=== PATIENT | female | born 1940 | race Caucasian/White ===

== ENCOUNTER 2019-04-22 13:45 | Outpatient (RCR) | payer MEDICARE, OTHER, SELFPAY | END 2019-05-18 00:01 | LOC: MPT 13:45 | DX: Z47.1 Aftercare following joint replacement surgery (principal); Z96.651 Presence of right artificial knee joint | CPT/HCPCS: 97110 ×4; 97116; 97140 ×4; 97161; G0283 ×2 ==

== ENCOUNTER → 2021-03-28 09:56 | Outpatient (BNVA) | payer MEDICARE, OTHER, SELFPAY | PROVIDERS: Visit Provider Surgery | DX: Z20.822 Contact with and (suspected) exposure to COVID-19 (principal); K64.9 Unspecified hemorrhoids | CPT/HCPCS: 87635 ==

== ENCOUNTER 2021-04-02 05:45 | Day surgery (SDC) | payer MEDICARE, OTHER, SELFPAY ==
[2021-03-30 16:48] VITALS: BMI 30.4
[2021-04-02] VITALS (9 sets, daily range): BP systolic 105–220; BP diastolic 60–92; PULSE 64–88; RESP 10–20; TEMP 36.2–36.4; O2SAT 92–98
[2021-04-02 06:25] LABS: Glucose Point of Care 130 mg/dL (70-110)
[2021-04-02] MEDS: sodium chloride 0.9% 1,000 ML 30 ML IV (06:25)
[2021-04-02] MEDS: acetaminophen 1,000 MG/100 ML PIGGYBACK 400 MG IV (06:26)
--- NOTE | 2021-04-02 06:52 | ANES.PREANE2 ---
Pre-Anesthetic Assessment Pre-Anesthetic Assessment: Height/Weight: Height 1.68 m Weight 85.729 kg Temp Pulse Resp BP Pulse Ox 97.1 F L 88 20 H 220/92 98 04/02/21 06:38 04/02/21 06:38 04/02/21 06:38 04/02/21 06:38 04/02/21 06:38 Preop Diagnosis: Bleeding hemorrhoids Proposed Procedure: Operation Date: 04/02/21 07:00 Proposed Procedures p Exam Under Anesthesia 83266 45895 K64.9(Not Applicable) - Iban Eduardo MD s Poss Hemorroidectomy(Not Applicable) - Iban Eduardo MD Was Beta Akilah taken within 24 hours: N/A Was Clonidine taken within 24 hours: N/A Last intake: Intake Last Liquid Date 04/02/21 Last Liquid Time 18:00 Last Solid Date 04/02/21 Last Solid Time 17:30 Social: Social History: No alcohol and No tobacco Exam: Pre-Anes Outpt Exam: alert, oriented x 3, clear to auscultation bilaterally and regular rate & rhythm Airway: Submandibular: WNL Cervical ROM: WNL MP: 2 Dentition: False CV/HEM: CV/HEM: HTN Metabolic: Metabolic: DM, Hyperlipidemia and Thyroid Anesthetic Plan: ASA status: 3 Anesthesia: General Risk of > 500 ml blood loss (7ml/kg in children): No Meds/Allergies Current Medications: Current Medications Generic Name Dose Route Start Last Admin Trade Name Freq PRN Reason Stop Dose Admin Sodium Chloride 1,000 mls @ 30 ml s/hr 04/02/21 06:00 04/02/21 06:25 Sodium Chloride 0.9% IV 04/03/21 05:59 30 mls/hr .Q24H JOSÉ MIGUEL Administration PFSH Anesthesia PFSH: Family History Mother Cancer Other Diabetes Social History Smoking and tobacco status: never smoked Alcohol intake: never History of recent travel: No Data Anesthesia Other Labs: Laboratory Results - last 48 hr 04/02/21 06:23 POC Glucose 130 H Cardiac Studies: No Data to Display
--- NOTE | 2021-04-02 06:58 | W.PM.OPSUD ---
Surgery/Procedure H&P Update DATE OF PROCEDURE: April 02, 2021 DATE H&P PERFORMED: 03/22/21 H&P UPDATE INFORMATION: I have reviewed H&P completed within last 30 days, I have examined patient prior to procedure and No changes to prior documentation PREOP DIAGNOSIS: Bleeding hemorrhoids PRIMARY INDICATION FOR PROCEDURE: The same PLANNED PROCEDURE: Operation Date: 04/02/21 07:00 Proposed Procedures p Exam Under Anesthesia 20561 [id number] K64.9(Not Applicable) - Iban Eduardo MD s Poss Hemorroidectomy(Not Applicable) - Iban Eduardo MD
[2021-04-02] MEDS: metroNIDAZOLE IV 500 MG/100 ML PREMIX 100 MG IV (07:00)
[2021-04-02] MEDS: ciprofloxacin 400 MG/200 ML PREMIX 200 MG IV (07:10)
[2021-04-02 07:16] LABS: Blood Urea Nitrogen 11 mg/dL (8-23); Calcium 8.8 mg/dL (8.5-10.5); Carbon Dioxide 28 mmol/L (22-29); Chloride 103 mmol/L (98-107); Glucose 146 mg/dL (65-115); Osmolality Calculated 292 mOsm/kg (285-295); Sodium 140 mmol/L (136-145)
--- NOTE | 2021-04-02 07:51 | PM.OP ---
Operative Report Date of procedure: April 02, 2021 Pre-op Diagnosis: Bleeding hemorrhoids Post-op Findings: Right lower lateral and left lateral internal hemorrhoids Procedure Done: 1-Examination under anesthesia 2-Hemorrhoidectomy Implants: Packing using Surgicel and Xeroform Specimens removed/disposition: Right lower lateral hemorrhoid Left lateral hemorrhoid Surgeon: Iban Eduardo Resolution Agent: general maintenance technician Amy LG Circulating nurse Temitope Anesthesia: General (molded goods inspector trimmer Aj) Estimated blood loss (mL): 5 Condition: stable Disposition: same day Procedure: Patient was identified in the holding area and was taken back to the operating room, which was first placed in supine position got intubated by anesthesia, prophylactic IV antibiotics were given per protocol,Time-out was done verifying the patient's name/date of /planned procedure and destination after the procedure, all were in agreement. Prep and drape was done thereafter under the usual sterile technique Exparel 10 mL each side , guided by the examining finger towards the ischial spine bilaterally, followed by that digital rectal examination showed no masses were appreciated or bleeding. Anoscope was then introduced I was able to identify the internal/external right lower lateral and a left lateral Hemorrhoids, I placed a wet 4 x 4 inside the anal canal to prevent stools from encroaching on the wound site, that was taken out at the end of the procedure. I did apply a hemostat at the origin of the hemorrhoidal tissue, onto the right lower lateral hemorrhoid,using harmonic scalpel device for dissection safeguarding the external anal sphincter after that I was able to deliver the specimens to the circulating nurse hemostasis was achieved , and running 2-0 chromic catgut suture was applied to approximate the edges of the hemorrhoidectomy sites, that was done after thorough irrigation of the wound with warm normal saline . The same technique was done using the harmonic scalpel and excision of the left lateral hemorrhoid was achieved. Followed by 2-0 chromic catgut to approximate the edges. Specimens were then passed to the circulating nurse. At that point after removal of the 4 x 4'sx1. lidocaine 2% jelly at the site of the wound and a piece of Surgicel both were rolled up as a Cigar like and and 2-0 silk stitch was applied at the end that faces the exit of the anus as it will be easier to pull out later on, followed by 4 x 4 application and ABD .,a surgical pants was then placed to hold the dressing in place. Count was completed at the end of the procedure, patient was then extubated and was taken to the recovery room in stable condition I was present for the whole entire procedure
--- NOTE | 2021-04-02 08:10 | P.PCN_ITS ---
PACU note PACU note: VSS, Good respiratory effort, report to DORMITORY SUPERVISOR Post-Anesthesia Exam: awake
--- NOTE | 2021-04-02 08:10 | PM.PACU ---
PACU note PACU note: VSS, Good respiratory effort, report to HVAC MAINTENANCE TECHNICIAN Post-Anesthesia Exam: awake
--- NOTE | 2021-04-02 09:42 | PC.NURSE ---
blood pressures have been taken manually in post op care.
--- NOTE | 2021-04-02 17:02 | ANE.PACU2 ---
Inpatient post-anesthesia follow up: Airway intact: Yes Vital signs: Temperature 97.6 F Pulse Rate 64 Respiratory Rate 18 Blood Pressure 120/60 Pulse Oximetry 93 Oxygen Delivery Me thod Room Air Oxygen Flow Rate 2 Fraction of Inspir ed Oxygen Hydration adequate: Yes Nausea and vomiting: No Pain level: 2 Mental status: Baseline
== END 2021-04-02 09:59 | disposition home or self-care (01) ==
PROVIDERS: Anesthesiology; Visit Provider Surgery
PROC: (CPT 46260; principal; 2021-04-02 07:00)
PROC: (CPT 46260; 2021-04-02 07:00)
DX: K64.8 Other hemorrhoids (principal); E11.9 Type 2 diabetes mellitus without complications; E78.5 Hyperlipidemia, unspecified; I10 Essential (primary) hypertension; Z79.4 Long term (current) use of insulin
CPT/HCPCS: 46260; 36415; 36416; 80048; 82962; 88304; 96365; C9290; J0330; J0744; J1100; J2405; J2704; J3010; J3490; J7030; S0030

== ENCOUNTER → 2022-03-13 12:55 | Outpatient (BNVA) | payer MEDICARE, OTHER, SELFPAY | PROVIDERS: Visit Provider Anesthesiology Pain Medicine | DX: M47.816 Spondylosis without myelopathy or radiculopathy, lumbar region (principal); M51.16 Intervertebral disc disorders with radiculopathy, lumbar region; M79.604 Pain in right leg | CPT/HCPCS: 99204 ==

== ENCOUNTER → 2022-04-16 12:13 | Outpatient (BNVA) | payer MEDICARE, OTHER, SELFPAY | PROVIDERS: Visit Provider Anesthesiology Pain Medicine | DX: M54.16 Radiculopathy, lumbar region (principal); E11.9 Type 2 diabetes mellitus without complications; Z79.84 Long term (current) use of oral hypoglycemic drugs | CPT/HCPCS: 36416; 64483; 64484; 82962; J1100; J3490 ==

== ENCOUNTER → 2022-05-01 09:46 | Outpatient (BNVA) | payer MEDICARE, OTHER, SELFPAY | PROVIDERS: Visit Provider Anesthesiology Pain Medicine | DX: M47.816 Spondylosis without myelopathy or radiculopathy, lumbar region (principal); M51.16 Intervertebral disc disorders with radiculopathy, lumbar region; M79.604 Pain in right leg | CPT/HCPCS: 99213 ==

== ENCOUNTER 2022-08-30 12:23 | Outpatient (CLI) | payer MEDICARE, OTHER, SELFPAY ==
--- NOTE | 2022-08-30 | MR_ITS ---
MRI BRAIN WITH AND WITHOUT CONTRAST HISTORY: MEMORY LOSS COMPARISON: None available. Results called to Rachelle at Dr. Davis office 08/30/22 @ 150 MRI BRAIN WITH AND WITHOUT CONTRAST HISTORY: MEMORY LOSS COMPARISON: None available. TECHNIQUE: Multiplanar imaging performed through the brain with MultiHance 16 ml's IV. Very tiny acute diffusion-weighted abnormalities along the LEFT watershed distribution. There are very tiny infarcts noted along the anterior and middle cerebral artery distributions. There is no mass effect. No hemorrhage. Otherwise there is severe bilateral small vessel ischemic disease. Confluent and patchy white matter signal changes. There are numerous bilateral small lacunar infarcts in the periventricular and centrum semiovale ovale distribution. Small lacunar infarcts in the RIGHT thalamus. Ventricles and extra-axial spaces are prominent on the basis of atrophy. Clivus and pituitary gland are normal. Mild cerebellar atrophy. Additional bilateral ischemic changes in the aaron. Postcontrast images are negative for masses or vascular malformations. Dural venous sinuses are normal. Paranasal sinuses: Well aerated with no significant disease. Mastoid air cells: Normal. Calvarium and scalp: Normal. IMPRESSION: 1. Several tiny acute lacunar infarcts along the watershed distribution (LEFT MADISON and MCA distributions). No hemorrhage. 2. 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 3. Additional bilateral small vessel ischemic disease in the aaron. 4. Moderate atrophy. Notified Ruddy Davis MD at 08/30/2022 2:21 PM. [facility]
[2022-08-30] MEDS: gadobenate dimeglumine 20 mL vial IV (13:59)
== END 2022-08-30 12:24 | disposition home or self-care (01) ==
LOC: RAD 12:29
PROVIDERS: PCP Family Medicine; Visit Provider Family Medicine
DX: R41.3 Other amnesia (principal); I63.81 Other cerebral infarction due to occlusion or stenosis of small artery; R90.82 White matter disease, unspecified
CPT/HCPCS: 70553; A9577

== ENCOUNTER 2022-09-19 09:11 | Outpatient (CLI) | payer MEDICARE, OTHER, SELFPAY ==
--- NOTE | 2022-09-19 09:22 | USCV_ITS ---
Elvi Marquez Age: 82 Gender: F : 1940 Exam Date: 09/19/2022 10:08 Ordering Phys: Ruddy Davis MD Technologist: Toney Anand Exam Location: [facility] [place] Indication: cerebral infarction BP: 130 / 92 HR: 66 Rhythm: Sinus Technical Quality: Adequate MEASUREMENTS (Male / Female) Normal Values 2D ECHO LVOT Diameter 2.0 cm LV Ejection Fraction MOD 2C 59.0 % LV Ejection Fraction 2C AL 61.2 % LA Diameter 3.4 cm LA Width 3.3 cm LA Height 4.6 cm RA Width 3.0 cm RA Height 4.9 cm Aorta at Sinotubular Diameter 2.1 cm IVC Diameter 1.7 cm M-MODE Aortic Annulus Diameter 2.6 cm LA Ao Ratio MM 1.3 MV E Point Septal Separation 0.6 cm DOPPLER AV Peak Velocity 150.3 cm/s LVOT Peak Velocity 95.0 cm/s AV Area Cont Eq vti 2.1 cm squared AV Area Cont Eq pk 2.0 cm squared MV Peak Velocity 163.0 cm/s MV Area PHT 2.6 cm squared Mitral E to A Ratio 0.7 MV E' Velocity 51.5 cm/s Mitral E to MV E' Ratio 16.8 Mitral E to LV E' Lateral Ratio 17.4 Mitral E to LV E' Septal Ratio 16.3 TR Peak Velocity 382.8 cm/s TR Peak Gradient 58.6 mmHg TR Mean Velocity 273.8 cm/s TR Mean Gradient 33.2 mmHg TR Velocity Time Integral 104.0 cm Right Atrial Pressure 3.0 mmHg Pulmonary Artery Systolic Pressu 61.6 mmHg PV Peak Velocity 88.0 cm/s RV Acceleration Time 0.1 s RV Ejection Time 0.3 s RV AcT/ET 0.4 FINDINGS Left Ventricle Left ventricle is normal in size. LV systolic function is normal with EF 55 to 60%. No regional wall motion abnormalities are seen. Grade 1 diastolic dysfunction. Right Ventricle Normal in size and function Right Atrium Normal in size Left Atrium Normal in size Mitral Valve Moderate mitral annular calcification is seen. Trace mitral regurgitation. Aortic Valve Structurally normal aortic valve. No significant stenosis or regurgitation. Tricuspid Valve Mild tricuspid regurgitation. Pulmonic Valve Not well-visualized. Trace pulmonic regurgitation. Pericardium Normal Aorta Normal in size IVC Appears to be normal CONCLUSIONS LV systolic function is normal with EF 55 to 60% Grade 1 diastolic dysfunction Trace mitral regurgitation Mild tricuspid regurgitation Trace pulmonic regurgitation No comparison studies are available Javier Thomson MD (Electronically Signed) Final Date: 03 Oct 2022 14:01 S
--- NOTE | 2022-09-19 09:22 | USCV_ITS ---
Elvi Marquez Age: 82 Gender: F : 1940 Exam Date: 09/19/2022 09:39 Ordering Phys: Ruddy Davis MD Technologist: Toney Anand [place] [facility] [place]: small infarcts Risk Factors: Previous Vascular Surgery: Right Brachial BP: / Left Brachial BP: / Right Left Velocity (cm/s) Spectral Plaque Velocity (cm/s) Spectral Plaque Syst/Diast Broadening Syst/Diast Broadening 63.00/ 4.40 Prox CCA 78.60 / 7.90 55.90/ 8.50 Mid CCA 66.40 / 9.80 45.20/ 7.90 Distal CCA 77.70 / 14.30 67.50/ 13.70 Prox ICA 60.30 / 10.60 81.20/ 16.20 Mid ICA 64.10 / 9.00 54.70/ 12.90 Distal ICA 47.50 / 12.10 104.20 ECA 85.20 1.45 ICA/CCA 0.97 Antegrade Vertebral Antegrade 51.30/ 7.90 cm/s 59.60/ 11.30 cm/s Tri Subclavian Tri 62.00 86.00 CONCLUSIONS Right ICA stenosis <50%. Moderate atheromatous plaque right carotid bulb/ICA. Left ICA stenosis <50%. Moderate atheromatous plaque left carotid bulb/ICA. Normal antegrade Doppler flow noted in the right vertebral artery. Normal antegrade Doppler flow noted in the left vertebral artery. Rodrigo Dao MD (Electronically Signed) Final Date: 19 Sep 2022 16:40 S
== END 2022-09-19 09:12 | disposition home or self-care (01) ==
LOC: RAD 09:16
PROVIDERS: PCP Family Medicine; Visit Provider Family Medicine
DX: I63.81 Other cerebral infarction due to occlusion or stenosis of small artery (principal)
CPT/HCPCS: 93306; 93880

== ENCOUNTER → 2022-09-24 13:22 | Outpatient (BNVA) | payer MEDICARE, OTHER, SELFPAY | PROVIDERS: PCP Family Medicine; Referring Provider Family Medicine; Visit Provider Specialist | DX: G30.9 Alzheimer's disease, unspecified (principal); F02.80 Dementia in other diseases classified elsewhere, unspecified severity, without behavioral disturbance, psychotic disturbance, mood disturbance, and anxiety; F01.50 Vascular dementia, unspecified severity, without behavioral disturbance, psychotic disturbance, mood disturbance, and anxiety | CPT/HCPCS: 36415; 82607; 82746; 83921; 85651; 86038; 86140; 99205 ==

== ENCOUNTER → 2022-09-30 10:10 | Outpatient (BNVA) | payer MEDICARE, OTHER, SELFPAY | PROVIDERS: PCP Family Medicine; Visit Provider Specialist | DX: R56.9 Unspecified convulsions (principal); G30.9 Alzheimer's disease, unspecified; F02.80 Dementia in other diseases classified elsewhere, unspecified severity, without behavioral disturbance, psychotic disturbance, mood disturbance, and anxiety | CPT/HCPCS: 95812; 95816 ==

== ENCOUNTER → 2022-11-15 09:59 | Outpatient (BNVA) | payer MEDICARE, OTHER, SELFPAY | PROVIDERS: PCP Family Medicine; Visit Provider Internal Medicine | DX: E11.65 Type 2 diabetes mellitus with hyperglycemia; E03.9 Hypothyroidism, unspecified; Z79.890 Hormone replacement therapy; Z79.4 Long term (current) use of insulin | CPT/HCPCS: 36415; 80053; 80061; 83036; 84439; 84443; 99204 ==

== ENCOUNTER → 2022-11-26 09:46 | Outpatient (BNVA) | payer MEDICARE, OTHER, SELFPAY | PROVIDERS: PCP Family Medicine; Visit Provider Specialist | DX: G30.9 Alzheimer's disease, unspecified (principal); F02.80 Dementia in other diseases classified elsewhere, unspecified severity, without behavioral disturbance, psychotic disturbance, mood disturbance, and anxiety; F01.50 Vascular dementia, unspecified severity, without behavioral disturbance, psychotic disturbance, mood disturbance, and anxiety | CPT/HCPCS: 99213 ==

== ENCOUNTER → 2023-01-01 09:38 | Outpatient (BNVA) | payer MEDICARE, OTHER, SELFPAY | PROVIDERS: PCP Family Medicine; Visit Provider Specialist | DX: G30.9 Alzheimer's disease, unspecified; F02.80 Dementia in other diseases classified elsewhere, unspecified severity, without behavioral disturbance, psychotic disturbance, mood disturbance, and anxiety; R56.9 Unspecified convulsions | CPT/HCPCS: 99214 ==

== ENCOUNTER → 2023-02-20 12:50 | Outpatient (BNVA) | payer MEDICARE, OTHER, SELFPAY | PROVIDERS: PCP Family Medicine; Visit Provider Internal Medicine | DX: E11.9 Type 2 diabetes mellitus without complications (principal); Z79.899 Other long term (current) drug therapy; E03.9 Hypothyroidism, unspecified; Z79.890 Hormone replacement therapy; Z79.4 Long term (current) use of insulin; Z79.84 Long term (current) use of oral hypoglycemic drugs | CPT/HCPCS: 36415; 80053; 80061; 82044; 83036; 84439; 84443; 99214 ==

== ENCOUNTER → 2023-06-24 08:33 | Outpatient (BNVA) | payer MEDICARE, OTHER, SELFPAY | PROVIDERS: PCP Family Medicine; Visit Provider Internal Medicine | DX: E03.9 Hypothyroidism, unspecified; E11.65 Type 2 diabetes mellitus with hyperglycemia; Z79.4 Long term (current) use of insulin; Z79.890 Hormone replacement therapy; Z79.84 Long term (current) use of oral hypoglycemic drugs | CPT/HCPCS: 99214 ==

== ENCOUNTER → 2023-06-25 13:44 | Outpatient (BNVA) | payer MEDICARE, OTHER, SELFPAY | PROVIDERS: PCP Family Medicine; Visit Provider Specialist | DX: R29.90 Unspecified symptoms and signs involving the nervous system (principal); G30.9 Alzheimer's disease, unspecified; F02.80 Dementia in other diseases classified elsewhere, unspecified severity, without behavioral disturbance, psychotic disturbance, mood disturbance, and anxiety; F01.50 Vascular dementia, unspecified severity, without behavioral disturbance, psychotic disturbance, mood disturbance, and anxiety; F32.A Depression, unspecified | CPT/HCPCS: 99214 ==

== ENCOUNTER → 2023-09-24 10:40 | Outpatient (BNVA) | payer MEDICARE, OTHER, SELFPAY | PROVIDERS: PCP Family Medicine; Visit Provider Internal Medicine | DX: E11.9 Type 2 diabetes mellitus without complications (principal); E03.9 Hypothyroidism, unspecified; Z79.4 Long term (current) use of insulin; Z79.890 Hormone replacement therapy | CPT/HCPCS: 36415; 80053; 80061; 82044; 83036; 84439; 84443; 99214 ==

== ENCOUNTER → 2024-04-08 11:34 | Outpatient (BNVA) | payer MEDICARE, OTHER, SELFPAY | PROVIDERS: PCP Nurse Practitioner; Visit Provider Nurse Practitioner | DX: E11.9 Type 2 diabetes mellitus without complications (principal); E03.9 Hypothyroidism, unspecified | CPT/HCPCS: 80053; 80061; 82043; 83036; 84439; 84443 ==

== ENCOUNTER → 2024-04-13 09:45 | Outpatient (BNVA) | payer MEDICARE, OTHER, SELFPAY | PROVIDERS: PCP Nurse Practitioner; Visit Provider Internal Medicine | DX: E11.9 Type 2 diabetes mellitus without complications (principal); E03.9 Hypothyroidism, unspecified; E78.2 Mixed hyperlipidemia; Z79.4 Long term (current) use of insulin; Z79.890 Hormone replacement therapy | CPT/HCPCS: 99214 ==

== ENCOUNTER → 2024-06-18 14:19 | Outpatient (BNVA) | payer MEDICARE, OTHER, SELFPAY | PROVIDERS: PCP Nurse Practitioner; Visit Provider Nurse Practitioner | DX: R05.9 Cough, unspecified (principal) | CPT/HCPCS: 87400; 87426 ==

== ENCOUNTER → 2024-07-14 09:41 | Outpatient (BNVA) | payer MEDICARE, OTHER, SELFPAY | PROVIDERS: PCP Nurse Practitioner; Visit Provider Internal Medicine | DX: E11.9 Type 2 diabetes mellitus without complications (principal); E03.9 Hypothyroidism, unspecified; E78.2 Mixed hyperlipidemia | CPT/HCPCS: 36415; 80053; 80061; 82044; 83036; 84439; 84443; 99214 ==

== ENCOUNTER → 2024-07-15 10:53 | Outpatient (BNVA) | payer MEDICARE, OTHER, SELFPAY | PROVIDERS: PCP Nurse Practitioner; Visit Provider Specialist | DX: R41.3 Other amnesia (principal); I63.511 Cerebral infarction due to unspecified occlusion or stenosis of right middle cerebral artery; F01.C3 Vascular dementia, severe, with mood disturbance; G30.9 Alzheimer's disease, unspecified; F02.80 Dementia in other diseases classified elsewhere, unspecified severity, without behavioral disturbance, psychotic disturbance, mood disturbance, and anxiety; R29.90 Unspecified symptoms and signs involving the nervous system; F32.89 Other specified depressive episodes | CPT/HCPCS: 99214 ==

== ENCOUNTER → 2024-10-13 10:36 | Outpatient (BNVA) | payer MEDICARE, OTHER, SELFPAY | PROVIDERS: PCP Nurse Practitioner; Visit Provider Internal Medicine | DX: E11.9 Type 2 diabetes mellitus without complications (principal); E78.2 Mixed hyperlipidemia; E03.9 Hypothyroidism, unspecified | CPT/HCPCS: 36415; 80053; 80061; 82044; 83036; 84439; 84443; 99214 ==

== ENCOUNTER → 2025-01-12 09:35 | Outpatient (BNVA) | payer MEDICARE, OTHER, SELFPAY | PROVIDERS: PCP Nurse Practitioner; Visit Provider Internal Medicine | DX: E11.9 Type 2 diabetes mellitus without complications (principal); E03.9 Hypothyroidism, unspecified; E78.2 Mixed hyperlipidemia | CPT/HCPCS: 36415; 80053; 80061; 82044; 83036; 84439; 84443; 99214 ==

== ENCOUNTER 2025-01-14 20:58 | Inpatient (IN) | payer MEDICARE, OTHER, SELFPAY ==
[2025-01-14 21:09] VITALS: BP 205/80; PULSE 58; RESP 18; TEMP 36.7; O2SAT 92; BMI 27.7
--- NOTE | 2025-01-14 21:16 | XRR_ITS ---
PROCEDURE INFORMATION: Exam: XR Right Hip Exam date and time: 01/14/2025 9:18 PM Age: 84 years old Clinical indication: Injury or trauma; Blunt trauma (contusions or hematomas); Right; EMS arrival for fall from standing. C/O RT hip pain. Shortening and external rotation of rle. TECHNIQUE: Imaging protocol: Radiologic exam of the right hip. Views: 1 view hip with pelvis when performed. COMPARISON: No relevant prior studies available. FINDINGS: Bones/joints: Degenerative changes of the hip. Intratrochanteric fracture with minimal distraction and apex lateral angulation. Atheromatous vascular calcifications of vessels. Soft tissues: Unremarkable. XR/XR hip RT 2-3V wo/w pel* [id number] IMPRESSION: Intratrochanteric fracture with minimal distraction and apex lateral angulation.
--- OUTSIDE RECORDS SUMMARY | 2025-01-14 21:16 | XMS_ITS | Encounter Summary ---
Author Organization [facility] Address [address] [place] [address] Care Team Providers Care Pie Bottomer Name Role Phone Brayan Fournier MD Primary Care Provider Encounter Details Date Type Department Care Team (Latest Contact Info) Description 06/13/2004 Outpatient Historical [facility] [address] [phone] Ruddy Davis MD [address] [place] [address] CYSTOCELE, MIDLINE (Primary Dx) Social History Tobacco Use Types Packs/Day Years Used Date Smoking Tobacco: Never Assessed Comments Unknown Sex and Gender Information Value Date Recorded Sex Assigned at Not on file Legal Sex Female 5:03 AM EXHAUST 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
--- OUTSIDE RECORDS SUMMARY | 2025-01-14 21:16 | XMS_ITS | Encounter Summary ---
Author Organization [facility] Address [address] [place] [address] Care Team Providers Care Lumber Checker Name Role Phone Brayan Fournier MD Primary Care Provider [phone] Encounter Details Date Type Department Care Team (Latest Contact Info) Description 08/13/2004 Outpatient [facility] [address] [place] [address] Emery Middleton MD [address] [facility] [address] [place] [address] SURGERY FOLLOWUP, UNSPEC (Primary Dx) Social History Tobacco Use Types Packs/Day Years Used Date Smoking Tobacco: Never Assessed Comments Unknown Sex and Gender Information Value Date Recorded Sex Assigned at Not on file Legal Sex Female 5:03 AM COAL TOWER OPERATOR Gender Identity Not on file Sexual Orientation Not on file documented as of this encounter Plan of Treatment Not on file documented as of this encounter Visit Diagnoses Diagnosis Follow-up examination, following unspecified surgery- Primary documented in this encounter Care Teams Lumber Checker Relationship Specialty Start Date End Date Brayan Fournier MD [address] [place] [address] PCP - General Family Practice 06/29/18 documented as of this encounter
--- OUTSIDE RECORDS SUMMARY | 2025-01-14 21:16 | XMS_ITS | Encounter Summary ---
Author Organization [facility] Address [address] [place] [address] Care Team Providers Care Photographic Spotter Name Role Phone Brayan Fournier MD Primary Care Provider [phone] Encounter Details Date Type Department Care Team (Latest Contact Info) Description 07/04/2004 Outpatient Historical [facility] [address] [place] [address] Emery Middleton MD [address] [facility] [address] [place] [address] UTERVAGINAL PROLAPSE NOS (Primary Dx) Social History Tobacco Use Types Packs/Day Years Used Date Smoking Tobacco: Never Assessed Comments Unknown Sex and Gender Information Value Date Recorded Sex Assigned at Not on file Legal Sex Female 5:03 AM ICHTHYOLOGIST Gender Identity Not on file Sexual Orientation Not on file documented as of this encounter Plan of Treatment Not on file documented as of this encounter Visit Diagnoses Diagnosis Uterovaginal prolapse, unspecified- Primary documented in this encounter Care Teams Photographic Spotter Relationship Specialty Start Date End Date Brayan Fournier MD [address] [place] [address] PCP - General Family Practice 06/29/18 documented as of this encounter
--- OUTSIDE RECORDS SUMMARY | 2025-01-14 21:16 | XMS_ITS | Encounter Summary ---
Author Organization [facility] Address [address] [place] [address] Care Team Providers Care Member Services Representative Name Role Phone Brayan Fournier MD Primary Care Provider [phone] Encounter Details Date Type Department Care Team (Latest Contact Info) Description 10/11/2003 Outpatient [facility] [place] [phone] Emery Middleton MD [address] [facility] [address] [place] [address] Routine medical exam (Primary Dx); Gynecologic examination Social History Tobacco Use Types Packs/Day Years Used Date Smoking Tobacco: Never Assessed Comments Unknown Sex and Gender Information Value Date Recorded Sex Assigned at Not on file Legal Sex Female 5:03 AM HOROLOGIST Gender Identity Not on file Sexual Orientation Not on file documented as of this encounter Plan of Treatment Not on file documented as of this encounter Visit Diagnoses Diagnosis Routine medical exam- Primary Routine general medical examination at a health care facility Gynecologic examination Gynecological examination documented in this encounter Care Teams Member Services Representative Relationship Specialty Start Date End Date Brayan Fournier MD [address] [place] [phone] PCP - General Family Practice 06/29/18 documented as of this encounter
--- OUTSIDE RECORDS SUMMARY | 2025-01-14 21:16 | XMS_ITS | Encounter Summary ---
Author Organization [facility] Address [address] [place] [address] Care Team Providers Care Purchasing Engineer Name Role Phone Brayan Fournier MD Primary Care Provider [phone] Encounter Details Date Type Department Care Team (Latest Contact Info) Description 2004 Outpatient [facility] [address] [place] [phone] Emery Middleton MD [address] [facility] [address] [place] [address] UTERVAGINAL PROLAPSE NOS (Primary Dx); FEMALE STRESS INCONTINENCE Social History Tobacco Use Types Packs/Day Years Used Date Smoking Tobacco: Never Assessed Comments Unknown Sex and Gender Information Value Date Recorded Sex Assigned at Not on file Legal Sex Female 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
--- OUTSIDE RECORDS SUMMARY | 2025-01-14 21:16 | XMS_ITS | Encounter Summary ---
Author Organization [facility] Address [address] [place] [address] Care Team Providers Care Invoice Clerk Name Role Phone Brayan Fournier MD Primary Care Provider Encounter Details Date Type Department Care Team (Latest Contact Info) Description 10/11/2003 Outpatient [facility] [address] [place] [address] Liss Herrera MD NO ADDRESS ON FILE SCREENING MAMM-MAILG NEOPL-OTHER (Primary Dx) Social History Tobacco Use Types Packs/Day Years Used Date Smoking Tobacco: Never Assessed Comments Unknown Sex and Gender Information Value Date Recorded Sex Assigned at Not on file Legal Sex Female 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
--- OUTSIDE RECORDS SUMMARY | 2025-01-14 21:16 | XMS_ITS | Encounter Summary ---
Author Organization [facility] Address [address] [place] [address] Care Team Providers Care Sole Stainer Name Role Phone Brayan Fournier MD Primary Care Provider [phone] Encounter Details Date Type Department Care Team (Late st Contact Info) Description 2004 Inpatient Historical [facility] Emery Middleton MD [address] [facility] [address] [place] [phone] POSTOP VAGINAL PROLAPSE (Primary Dx) Social History Tobacco Use Types Packs/Day Years Used Date Smoking Tobacco: Never Assessed Comments Unknown Sex and Gender Information Value Date Recorded Sex Assigned at Not on file Legal Sex Female 5:03 AM FRANCHISE MANAGER Gender Identity Not on file Sexual Orientation Not on file documented as of this encounter Plan of Treatment Not on file documented as of this encounter Procedures Procedure Name Priority Date/Time Associated Diagnosis Comments CBC WITHOUT DIFFERENTIAL Routine 07/11/2004 4:47 AM FRANCHISE MANAGER POC GLUCOSE Routine 07/11/2004 3:15 AM FRANCHISE MANAGER POC GLUCOSE Routine 2004 10:16 PM FRANCHISE MANAGER POC GLUCOSE Routine 2004 10:34 AM FRANCHISE MANAGER documented in this encounter Results * (ABNORMAL) CBC WITHOUT DIFFERENTIAL (07/11/2004 4:47 AM FRANCHISE MANAGER) WBC 7.3 4.8 - 10.8 K/ul INTERFACE SYSTEM RBC 4.33 4.20 - 5.40 Mil/ul INTERFACE SYSTEM HEMOGLOBIN 12.2 12.0 - 16.0 g/dL INTERFACE SYSTEM HEMATOCRIT 38.1 36.0 - 46.0 % INTERFACE SYSTEM MCV 88.0 84.0 - 103.0 Fl INTERFACE SYSTEM MCH 28.2 27.0 - 34.0 pg INTERFACE SYSTEM MCHC 32.0 30.0 - 35.0 g/dL INTERFACE SYSTEM RDW 13.4 11.0 - 14.5 percent(in active) INTERFACE SYSTEM PLATELETS 200 140 - 440 K/ul INTERFACE SYSTEM MPV 10.1 8.9 - 12.8 Fl INTERFACE SYSTEM NEUTROPHILS 72.9 42.2 - 75.2 percent(in active) INTERFACE SYSTEM LYMPHOCYTES 20.0(L) 24.0 - 44.0 percent(in active) INTERFACE SYSTEM MONOCYTES 6.9 2.0 - 10.0 percent(in active) INTERFACE SYSTEM EOSINOPHILS 0.1 0.0 - 7.0 % INTERFACE SYSTEM BASOPHILS 0.1 0.0 - 1.0 percent(in active) INTERFACE SYSTEM NEUTROPHIL ABSOLUTE 5.3 2.0 - 8.0 K/uL INTERFACE SYSTEM LYMPHOCYTE ABSOLUTE 1.5 1.2 - 4.0 K/ul INTERFACE SYSTEM MONOCYTE ABSOLUTE 0.5 0.1 - 0.6 K/ul INTERFACE SYSTEM EOSINOPHIL ABSOLUTE 0.0 0.0 - 0.7 K/ul INTERFACE SYSTEM BASOPHILS ABSOLUTE 0.0 0.0 - 0.2 K/ul INTERFACE SYSTEM 07/11/2004 4:47 AM FRANCHISE MANAGER Emery Middleton MD HEMATOLOGY ORDERABLES Final Resu lt INTERFACE SYSTEM Refer to clinic/hospital department * (ABNORMAL) POC GLUCOSE (07/11/2004 3:15 AM FRANCHISE MANAGER) GLUCOSE POC 197(H) 60 - 100 mg/dL INTERFACE SYSTEM 07/11/2004 3:15 AM FRANCHISE MANAGER Emery Middleton MD POINT OF CARE TESTING Final Resu lt INTERFACE SYSTEM Refer to clinic/hospital department * (ABNORMAL) POC GLUCOSE (2004 10:16 PM FRANCHISE MANAGER) GLUCOSE POC 346(H) 60 - 100 mg/dL INTERFACE SYSTEM 2004 10:1 6 PM FRANCHISE MANAGER us Emery Middleton MD POINT OF CARE TESTING Final Resu lt Performing Organization Address City/[facility]/ZIP Co de Phone Number INTERFACE SYSTEM Refer to clinic/hospital department * (ABNORMAL) POC GLUCOSE (2004 10:34 AM FRANCHISE MANAGER) GLUCOSE POC 111(H) 60 - 100 mg/dL INTERFACE SYSTEM COMMENT POC Fasting INTERFAC E SYSTEM 2004 10:3 4 AM FRANCHISE MANAGER Emery Middleton MD POINT OF CARE TESTING Final Resu lt Performing Organization Address City/[facility] de Phone Number INTERFACE SYSTEM Refer to clinic/hospital department documented in this encounter Visit Diagnoses Diagnosis 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
--- OUTSIDE RECORDS SUMMARY | 2025-01-14 21:16 | XMS_ITS | Encounter Summary ---
Author Organization [facility] Address [address] [place] [address] Care Team Providers Care Transmission System Operator Name Role Phone Brayan Fournier MD Primary Care Provider [phone] Encounter Details Date Type Department Care Team (Latest Contact Info) Description 07/04/2004 Outpatient [facility] [address] [place] [address] Emery Middleton MD [address] [facility] [address] [place] [address] PREOP CARDIOVASC EXAM (Primary Dx) Social History Tobacco Use Types Packs/Day Years Used Date Smoking Tobacco: Never Assessed Comments Unknown Sex and Gender Information Value Date Recorded Sex Assigned at Not on file Legal Sex Female 5:03 AM AUDIO VIDEO TECH Gender Identity Not on file Sexual Orientation Not on file documented as of this encounter Plan of Treatment Not on file documented as of this encounter Procedures Procedure Name Priority Date/Time Associated Diagnosis Comments CBC WITH DIFFERENTIAL Routine 07/04/2004 4:23 PM AUDIO VIDEO TECH COMPREHENSIVE METABOLIC PANEL Routine 07/04/2004 4:23 PM AUDIO VIDEO TECH documented in this encounter Results * (ABNORMAL) COMPREHENSIVE METABOLIC PANEL (07/04/2004 4:23 PM AUDIO VIDEO TECH) GLUCOSE 116(H) 70 - 110 mg/dL INTERFACE SYSTEM BUN 12 7 - 17 mg/dL INTERFACE SYSTEM CREATININE 0.9 0.7 - 1.2 mg/dL (inactive) INTERFACE SYSTEM SODIUM 141 136 - 145 mEq/L INTERFACE SYSTEM POTASSIUM 4.1 3.5 - 5.0 mEq/L INTERFACE SYSTEM CO2 27 22 - 32 mmol/l INTERFACE SYSTEM CHLORIDE 106 95 - 110 mEq/L INTERFACE SYSTEM CALCIUM 8.7 8.4 - 10.5 mg/dL INTERFACE SYSTEM ALKALINE PHOSPHATASE 99 38 - 126 IU/L INTERFACE SYSTEM TOTAL PROTEIN 7.4 6.3 - 8.2 g/dL INTERFACE SYSTEM ALBUMIN 4.0 3.5 - 5.0 g/dL INTERFACE SYSTEM AST 32 14 - 36 IU/L INTERFACE SYSTEM ALT 30 9 - 52 IU/L INTERFACE SYSTEM BILIRUBIN TOTAL 0.7 0.2 - 1.4 mg/dL INTERFACE SYSTEM GLOBULIN (CALC) 3.4 2.4 - 3.9 g/dL INTERFACE SYSTEM ANION GAP 12 9 - 20 mEq/L INTERFACE SYSTEM ALBUMIN/GLOBULIN RATIO 1.2 1.0 - 2.3 INTERFACE SYSTEM OSMOLALITY, CALCULATED 291 275 - 295 mOsm/Kg INTERFACE SYSTEM 07/04/2004 4:23 PM AUDIO VIDEO TECH us Emery Middleton MD CHEMISTRY ORDERABLES Final Resul t INTERFACE SYSTEM Refer to clinic/hospital department * (ABNORMAL) CBC WITH DIFFERENTIAL (07/04/2004 4:23 PM AUDIO VIDEO TECH) WBC 4.6(L) 4.8 - 10.8 K/ul INTERFACE SYSTEM RBC 4.73 4.20 - 5.40 Mil/ul INTERFACE SYSTEM HEMOGLOBIN 13.9 12.0 - 16.0 g/dL INTERFACE SYSTEM HEMATOCRIT 43.1 36.0 - 46.0 % INTERFACE SYSTEM MCV 91.1 84.0 - 103.0 Fl INTERFACE SYSTEM MCH 29.4 27.0 - 34.0 pg INTERFACE SYSTEM MCHC 32.3 30.0 - 35.0 g/dL INTERFACE SYSTEM RDW 13.7 11.0 - 14.5 percent(in active) INTERFACE SYSTEM PLATELETS 168 140 - 440 K/ul INTERFACE SYSTEM MPV 10.3 8.9 - 12.8 Fl INTERFACE SYSTEM NEUTROPHILS 64.3 42.2 - 75.2 percent(in active) INTERFACE SYSTEM LYMPHOCYTES 22.6(L) 24.0 - 44.0 percent(in active) INTERFACE SYSTEM MONOCYTES 12.7(H) 2.0 - 10.0 percent(in active) INTERFACE SYSTEM EOSINOPHILS 0.4 0.0 - 7.0 % INTERFACE SYSTEM BASOPHILS 0.0 0.0 - 1.0 percent(in active) INTERFACE SYSTEM NEUTROPHIL ABSOLUTE 3.0 2.0 - 8.0 K/uL INTERFACE SYSTEM LYMPHOCYTE ABSOLUTE 1.1(L) 1.2 - 4.0 K/ul INTERFACE SYSTEM MONOCYTE ABSOLUTE 0.6 0.1 - 0.6 K/ul INTERFACE SYSTEM EOSINOPHIL ABSOLUTE 0.0 0.0 - 0.7 K/ul INTERFACE SYSTEM BASOPHILS ABSOLUTE 0.0 0.0 - 0.2 K/ul INTERFACE SYSTEM 07/04/2004 4:23 PM AUDIO VIDEO TECH us Emery Middleton MD HEMATOLOGY ORDERABLES Final Resu lt INTERFACE SYSTEM Refer to clinic/hospital department documented in this encounter Visit Diagnoses Diagnosis Pre-operative cardiovascular examination- Primary documented in this encounter Care Teams Transmission System Operator Relationship Specialty Start Date End Date Brayan Fournier MD [address] [address] PCP - General Family Practice 06/29/18 documented as of this encounter
--- OUTSIDE RECORDS SUMMARY | 2025-01-14 21:16 | XMS_ITS | Encounter Summary ---
Author Organization [facility] Address [address] [place] [address] Care Team Providers Care System Consultant Name Role Phone Brayan Fournier MD Primary Care Provider [phone] Encounter Details Date Type Department Care Team (Latest Contact Info) Description 10/27/2006 Outpatient Historical [facility] [address] [place] [phone] Ruddy Davis MD [address] [place] [phone] Unspecified, Hemorrhage of Gastrointestinal Tract (Primary Dx); Unspecified Essential Hypertension Social History Tobacco Use Types Packs/Day Years Used Date Smoking Tobacco: Never Assessed Comments Unknown Sex and Gender Information Value Date Recorded Sex Assigned at Not on file Legal Sex Female 5:03 AM CERTIFIED MEETING PROFESSIONAL Gender Identity Not on file Sexual Orientation Not on file documented as of this encounter Plan of Treatment Not on file documented as of this encounter Visit Diagnoses Diagnosis Hemorrhage of gastrointestinal tract, unspecified- Primary Unspecified essential hypertension documented in this encounter Care Teams System Consultant Relationship Specialty Start Date End Date Brayan Fournier MD [address] [place] [phone] PCP - General Family Practice 06/29/18 documented as of this encounter
--- OUTSIDE RECORDS SUMMARY | 2025-01-14 21:16 | XMS_ITS | Encounter Summary ---
Author Organization [facility] Address [address] [place] [address] Care Team Providers Care Medical Record Assistant Name Role Phone Brayan Fournier MD Primary Care Provider [phone] Reason for Referral * Outpatient Services (Routine) - Closed Specialty Diagnoses / Procedures Referred By Contac t Referred To Contact Diagnoses Visit for screening mammogram Procedures MAMMO SCRN BILAT MOBILE W OR WO CAD Ap Locke MD Phone: tel: fax: Referral ID Status Reason Start Date Expiration Date Visits Re quested Visits Authorized [id number] Closed 06/18/2017 07/19/2018 1 1 S TRAINING MANAGER Encounter Details Date Type Department Care Team (Latest Contact Info) Description 06/18/2017 Ancillary Orders [facility] [address] [place] [facility] [address] [place] [address] Ap Locke MD [address] [facility] [address] [place] [phone] Visit for screening mammogram Social History Tobacco Use Types Packs/Day Years Used Date Smoking Tobacco: Never Smokeless Tobacco: Never Alcohol Use Standard Drinks/Week Comments No 0 (1 standard drink = 0.6 oz pur e alcohol) Comments No Sex and Gender Information Value Date Recorded Sex Assigned at Not on file Legal Sex Female 5:03 AM SALES TRAINING MANAGER Gender Identity Not on file Sexual Orientation Not on file Occupation Industry Job Start Date Job End Date Not on file Not on file Not on file Not on file documented as of this encounter Plan of Treatment Not on file documented as of this encounter Results * MAMMO SCRN BILAT MOBILE W OR WO CAD (07/02/2017 1:58 PM SALES TRAINING MANAGER) Anatomical Region Laterality Modality Breast Bilateral Mammography Narrative 07/03/2017 8:12 AM SALES TRAINING MANAGER Bilateral Mammogram Reason for Exam: Screening Comparison: Compared to: 07/03/2015 MAMMO DIGITAL SCREEN BILAT MOBILE Findings: Bilateral CC and MLO views were obtained. This examination was reviewed with the aid of a computer-aided detection system(CAD). Breast Composition: The breasts are almost entirely fatty. There are no suspicious masses, areas of architectural distortions, or microcalcifications to suggest malignancy. Asymmetry appears stable. No significant new findings since the prior mammogram(s). us Ap Locke MD MAMMO ORDERABLES Final Result documented in this encounter Visit Diagnoses Diagnosis Visit for screening mammogram Other screening mammogram Visit for screening mammogram Other screening mammogram documented in this encounter Care Teams Medical Record Assistant Relationship Specialty Start Date End Date Brayan Fournier MD [address] [place] [address] PCP - General Family Practice 06/29/18 documented as of this encounter
--- OUTSIDE RECORDS SUMMARY | 2025-01-14 21:16 | XMS_ITS | Encounter Summary ---
Author Organization [facility] Address [address] [place] [address] Care Team Providers Care Underwriter Name Role Phone Brayan Fournier MD Primary Care Provider [phone] Encounter Details Date Type Department Care Team (Late st Contact Info) Description 10/11/2003 Outpatient Historical [facility] [place] [address] [place] [address] Emery Middleton MD [address] [facility] [address] [place] [address] Social History Tobacco Use Types Packs/Day Years Used Date Smoking Tobacco: Never Assessed Comments Unknown Sex and Gender Information Value Date Recorded Sex Assigned at Not on file Legal Sex Female 5:03 AM CITIZEN PARTICIPATION SPECIALIST Gender Identity Not on file Sexual Orientation Not on file documented as of this encounter Plan of Treatment Not on file documented as of this encounter Visit Diagnoses Not on filedocumented in this encounter Care Teams Underwriter Relationship Specialty Start Date End Date Brayan Fournier MD [address] [place] [address] PCP - General Family Practice 06/29/18 documented as of this encounter
--- OUTSIDE RECORDS SUMMARY | 2025-01-14 21:16 | XMS_ITS | Encounter Summary ---
Author Organization [facility] Address [address] [place] [address] Care Team Providers Care Video Producer Name Role Phone Brayan Fournier MD Primary Care Provider [phone] Encounter Details Date Type Department Care Team (Latest Contact Info) Description 10/03/2003 Outpatient Historical [facility] [address] [place] [phone] Ruddy Davis MD [address] [place] [phone] DIABETES UNCOMPL ADULT-TYPE II (CMS/HCC) (Primary Dx); ENDOCRINE DISORDER NOS Social History Tobacco Use Types Packs/Day Years Used Date Smoking Tobacco: Never Assessed Comments Unknown Sex and Gender Information Value Date Recorded Sex Assigned at Not on file Legal Sex Female 5:03 AM EMPLOYMENT TRAINER Gender Identity Not on file Sexual Orientation Not on file documented as of this encounter Plan of Treatment Not on file documented as of this encounter Visit Diagnoses Diagnosis Type II or unspecified type diabetes mellitus without mention of complication, not stated as uncontrolled- Primary Unspecified endocrine disorder documented in this encounter Care Teams Video Producer Relationship Specialty Start Date End Date Brayan Fournier MD [address] [place] [address] [phone] PCP - General Family Practice 06/29/18 documented as of this encounter
--- OUTSIDE RECORDS SUMMARY | 2025-01-14 21:16 | XMS_ITS | Encounter Summary ---
Author Organization [facility] Address [address] [place] [address] Care Team Providers Care Senior Clinical Data Manager Name Role Phone Brayan Fournier MD Primary Care Provider [phone] Encounter Details Date Type Department Care Team (Latest Contact Info) Description 11/30/2004 Outpatient Historical [facility] [address] [place] [address] [phone] Ruddy Davis MD [address] [place] [phone] HYPOTHYROIDISM NOS (Primary Dx); DIABETES MELLITUS TYPE II-UNCOMPL (CMS/HCC) Social History Tobacco Use Types Packs/Day Years Used Date Smoking Tobacco: Never Assessed Comments Unknown Sex and Gender Information Value Date Recorded Sex Assigned at Not on file Legal Sex Female 5:03 AM EDUCATIONAL ADMINISTRATOR Gender Identity Not on file Sexual Orientation Not on file documented as of this encounter Plan of Treatment Not on file documented as of this encounter Visit Diagnoses Diagnosis Unspecified hypothyroidism- Primary Type II or unspecified type diabetes mellitus without mention of complication, not stated as uncontrolled documented in this encounter Care Teams Senior Clinical Data Manager Relationship Specialty Start Date End Date Brayan Fournier MD [address] [place] [phone] PCP - General Family Practice 06/29/18 documented as of this encounter
--- OUTSIDE RECORDS SUMMARY | 2025-01-14 21:16 | XMS_ITS | Encounter Summary ---
Author Organization [facility] Address [address] [place] [address] Care Team Providers Care Beer Brewer Name Role Phone Brayan Fournier MD Primary Care Provider [phone] Encounter Details Date Type Department Care Team (Latest Contact Info) Description 03/14/2004 Outpatient Historical [facility] [address] [phone] Ruddy Davis MD [address] [place] [address] Vaccine for influenza (Primary Dx) Social History Tobacco Use Types Packs/Day Years Used Date Smoking Tobacco: Never Assessed Comments Unknown Sex and Gender Information Value Date Recorded Sex Assigned at Not on file Legal Sex Female 5:03 AM FOUNTAIN ATTENDANT Gender Identity Not on file Sexual Orientation Not on file documented as of this encounter Plan of Treatment Not on file documented as of this encounter Visit Diagnoses Diagnosis Vaccine for influenza- Primary Need for prophylactic vaccination and inoculation against influenza documented in this encounter Care Teams Beer Brewer Relationship Specialty Start Date End Date Brayan Fournier MD [address] [place] [phone] PCP - General Family Practice 06/29/18 documented as of this encounter
--- OUTSIDE RECORDS SUMMARY | 2025-01-14 21:16 | XMS_ITS | Encounter Summary ---
Author Organization [facility] Address [address] [place] [address] Care Team Providers Care Mobility Scooter Repairer Name Role Phone Brayan Fournier MD Primary Care Provider [phone] Reason for Referral * Outpatient Services (Routine) - Closed Specialty Diagnoses / Procedures Referred By Contac t Referred To Contact Diagnoses Other screening mammogram Procedures MAMMO DIGITAL SCREEN BILAT Ruddy Davis MD [address] [place] [phone] Phone: tel: fax: [facility] Pre-Registration [place] CALL TO MAKE APPOINTMENT ONLY [address] [place] [address] Phone: tel: fax: Referral ID Status Reason Start Date Expiration Date Visits Re quested Visits Authorized [id number] Closed 08/22/2011 08/21/2012 1 1 Encounter Details Date Type Department Care Team (Latest Contact Info) Description 08/22/2011 Ancillary Orders [facility] [place] CALL TO MAKE APPOINTMENT ONLY [address] [place] [address] Ruddy Davis MD [address] [place] [phone] Other screening mammogram Social History Tobacco Use Types Packs/Day Years Used Date Smoking Tobacco: Never Alcohol Use Standard Drinks/Week Comments No 0 (1 standard drink = 0.6 oz pur e alcohol) Comments No Sex and Gender Information Value Date Recorded Sex Assigned at Not on file Legal Sex Female 5:03 AM HOSPICE/HOME HEALTH AIDE Gender Identity Not on file Sexual Orientation Not on file documented as of this encounter Plan of Treatment Not on file documented as of this encounter Results * MAMMO DIGITAL SCREEN BILAT (09/19/2011 1:37 PM CDT) Anatomical Region Laterality Modality Breast Bilateral Mammography Narrative 09/20/2011 4:09 PM CDT Bilateral Mammogram Reason for Exam: Screening Comparison: Comparison is made with the prior exam(s) dated 10.11.03, 09.07.10 Findings: Bilateral CC and MLO views were obtained. This examination was reviewed with the aid of a computer-aided detection system(CAD). The breast tissue density is average. Asymmetric breast tissue is noted. No significant new findings since the prior mammogram(s). Procedure Note Vicki Saldana MD - 09/20/2011 Bilateral Mammogram Reason for Exam: Screening Comparison: Comparison is made with the prior exam(s) dated 10.11.03,09.07.10 Findings: Bilateral CC and MLO views were obtained. This examination was reviewed with the aid of a computer-aided detectionsystem(CAD). The breast tissue density is average. Asymmetric breast tissue is noted. No significant new findings since the prior mammogram(s). Ruddy Davis MD MAMMO ORDERABLES Final Resul t documented in this encounter Visit Diagnoses Diagnosis Other screening mammogram Other screening mammogram documented in this encounter Care Teams Mobility Scooter Repairer Relationship Specialty Start Date End Date Brayan Fournier MD [address], [place] [address] PCP - General Family Practice 06/29/18 documented as of this encounter
--- OUTSIDE RECORDS SUMMARY | 2025-01-14 21:16 | XMS_ITS | Encounter Summary ---
Author Organization [facility] Address [address] [place] [address] Care Team Providers Care Log Processor Operator Name Role Phone Brayan Fournier MD Primary Care Provider [phone] Encounter Details Date Type Department Care Team (Latest Contact Info) Description 06/18/2004 [facility] [place] [address] [place] [phone] Emery Middleton MD [address] [facility] [address] [place] [address] RECTOCELE (Primary Dx) Social History Tobacco Use Types Packs/Day Years Used Date Smoking Tobacco: Never Assessed Comments Unknown Sex and Gender Information Value Date Recorded Sex Assigned at Not on file Legal Sex Female 5:03 AM REGULATOR INSPECTOR Gender Identity Not on file Sexual Orientation Not on file documented as of this encounter Plan of Treatment Not on file documented as of this encounter Visit Diagnoses Diagnosis Rectocele- Primary documented in this encounter Care Teams Log Processor Operator Relationship Specialty Start Date End Date Brayan Fournier MD [address] [place] [phone] PCP - General Family Practice 06/29/18 documented as of this encounter
--- OUTSIDE RECORDS SUMMARY | 2025-01-14 21:16 | XMS_ITS | Encounter Summary ---
Author Organization [facility] Address [address] [place] [address] Care Team Providers Care Central Supply Tech Name Role Phone Brayan Fournier MD Primary Care Provider [phone] Encounter Details Date Type Department Care Team (Latest Contact Info) Description 10/11/2003 Outpatient [facility] [address] [place] [address] Ruddy Davis MD [address] [place] [phone] SCREENING MAMM-MAILG NEOPL-OTHER (Primary Dx) Social History Tobacco Use Types Packs/Day Years Used Date Smoking Tobacco: Never Assessed Comments Unknown Sex and Gender Information Value Date Recorded Sex Assigned at Not on file Legal Sex Female 5:03 AM CHHA Gender Identity Not on file Sexual Orientation Not on file documented as of this encounter Plan of Treatment Not on file documented as of this encounter Visit Diagnoses Diagnosis Other screening mammogram- Primary documented in this encounter Care Teams Central Supply Tech Relationship Specialty Start Date End Date Brayan Fournier MD [address] [place] [phone] PCP - General Family Practice 06/29/18 documented as of this encounter
--- OUTSIDE RECORDS SUMMARY | 2025-01-14 21:17 | XMS_ITS | Encounter Summary ---
Author Organization [facility] Address [address] Simsn: [place] [address] Care Team Providers Care Telesales Specialist Name Role Phone Brayan Fournier MD Primary Care Provider [phone] Encounter Details Date Type Department Care Team (Late st Contact Info) Description 09/21/2001 Outpatient Historical Eleni Talamantes MD [address] [place] [address] Social History Tobacco Use Types Packs/Day Years Used Date Smoking Tobacco: Never Assessed Comments Unknown Sex and Gender Information Value Date Recorded Sex Assigned at Not on file Legal Sex Female 5:03 AM SHELTER ADVOCATE Gender Identity Not on file Sexual Orientation Not on file documented as of this encounter Plan of Treatment Not on file documented as of this encounter Visit Diagnoses Not on filedocumented in this encounter Care Teams Telesales Specialist Relationship Specialty Start Date End Date Brayan Fournier MD [address] [place] [address] PCP - General Family Practice 06/29/18 documented as of this encounter
--- OUTSIDE RECORDS SUMMARY | 2025-01-14 21:17 | XMS_ITS | Encounter Summary ---
Author Organization [facility] Address [address] [place] [address] Care Team Providers Care Web Page Designer Name Role Phone Brayan Fournier MD Primary Care Provider [phone] Encounter Details Date Type Department Care Team (Latest Contact Info) Description 06/08/2018 Ancillary Orders [facility] [address] [phone] Izabella Smith, AIRCRAFT ELECTRONICS TECHNICAL OFFICER [address] [place] [phone] Visit for screening mammogram Social History Tobacco Use Types Packs/Day Years Used Date Smoking Tobacco: Never Smokeless Tobacco: Never Alcohol Use Standard Drinks/Week Comments No 0 (1 standard drink = 0.6 oz pur e alcohol) Comments No Sex and Gender Information Value Date Recorded Sex Assigned at Not on file Legal Sex Female 5:03 AM GLASS BENDER Gender Identity Not on file Sexual Orientation Not on file Occupation Industry Job Start Date Job End Date Not on file Not on file Not on file Not on file documented as of this encounter Plan of Treatment Not on file documented as of this encounter Visit Diagnoses Diagnosis Visit for screening mammogram Other screening mammogram documented in this encounter Additional Health Concerns Assessment Noted Time PHQ-9 Depression Total Score: 2 02/28/20 18 7:00 PM CDT documented as of this encounter Care Teams Web Page Designer Relationship Specialty Start Date End Date Brayan Fournier MD [address] [place] [phone] PCP - General Family Practice 06/29/18 documented as of this encounter
--- OUTSIDE RECORDS SUMMARY | 2025-01-14 21:17 | XMS_ITS | Encounter Summary ---
Author Organization [facility] Address [address] [place] [address] Care Team Providers Care Poultry And Fish Butcher Name Role Phone Brayan Fournier MD Primary Care Provider [phone] Encounter Details Date Type Department Care Team (Latest Contact Info) Description 09/24/1999 Outpatient Historical [facility] [address] [place] [address] [phone] Ruddy Davis MD [address] [place] [phone] Screening for unspecified condition (Primary Dx) Social History Tobacco Use Types Packs/Day Years Used Date Smoking Tobacco: Never Assessed Comments Unknown Sex and Gender Information Value Date Recorded Sex Assigned at Not on file Legal Sex Female 5:03 AM NAVAL AIRCREWMAN Gender Identity Not on file Sexual Orientation Not on file documented as of this encounter Plan of Treatment Not on file documented as of this encounter Visit Diagnoses Diagnosis Screening for unspecified condition- Primary documented in this encounter Care Teams Poultry And Fish Butcher Relationship Specialty Start Date End Date Brayan Fournier MD [address] [place] [phone] PCP - General Family Practice 06/29/18 documented as of this encounter
--- OUTSIDE RECORDS SUMMARY | 2025-01-14 21:17 | XMS_ITS | Encounter Summary ---
Author Organization [facility] Address [address] [facility] [address] Simsn: [place] [address] Care Team Providers Care Cuff Setter Lockstitch Name Role Phone Brayan Fournier MD Primary Care Provider [phone] Encounter Details Date Type Department Care Team (Late st Contact Info) Description 06/28/1999 Outpatient Historical Eileen Rebolledo MD [address] [facility] [address] [place] [address] Social History Tobacco Use Types Packs/Day Years Used Date Smoking Tobacco: Never Assessed Comments Unknown Sex and Gender Information Value Date Recorded Sex Assigned at Not on file Legal Sex Female 5:03 AM CREDIT COMPLIANCE OFFICER Gender Identity Not on file Sexual Orientation Not on file documented as of this encounter Plan of Treatment Not on file documented as of this encounter Visit Diagnoses Not on filedocumented in this encounter Care Teams Cuff Setter Lockstitch Relationship Specialty Start Date End Date Brayan Fournier MD [address] [place] [address] PCP - General Family Practice 06/29/18 documented as of this encounter
--- OUTSIDE RECORDS SUMMARY | 2025-01-14 21:17 | XMS_ITS | Encounter Summary ---
Author Organization [facility] Address [address] [place] [address] Care Team Providers Care Inspection Supervisor Name Role Phone Brayan Fournier MD Primary Care Provider [phone] Encounter Details Date Type Department Care Team (Latest Contact Info) Description 03/05/2000 Outpatient Historical [address] [phone] Eleni Talamantes MD [address], [address] Pain in limb (Primary Dx); Unspecified hypothyroidism; Type II or unspecified type diabetes mellitus without mention of complication, not stated as uncontrolled; Need for prophylactic vaccination with tetanus toxoid alone Social History Tobacco Use Types Packs/Day Years Used Date Smoking Tobacco: Never Assessed Comments Unknown Sex and Gender Information Value Date Recorded Sex Assigned at Not on file 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 Gender Identity Not on file Sexual Orientation Not on file documented as of this encounter Plan of Treatment Not on file documented as of this encounter Visit Diagnoses Diagnosis Pain in limb- Primary Pain in soft tissues of limb Unspecified hypothyroidism Type II or unspecified type diabetes mellitus without mention of complication, not stated as uncontrolled Need for prophylactic vaccination with tetanus toxoid alone documented in this encounter Care Teams Inspection Supervisor Relationship Specialty Start Date End Date Brayan Fournier MD [address] [place] [phone] PCP - General Family Practice 06/29/18 documented as of this encounter
--- OUTSIDE RECORDS SUMMARY | 2025-01-14 21:17 | XMS_ITS | Encounter Summary ---
Author Organization [facility] Address [address] [place] [address] Care Team Providers Care Kiln Repairer Name Role Phone Brayan Fournier MD Primary Care Provider [phone] Encounter Details Date Type Department Care Team (Latest Contact Info) Description 05/17/[address] 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
--- OUTSIDE RECORDS SUMMARY | 2025-01-14 21:17 | XMS_ITS | Encounter Summary ---
Author Organization [facility] Address [address] [place] [address] Care Team Providers Care Supply Crib Attendant Name Role Phone Brayan Fournier MD Primary Care Provider [phone] Encounter Details Date Type Department Care Team (Latest Contact Info) Description 06/04/[address] 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 Gender Identity Not on file Sexual Orientation Not on file documented as of this encounter Plan of Treatment Not on file documented as of this encounter Visit Diagnoses Diagnosis Type II or unspecified type diabetes mellitus without mention of complication, not stated as uncontrolled- Primary Unspecified essential hypertension Unspecified hypothyroidism documented in this encounter Care Teams Supply Crib Attendant Relationship Specialty Start Date End Date Brayan Fournier MD [address] [place] [phone] PCP - General Family Practice 06/29/18 documented as of this encounter
--- OUTSIDE RECORDS SUMMARY | 2025-01-14 21:17 | XMS_ITS | Encounter Summary ---
Author Organization [facility] Address [address] [place] [address] Care Team Providers Care Farm Machine Tender Name Role Phone Brayan Fournier MD Primary Care Provider [phone] Encounter Details Date Type Department Care Team (Latest Contact Info) Description 09/21/2001 Outpatient [facility] [address] [facility] [address] [place] [address] Boo Jimenez MD NO ADDRESS ON FILE SCREENING MAMM-MAILG NEOPL-OTHER (Primary Dx) Social History Tobacco Use Types Packs/Day Years Used Date Smoking Tobacco: Never Assessed Comments Unknown Sex and Gender Information Value Date Recorded Sex Assigned at Not on file 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
--- OUTSIDE RECORDS SUMMARY | 2025-01-14 21:17 | XMS_ITS | Encounter Summary ---
Author Organization [facility] Address [address] [place] [address] Care Team Providers Care Lead Burner Supervisor Name Role Phone Brayan Fournier MD Primary Care Provider [phone] Encounter Details Date Type Department Care Team (Latest Contact Info) Description 11/06/2005 Outpatient Historical [facility] [address] [place] [address] [phone] Ruddy Davis MD [address] [place] [address] Pain in Limb (Primary Dx) Social History Tobacco Use Types Packs/Day Years Used Date Smoking Tobacco: Never Assessed Comments Unknown Sex and Gender Information Value Date Recorded Sex Assigned at Not on file 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
--- OUTSIDE RECORDS SUMMARY | 2025-01-14 21:17 | XMS_ITS | Encounter Summary ---
Author Organization [facility] Address [address] [place] [address] Care Team Providers Care Telegraph Repeater Installer Name Role Phone Brayan Fournier MD Primary Care Provider [phone] Encounter Details Date Type Department Care Team (Latest Contact Info) Description 09/18/2001 Outpatient Historical [facility] [address] [phone] Eleni Talamantes MD [address], [id number] DIABETES UNCOMPL ADULT-TYPE II (CMS/HCC) (Primary Dx) Social History Tobacco Use Types Packs/Day Years Used Date Smoking Tobacco: Never Assessed Comments Unknown Sex and Gender Information Value Date Recorded Sex Assigned at Not on file 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
--- OUTSIDE RECORDS SUMMARY | 2025-01-14 21:17 | XMS_ITS | Encounter Summary ---
Author Organization [facility] Address [address] [place] [address] Care Team Providers Care Anode Crew Supervisor Name Role Phone Braayn Fournier MD Primary Care Provider [phone] Encounter Details Date Type Department Care Team (Latest Contact Info) Description 03/15/2002 Outpatient Historical [facility] [address] [phone] Eleni Talamantes MD [address], [address] DIABETES UNCOMPL ADULT-TYPE II (CMS/HCC) (Primary Dx); HYPOTHYROIDISM NOS Social History Tobacco Use Types Packs/Day Years Used Date Smoking Tobacco: Never Assessed Comments Unknown Sex and Gender Information Value Date Recorded Sex Assigned at Not on file 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
--- OUTSIDE RECORDS SUMMARY | 2025-01-14 21:17 | XMS_ITS | Encounter Summary ---
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 Social History Tobacco Use Types Packs/Day Years Used Date Smoking Tobacco: Never Assessed Comments Unknown Sex and Gender Information Value Date Recorded Sex Assigned at Not on file 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 Gender Identity Not on file Sexual Orientation Not on file documented as of this encounter Plan of Treatment Not on file documented as of this encounter Visit Diagnoses Diagnosis Type II or unspecified type diabetes mellitus without mention of complication, not stated as uncontrolled- Primary 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
--- OUTSIDE RECORDS SUMMARY | 2025-01-14 21:17 | XMS_ITS | Encounter Summary ---
Author Organization [facility] [facility] Address [address] [place] [address] Care Team Providers Care Backend Developer Name Role Phone Brayan Fournier MD Primary Care Provider [phone] Encounter Details Date Type Department Care Team (Latest Contact Info) Description 06/30/2018 Ancillary Orders [facility] [place] [address] [phone] Izabella Smith, HOME ADMINISTRATOR [address] [place] [phone] Visit for screening mammogram Social History Tobacco Use Types Packs/Day Years Used Date Smoking Tobacco: Never Smokeless Tobacco: Never Alcohol Use Standard Drinks/Week Comments No 0 (1 standard drink = 0.6 oz pur e alcohol) Comments No Sex and Gender Information Value Date Recorded Sex Assigned at Not on file 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
--- OUTSIDE RECORDS SUMMARY | 2025-01-14 21:17 | XMS_ITS | Encounter Summary ---
Author Organization [facility] Address [address] [place] [address] Care Team Providers Care Boat Builder Name Role Phone Brayan Fournier MD Primary Care Provider [phone] Encounter Details Date Type Department Care Team (Latest Contact Info) Description 02/19/2001 Outpatient Historical [facility] Arnold Garcia MD NO ADDRESS ON FILE Tear of medial cartilage or meniscus of knee, current (Primary Dx); Pain in joint, lower leg Social History Tobacco Use Types Packs/Day Years Used Date Smoking Tobacco: Never Assessed Comments Unknown Sex and Gender Information Value Date Recorded Sex Assigned at Not on file 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
--- OUTSIDE RECORDS SUMMARY | 2025-01-14 21:17 | XMS_ITS | Encounter Summary ---
Author Organization [facility] Address [address] [place] [address] Care Team Providers Care Assistant Auto Center Manager Name Role Phone Brayan Fournier MD Primary Care Provider [phone] Encounter Details Date Type Department Care Team (Latest Contact Info) Description 05/18/2001 Outpatient Historical [facility] Arnold Garcia MD NO ADDRESS ON FILE TEAR MED MENISC KNEE-CURRENT (Primary Dx); LOC PRIM OSTEOART-L/LEG Social History Tobacco Use Types Packs/Day Years Used Date Smoking Tobacco: Never Assessed Comments Unknown Sex and Gender Information Value Date Recorded Sex Assigned at Not on file 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
--- OUTSIDE RECORDS SUMMARY | 2025-01-14 21:17 | XMS_ITS | Encounter Summary ---
Author Organization [facility] Address [address] [place] [address] Care Team Providers Care Farm Tractor Mechanic Name Role Phone Brayan Fournier MD Primary Care Provider [phone] Encounter Details Date Type Department Care Team (Late st Contact Info) Description 10/18/2006 Inpatient Historical HIS IN BED Cristopher Pacheco MD NO ADDRESS ON FILE Diverticulosis of Colon with Hemorrhage (Primary Dx) Social History Tobacco Use Types Packs/Day Years Used Date Smoking Tobacco: Never Assessed Comments Unknown Sex and Gender Information Value Date Recorded Sex Assigned at Not on file 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 Gender Identity Not on file Sexual Orientation Not on file documented as of this encounter Plan of Treatment Not on file documented as of this encounter Procedures Procedure Name Priority Date/Time Associated Diagnosis Comments POC GLUCOSE Routine 10/20/2006 11:27 AM CDT POC GLUCOSE Routine 10/20/2006 5:45 AM CDT CBC WITH DIFFERENTIAL Routine 10/20/2006 4:28 AM CDT POC GLUCOSE Routine 10/19/2006 9:39 PM CDT POC GLUCOSE Routine 10/19/2006 5:58 PM CDT POC GLUCOSE Routine 10/19/2006 11:53 AM CDT POC GLUCOSE Routine 10/19/2006 5:49 AM CDT CBC WITH DIFFERENTIAL Routine 10/19/2006 4:27 AM CDT BASIC METABOLIC PANEL Routine 10/19/2006 4:27 AM CDT POC GLUCOSE Routine 10/18/2006 8:49 PM CDT POC GLUCOSE Routine 10/18/2006 5:44 PM CDT CBC WITH DIFFERENTIAL Routine 10/18/2006 2:50 PM CDT POC GLUCOSE Routine 10/18/2006 11:37 AM CDT PT AND APTT Routine 10/18/2006 6:13 AM CDT CBC WITH DIFFERENTIAL Routine 10/18/2006 6:13 AM CDT LIPASE Routine 10/18/2006 6:13 AM CDT AMYLASE Routine 10/18/2006 6:13 AM CDT COMPREHENSIVE METABOLIC PANEL Routine 10/18/2006 6:13 AM CDT documented in this encounter Results * (ABNORMAL) POC GLUCOSE (10/20/2006 11:27 AM CDT) GLUCOSE POC 127(H) 60 - 100 mg/dL INTERFACE SYSTEM 10/20/2006 11:2 7 AM CDT us Cristopher Pacheco MD POINT OF CARE TESTING Edited INTERFACE SYSTEM Refer to clinic/hospital department * (ABNORMAL) POC GLUCOSE (10/20/2006 5:45 AM CDT) GLUCOSE POC 232(H) 60 - 100 mg/dL INTERFACE SYSTEM 10/20/2006 5:45 AM CDT us Cristopher Pacheco MD POINT OF CARE TESTING Edited INTERFACE SYSTEM Refer to clinic/hospital department * (ABNORMAL) CBC WITH DIFFERENTIAL (10/20/2006 4:28 AM CDT) WBC 4.0(L) 4.8 - 10.8 K/ul INTERFACE SYSTEM RBC 3.32(L) 4.20 - 5.40 Mil/ul INTERFACE SYSTEM HEMOGLOBIN 9.6(L) 12.0 - 16.0 g/dL INTERFACE SYSTEM HEMATOCRIT 29.3(L) 36.0 - 46.0 % INTERFACE SYSTEM MCV 88.3 84.0 - 103.0 Fl INTERFACE SYSTEM MCH 28.9 27.0 - 34.0 pg INTERFACE SYSTEM MCHC 32.8 30.0 - 35.0 g/dL INTERFACE SYSTEM RDW 14.3 11.0 - 14.5 % INTERFACE SYSTEM PLATELETS 146 140 - 440 K/ul INTERFACE SYSTEM MPV 11.1 8.9 - 12.8 Fl INTERFACE SYSTEM NEUTROPHILS 49.5 42.2 - 75.2 % INTERFACE SYSTEM LYMPHOCYTES 35.3 24.0 - 44.0 % INTERFACE SYSTEM MONOCYTES 13.2(H) 2.0 - 10.0 % INTERFACE SYSTEM EOSINOPHILS 2.0 0.0 - 7.0 % INTERFACE SYSTEM NEUTROPHIL ABSOLUTE 2.0 2.0 - 8.0 K/ul INTERFACE SYSTEM LYMPHOCYTE ABSOLUTE 1.4 1.2 - 4.0 K/ul INTERFACE SYSTEM MONOCYTE ABSOLUTE 0.5 0.1 - 0.6 K/ul INTERFACE SYSTEM EOSINOPHIL ABSOLUTE 0.1 0.0 - 0.7 K/ul INTERFACE SYSTEM 10/20/2006 4:28 AM CDT Cristopher Pacheco MD HEMATOLOGY ORDERABLES Edited Performing Organization Address [facility] Phone Number INTERFACE SYSTEM Refer to clinic/hospital department * (ABNORMAL) POC GLUCOSE (10/19/2006 9:39 PM CDT) GLUCOSE POC 177(H) 60 - 100 mg/dL INTERFACE SYSTEM 10/19/2006 9:39 PM CDT Cristopher Pacheco MD POINT OF CARE TESTING Edited Performing Organization Address [facility]/ZIP Co de Phone Number INTERFACE SYSTEM Refer to clinic/hospital department * (ABNORMAL) POC GLUCOSE (10/19/2006 5:58 PM CDT) GLUCOSE POC 224(H) 60 - 100 mg/dL INTERFACE SYSTEM 10/19/2006 5:58 PM CDT Cristopher Pacheco MD POINT OF CARE TESTING Edited Performing Organization Address [facility] Phone Number INTERFACE SYSTEM Refer to clinic/hospital department * (ABNORMAL) POC GLUCOSE (10/19/2006 11:53 AM CDT) GLUCOSE POC 245(H) 60 - 100 mg/dL INTERFACE SYSTEM 10/19/2006 11:5 3 AM CDT us Cristopher Pacheco MD POINT OF CARE TESTING Edited Performing Organization Address [facility] Phone Number INTERFACE SYSTEM Refer to clinic/hospital department * (ABNORMAL) POC GLUCOSE (10/19/2006 5:49 AM CDT) GLUCOSE POC 214(H) 60 - 100 mg/dL INTERFACE SYSTEM 10/19/2006 5:4 9 AM CDT us Cristopher Pacheco MD POINT OF CARE TESTING Edited Performing Organization Address [facility] Phone Number INTERFACE SYSTEM Refer to clinic/hospital department * (ABNORMAL) BASIC METABOLIC PANEL (10/19/2006 4:27 AM CDT) GLUCOSE 172(H) 70 - 110 mg/dL INTERFACE SYSTEM BUN 9 7 - 17 mg/dL INTERFACE SYSTEM CREATININE 0.8 0.7 - 1.2 mg/dL INTERFACE SYSTEM SODIUM 140 136 - 145 mEq/L INTERFACE SYSTEM POTASSIUM 3.7 3.5 - 5.0 mEq/L INTERFACE SYSTEM CHLORIDE 110 95 - 110 mEq/L INTERFACE SYSTEM CO2 27 22 - 32 mmol/l INTERFACE SYSTEM CALCIUM 8.4 8.4 - 10.5 mg/dL INTERFACE SYSTEM ANION GAP 7(L) 9 - 20 mEq/L INTERFACE SYSTEM OSMOLALITY, CALCULATED 290 275 - 295 mOsm/Kg INTERFACE SYSTEM 10/19/2006 4:27 AM CDT Cristopher Pacheco MD CHEMISTRY ORDERABLES Edited Performing Organization Address [facility] Co de Phone Number INTERFACE SYSTEM Refer to clinic/hospital department * (ABNORMAL) CBC WITH DIFFERENTIAL (10/19/2006 4:27 AM CDT) WBC 4.6(L) 4.8 - 10.8 K/ul INTERFACE SYSTEM RBC 3.48(L) 4.20 - 5.40 Mil/ul INTERFACE SYSTEM HEMOGLOBIN 9.9(L) 12.0 - 16.0 g/dL INTERFACE SYSTEM HEMATOCRIT 30.3(L) 36.0 - 46.0 % INTERFACE SYSTEM MCV 87.1 84.0 - 103.0 Fl INTERFACE SYSTEM MCH 28.4 27.0 - 34.0 pg INTERFACE SYSTEM MCHC 32.7 30.0 - 35.0 g/dL INTERFACE SYSTEM RDW 14.1 11.0 - 14.5 % INTERFACE SYSTEM PLATELETS 110(L) 140 - 440 K/ul INTERFACE SYSTEM MPV 11.4 8.9 - 12.8 Fl INTERFACE SYSTEM NEUTROPHILS 55.0 42.2 - 75.2 % INTERFACE SYSTEM LYMPHOCYTES 32.1 24.0 - 44.0 % INTERFACE SYSTEM MONOCYTES 12.3(H) 2.0 - 10.0 % INTERFACE SYSTEM EOSINOPHILS 0.6 0.0 - 7.0 % INTERFACE SYSTEM NEUTROPHIL ABSOLUTE 2.6 2.0 - 8.0 K/ul INTERFACE SYSTEM LYMPHOCYTE ABSOLUTE 1.5 1.2 - 4.0 K/ul INTERFACE SYSTEM MONOCYTE ABSOLUTE 0.6 0.1 - 0.6 K/ul INTERFACE SYSTEM EOSINOPHIL ABSOLUTE 0.0 0.0 - 0.7 K/ul INTERFACE SYSTEM 10/19/2006 4:27 AM CDT Cristopher Pacheco MD HEMATOLOGY ORDERABLES Edited Performing Organization Address [facility] Co de Phone Number INTERFACE SYSTEM Refer to clinic/hospital department * (ABNORMAL) POC GLUCOSE (10/18/2006 8:49 PM CDT) GLUCOSE POC 214(H) 60 - 100 mg/dL INTERFACE SYSTEM 10/18/2006 8:49 PM CDT Cristopher Pacheco MD POINT OF CARE TESTING Edited Performing Organization Address [facility]/ZIP Co de Phone Number INTERFACE SYSTEM Refer to clinic/hospital department * (ABNORMAL) POC GLUCOSE (10/18/2006 5:44 PM CDT) GLUCOSE POC 226(H) 60 - 100 mg/dL INTERFACE SYSTEM 10/18/2006 5:44 PM CDT Cristopher Pacheco MD POINT OF CARE TESTING Edited Performing Organization Address [facility] de Phone Number INTERFACE SYSTEM Refer to clinic/hospital department * (ABNORMAL) CBC WITH DIFFERENTIAL (10/18/2006 2:50 PM CDT) WBC 6.3 4.8 - 10.8 K/ul INTERFACE SYSTEM RBC 3.98(L) 4.20 - 5.40 Mil/ul INTERFACE SYSTEM HEMOGLOBIN 11.7(L) 12.0 - 16.0 g/dL INTERFACE SYSTEM HEMATOCRIT 34.1(L) 36.0 - 46.0 % INTERFACE SYSTEM MCV 85.7 84.0 - 103.0 Fl INTERFACE SYSTEM MCH 29.4 27.0 - 34.0 pg INTERFACE SYSTEM MCHC 34.3 30.0 - 35.0 g/dL INTERFACE SYSTEM RDW 13.8 11.0 - 14.5 % INTERFACE SYSTEM PLATELETS 131(L) 140 - 440 K/ul INTERFACE SYSTEM MPV 10.8 8.9 - 12.8 Fl INTERFACE SYSTEM NEUTROPHILS 81.6(H) 42.2 - 75.2 % INTERFACE SYSTEM LYMPHOCYTES 11.3(L) 24.0 - 44.0 % INTERFACE SYSTEM MONOCYTES 6.5 2.0 - 10.0 % INTERFACE SYSTEM EOSINOPHILS 0.6 0.0 - 7.0 % INTERFACE SYSTEM NEUTROPHIL ABSOLUTE 5.1 2.0 - 8.0 K/ul INTERFACE SYSTEM LYMPHOCYTE ABSOLUTE 0.7(L) 1.2 - 4.0 K/ul INTERFACE SYSTEM MONOCYTE ABSOLUTE 0.4 0.1 - 0.6 K/ul INTERFACE SYSTEM EOSINOPHIL ABSOLUTE 0.0 0.0 - 0.7 K/ul INTERFACE SYSTEM 10/18/2006 2:50 PM CDT us Cristopher Pacheco MD HEMATOLOGY ORDERABLES Edited Performing Organization Address [facility] de Phone Number INTERFACE SYSTEM Refer to clinic/hospital department * (ABNORMAL) POC GLUCOSE (10/18/2006 11:37 AM CDT) GLUCOSE POC 234(H) 60 - 100 mg/dL INTERFACE SYSTEM 10/18/2006 11:3 7 AM CDT us Cristopher Pacheco MD POINT OF CARE TESTING Edited Performing Organization Address [facility] Phone Number INTERFACE SYSTEM Refer to clinic/hospital department * PT AND APTT (10/18/2006 6:13 AM CDT) PROTIME 13.4 13.0 - 15.7 Secs INTERFACE SYSTEM Comment: As of 06 note change in normal range. INR 0.9 INTERFACE SYSTEM Comment: Expected Values for INR: DVT/PE Goal INR 2.5; range 2.0 - 3.0 Valve Replacement Tissue Goal INR 2.5; range 2.0 - 3.0 Mechanical Goal INR 3.0; range 2.5 - 3.5 POST-LA Goal INR 2.5; range 2.0 - 3.0 or Goal 3.0; range 2.5 - 3.5 Atrial Fibrillation Goal INR 2.5; range 2.0 - 3.0 Ischemic Stroke Goal INR 2.5; range 2.0 - 3.0 For additional information see Guidelines for Anticoagulation available from the pharmacy [facility] PTT 24.4 21.6 - 35.6 Secs INTERFACE SYSTEM Comment: Therapeutic Range: Hi-level PE/DVT heparin protocol 80.1 -95.0 sec Lo-level PE/DVT heparin protocol 67.1 - 80.0 sec Cardiac Heparin Protocol 67.1 - 85.0 sec Neuro Heparin Protocol 67.1 - 80.0 sec As of 04/24/2006 note change in APTT Normal Range. 10/18/2006 6:13 AM CDT Silverio Araujo Jr., DO HEMATOLOGY ORDERABLES Raul kathryn Performing Organization Address [facility] Phone Number INTERFACE SYSTEM Refer to clinic/hospital department * LIPASE (10/18/2006 6:13 AM CDT) LIPASE 47 6 - 51 U/L INTERFACE SYSTEM Comment: As of 05 the [facility] has changed testing methods. The new reference range is 6-51 The old referance range was 23-300 10/18/2006 6:13 AM CDT Silverio Araujo Jr., DO CHEMISTRY ORDERABLES Edit ed Performing Organization Address [facility] Phone Number INTERFACE SYSTEM Refer to clinic/hospital department * AMYLASE (10/18/2006 6:13 AM CDT) AMYLASE 46 20 - 104 U/L INTERFACE SYSTEM Comment: As of 05 the [facility] has changed testing methods. The new reference range is 20-104 The old referance range was 30-120 10/18/2006 6:13 AM CDT Silverio Araujo Jr., DO CHEMISTRY ORDERABLES Edit ed Performing Organization Address [facility] Phone Number INTERFACE SYSTEM Refer to clinic/hospital department * (ABNORMAL) COMPREHENSIVE METABOLIC PANEL (10/18/2006 6:13 AM CDT) GLUCOSE 191(H) 70 - 110 mg/dL INTERFACE SYSTEM BUN 14 7 - 17 mg/dL INTERFACE SYSTEM CREATININE 0.8 0.7 - 1.2 mg/dL INTERFACE SYSTEM SODIUM 142 136 - 145 mEq/L INTERFACE SYSTEM POTASSIUM 3.7 3.5 - 5.0 mEq/L INTERFACE SYSTEM CHLORIDE 107 95 - 110 mEq/L INTERFACE SYSTEM CO2 27 22 - 32 mmol/l INTERFACE SYSTEM CALCIUM 9.6 8.4 - 10.5 mg/dL INTERFACE SYSTEM TOTAL PROTEIN 6.6 6.3 - 8.2 g/dL INTERFACE SYSTEM ALBUMIN 4.0 3.5 - 5.0 g/dL INTERFACE SYSTEM ALKALINE PHOSPHATASE 86 25 - 100 U/L INTERFACE SYSTEM AST 24 8 - 33 U/L INTERFACE SYSTEM ALT 26 4 - 36 IU/L INTERFACE SYSTEM BILIRUBIN TOTAL 0.7 0.3 - 1.2 mg/dL INTERFACE SYSTEM GLOBULIN (CALC) 2.6 2.4 - 3.9 g/dL INTERFACE SYSTEM ALBUMIN/GLOBULIN RATIO 1.5 1.0 - 2.3 INTERFACE SYSTEM ANION GAP 12 9 - 20 mEq/L INTERFACE SYSTEM OSMOLALITY, CALCULATED 297(H) 275 - 295 mOsm/Kg INTERFACE SYSTEM 10/18/2006 6:13 AM CDT us Silverio Araujo Jr., DO CHEMISTRY ORDERABLES Edit ed INTERFACE SYSTEM Refer to clinic/hospital department * CBC WITH DIFFERENTIAL (10/18/2006 6:13 AM CDT) WBC 6.9 4.8 - 10.8 K/ul INTERFACE SYSTEM RBC 4.42 4.20 - 5.40 Mil/ul INTERFACE SYSTEM HEMOGLOBIN 12.5 12.0 - 16.0 g/dL INTERFACE SYSTEM HEMATOCRIT 38.8 36.0 - 46.0 % INTERFACE SYSTEM MCV 87.8 84.0 - 103.0 Fl INTERFACE SYSTEM MCH 28.3 27.0 - 34.0 pg INTERFACE SYSTEM MCHC 32.2 30.0 - 35.0 g/dL INTERFACE SYSTEM RDW 13.7 11.0 - 14.5 % INTERFACE SYSTEM PLATELETS 198 140 - 440 K/ul INTERFACE SYSTEM MPV 11.4 8.9 - 12.8 Fl INTERFACE SYSTEM NEUTROPHILS 54.6 42.2 - 75.2 % INTERFACE SYSTEM LYMPHOCYTES 38.6 24.0 - 44.0 % INTERFACE SYSTEM MONOCYTES 4.8 2.0 - 10.0 % INTERFACE SYSTEM EOSINOPHILS 1.9 0.0 - 7.0 % INTERFACE SYSTEM BASOPHILS 0.1 0.0 - 1.0 % INTERFACE SYSTEM NEUTROPHIL ABSOLUTE 3.8 2.0 - 8.0 K/ul INTERFACE SYSTEM LYMPHOCYTE ABSOLUTE 2.7 1.2 - 4.0 K/ul INTERFACE SYSTEM MONOCYTE ABSOLUTE 0.3 0.1 - 0.6 K/ul INTERFACE SYSTEM EOSINOPHIL ABSOLUTE 0.1 0.0 - 0.7 K/ul INTERFACE SYSTEM BASOPHILS ABSOLUTE 0.0 0.0 - 0.2 K/ul INTERFACE SYSTEM 10/18/2006 6:13 AM CDT us Silverio Araujo Jr., DO HEMATOLOGY ORDERABLES Raul kathryn INTERFACE SYSTEM Refer to clinic/hospital department documented in this encounter Visit Diagnoses Diagnosis Diverticulosis of colon with hemorrhage- Primary documented in this encounter Care Teams Farm Tractor Mechanic Relationship Specialty Start Date End Date Brayan Fournier MD [address] [place] [address] PCP - General Family Practice 06/29/18 documented as of this encounter
--- OUTSIDE RECORDS SUMMARY | 2025-01-14 21:17 | XMS_ITS | Encounter Summary ---
Author Organization [facility] Address [address] [place] [address] Care Team Providers Care Program Manager Rn Name Role Phone Brayan Fournier MD Primary Care Provider [phone] Encounter Details Date Type Department Care Team (Latest Contact Info) Description 01/27/2019 Ancillary Orders [facility] Orthopedics - Orthopedic [facility] [address] [place] [address] Manjit Trejo MD [address] [place] [phone] Chronic pain of both knees Social History Tobacco Use Types Packs/Day Years Used Date Smoking Tobacco: Never Smokeless Tobacco: Never Alcohol Use Standard Drinks/Week Comments No 0 (1 standard drink = 0.6 oz pur e alcohol) Comments No Sex and Gender Information Value Date Recorded Sex Assigned at Not on file Legal Sex Female 5:[address] Gender Identity Not on file Sexual Orientation Not on file Occupation Industry Job Start Date Job End Date Not on file Not on file Not on file Not on file documented as of this encounter Plan of Treatment Not on file documented as of this encounter Results * XR KNEE 3 VW RIGHT (01/27/2019 8:38 AM CDT) Anatomical Region Laterality Modality Lower Extremity Computed Radiogr aphy Narrative 02/04/2019 9:01 AM CDT AP, lateral and sunrise views of the right knee shows tricompartmental arthritis of the knee greatest in the medial compartment with [id number] arthrosis, subchondral sclerosis and varus deformity. There are no osteolytic or osteoblastic lesions of bone. No fractures identified. us Manjit Trejo MD DIAGNOSTIC IMAGING ORDERABLES Final Result documented in this encounter Visit Diagnoses Diagnosis Chronic pain of both knees Chronic pain of both knees documented in this encounter Additional Health Concerns Assessment Noted Time PHQ-9 Depression Total Score: 2 09/25/19 19 10:00 AM CDT documented as of this encounter Care Teams Program Manager Rn Relationship Specialty Start Date End Date Brayan Fournier MD [address] [place] [phone] PCP - General Family Practice 06/29/18 documented as of this encounter
--- OUTSIDE RECORDS SUMMARY | 2025-01-14 21:17 | XMS_ITS | Encounter Summary ---
Author Organization [facility] Address [address] [place] [address] Care Team Providers Care Nipping Machine Operator Name Role Phone Brayan Fournier MD Primary Care Provider [phone] Encounter Details Date Type Department Care Team (Latest Contact Info) Description 02/10/2003 Outpatient Historical [facility] [address] [place] [phone] Ruddy Davis MD [address] [place] [phone] DIABETES UNCOMPL ADULT-TYPE II (CMS/HCC) (Primary Dx); HYPOTHYROIDISM NOS Social History Tobacco Use Types Packs/Day Years Used Date Smoking Tobacco: Never Assessed Comments Unknown Sex and Gender Information Value Date Recorded Sex Assigned at Not on file 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
--- OUTSIDE RECORDS SUMMARY | 2025-01-14 21:17 | XMS_ITS | Encounter Summary ---
Author Organization [facility] Address [address] [place] [address] Care Team Providers Care Online Affiliate Marketing Manager Name Role Phone Brayan Fournier MD Primary Care Provider [phone] Encounter Details Date Type Department Care Team (Latest Contact Info) Description 07/15/2001 Outpatient Historical [facility] [address] [phone] Eleni Talamantes MD [address], [id number] TRACHEA/BRONCHUS DIS NEC (Primary Dx); ACUTE FRONTAL SINUSITIS; PNEUMONIA, ORGANISM NOS Social History Tobacco Use Types Packs/Day Years Used Date Smoking Tobacco: Never Assessed Comments Unknown Sex and Gender Information Value Date Recorded Sex Assigned at Not on file 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 Sex Female 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 Gender Identity Not on file Sexual Orientation Not on file documented as of this encounter Plan of Treatment Not on file documented as of this encounter Visit Diagnoses Diagnosis Other diseases of trachea and bronchus, not elsewhere classified- Primary Acute frontal sinusitis Pneumonia, organism unspecified(486) Pneumonia, organism unspecified documented in this encounter Care Teams Online Affiliate Marketing Manager Relationship Specialty Start Date End Date Brayan Fournier MD [address] [place] [phone] PCP - General Family Practice 06/29/18 documented as of this encounter
--- OUTSIDE RECORDS SUMMARY | 2025-01-14 21:17 | XMS_ITS | Encounter Summary ---
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
--- OUTSIDE RECORDS SUMMARY | 2025-01-14 21:17 | XMS_ITS | Encounter Summary ---
Author Organization [facility] Address [address] [place] [address] Care Team Providers Care Sheet Sorter Name Role Phone Brayan Fournier MD Primary Care Provider [phone] Encounter Details Date Type Department Care Team (Late st Contact Info) Description 06/04/2007 Outpatient Historical [facility] [address] [place] [phone] Ruddy Davis MD [address] [place] [phone] Social History Tobacco Use Types Packs/Day Years Used Date Smoking Tobacco: Never Assessed Comments Unknown Sex and Gender Information Value Date Recorded Sex Assigned at Not on file 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
--- OUTSIDE RECORDS SUMMARY | 2025-01-14 21:17 | XMS_ITS | Encounter Summary ---
Author Organization [facility] Address [address] [place] [address] Care Team Providers Care Detail Manager Name Role Phone Brayan Fournier MD Primary Care Provider [phone] Encounter Details Date Type Department Care Team (Latest Contact Info) Description 09/21/[address] [place] [address] Javier Goldstein MD [address] [place] [address] [address] [place] [address] Gynecologic examination (Primary Dx); PROLAPSE OF VAGINAL WALL; FEMALE STRESS INCONTINENCE Social History Tobacco Use Types Packs/Day Years Used Date Smoking Tobacco: Never Assessed Comments Unknown Sex and Gender Information Value Date Recorded Sex Assigned at Not on file 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
--- OUTSIDE RECORDS SUMMARY | 2025-01-14 21:17 | XMS_ITS | Encounter Summary ---
Author Organization [facility] Address [address] [place] [address] Care Team Providers Care Corrective And Manual Arts Therapist Name Role Phone Brayan Fournier MD Primary Care Provider [phone] Encounter Details Date Type Department Care Team (Latest Contact Info) Description 10/18/2006 Outpatient Historical [facility] [address] [place] [address] [facility] Vomiting Alone (Primary Dx) Social History Tobacco Use Types Packs/Day Years Used Date Smoking Tobacco: Never Assessed Comments Unknown Sex and Gender Information Value Date Recorded Sex Assigned at Not on file Legal Sex Female 5:03 AM LITERACY CONSULTANT Gender Identity Not on file Sexual Orientation Not on file documented as of this encounter Plan of Treatment Not on file documented as of this encounter Visit Diagnoses Diagnosis Vomiting alone- Primary documented in this encounter Care Teams Corrective And Manual Arts Therapist Relationship Specialty Start Date End Date Brayan Fournier MD [address] [place] [phone] PCP - General Family Practice 06/29/18 documented as of this encounter
--- OUTSIDE RECORDS SUMMARY | 2025-01-14 21:17 | XMS_ITS | Encounter Summary ---
Author Organization [facility] Address [address] [place] [address] Care Team Providers Care Senior Windows Systems Administrator Name Role Phone Brayan Fournier MD Primary Care Provider [phone] Encounter Details Date Type Department Care Team (Latest Contact Info) Description 01/28/2001 Outpatient Historical [facility] [address] [phone] Eleni Talamantes MD [address], [phone] Pain in joint, lower leg (Primary Dx); Unspecified hypothyroidism; Type II or unspecified type diabetes mellitus without mention of complication, not stated as uncontrolled Social History Tobacco Use Types Packs/Day Years Used Date Smoking Tobacco: Never Assessed Comments Unknown Sex and Gender Information Value Date Recorded Sex Assigned at Not on file Legal Sex Female 5:03 AM HAND ASSEMBLER FOR PULLER OVER Gender Identity Not on file Sexual Orientation Not on file documented as of this encounter Plan of Treatment Not on file documented as of this encounter Visit Diagnoses Diagnosis Pain in joint, lower leg- Primary Unspecified hypothyroidism Type II or unspecified type diabetes mellitus without mention of complication, not stated as uncontrolled documented in this encounter Care Teams Senior Windows Systems Administrator Relationship Specialty Start Date End Date Brayan Fournier MD [address] [place] [phone] PCP - General Family Practice 06/29/18 documented as of this encounter
--- OUTSIDE RECORDS SUMMARY | 2025-01-14 21:17 | XMS_ITS | Encounter Summary ---
Author Organization [facility] Address [address] [place] [address] Care Team Providers Care Pigment And Lacquer Mixer Name Role Phone Brayan Fournier MD Primary Care Provider [phone] Encounter Details Date Type Department Care Team (Latest Contact Info) Description 10/12/1999 Outpatient Historical [facility] [address] [phone] Eleni Talamantes MD [address], [address] Plantar fibromatosis (Primary Dx); Exostosis of unspecified site; Unspecified hypothyroidism Social History Tobacco Use Types Packs/Day Years Used Date Smoking Tobacco: Never Assessed Comments Unknown Sex and Gender Information Value Date Recorded Sex Assigned at Not on file Legal Sex 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
--- OUTSIDE RECORDS SUMMARY | 2025-01-14 21:17 | XMS_ITS | Clinical Summary ---
Author Organization [facility] Address [address] [place] [address] Care Team Providers Care Agency Recruiter Name Role Phone Brayan Fournier MD Primary Care Provider [phone] Allergies Active Allergy Reactions Criticality Noted Date Comments Penicillins Swelling Low 08/14/2007 Sulfa (Sulfonamide Antibiotics) Other (See Comments) 08/14/2007 Yeast infection Medications Blood-Glucose Meter (TRUE METRIX GLUCOSE METER) Use to check glucose TID. 1 Each 1 8 Active lancets 30 gauge Use to check glucose TID. 100 Each 2 8 Active dimenhyDRINATE (DRAMAMINE) 50 mg Tablet Take 50 mg by mouth every 4 hours as needed for Dizziness. Active mv-mn/C/glutamin /lysin/ezoy557 ([place], ASCORBATE SODIUM, ORAL) Take 1 Tablet by mouth 1 time daily as needed. Active traMADol (ULTRAM) 50 mg tabletIndication s:Status post total right knee replacement Take 1 tablet by mouth every 6 hours as needed for pain. Maximum of 4 per day. 60 Tablet 04/14/2019 4:25 PM FRUIT DUMPER 9 Active famotidine (PEPCID) 20 mg tablet Take 1 Tablet (20 mg) by mouth 2 times daily. 80 Tablet 04/14/2019 4:25 PM FRUIT DUMPER 9 Active docusate sodium (COLACE) 100 mg capsule Take 1 Capsule (100 mg) by mouth 2 times daily. 60 Capsule 04/14/2019 4:25 PM FRUIT DUMPER 9 Active blood sugar diagnostic (OneTouch Ultra Blue Test Strip) StripIndications :Uncontrolled type 2 diabetes mellitus with hyperglycemia, with long-term current use of insulin ([facility]) Use to test blood glucose three times daily. E11.65 Insulin dependent. 100 Strip 9 0 Active Insulin Syringe-Needle U-100 (Insulin Syringe) 0.5 mL 30 gauge x 5/16 Syringe Use with insulin BID. 100 Each 2 0 Active simvastatin (ZOCOR) 40 mg tablet TAKE 1 TABLET BY MOUTH LATE IN THE DAY 90 Tablet 3 0 Active losartan (COZAAR) 25 mg tablet Take 1 tablet by mouth twice daily 180 Tablet 0 Active metFORMIN (GLUCOPHAGE) 1,000 mg tablet TAKE 1 TABLET BY MOUTH TWICE DAILY WITH MEALS 180 Tablet 0 Active levothyroxine 100 mcg tabletIndication s:Hypothyroidism , unspecified type TAKE 1 TABLET BY MOUTH ONCE DAILY. Patient must be seen for any additional refills 90 Tablet 1 Active NovoLOG Mix 70-30 U-100 Insuln 100 unit/mL (70-30) vialIndications: Uncontrolled type 2 diabetes mellitus with hyperglycemia, with long-term current use of insulin ([facility]/[place]) Inject 25 units subq twice daily with meals. Patient must be seen for any additional refills 20 mL 1 Active Active Problems Problem Noted Date Diagnosed Date History of TIA (transient ischemic attack) - 201 0 03/29/2019 Obesity (BMI 30.0-34.9) 03/29/2019 Hyperkalemia 03/29/2019 Primary osteoarthritis of right knee 07/29/2018 Dysphoric mood 02/28/2018 Status post total left knee replacement 7 02/25/2017 Preoperative general physical examination 2016 Dyslipidemia 02/06/2017 Essential hypertension 07/02/2016 Sciatica 12/20/2015 Hypothyroidism 06/06/2008 Uncontrolled type 2 diabetes mellitus with hyperglycemia, with long-term current use of insulin 06/06/2008 Resolved Problems Problem Noted Date Diagnosed Date Resolved Date Primary osteoarthritis of left knee 02/06/2017 07/29/2018 Arthritis of both knees 01/17/201607/17 TIA (transient ischemic attack) 11/21/2013 11/21/2013 Severe uncontrolled hypertension 07/21/2009 12/25/2015 CVA (cerebral vascular accident) 07/21/2009 07/02/2016 Hyperlipidemia 06/06/2008 02/06/2017 Immunizations Immunization Administration Dates Next Due (PREVNAR 13)(6 WKS UP) PNEUM OCOCCAL CONJUGATE (PCV13) 0.5 ML, IM 05/15/2017,03/15/2015 (TDVAX)(7 YRS UP) TETANUS AN D DIPHTHERIA TOXOIDS, ADSORBED (2 LF OF TETANUS TOXOID AND 2 LF OF DIPHTHERIA TOXOID), 0.5ML (PF), IM 03/05/2000 Influenza A (H1N1) Vaccine IM 05/10/2009 Influenza Seasonal Unspecifi ed Formulation IM 03/11/2017,02/16/2013,03/17/2012,02/16,02/16/2009,03/14/2004,02/27/2001 ,04/29/2000 Influenza Vaccine High Dose 65+ Yrs IM 0 02/04/2019,02/15/2018,03/11/2017,03/07,03/15/2015,03/02/2014 Influenza Vaccine Tri Split 4+ Pf Im 03/11/2012 PREVNAR (PCV13) pneumococcal 13-valent conjugate Vaccine 06/18/2018 Pneumococcal Polysaccharide Vacc 23-manav IM SCHIP 10/02/2015 Pneumococcal conjugate, unsp ecified formulation 02/16/2009 Family History Medical History Relation Name Comments Stroke Brother Unknown Father Breast Cancer Maternal Cousin 50's? 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 Gender Identity Not on file Sexual Orientation Not on file Occupation Industry Job Start Date Job End Date Not on file Not on file Not on file Not on file Last Filed Vital Signs Vital Sign Reading Time Taken Comments Blood Pressure 132/84 07/16/2019 9:04 AM FRUIT DUMPER Pulse 64 07/16/2019 9:04 AM FRUIT DUMPER Temperature 36.9 C (98.5 F) 04/15/2019 9:00 AM FRUIT DUMPER Respiratory Rate 16 04/15/2019 9:00 AM FRUIT DUMPER Oxygen Saturation 95% 04/15/2019 9:00 AM FRUIT DUMPER Inhaled Oxygen Concentration - - Weight 88 kg (194 lb) 07/16/2019 9:04 AM FRUIT DUMPER Height 167.6 cm (5' 6 ) 07/16/2019 9:04 AM FRUIT DUMPER Body Mass Index 31.31 07/16/2019 9:04 AM FRUIT DUMPER Plan of Treatment Health Maintenance Due Date Last Done Comments ZOSTER VACCINE (1 of 2) 1992 DTAP/TDAP/TD VACCINES (1 - Tdap) 03/06/2000 03/05/20 00 OSTEOPOROSIS SCREENING 09/08/2015 09/07/2010 RSV VACCINE (60+ or ) (1 - 1-dose 75+ series) 2017 DIABETES ANNUAL RETINAL EXAM 08/27/201902/2019, 08/06/2018, 08/06/2018, Additional history exists DIABETES MICROALBUMIN ANNUAL SCREEN 09/23/2019 09/22/2018, 07/02/2016, 04/24/2015, Additional history exists Traditional Medicare (ACO) A nnual Wellness Visit 09/26/2019 09/24/2018, 07/02/2016 DIABETES HBA1C Q 6 MONTHS 04/18/20202019, 07/16/2019, 03/29/2019, Additional history exists DIABETES ANNUAL FOOT EXAM 07/16/20202019, 10/28/2018, 03/17/2017 LDL CHOLESTEROL ANNUAL 07/16/2020 0, 02/12/2018, 07/02/2016, Additional history exists INFLUENZA VACCINE (#1) 2024 9, 02/15/2018, 03/11/2017, Additional history exists PNEUMOCOCCAL VACCINE 50+ YEARS Completed 0 06/18/2018, 05/15/2017, 10/02/2015, Additional history exists Medical Devices Implanted Type Area Statistical Methods Professor Device Identifier Shelf Expiration Date Model / Serial / Lot Cement Simplex Hvisc 6194-1-010 - [id number] Implanted:Qty: 1 on 02/13/2017 by Arnold Garcia MD at [facility] Cement Left: Knee JAYDA- [employer] INC 07/16/2018 6194-1-010 / / [id number] Cement Simplex Hvisc 6194-1-010 - [id number] Implanted:Qty: 1 on 02/13/2017 by Arnold Garcia MD at [facility] Cement Left: Knee JAYDA- [employer] INT [employer] 07/16/2018 6194-1-010 / / [id number] Cement Simplex Hvisc 6194-1-010 - [id number] Implanted:04/13 by Manjit Trejo MD at [facility] (Quantity not on file) Cement Right: Knee JAYDA- [employer] 10/16/2020 6194-1-010 / / [id number] Cement Simplex Hvisc 6194-1-010 - [id number] Implanted:04/13 by Manjit Trejo MD at [facility] (Quantity not on file) Cement Right: Knee JAYDA- [employer] 10/16/2020 6194-1-010 / / [id number] Patella Dome 3peg 32mm 96-0 - [id number] Implanted:Qty: 1 on 02/13/2017 by Arnold Garcia MD at [facility] Knee Left: Knee J[employer]J- [employer] 12/16/2021 [id number] / / [id number] Comp Fem Sigma Cr Cardiovascular Tech Sz5 96-0005 - [id number] Implanted:Qty: 1 on 02/13/2017 by Arnold Garcia MD at [facility] Knee Left: Knee J[employer]J- [employer] 12/16/2021 96-0005 / / [id number] Comp Tib Sigma Cocr Sz4 158-40-000 - [id number] Implanted:Qty: 1 on 02/13/2017 by Arnold Garcia MD at [facility] Knee Left: Knee J[employer]J- [employer] 11/15/2026 1581-40-000 / / [id number] Ins Tib Sigma Crv Xlk Sz4 1581-14-108 - [id number] Implanted:Qty: 1 on 02/13/2017 by Arnold Garcia MD at [facility] Knee Left: Knee J[employer]J- [employer] 11/15/2021 1581-14-108 / / [id number] Insert Attune Fb Ps Sz6 8mm 1516-40-608 - [id number] Implanted:Qty: 1 on 04/13/2019 by Manjit Trejo MD at [facility] Knee Right: Knee J[employer]J- [employer] 12/17/2023 [id number] / / [id number] Comp Tib Attn Fb Cmnt Sz5 1506-70-005 - [id number] Implanted:Qty: 1 on 04/13/2019 by Manjit Trejo MD at [facility] Knee Right: Knee J[employer]J- [employer] 03/18/2029 [id number] / / [id number] Comp Fem Attn Ps Cmnt Sz6 1504-10-226 - [id number] Implanted:Qty: 1 on 04/13/2019 by Manjit Trejo MD at [facility] Knee Right: Knee J[employer]J- [employer] 11/15/2028 [id number] / / [id number] Procedures Procedure Name Priority Date/Time Associated Diagnosis Comments LIPID PANEL Routine 07/16/2019 10:07 AM FRUIT DUMPER Dyslipidemia HEMOGLOBIN A1C Routine 07/16/2019 10:07 AM FRUIT DUMPER Uncontrolled type 2 diabetes mellitus with hyperglycemia, with long-term current use of insulin ([facility]) MICROALBUMIN/CREATIN INE RATIO, RANDOM UR Routine 09/22/2018 10:24 AM CDT Uncontrolled type 2 diabetes mellitus with hyperglycemia, with long-term current use of insulin ([facility]) DIABETES EYE EXAM Routine 08/06/2018 XR DEXA BONE DENSITY AXIAL 1 OR MORE SITES Routine 09/07/2010 2:58 PM CDT POSTMENOPAUSAL At risk for decreased bone density from Last 3 Months or Most Recently Relevant to Health Maintenance Results * (ABNORMAL) HEMOGLOBIN A1C (07/16/2019 10:07 AM FRUIT DUMPER) HEMOGLOBIN A1C 8.2(H) See Comment % 07/16/2019 10:41 AM [facility] EST. AVG GLUCOSE, A1C 189 mg/dL 07/16/2019 10:41 AM [facility] Blood Venipuncture / Unknown 07/16/2019 10:07 AM FRUIT DUMPER 07/16/2019 10:14 AM [facility] - 07/16/2019 10:41 AM FRUIT DUMPER HGB A1C INTERPRETATION NORMAL: <5.7% PRE-DIABETES: 5.7 - 6.4% DIABETES: 6.5% OR GREATER Falsely low A1C measurements can occur when: 1. Anemia and/or hemolytic anemia is present. 2. Hemoglobin variants present. 3. Renal failure. 4. Transfusion of blood product in the last 120 days. We recommend ordering a fructosamine test([id number]) to more accurately assess glycemic status if any of the above conditions are present. Peter Otto MD CHEMISTRY ORDERABLES Final Res ult [facility] CLIA# [id number] [address] [place] [address] * (ABNORMAL) LIPID PANEL (07/16/2019 10:07 AM [facility]) CHOLESTEROL 127 <200 mg/dL 07/16/2019 11:04 AM [facility] TRIGLYCERIDE 162(H) <150 mg/dL 07/16/2019 11:04 AM [facility] HDL 54 40 - 59 mg/dL 07/16/2019 11:04 AM [facility] LDL CALCULATED 41 <100 mg/dL 07/16/2019 11:04 AM [facility] NON-HDL CHOLESTEROL 73 <130 mg/dL 07/16/2019 11:04 AM [facility] Blood Venipuncture / Unknown 07/16/2019 10:07 AM FRUIT DUMPER 07/16/2019 10:15 AM [facility] JAMESNN - 07/16/2019 11:04 AM FRUIT DUMPER TOTAL CHOLESTEROL mg/dL Desirable <200 Borderline high 200-239 High >=240 TRIGLYCERIDES mg/dL Normal <150 Borderline high 150-199 High 200-499 Very high >=500 HDL CHOLESTEROL mg/dL Low <40 Normal 40-59 Desirable >=60 NON HDL CHOLESTEROL mg/dL Optimal <130 Near Optimal 130-159 Borderline High 160-189 Very High >=190 CALCULATED LDL mg/dL LDL <70, OPTIMAL if have Atherosclerotic cardiovascular disease (ASCVD) or intermediate or higher (>7.5%) 10 year risk of ASCVD including most adults with diabetes. LDL <100, Optimal in adult patients with low (<7.5%) 10 year ASCVD risk LDL 100-160, Suboptimal LDL >160, High LDL >190, Very high ATPIII Guidelines Reference Ranges for Lipid Panels (NCEP/AMA) . Peter Otto MD CHEMISTRY ORDERABLES Final Res ult [facility] IA# [id number] [address] [place] [address] * MICROALBUMIN/CREATININE RATIO, RANDOM UR (09/22/2018 10:24 AM CDT) MICROALBUMIN, URINE 4.3 No Reference Range mg/dL 09/22/2018 9:16 PM CDT [facility] CREATININE, URINE 187.4 29.0 - 226.0 mg/dL 09/22/2018 9:16 PM CDT [facility] Comment: Reference Range varies with fluid intake and diet. MICROALBUMIN/C REAT RATIO, UR 22.9 <25.0 mg/g 09/22/2018 9:16 PM CDT [facility] Urine URINE SPECIMEN OBTAINED BY CLEAN CATCH PROCEDURE / Unknown Collection / Unknown 09/22/2018 10:24 AM CDT 09/22/2018 8:05 PM CDT [facility] - 09/22/2018 9:16 PM CDT Condition Microalbumin/Creat ratio Normal Males <17 Normal Females <25 Microalbuminuria Males 17-299 Microalbuminuria Females 25-299 Overt proteinuria >=300 Izabella Freitas Sarah EMBROIDERY ASSISTANT URINE ORDERABLES Final Result [facility] BLANC# [id number] [address] [place] [address] * DIABETES EYE EXAM (08/06/2018) us Abstract Spg Provider HEALTH MAINTENANCE Final R esult * XR DEXA BONE DENSITY AXIAL 1 OR MORE SITES (09/07/2010 2:58 PM CDT) Anatomical Region Laterality Modality Nuclear Medicine 09/07/2010 2:46 PM CDT Impressions 09/08/2010 8:14 AM CDT Impression: Abnormal examination. Low bone density (mild osteopenia) in the lumbar spine at the average of the patient's age matched control consistent with age-appropriate demineralization. Narrative 09/08/2010 8:14 AM CDT DEXA Evaluation of the Lumbar Spine and Left Proximal Femur: Reason for Consultation: Post ablative ovarian failure. Evaluation of bone mineral density. The following absorptiometry data were obtained. Technical quality of the examinations is satisfactory. Serial examination number one. Lumbar spine images demonstrate scoliotic and degenerative changes with spurious elevation of bone density at lower levels. L1-L2/L3-L4 BMD (g/cm2): 1.027/1.193 Adult T-score: -1.1/-0.1 Age Matched Z-score: -0.1/1.0 Left Femoral Neck BMD (g/cm2): 0.927 Adult T-score: -0.8 Age Matched Z-score: 0.4 Left Total Hip BMD (g/cm2): 1.044 Adult T-score: 0.3 Age Matched Z-score: 1.2 Procedure Note Sen Varela MD - 09/08/2010 DEXA Evaluation of the Lumbar Spine and Left Proximal Femur: Reason for Consultation: Post ablative ovarian failure. Evaluation of bone mineral density. The following absorptiometry data were obtained. Technical quality of the examinations is satisfactory. Serial examination number one. Lumbar spine images demonstrate scoliotic and degenerative changes with spurious elevation of bone density at lower levels. L1-L2/L3-L4 BMD (g/cm2): 1.027/1.193 Adult T-score: -1.1/-0.1 Age Matched Z-score: -0.1/1.0 Left Femoral Neck BMD (g/cm2): 0.927 Adult T-score: -0.8 Age Matched Z-score: 0.4 Left Total Hip BMD (g/cm2): 1.044 Adult T-score: 0.3 Age Matched Z-score: 1.2 IMPRESSION Impression: Abnormal examination. Low bone density (mild osteopenia) in the lumbar spine at the average of the patient's age matched control consistent with age-appropriate demineralization. Ruddy Davis MD DIAGNOSTIC IMAGING ORDERABLE S Final Result from Last 3 Months or Most Recently Relevant to Health Maintenance Insurance MEDICARE PART A AND B [facility] [place] [id number] RX [facility] Medicare Part D RX [employer] [place] [employer] ([employer]NAL) [facility] [employer] [place] ([employer]) [employer] Advance Directives For more information, please contact: [phone] * Full Code (Latest Code Status on File) Date Activated Date Inactivated Comments 04/13/2019 1:08 PM 04/15/2019 12:50 PM * Full Code Date Activated Date Inactivated Comments 05/27/2017 6:47 AM 05/27/2017 12:32 PM * Full Code Date Activated Date Inactivated Comments 05/27/2017 5:52 AM 05/27/2017 6:47 AM * Full Code Date Activated Date Inactivated Comments 02/13/2017 10:45 AM 02/15/2017 12:00 PM * Full Code Date Activated Date Inactivated Comments 02/13/2017 7:30 AM 02/13/2017 10:45 AM Care Teams Agency Recruiter Relationship Specialty Start Date End Date Brayan Fournier MD [address] [place] [phone] PCP - General Family Practice 06/29/18
--- OUTSIDE RECORDS SUMMARY | 2025-01-14 21:17 | XMS_ITS | Clinical Summary ---
Author Organization [facility] Address [address] [facility] Attn: Epic Prelude ADT JULES OLIVA [address] Care Team Providers Care Harness Maker Name Role Phone Brayan Fournier MD Primary Care Provider [phone] Allergies Active Allergy Reactions Criticality Noted Date Comments Penicillins Swelling Low 08/14/2007 Sulfa (Sulfonamide Antibiotics) Other (See Comments) 08/14/2007 Yeast infection Medications dimenhyDRINATE (DRAMAMINE) 50 mg Tablet Take 50 mg by mouth every 4 hours as needed for Dizziness. 9 Active mv-mn/C/glutamin /lysin/zurr265 ([place], ASCORBATE SODIUM, ORAL) Take 1 Tablet by mouth 1 time daily as needed. 9 Active blood sugar diagnostic StripIndications :Uncontrolled type 2 diabetes mellitus with hyperglycemia, with long-term current use of insulin ([facility]) Use to test blood glucose three times daily. E11.65 Insulin dependent. 100 Strip 9 0 Active Insulin Syringe-Needle U-100 0.5 mL 30 gauge x 10/01 Syringe Use with insulin BID. 100 Each 2 0 Active simvastatin (ZOCOR) 40 mg tablet TAKE 1 TABLET BY MOUTH LATE IN THE DAY 90 Tablet 3 0 Active lancets 30 gauge Use to check glucose TID. 100 Each 2 8 Active Blood-Glucose Meter Use to check glucose TID. 1 Each 1 8 Active metFORMIN (GLUCOPHAGE) 1,000 mg tablet TAKE 1 TABLET BY MOUTH TWICE DAILY WITH MEALS 180 Tablet 0 0 Active losartan (COZAAR) 25 mg tablet Take 1 tablet by mouth twice daily 180 Tablet 0 0 Active insulin aspart protamine-aspar (NovoLOG Mix 70-30 U-100 Insuln) 100 unit/mL (70-30) vialIndications: Uncontrolled type 2 diabetes mellitus with hyperglycemia, with long-term current use of insulin ([facility]) Inject 25 units subq twice daily with meals. Patient must be seen for any additional refills 20 mL 0 1 Active levothyroxine 100 mcg tabletIndication s:Hypothyroidism , unspecified type TAKE 1 TABLET BY MOUTH ONCE DAILY. Patient must be seen for any additional refills 90 Tablet 0 1 Active Active Problems Problem Noted Date Diagnosed Date History of TIA (transient ischemic attack) - 201 0 03/29/2019 Hyperkalemia 03/29/2019 Obesity (BMI 30.0-34.9) 03/29/2019 Primary osteoarthritis of right knee 07/29/2018 [...] 01/17/201607/17 TIA (transient ischemic attack) 11/21/2013 11/21/2013 CVA (cerebral vascular accident) 07/21/2009 07/02/2016 Severe uncontrolled hypertension 07/21/2009 12/25/2015 Hyperlipidemia 06/06/2008 02/06/2017 Encounters Date Type Department Care Team Description 12/22/2024 External Device Data ST[facility] ABSTRACTION Provider, Abstract 12/01/2024 External Device Data [facility] ABSTRACTION Provider, Abstract 12/01/2024 External Device Data [facility] ABSTRACTION Provider, Abstract 11/02/2024 External Device Data [facility] ABSTRACTION Provider, Abstract from Last 3 Months Immunizations Immunization Administration Dates Next Due (PREVNAR [...] 65 pancreatic Heart Disease Mother age 65 Healthy Son 1 Diabetes Son 2 Relation Name Status Comments Brother Alive Father Maternal Cousin Mother age 65 Son 1 Alive Son 2 Alive Social History Tobacco Use Types Packs/Day Years Used Date Smoking Tobacco: Never Smokeless Tobacco: Never Alcohol Use Standard Drinks/Week Comments No 0 (1 standard drink = 0.6 oz pur e alcohol) Comments Unknown Sex and Gender Information Value Date Recorded Sex Assigned at Not on file Legal Sex Female 1:50 PM DESKTOP MANAGER Gender Identity Not on file Sexual Orientation Not on file Last Filed Vital Signs Vital Sign Reading Time Taken Comments Blood Pressure 132/84 07/16/2019 9:04 AM DESKTOP MANAGER Pulse 64 07/16/2019 9:04 AM DESKTOP MANAGER Temperature 36.9 C (98.5 F) 04/15/2019 9:00 AM DESKTOP MANAGER Respiratory Rate 16 04/15/2019 9:00 AM DESKTOP MANAGER Oxygen Saturation - - Inhaled Oxygen Concentration - - Weight 88 kg (194 lb) 07/16/2019 9:04 AM DESKTOP MANAGER Height 167.6 cm (5' 6 ) 07/16/2019 9:04 AM DESKTOP MANAGER Body Mass Index 31.31 07/16/2019 9:04 AM DESKTOP MANAGER Plan of Treatment Health Maintenance Due Date Last Done Comments ZOSTER VACCINE (1 of 2) 1992 DTAP/TDAP/TD VACCINES (1 - Tdap) 03/06/2000 03/05/20 00 OSTEOPOROSIS SCREENING 09/08/2015 09/07/2010, 2010 RSV VACCINE (60+ or ) (1 - 1-dose 75+ series) 2017 DIABETES ANNUAL RETINAL EXAM 08/27/201902/2019, 08/06/2018, 08/06/2018, Additional history exists DIABETES MICROALBUMIN ANNUAL SCREEN 09/23/2019 09/22/2018, 07/02/2016, 04/24/2015, Additional history exists DIABETES HBA1C Q 6 MONTHS 04/18/20202019, 07/16/2019, 07/16/2019, Additional history exists DIABETES ANNUAL FOOT EXAM 07/16/20202019, 10/28/2018, 03/17/2017 LDL CHOLESTEROL ANNUAL 07/16/2020 0, 02/12/2018, 07/02/2016, Additional history exists Preventative Visit- Commercial 05/19/2024 INFLUENZA VACCINE (#1) 2024 9, 02/15/2018, 03/11/2017, Additional history exists PNEUMOCOCCAL VACCINE 50+ YEARS Completed 0 06/18/2018, 05/15/2017, 10/02/2015, Additional history exists Medical Devices Implanted Type Area Procurement Internship Device Identifier Shelf Expiration Date Model / Serial / Lot Cement Simplex Hvisc 6194-1-010 - [id number] Implanted:Qty : 1 on 02/13/2017 by Arnold Garcia MD Cement Left: Knee JAYDA- [employer] 07/16/2018 6194-1-010 / / [id number] Cement Simplex Hvisc 6194-1-010 - [id number] Implanted:Qty : 1 on 02/13/2017 by Arnold Garcia MD Cement Left: Knee [employer]AYDA- [employer] 07/16/2018 6194-1-010 / / [id number] Cement Simplex Hvisc 6194-1-010 - [id number] Implanted: by Manjit Trejo MD (Quantity not on file) Cement Right: Knee [employer]DA- [employer] 10/16/2020 6194-1-010 / / [id number] Cement Simplex Hvisc 6194-1- - [id number] Implanted: by Manjit Trejo MD (Quantity not on file) Cement Right: Knee [employer]AYDA- [employer] 10/16/2020 6194-1-010 / / [id number] Comp Fem Sigma 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 Sz5 96-0005 - [id number] Implanted:Qty : 1 on 02/13/2017 by Arnold Garcia MD Knee Left: Knee J[employer]J- [employer] 12/16/2021 96-0005 / / [id number] Comp Tib Sigma Cocr Sz4 158-40-000 - [id number] Implanted:Qty : 1 on 02/13/2017 by Arnold Garcia MD Knee Left: Knee [employer] 11/15/2026 158-40-000 / / [id number] Ins Tib Sigma Crv Xlk Sz4 158--108 - [id number] Implanted:Qty : 1 on 02/13/2017 by Arnold Garcia MD Knee Left: Knee J[employer] 11/15/2021 158-14-108 / / [id number] Patella Dome 3peg 32mm 96-0 - [id number] Implanted:Qty : 1 on 02/13/2017 by Arnold Garcia MD Knee Left: Knee [employer] 12/16/2021 [id number] / / [id number] Comp Tib Attn Fb Cmnt Sz5 1506-70-005 - [id number] Implanted:Qty : 1 on 04/13/2019 by Manjit Trejo MD Knee Right: Knee J[employer] 03/18/2029 [id number] / / [id number] Insert Attune Fb Ps Sz6 8mm 1516-40-608 - [id number] Implanted:Qty : 1 on 04/13/2019 by Manjit Trejo MD Knee Right: Knee [employer] 12/17/2023 [id number] / / [id number] Comp Fem Attn Ps Cmnt Sz6 1504-10-226 - [id number] Implanted:Qty : 1 on 04/13/2019 by Manjit Trejo MD Knee Right: Knee J[employer]J- [employer] 11/15/2028 [id number] / / [id number] Procedures Procedure Name Priority Date/Time Associated Diagnosis Comments LIPID PANEL Routine 07/16/2019 10:07 AM DESKTOP MANAGER HEMOGLOBIN A1C Routine 07/16/2019 10:07 AM DESKTOP MANAGER MICROALBUMIN/CREATI NINE RATIO, RANDOM UR Routine 09/22/2018 10:24 AM CDT HM DIABETES EYE EXAM 08/06/2018 12:00 AM CDT XR DEXA BONE DENSITY AXIAL 1 OR MORE SITES Routine 09/07/2010 2:58 PM CDT Postmenopausal Other specified condition influencing health from Last 3 Months or Most Recently Relevant to Health Maintenance Results * (ABNORMAL) HEMOGLOBIN A1C (07/16/2019 10:07 AM DESKTOP MANAGER) HEMOGLOBIN A1C 8.2(H) See Comment % 07/16/2019 10:41 AM DESKTOP MANAGER [facility] EST. AVG GLUCOSE, A1C 189 mg/dL 07/16/2019 10:41 AM DESKTOP MANAGER [facility] Blood Venipuncture / Unknown 07/16/2019 10:07 AM DESKTOP MANAGER 07/16/2019 10:14 AM DESKTOP MANAGER Narrative [facility] - 07/16/2019 10:41 AM DESKTOP MANAGER HGB A1C INTERPRETATION NORMAL: <5.7% PRE-DIABETES: 5.7 - 6.4% DIABETES: 6.5% OR GREATER Falsely low A1C measurements can occur when: 1. Anemia and/or hemolytic anemia is present. 2. Hemoglobin variants present. 3. Renal failure. 4. Transfusion of blood product in the last 120 days. We recommend ordering a fructosamine test([id number]) to more accurately assess glycemic status if any of the above conditions are present. us Peter Otto MD CHEMISTRY ORDERABLES Final Res ult Performing Organization Address City/[facility]/ZIP Co de Phone Number [facility] CLIA# [id number] [address] [place] [id number] * (ABNORMAL) LIPID PANEL (07/16/2019 10:07 AM DESKTOP MANAGER) CHOLESTEROL 127 <200 mg/dL 07/16/2019 11:04 AM [facility] TRIGLYCERIDE 162(H) <150 mg/dL 07/16/2019 11:04 AM [facility] HDL 54 40 - 59 mg/dL 07/16/2019 11:04 AM [facility] LDL CALCULATED 41 <100 mg/dL 07/16/2019 11:04 AM [facility] NON-HDL CHOLESTEROL 73 <130 mg/dL 07/16/2019 11:04 AM [facility] Blood Venipuncture / Unknown 07/16/2019 10:07 AM DESKTOP MANAGER 07/16/2019 10:[address] [facility] Narrative [facility] - 07/16/2019 11:04 AM DESKTOP MANAGER TOTAL CHOLESTEROL mg/dL Desirable <200 Borderline high [...] Res ult [facility] CLIA# [id number] [place] [address] * MICROALBUMIN/CREATININE RATIO, RANDOM UR (09/22/2018 10:24 AM CDT) MICROALBUMIN, URINE 4.3 No Reference Range mg/dL 09/22/2018 9:16 PM CDT [facility] CREATININE, URINE 187.4 29.0 - 226.0 mg/dL 09/22/2018 9:16 PM CDT [facility] Comment: Reference Range varies with fluid intake and diet. MICROALBUMIN/C REAT RATIO, UR 22.9 <25.0 mg/g 09/22/2018 9:16 PM CDT [facility] Urine URINE SPECIMEN OBTAINED BY CLEAN CATCH PROCEDURE / Unknown Collection / Unknown 09/22/2018 10:24 AM CDT 09/22/2018 8:05 PM CDT Narrative [facility] - 09/22/2018 9:16 PM CDT Condition Microalbumin/Creat ratio Normal Males <17 Normal Females <25 Microalbuminuria Males 17-299 Microalbuminuria Females 25-299 Overt proteinuria >=300 Izabella Smith MANAGER MEMBERSHIP URINE ORDERABLES Final Result [facility] CLIA# [id number] [facility] [place] [address] * HM DIABETES EYE EXAM (08/06/2018 12:00 AM CDT) Sgf Scanning HEALTH MAINTENANCE Final Result * XR DEXA BONE DENSITY AXIAL 1 OR MORE SITES (09/07/2010 2:58 PM CDT) Anatomical Region Laterality Modality Other Impressions 09/08/2010 8:14 AM CDT Impression: Abnormal [...] 1.2 Procedure Note Sen Varela MD - 07/18/2022 DEXA Evaluation of the Lumbar Spine and [...] age matched control consistent with age-appropriate demineralization. us Ruddy Davis MD DIAGNOSTIC IMAGING ORDERABLE S Final Result from Last 3 Months or Most Recently Relevant to Health Maintenance Insurance * Guarantor: HELEN FARRELL Account Type Relation to Patient Date of Phone Billing Address Personal/Family [id number] [place] [address] [employer] [place] [employer] (INTERNAL) [facility] [employer] [place] [employer] (INTERNAL) [facility] [employer] [facility] Medicare Part D Care Teams Harness Maker Relationship Specialty Start Date End Date Brayan Fournier MD [address] [place] [address] PCP - General Family Practice 06/29/18
--- OUTSIDE RECORDS SUMMARY | 2025-01-14 21:17 | XMS_ITS | Encounter Summary ---
Author Organization [facility] Address [address] [place] [address] Care Team Providers Care Meat Smoker Name Role Phone Brayan Fournier MD Primary Care Provider [phone] Reason for Referral * Outpatient Services (Routine) - Closed Specialty Diagnoses / Procedures Referred By Contac t Referred To Contact Diagnoses Other screening mammogram Procedures MAMMO DIGITAL SCREEN BILAT Ruddy Davis MD [address] [place] [phone] Phone: tel: fax: [facility] [address] [place] [phone] Phone: tel: Referral ID Status Reason Start Date Expiration Date Visits Re quested Visits Authorized [id number] Closed 08/13/2010 02/09/2011 1 1 Encounter Details Date Type Department Care Team (Late st Contact Info) Description 08/13/2010 Ancillary Orders [facility] [address] [address] Ruddy Davis MD [address] [place] [phone] Other screening mammogram Social History Tobacco Use Types Packs/Day Years Used Date Smoking Tobacco: Never Alcohol Use Standard Drinks/Week Comments No 0 (1 standard drink = 0.6 oz pur e alcohol) Comments No Sex and Gender Information Value Date Recorded Sex Assigned at Not on file Legal Sex Female 5:03 AM 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 Findings: Bilateral CC and MLO views were obtained. This examination was reviewed with the aid of a computer-aided detection system(CAD). The breast tissue density is composed of scattered fibroglandular densities. No significant new findings since the prior mammogram(s). There is benign appearing nodularity in each breast. Procedure Note Leonarda Hale MD - 09/10/2010 Bilateral Mammogram Reason for Exam: Screening Comparison: Comparison is made with multiple prior exams, the most recentdated 10/11/2003. Findings: Bilateral CC and MLO views were obtained. This examination was reviewed with the aid of a computer-aided detectionsystem(CAD). The breast tissue density is composed of scattered fibroglandulardensities. No significant new findings since the prior mammogram(s). There is benignappearing nodularity in each breast. Ruddy Davis MD MAMMO ORDERABLES Final Resul t documented in this encounter Visit Diagnoses Diagnosis Other screening mammogram Other screening mammogram documented in this encounter Care Teams Meat Smoker Relationship Specialty Start Date End Date Brayan Fournier MD [address] [place] [address] PCP - General Family Practice 06/29/18 documented as of this encounter
--- OUTSIDE RECORDS SUMMARY | 2025-01-14 21:17 | XMS_ITS | Encounter Summary ---
Author Organization [facility] Address [address] [place] [address] Care Team Providers Care Inbound Customer Service Agent Name Role Phone Brayan Fournier MD Primary Care Provider [phone] Encounter Details Date Type Department Care Team (Latest Contact Info) Description 08/07/2001 Outpatient Historical [facility] [address] [place] [phone] Ruddy Davis MD [address] [place] [phone] ACUTE URI NOS (Primary Dx) Social History Tobacco Use Types Packs/Day Years Used Date Smoking Tobacco: Never Assessed Comments Unknown Sex and Gender Information Value Date Recorded Sex Assigned at Not on file Legal Sex Female 5:03 AM JUDGE Gender Identity Not on file Sexual Orientation Not on file documented as of this encounter Plan of Treatment Not on file documented as of this encounter Visit Diagnoses Diagnosis Acute upper respiratory infections of unspecified site- Primary documented in this encounter Care Teams Inbound Customer Service Agent Relationship Specialty Start Date End Date Brayan Fournier MD [address] [place] [phone] PCP - General Family Practice 06/29/18 documented as of this encounter
--- OUTSIDE RECORDS SUMMARY | 2025-01-14 21:17 | XMS_ITS | Encounter Summary ---
Author Organization [facility] Address [address] [place] [address] Care Team Providers Care Digital Photo Printer Name Role Phone Brayan Fournier MD Primary Care Provider [phone] Encounter Details Date Type Department Care Team (Latest Contact Info) Description 04/16/2001 Outpatient Historical [facility] Arnold Garcia MD NO ADDRESS ON FILE TEAR MED MENISC KNEE-CURRENT (Primary Dx) Social History Tobacco Use Types Packs/Day Years Used Date Smoking Tobacco: Never Assessed Comments Unknown Sex and Gender Information Value Date Recorded Sex Assigned at Not on file Legal Sex Female 5:03 AM HEALTH SCREENER Gender Identity Not on file Sexual Orientation Not on file documented as of this encounter Plan of Treatment Not on file documented as of this encounter Visit Diagnoses Diagnosis Tear of medial cartilage or meniscus of knee, current- Primary documented in this encounter Care Teams Digital Photo Printer Relationship Specialty Start Date End Date Brayan Fournier MD [address] [place] [phone] PCP - General Family Practice 06/29/18 documented as of this encounter
--- OUTSIDE RECORDS SUMMARY | 2025-01-14 21:17 | XMS_ITS | Encounter Summary ---
Author Organization [facility] Address [address] [place] [address] Care Team Providers Care Acute Coordinator Name Role Phone Brayan Fournier MD Primary Care Provider [phone] Encounter Details Date Type Department Care Team (Latest Contact Info) Description 08/24/[address] [facility] [address], [place] [phone] uRddy Davis MD [address] [place] [address] ENLARGEMENT LYMPH NODES (Primary Dx) Social History Tobacco Use Types Packs/Day Years Used Date Smoking Tobacco: Never Assessed Comments Unknown Sex and Gender Information Value Date Recorded Sex Assigned at Not on file Legal Sex Female 5:03 AM FOREIGN EXCHANGE POSITION CLERK Gender Identity Not on file Sexual Orientation Not on file documented as of this encounter Plan of Treatment Not on file documented as of this encounter Visit Diagnoses Diagnosis Enlargement of lymph nodes- Primary documented in this encounter Care Teams Acute Coordinator Relationship Specialty Start Date End Date Brayan Fournier MD [address] [place] [phone] PCP - General Family Practice 06/29/18 documented as of this encounter
--- OUTSIDE RECORDS SUMMARY | 2025-01-14 21:17 | XMS_ITS | Encounter Summary ---
Author Organization [facility] Address [address] [place] [address] Care Team Providers Care Vp Scientific Name Role Phone Brayan Fournier MD Primary Care Provider [phone] Encounter Details Date Type Department Care Team (Late st Contact Info) Description 02/10/2003 Outpatient Historical [facility] [address] [place] [phone] Ruddy Davis MD [address] [place] [address] Social History Tobacco Use Types Packs/Day Years Used Date Smoking Tobacco: Never Assessed Comments Unknown Sex and Gender Information Value Date Recorded Sex Assigned at Not on file Legal Sex Female 5:03 AM SLUNK SKINNER Gender Identity Not on file Sexual Orientation Not on file documented as of this encounter Plan of Treatment Not on file documented as of this encounter Visit Diagnoses Not on filedocumented in this encounter Care Teams Vp Scientific Relationship Specialty Start Date End Date Brayan Fournier MD [address] [place] [phone] PCP - General Family Practice 06/29/18 documented as of this encounter
--- OUTSIDE RECORDS SUMMARY | 2025-01-14 21:17 | XMS_ITS | Encounter Summary ---
Author Organization [facility] Address [address] [place] [address] Care Team Providers Care Trackman Name Role Phone Brayan Fournier MD Primary Care Provider [phone] Encounter Details Date Type Department Care Team (Latest Contact Info) Description 04/01/2001 Outpatient Historical [facility] [address] [phone] Eleni Talamantes MD [address], [address] ABNORM ELECTROCARDIOGRAM (Primary Dx) Social History Tobacco Use Types Packs/Day Years Used Date Smoking Tobacco: Never Assessed Comments Unknown Sex and Gender Information Value Date Recorded Sex Assigned at Not on file Legal Sex Female 5:03 AM EDUCATION PROGRAM MANAGER Gender Identity Not on file Sexual Orientation Not on file documented as of this encounter Plan of Treatment Not on file documented as of this encounter Visit Diagnoses Diagnosis Nonspecific abnormal electrocardiogram (ECG) (EKG)- Primary documented in this encounter Care Teams Trackman Relationship Specialty Start Date End Date Brayan Fournier MD [address] [place] [phone] PCP - General Family Practice 06/29/18 documented as of this encounter
--- OUTSIDE RECORDS SUMMARY | 2025-01-14 21:17 | XMS_ITS | Encounter Summary ---
Author Organization [facility] Address [address] [place] [address] Care Team Providers Care Flux Tube Attendant Name Role Phone Brayan Fournier MD Primary Care Provider [phone] Encounter Details Date Type Department Care Team (Latest Contact Info) Description 02/27/2001 Outpatient Historical [address] [phone] Eleni Talamantes MD [address], [address] Tear of lateral cartilage or meniscus of knee, current (Primary Dx); Type II or unspecified type diabetes mellitus without mention of complication, not stated as uncontrolled; Need vaccination-viral disease Social History Tobacco Use Types Packs/Day Years Used Date Smoking Tobacco: Never Assessed Comments Unknown Sex and Gender Information Value Date Recorded Sex Assigned at Not on file Legal Sex Female 5:03 AM 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 Gender Identity Not on file Sexual Orientation Not on file documented as of this encounter Plan of Treatment Not on file documented as of this encounter Visit Diagnoses Diagnosis Tear of lateral cartilage or meniscus of knee, current- Primary Type II or unspecified type diabetes mellitus without mention of complication, not stated as uncontrolled Need vaccination-viral disease Need for prophylactic vaccination and inoculation against other viral diseases documented in this encounter Care Teams Flux Tube Attendant Relationship Specialty Start Date End Date Brayan Fournier MD [address] [place] [phone] PCP - General Family Practice 06/29/18 documented as of this encounter
--- OUTSIDE RECORDS SUMMARY | 2025-01-14 21:17 | XMS_ITS | Encounter Summary ---
Author Organization [facility] Address [address] [place] [address] Care Team Providers Care Food Inspector Name Role Phone Brayan Fournier MD Primary Care Provider [phone] Encounter Details Date Type Department Care Team (Latest Contact Info) Description 01/29/2001 Outpatient Historical [facility] [address] [place] [address] [phone] Courtney Crenshaw MD [address] [place] [phone] Unspecified hypothyroidism (Primary Dx); Type II or unspecified type diabetes mellitus without mention of complication, not stated as uncontrolled Social History Tobacco Use Types Packs/Day Years Used Date Smoking Tobacco: Never Assessed Comments Unknown Sex and Gender Information Value Date Recorded Sex Assigned at Not on file Legal Sex Female 5:03 AM JEWELRY SALES COORDINATOR Gender Identity Not on file Sexual Orientation Not on file documented as of this encounter Plan of Treatment Not on file documented as of this encounter Visit Diagnoses Diagnosis Unspecified hypothyroidism- Primary Type II or unspecified type diabetes mellitus without mention of complication, not stated as uncontrolled documented in this encounter Care Teams Food Inspector Relationship Specialty Start Date End Date Brayan Fournier MD [address] [place] [phone] PCP - General Family Practice 06/29/18 documented as of this encounter
--- OUTSIDE RECORDS SUMMARY | 2025-01-14 21:17 | XMS_ITS | Encounter Summary ---
Author Organization [facility] Address [address] [place] [address] Care Team Providers Care Peoplesoft Crm Developer Name Role Phone Brayan Fournier MD Primary Care Provider [phone] Encounter Details Date Type Department Care Team (Late st Contact Info) Description 06/19/2007 Outpatient Historical [facility] [place] [address] [place] [address] [phone] Izabella Smith, [facility] [address] [place] [phone] Social History Tobacco Use Types Packs/Day Years Used Date Smoking Tobacco: Never Assessed Comments Unknown Sex and Gender Information Value Date Recorded Sex Assigned at Not on file Legal Sex Female 5:03 AM SOFTWARE SALES MANAGER Gender Identity Not on file Sexual Orientation Not on file documented as of this encounter Plan of Treatment Not on file documented as of this encounter Visit Diagnoses Not on filedocumented in this encounter Care Teams Peoplesoft Crm Developer Relationship Specialty Start Date End Date Brayan Fournier MD [address] [place] [address] [phone] PCP - General Family Practice 06/29/18 documented as of this encounter
--- OUTSIDE RECORDS SUMMARY | 2025-01-14 21:17 | XMS_ITS | Encounter Summary ---
Author Organization [facility] Address [address] [place] [address] Care Team Providers Care Edge Bander Operator Name Role Phone Brayan Fournier MD Primary Care Provider [phone] Encounter Details Date Type Department Care Team (Latest Contact Info) Description 08/12/2001 Outpatient Historical [facility] [address] [phone] Eleni Talamantes MD [address], [address] ACUTE FRONTAL SINUSITIS (Primary Dx); COUGH; PNEUMONIA, ORGANISM NOS Social History Tobacco Use Types Packs/Day Years Used Date Smoking Tobacco: Never Assessed Comments Unknown Sex and Gender Information Value Date Recorded Sex Assigned at Not on file 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
--- OUTSIDE RECORDS SUMMARY | 2025-01-14 21:17 | XMS_ITS | Encounter Summary ---
Author Organization [facility] Address [address] [place] [address] Care Team Providers Care Special Collections Librarian Name Role Phone Brayan Fournier MD Primary Care Provider [phone] Encounter Details Date Type Department Care Team (Late st Contact Info) Description 05/17/2003 Outpatient Historical [facility] [address] [place] [phone] Ruddy Davis MD [address] [place] [phone] Social History Tobacco Use Types Packs/Day Years Used Date Smoking Tobacco: Never Assessed Comments Unknown Sex and Gender Information Value Date Recorded Sex Assigned at Not on file 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
--- OUTSIDE RECORDS SUMMARY | 2025-01-14 21:17 | XMS_ITS | Encounter Summary ---
Author Organization [facility] Address [address] [place] [address] Care Team Providers Care Booking Prizer Name Role Phone Brayan Fournier MD Primary Care Provider [phone] Encounter Details Date Type Department Care Team (Latest Contact Info) Description 04/29/2000 Outpatient Historical [facility] [address], [place] [phone] Ruddy Davis MD [address] [place] [phone] Need vaccination-viral disease (Primary Dx) Social History Tobacco Use Types Packs/Day Years Used Date Smoking Tobacco: Never Assessed Comments Unknown Sex and Gender Information Value Date Recorded Sex Assigned at Not on file 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
--- OUTSIDE RECORDS SUMMARY | 2025-01-14 21:17 | XMS_ITS | Encounter Summary ---
Author Organization [facility] Address [address] [place] [address] Care Team Providers Care Casing Worker Name Role Phone Brayan Fournier MD Primary Care Provider [phone] Encounter Details Date Type Department Care Team (Latest Contact Info) Description 08/08/1999 Outpatient Historical [facility] [address] [place] [phone] Ruddy Davis MD [address] [place] [phone] Unspecified viral infection, in conditions classified elsewhere and of unspecified site (Primary Dx) Social History Tobacco Use Types Packs/Day Years Used Date Smoking Tobacco: Never Assessed Comments Unknown Sex and Gender Information Value Date Recorded Sex Assigned at Not on file 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
--- OUTSIDE RECORDS SUMMARY | 2025-01-14 21:17 | XMS_ITS | Encounter Summary ---
Author Organization [facility] Address [address] [place] [address] Care Team Providers Care Retail Coverage Merchandiser Lead Name Role Phone Brayan Fournier MD Primary Care Provider [phone] Encounter Details Date Type Department Care Team (Latest Contact Info) Description 09/08/2001 Outpatient Historical [facility] [address] [place] [address] [phone] Ruddy Davis MD [address] [place] [phone] BRONCOPNEUMONIA ORG NOS (Primary Dx); HYPOTHYROIDISM NOS; DIABETES UNCOMPL ADULT-TYPE II ([facility]/HCC) Social History Tobacco Use Types Packs/Day Years Used Date Smoking Tobacco: Never Assessed Comments Unknown Sex and Gender Information Value Date Recorded Sex Assigned at Not on file 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 Gender Identity Not on file Sexual Orientation Not on file documented as of this encounter Plan of Treatment Not on file documented as of this encounter Visit Diagnoses Diagnosis Bronchopneumonia, organism unspecified- Primary Unspecified hypothyroidism Type II or unspecified type diabetes mellitus without mention of complication, not stated as uncontrolled documented in this encounter Care Teams Retail Coverage Merchandiser Lead Relationship Specialty Start Date End Date Brayan Fournier MD [address] [place] [phone] PCP - General Family Practice 06/29/18 documented as of this encounter
--- OUTSIDE RECORDS SUMMARY | 2025-01-14 21:17 | XMS_ITS | Encounter Summary ---
Author Organization [facility] Address [address] [place] [address] Care Team Providers Care Lounge Car Attendant Name Role Phone Brayan Fournier MD Primary Care Provider [phone] Encounter Details Date Type Department Care Team (Latest Contact Info) Description 08/29/2003 Outpatient Historical [facility] [address] [phone] Eleni Talamantes MD [address], [phone] DIABETES UNCOMPL ADULT-TYPE II (CMS/HCC) (Primary Dx) Social History Tobacco Use Types Packs/Day Years Used Date Smoking Tobacco: Never Assessed Comments Unknown Sex and Gender Information Value Date Recorded Sex Assigned at Not on file 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
--- OUTSIDE RECORDS SUMMARY | 2025-01-14 21:17 | XMS_ITS | Encounter Summary ---
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
--- NOTE | 2025-01-14 21:25 | ED_ITS ---
HPI - Trauma 2 General: Chief Complaint: Trauma Stated Complaint: right hip pain Time Seen by Provider: 01/14/25 20:59 History of Present Illness: Patient is an 84-year-old female who presents with hip pain after a fall. She reports that she wasn't doing anything specific when she fell. She was standing doing laundry. The patient denies hitting her head during the fall. She mentions that the pain hurting a little bit again, suggesting recurrent or worsening pain. Patient was seen yesterday by endocrinology for diabetes management. Related Data Home Medications ?Medication ?Instructions ?Recorded ?Confirmed simvastatin 40 mg tablet 40 mg PO DAILY 03/22/2112/18 mecobalamin (vitamin B12) 1,000 1,000 mcg PO DAILY 01/12/25 mcg chewable tablet aspirin 81 mg tablet,delayed 81 mg PO DAILY 06/18/24 0 01/12/25 release (Adult Aspirin Regimen) Previous Rx's ?Medication ?Instructions ?Recorded flash glucose scanning reader #1 ea 11/15/22 (FreeStyle Ghada 2 [place]) flash glucose sensor (FreeStyle #6 ea 11/15/22 Ghada 2 Sensor kit) nateglinide 60 mg tablet 30 mg (1/2 x 60 mg) PO TID # 45 tabs 04/20/24 levothyroxine 100 mcg tablet See Rx Instructions .Rout e 04/29/24 .COMPLEX #90 tabs glipizide 2.5 mg tablet See Rx Instructions PO BID # 60 tabs 07/14/24 citalopram 20 mg tablet 20 mg PO DAILY #90 tabs 06/20 12/10 galantamine 4 mg tablet 4 mg PO BID 90 days #180 tab s 07/15/24 meclizine 25 mg tablet 25 mg PO DAILY PRN vertigo # 30 tabs 07/26/24 insulin glargine 100 unit/mL (3 24 unit (0.24 mL) SUBC UT DAILY 30 09/07/24 mL) subcutaneous pen ( #15 mL KwikPen U-100 Insulin) clopidogrel 75 mg tablet See Rx Instructions .Route 0 09/27/24 .COMPLEX #90 tabs amlodipine 5 mg tablet 5 mg PO DAILY #90 tabs 11/18 losartan 25 mg tablet 25 mg PO BID #90 tabs Allergies Allergy/AdvReac Type Severity Reaction Status Date / Time Penicillins Allergy Intermediate swelling Verified 11/18/24 07:06 left arm Sulfa (Sulfonamide Allergy Mild yeast Verified 11/18/24 07:06 Antibiotics) infection PFSH ED 2 PFSH: Medical History Hypertension Hypercholesterolemia Type 2 diabetes mellitus History of TIA (transient ischemic attack) Hypothyroidism Bleeding internal hemorrhoids Surgical History S/P colonoscopy Family History Mother Cancer Other Diabetes Social History Smoking and tobacco/nicotine status: never used tobacco/nicotine Alcohol intake: never Physical Exam 2 Const: GENERAL APPEARANCE: cooperative and frail appearing (mildly) O RIENTATION/CONSCIOUSNESS: Yes awake, Yes oriented to person and Yes oriented to place HENMT: COMMON NORMALS: normocephalic, atraumatic and Normal external nose present HEAD & SCALP: normocephalic and atraumatic FACE & SINUS: normal facial exam and face symmetric NOSE: Normal external nose present Eye: COMMON NORMALS: Equal, round and reactive pupils present and EOMs intact bilaterally PUPIL: Yes Equal, round and reactive pupils present Neck/C-Spine: GENERAL: Yes trachea midline Chest: CHEST: Yes Symmetrical chest wall rise Resp: COMMON NORMALS: normal respiratory effort, No use of accessory muscles and clear to auscultation bilaterally AUSCULTATION: clear to auscultation bilaterally Extremity: NARRATIVE EXTREMITY EXAM: Exam the right lower extremity reveals flexion deformity with external rotation. She is tender over the anterior and lateral hip. Pulses and sensation are intact distally. Neuro: SENSORIUM/ORIENTATION: Yes oriented to person and Yes oriented to place Course 2 Vital Signs: Vital signs: Vital Signs Temperature 97.7 F 01/15/25 04:00 Pulse Rate 73 01/15/25 04:00 Respiratory Rate 16 01/15/25 04:00 Blood Pressure 170/73 01/15/25 04:00 Pulse Oximetry 92 01/15/25 04:00 Oxygen Delivery Me thod Nasal Cannula 01/15/25 04:00 Oxygen Flow Rate 2 01/15/25 00:31 MDM - Trauma Medical Decision Making X-ray reveals a displaced intertrochanteric right hip fracture. Orthopedics has been contacted. The hospitalist will be contacted. Labs are pending. Patient is hyperglycemic. Other laboratory not remarkable. Hospitalist has seen the patient. She will be admitted. Orthopedic consultation written. Lab Data 01/14/25 22:51 01/14/25 22:51 Radiology Impressions Hip/Pelvis X-Ray 01/14/25 21:16 IMPRESSION: Intratrochanteric fracture with minimal distraction and apex lateral angulation. Chest X-Ray 01/14/25 21:25 IMPRESSION: Perihilar haziness, nonspecific , possibly mild edema or infiltrates, though could also represent low lung volumes, clinical correlation recommended. Laboratory Results WBC 11.18 10^3/uL (3.29-11.43) 01/14/25 22:51 RBC 4.47 10^6/uL (3.85-5.65) 01/14/25 22:51 Hgb 13.10 g/dL (11.27-16.99) 01/14/25 22:51 Hct 40.4 % (36-47) 01/14/25 22:51 MCV 90.4 fl (85-98) 01/14/25 22:51 MCH 29.3 pg (27-33) 01/14/25 22:51 MCHC 32.4 g/dL (30-55) 01/14/25 22:51 RDW 13.9 % (12.1-15.1) 01/14/25 22:51 Plt Count 158 10^3/cmm (157-399) 01/14/25 22:51 MPV 10.8 fL (7.4-10.4) H 01/14/25 22:51 Neut % (Auto) 88.3 % 01/14/25 22:51 Lymph % (Auto) 6.9 % 01/14/25 22:51 [place] % (Auto) 3.9 % 01/14/25 22:51 Eos % (Auto) 0.3 % 01/14/25 22:51 Baso % (Auto) 0.1 % 01/14/25 22:51 Neut # (Auto) 9.87 10^3/uL (1.8-7.7) H 01/14/25 22:51 Lymph # (Auto) 0.8 10^3/uL (0.8-4.8) 01/14/25 22:51 [place] # (Auto) 0.4 10^3/uL (0.2-0.9) 01/14/25 22:51 Eos # (Auto) 0.0 10^3/uL (0.0-0.8) 01/14/25 22:51 Baso # (Auto) 0.0 10^3/uL (0.0-0.1) 01/14/25 22:51 Nucleated RBC % (auto) 0 % 01/14/25 22:51 Nucleated RBCs # 0.0 /100WBC 01/14/25 22:51 Sodium 138 mmol/L (136-145) 01/14/25 22:51 Potassium 4.4 mmol/L (3.5-5.1) 01/14/25 22:51 Chloride 100 mmol/L (98-107) 01/14/25 22:51 Carbon Dioxide 28 mmol/L (22-29) 01/14/25 22:51 Anion Gap 14.4 (5-19) 01/14/25 22:51 BUN 22 mg/dL (8-23) 01/14/25 22:51 Creatinine 0.8 mg/dL (0.5-0.9) 01/14/25 22:51 GFR Calculation Not Reportable 01/14/25 22:51 Glucose 339 mg/dL (65-115) H 01/14/25 22:51 Calculated Osmolality 303 mOsm/kg (285-295) H 01/14/25 22:51 Calcium 9.3 mg/dL (8.5-10.5) 01/14/25 22:51 Magnesium 1.8 mg/dL (1.7-2.3) 01/14/25 22:51 Total Bilirubin 0.6 mg/dL (0.15-1.2) 01/14/25 22:51 AST 21 U/L (0-32) 01/14/25 22:51 ALT 20 U/L (0-33) 01/14/25 22:51 Alkaline Phosphatase 122 U/L (35-105) H 01/14/25 22:51 Creatine Kinase 107 U/L (26-192) 01/14/25 22:51 Troponin T Baseline 16 ng/L (0-10) H 01/14/25 22:51 NT-Pro-B Natriuret Pep 449 pg/mL (0-450) 01/14/25 22:51 Total Protein 6.7 g/dL (6.6-8.7) 01/14/25 22:51 Albumin 4.1 g/dL (3.5-5.2) 01/14/25 22:51 Globulin 2.6 g/dL (1.3-4.6) 01/14/25 22:51 Urine Color Yellow (Yellow) 01/14/25 23:27 Urine Appearance Clear (CLEAR) 01/14/25 23:27 Urine pH 7.0 (5-7) 01/14/25 23:27 Ur Specific [place] 1.021 (1.005-1.030) 01/14/25 23:27 Urine Protein Negative (Negative) 01/14/25 23:27 Urine Glucose (UA) 3+ (Normal) H 01/14/25 23:27 Urine Ketones Trace (Negative) 01/14/25 23:27 Urine Blood Negative (Negative) 01/14/25 23:27 Urine Nitrate Negative (Negative) 01/14/25 23:27 Urine Bilirubin Negative (Negative) 01/14/25 23:27 Urine Urobilinogen 0.2 mg/dL (Negative) 01/14/25 23:27 Ur Leukocyte Esterase Negative (Negative) 01/14/25 23:27 Urine RBC 0-2 /hpf (0-2) 01/14/25 23:27 Urine WBC 0-5 /hpf (0-5) 01/14/25 23:27 Ur Squamous Epith Cells 0-5 /hpf (0-5) 01/14/25 23:27 Amorphous Sediment Not Reportable 01/14/25 23:27 Urine Bacteria None seen /hpf (NONE) 01/14/25 23:27 Hyaline Casts 0.40 /lpf 01/14/25 23:27 All radiology interpretation(s) finalized by discharge Discharge Plan Discharge Patient Disposition: Admitted As Inpatient Admit Provider: Darcy Silvestre Clinical Impression: Closed fracture of right hip Condition: Stable Coding Level of Care Code ED Net Developer Architect for Corina Huynh
--- NOTE | 2025-01-14 21:25 | ECG_ITS ---
[employer] Test Date: 2025-01-14 Pat Name: Elvi Marquez Department: Room: Gender: Female Community Representative: : 1940 Requested By: Edi Sawyer Order Number: [id number] Pearl MD: Javier Thomson M.D. Measurements Intervals [place] Rate: 61 P: 58 AL: 150 QRS: 43 QRSD: 91 T: 68 QT: 404 QTc: 409 Interpretive Statements SINUS RHYTHM WITH SINUS ARRHYTHMIA SEPTAL MYOCARDIAL INFARCTION , OF INDETERMINATE AGE [40+ ms Q WAVE IN V1/V2] No previous ECG available for comparison Electronically Signed On 01-14-2025 21:50:41 CDT by Javier Thomson M.D. [email or web address]
--- NOTE | 2025-01-14 21:25 | XRR_ITS ---
PROCEDURE INFORMATION: Exam: XR Chest Exam date and time: 01/14/2025 9:24 PM Age: 84 years old Clinical indication: Injury or trauma; Blunt trauma (contusions or hematomas); EMS arrival for fall from standing. C/O RT hip pain. Shortening and external rotation of rle. TECHNIQUE: Imaging protocol: Radiologic exam of the chest. Views: 1 view. COMPARISON: No relevant prior studies available. FINDINGS: Lungs: Perihilar haziness, nonspecific , possibly mild edema or infiltrates, though could also represent low lung volumes, clinical correlation recommended. Pleural spaces: Unremarkable. No pleural effusion. No pneumothorax. Heart/Mediastinum: Aortic atherosclerosis. No cardiomegaly. Bones/joints: Unremarkable. XR/XR chest 1V portable [id number] IMPRESSION: Perihilar haziness, nonspecific , possibly mild edema or infiltrates, though could also represent low lung volumes, clinical correlation recommended.
--- NOTE | 2025-01-14 22:25 | PM.HP ---
Providers/Chief Complaint Admitting Physician: AILEEN HUIZAR DO--- patient was seen and evaluated before 12 midnight-01/14/2025 Primary Care Provider: PAUL Manley Chief Complaint: right hip pain History of Present Illness Elvi Marquez is a 84 year old female with medical history significant for uncontrolled blood pressure on amlodipine and losartan, diabetes type 2 on glipizide and glargine insulin who had been in the normal state of health when she took a mechanical fall today and fractured the right hip. Patient came to the emergency room because of right hip pain the emergency room attending had consulted the orthopedics who actually plan to take to the OR to repair the hip. Pain management had been with morphine and Toradol. Patient hip fracture is the intratrochanteric fracture with some minimal distraction and apex lateral angulation per the official report below patient blood pressure has been up partly because of pain and partly because of not having taken the blood pressure medication today Status post fall with x-ray significant for the below radiographic reading FINDINGS: Bones/joints: Degenerative changes of the hip. Intratrochanteric fracture with minimal distraction and apex lateral angulation. Atheromatous vascular calcifications of vessels. Soft tissues: Unremarkable. XR/XR hip RT 2-3V wo/w pel* [id number] IMPRESSION: Intratrochanteric fracture with minimal distraction and apex lateral angulation. Dictated By: Armando Salcido MD Signed By: Armando Salcido MD Signed Date/Time: 01/14/252219 DD/ 17 Medications/Allergies Home Medications ?Medication ?Instructions ?Recorded ?Confirmed ?Last Taken ?Type simvastatin 40 mg tablet 40 mg PO DAILY 03/22/21 01/12/25 04/01/21 History flash glucose scanning reader #1 ea 11/15/22 01/12/25 Unknown Rx (FreeStyle Ghada 2 [place]) flash glucose sensor (FreeStyle #6 ea 11/15/22 01/12/25 Unknown Rx Ghada 2 Sensor kit) mecobalamin (vitamin B12) 1,000 1,000 mcg PO DAILY 11/15/22 01/12/25 Unknown History mcg chewable tablet nateglinide 60 mg tablet 30 mg (1/2 x 60 mg) PO TID #45 tabs 04/20/24 01/12/25 Unknown Rx levothyroxine 100 mcg tablet See Rx Instructions .Route 04/29/24 01/12/25 Unknown Rx .COMPLEX #90 tabs aspirin 81 mg tablet,delayed 81 mg PO DAILY 06/18/24 01/12/25 Unknown History release (Adult Aspirin Regimen) glipizide 2.5 mg tablet See Rx Instructions PO BID #60 tabs 07/14/24 01/12/25 Unknown Rx citalopram 20 mg tablet 20 mg PO DAILY #90 tabs 07/15/24 01/12/25 Unknown Rx galantamine 4 mg tablet 4 mg PO BID 90 days #180 tabs 07/15/24 01/12/25 Unknown Rx meclizine 25 mg tablet 25 mg PO DAILY PRN vertigo #30 tabs 07/26/24 01/12/25 Unknown Rx insulin glargine 100 unit/mL (3 24 unit (0.24 mL) SUBCUT DAILY 30 09/07/24 01/12/25 Unknown Rx mL) subcutaneous pen ( #15 mL KwikPen U-100 Insulin) clopidogrel 75 mg tablet See Rx Instructions .Route 09/27/24 01/12/25 Unknown Rx .COMPLEX #90 tabs amlodipine 5 mg tablet 5 mg PO DAILY #90 tabs 11/18/24 01/12/25 Unknown Rx losartan 25 mg tablet 25 mg PO BID #90 tabs 12/01/24 01/12/25 Unknown Rx Allergies Allergy/AdvReac Type Severity Reaction Status Date / Time Penicillins Allergy Intermediate swelling Verified 11/18/24 07:06 left arm Sulfa (Sulfonamide Allergy Mild yeast Verified 11/18/24 07:06 Antibiotics) infection PFSH Acute PFSH: Medical History (Updated 01/14/25 @ 21:54 by Edi Oviedo DO) Hypertension Hypercholesterolemia Type 2 diabetes mellitus History of TIA (transient ischemic attack) Hypothyroidism Bleeding internal hemorrhoids Surgical History S/P colonoscopy Family History Mother Cancer Other Diabetes Social History Smoking and tobacco/nicotine status: never used tobacco/nicotine Alcohol intake: never Vitals/I&O/Wt Last Vital Signs Temp 98.1 F 01/14/25 21:09 Pulse 58 L 01/14/25 21:09 Resp 18 01/14/25 21:09 BP 205/80 01/14/25 21:09 Pulse Ox 92 01/14/25 21:09 O2 Del Method Room Air 01/14/25 21:09 01/14/25 01/14/25 01/14/25 06:59 14:59 22:59 Intake Total 0 / 0 Balance 0 / 0 Weight last 48 hrs Weight 78.018 kg Physical Exam Narrative: Patient is comfortable lying supine in bed with the at the bedside. HEENT normocephalic atraumatic neck neck is supple cardiovascular heart rate is regular lungs are pretty much clear abdomen soft nontender nondistended unremarkable extremities are intact there is no edema has good pulses however right hip is with tenderness post fall. And the right leg is shorter than the left leg. Neurology no focality Data 01/14/25 22:51 01/14/25 22:51 A&P Assessment and plan 1. Closed fracture of right hip: 2. Hypertension: Plan: #1 Patient status post mechanical fall sustaining closed fracture of the right hip - Keep n.p.o. - Admit to general medical floor - Orthopedics consulted for a repair of the right hip fracture to optimize for good chance for ambulation and healing. -Pain management with morphine and Toradol ordered #2 Hypertension - Continue home medication of losartan and Pneumovax PDMP PDMP Reviewed: Not Reviewed Attestations Medical Necessity Statement*: Patient with right hip fracture from a mechanical fall is going for surgical repair with orthopedics consultation and this patient will need at least 2 midnights for optimization of care and this qualifies patient for inpatient stay Coding Level of Care Code 87653 Diagnoses Closed fracture of right hip S72.001A Hypertension I10 Time Spent (min) 60
[2025-01-14 22:57] VITALS: BP 185/71; PULSE 72; RESP 16; O2SAT 93
[2025-01-14 23:12] LABS: Hematocrit 40.4 % (36-47); Hemoglobin 13.10 g/dL (11.27-16.99); Mean Corpuscular HGB Conc 32.4 g/dL (30-55); Mean Corpuscular Hemoglobin 29.3 pg (27-33); Mean Corpuscular Volume 90.4 fl (85-98); Nucleated Red Blood Cells % 0 %; Platelet Count 158 10^3/cmm (157-399); Red Blood Count 4.47 10^6/uL (3.85-5.65); White Blood Count 11.18 10^3/uL (3.29-11.43)
[2025-01-14 23:38] LABS: Glucose Urine UA 3+ (Normal); Nitrate Urine Negative (Negative); Specific Gravity, Urine 1.021 (1.005-1.030)
[2025-01-14 23:40] LABS: Troponin(5th) Baseline 16 ng/L (0-10)
[2025-01-14 23:42] LABS: Add Urine Microscopic? YES
[2025-01-14 23:50] LABS: Alanine Aminotransferase 20 U/L (0-33); Albumin Level 4.1 g/dL (3.5-5.2); Alkaline Phosphatase 122 U/L (35-105); Anion Gap 14.4 (5-19); Aspartate Amino Transferase 21 U/L (0-32); Blood Urea Nitrogen 22 mg/dL (8-23); Calcium 9.3 mg/dL (8.5-10.5); Carbon Dioxide 28 mmol/L (22-29); Chloride 100 mmol/L (98-107); Creatinine Clr Calc Pharmacy 57.1634; Globulin 2.6 g/dL (1.3-4.6); Glucose 339 mg/dL (65-115); Magnesium 1.8 mg/dL (1.7-2.3); NT Pro B Type Natriuretic Pept 449 pg/mL (0-450); Osmolality Calculated 303 mOsm/kg (285-295); Potassium 4.4 mmol/L (3.5-5.1); Sodium 138 mmol/L (136-145); Total Protein 6.7 g/dL (6.6-8.7)
--- NOTE | 2025-01-14 23:53 | ECG_ITS ---
[facility] Test Date: 2025-01-14 Pat Name: Elvi Marquez Department: Room: Gender: Female [employer]: : 1940 Requested By: Edi Sawyer Order Number: [id number] Kang MD: Chuck Doyle M.D. Measurements Intervals [place] Rate: 67 P: 67 TN: 151 QRS: 50 QRSD: 93 T: 75 QT: 409 QTc: 435 Interpretive Statements SINUS RHYTHM SEPTAL MYOCARDIAL INFARCTION , OF INDETERMINATE AGE [40+ ms Q WAVE IN V1/V2] MNOR ST DEPRESSION Compared to ECG 01/14/2025 21:31:21 Sinus arrhythmia no longer present Electronically Signed On 01-17-2025 14:10:50 CDT by Chuck Doyle M.D. [email or web address]
[2025-01-15] VITALS (20 sets, daily range): BP systolic 92–215; BP diastolic 49–99; PULSE 54–84; RESP 12–22; TEMP 36.5–37.9; O2SAT 92–100; BMI 27.8
[2025-01-15 03:08] LABS: Troponin 5 2HR 14.98 ng/L (0-10)
[2025-01-15 03:11] LABS: Troponin 5 2HR Delta -1.02 ABS# (0-10)
--- NOTE | 2025-01-15 05:15 | ECG_ITS ---
[facility] Test Date: 2025-01-15 Pat Name: Elvi Marquez Department: Room: 260 Gender: Female [employer]: : 1940 Requested By: Edi Sawyer Order Number: [id number] Kang MD: Chuck Doyle M.D. Measurements Intervals [place] Rate: 63 P: 67 AR: 148 QRS: 29 QRSD: 91 T: 71 QT: 412 QTc: 422 Interpretive Statements SINUS RHYTHM SEPTAL MYOCARDIAL INFARCTION , OF INDETERMINATE AGE [40+ ms Q WAVE IN V1/V2] Compared to ECG 01/14/2025 23:53:56 No significant changes Electronically Signed On 01-17-2025 14:05:26 CDT by Chuck Doyle M.D. [email or web address]
[2025-01-15 05:18] LABS: Hematocrit 39.5 % (36-47); Hemoglobin 12.40 g/dL (11.27-16.99); Mean Corpuscular HGB Conc 31.4 g/dL (30-55); Mean Corpuscular Hemoglobin 28.1 pg (27-33); Mean Corpuscular Volume 89.6 fl (85-98); Nucleated Red Blood Cells % 0 %; Platelet Count 144 10^3/cmm (157-399); Red Blood Count 4.41 10^6/uL (3.85-5.65); White Blood Count 7.75 10^3/uL (3.29-11.43)
[2025-01-15 06:03] LABS: Troponin 5 6HR 17.52 ng/L (0-10); Troponin 5 6HR Delta 1.52 ng/L (0-12)
[2025-01-15 06:07] LABS: Alanine Aminotransferase 17 U/L (0-33); Albumin Level 3.7 g/dL (3.5-5.2); Alkaline Phosphatase 104 U/L (35-105); Anion Gap 15.4 (5-19); Aspartate Amino Transferase 17 U/L (0-32); Blood Urea Nitrogen 22 mg/dL (8-23); Calcium 8.8 mg/dL (8.5-10.5); Carbon Dioxide 25 mmol/L (22-29); Chloride 99 mmol/L (98-107); Creatinine Clr Calc Pharmacy 51.0328; Globulin 2.4 g/dL (1.3-4.6); Glucose 384 mg/dL (65-115); Magnesium 1.8 mg/dL (1.7-2.3); Osmolality Calculated 299 mOsm/kg (285-295); Potassium 4.4 mmol/L (3.5-5.1); Sodium 135 mmol/L (136-145); Total Protein 6.1 g/dL (6.6-8.7)
--- NOTE | 2025-01-15 07:00 | PC.NURSE ---
Patient to surgery at 0658
[2025-01-15] MEDS: insulin regular-human 100 units/1 mL 10 UNIT IVP (07:21)
--- NOTE | 2025-01-15 07:48 | PM.CONSULT ---
Providers/Reason For Consult Consulting Physician/Specialty*: Hospitalist Reason for Consult*: Right hip fracture Attending Physician: Darcy Silvestre MD Primary Care Provider: PAUL Manley History of Present Illness History of Present Illness Elvi Marquez is a 84 year old female sustained a ground-level fall and has a right intertrochanteric hip fracture. I was consulted to fix hip fracture. Patient has pain in the right hip does not radiate localized to the right hip Review of Systems Const: Denies: fever(s), chills, change in weight, fatigue or night sweats Eyes: Denies: change in vision ENMT: Denies: throat pain Card: Denies: chest pain, swelling of feet/ankles or dyspnea on exertion Resp: Denies: dyspnea or productive cough GI: Denies: abdominal pain or change in bowel habits : Denies: difficulty voiding Musc: Denies: joint pain Skin/Breast: Denies: rash Neuro: Reports: dizziness; Denies: headache(s), numbness in extremities or weakness in extremities Psych: Denies: anxiety or depression Endo: Denies: polyuria, polydipsia or tired all the time William/Lymph: Denies: easy bruising Medications/Allergies Home Medications ?Medication ?Instructions ?Recorded ?Confirmed ?Last Taken ?Type simvastatin 40 mg tablet 40 mg PO DAILY 03/22/21 01/12/25 04/01/21 History flash glucose scanning reader #1 ea 11/15/22 01/12/25 Unknown Rx (FreeStyle Ghada 2 [place]) flash glucose sensor (FreeStyle #6 ea 11/15/22 01/12/25 Unknown Rx Ghada 2 Sensor kit) mecobalamin (vitamin B12) 1,000 1,000 mcg PO DAILY 11/15/22 01/12/25 Unknown History mcg chewable tablet nateglinide 60 mg tablet 30 mg (1/2 x 60 mg) PO TID #45 tabs 04/20/24 01/12/25 Unknown Rx levothyroxine 100 mcg tablet See Rx Instructions .Route 04/29/24 01/12/25 Unknown Rx .COMPLEX #90 tabs aspirin 81 mg tablet,delayed 81 mg PO DAILY 06/18/24 01/12/25 Unknown History release (Adult Aspirin Regimen) glipizide 2.5 mg tablet See Rx Instructions PO BID #60 tabs 07/14/24 01/12/25 Unknown Rx citalopram 20 mg tablet 20 mg PO DAILY #90 tabs 07/15/24 01/12/25 Unknown Rx galantamine 4 mg tablet 4 mg PO BID 90 days #180 tabs 07/15/24 01/12/25 Unknown Rx meclizine 25 mg tablet 25 mg PO DAILY PRN vertigo #30 tabs 07/26/24 01/12/25 Unknown Rx insulin glargine 100 unit/mL (3 24 unit (0.24 mL) SUBCUT DAILY 30 09/07/24 01/12/25 Unknown Rx mL) subcutaneous pen ( #15 mL KwikPen U-100 Insulin) clopidogrel 75 mg tablet See Rx Instructions .Route 09/27/24 01/12/25 Unknown Rx .COMPLEX #90 tabs amlodipine 5 mg tablet 5 mg PO DAILY #90 tabs 11/18/24 01/12/25 Unknown Rx losartan 25 mg tablet 25 mg PO BID #90 tabs 12/01/24 01/12/25 Unknown Rx Allergies Allergy/AdvReac Type Severity Reaction Status Date / Time Penicillins Allergy Intermediate swelling Verified 11/18/24 07:06 left arm Sulfa (Sulfonamide Allergy Mild yeast Verified 11/18/24 07:06 Antibiotics) infection Current Medications Generic Name Dose Route Start Last Admin Trade Name Freq PRN Reason Stop Dose Admin Sodium Chloride 1,000 mls @ 75 mls/hr 01/14/25 23:45 01/15/25 00:42 Sodium Chloride 0.9% IV 75 mls/hr .[id number] JOSÉ MIGUEL Administration Ketorolac Tromethamine 15 mg 01/15/25 00:30 01/15/25 05:46 Ketorolac 30 Mg/Ml Inj IVP 01/20/25 00:29 15 mg Q6H JOSÉ MIGUEL Administration PFSH Acute PFSH: Medical History (Updated 01/15/25 @ 07:49 by Archie Blood DO) Hypertension Hypercholesterolemia Type 2 diabetes mellitus History of TIA (transient ischemic attack) Hypothyroidism Bleeding internal hemorrhoids Surgical History S/P colonoscopy Family History Mother Cancer Other Diabetes Social History Smoking and tobacco/nicotine status: never used tobacco/nicotine Alcohol intake: never Vitals/I&O/Wt Last Vital Signs Temp 100.2 F H 01/15/25 07:01 Pulse 64 01/15/25 07:01 Resp 20 H 01/15/25 07:01 BP 181/60 01/15/25 07:01 Pulse Ox 93 01/15/25 07:01 O2 Del Method Room Air 01/15/25 07:01 O2 Flow Rate 2 01/15/25 00:31 01/14/25 01/15/25 01/15/25 22:59 06:59 14:59 Intake Total 0 / 0 1000 / 1000 Output Total 1400 / 1400 Balance 0 / 0 -400 / -400 Weight last 48 hrs Weight 173 lb 9.6 oz Weight 172 lb 6.4 oz Weight 172 lb Physical Exam Narrative: Alert and oriented x 3 Head is normocephalic atraumatic Respirations are intact No evidence of any rashes or infection 5/5 strength in bilateral upper and lower extremities Sensation intact in all extremities Right hip shortened and externally rotated Urinary Catheter Management: Lange: Cath Placed During This Visit: yes Reason for Continuing Indwelling Catheter: Required Immobilization for Trauma or Surgery or Anesthesia Urinary Catheter Date of Insertion: 01/14/25 Urinary Catheter Time of Insertion: 23:25 Data 01/15/25 04:45 01/15/25 04:45 A&P Assessment and plan 1. Closed fracture of right hip, initial encounter: Right intertrochanteric hip fracture Plan to do right hip nail PDMP PDMP Reviewed: Not Reviewed Coding Level of Care Code Acute Code for Chg Fwd Diagnoses Closed fracture of right hip, initial encounter S72.001A Encounter type: initial encounter
--- NOTE | 2025-01-15 08:00 | XR_ITS ---
WS: [id number] C-ARM RADIOGRAPHS RIGHT HIP; 3 IMAGES HISTORY: RT TFN; OR PICS COMPARISON: 01/14/2025 Status post ORIF RIGHT intertrochanteric hip fracture in good position and alignment. Short intramedullary nilam and the gamma nail in good position. XR/XR hip RT 2-3V wo/w pel* [id number] IMPRESSION: Status post ORIF RIGHT hip in good position and alignment.
--- NOTE | 2025-01-15 08:06 | ANES.PREANE2 ---
Pre-Anesthetic Assessment Height/Weight: Height 1.68 m Weight 78.744 kg Temp Pulse Resp BP Pulse Ox O2 Del Method O2 Flow Rate 100.2 F H 64 20 H 181/60 93 Room Air 2 01/15/25 07:01 01/15/25 07:01 01/15/25 07:01 01/15/25 07:01 01/15/25 07:01 01/15/25 07:01 01/15/25 00:31 Operation Date: 01/15/25 10:25 Proposed Procedures p Trochanteric Femoral Nail(Right) - Archie Blood, DO Familial anesthetic complications: None Was Beta Akilah taken within 24 hours: N/A Was Clonidine taken within 24 hours: N/A Last intake: Intake Last Liquid Date 01/14/25 Last Liquid Time 21:00 Last Solid Date 01/14/25 Last Solid Time 21:00 Social No alcohol and No tobacco Exam alert, oriented x 3, clear to auscultation bilaterally and regular rate & rhythm Airway Mallampati: Class II Comments: Comments: receding jaw, no teeth CV/HEM Hypertension Metabolic Diabetes Mellitus, Hyperlipidemia and Thyroid Disease Neuropsych Cerebrovascular Accident and Seizure Anesthetic Plan ASA status: 3 Anesthesia: General Risk of > 500 ml blood loss (7ml/kg in children): No Medications/Allergies Home Medications ?Medication ?Instructions ?Recorded ?Confirmed ?Last Taken ?Type simvastatin 40 mg tablet 40 mg PO DAILY 03/22/21 01/12/25 04/01/21 History flash glucose scanning reader #1 ea 11/15/22 01/12/25 Unknown Rx (FreeStyle Ghada 2 [place]) flash glucose sensor (FreeStyle #6 ea 11/15/22 01/12/25 Unknown Rx Ghada 2 Sensor kit) mecobalamin (vitamin B12) 1,000 1,000 mcg PO DAILY 11/15/22 01/12/25 Unknown History mcg chewable tablet nateglinide 60 mg tablet 30 mg (1/2 x 60 mg) PO TID #45 tabs 04/20/24 01/12/25 Unknown Rx levothyroxine 100 mcg tablet See Rx Instructions .Route 04/29/24 01/12/25 Unknown Rx .COMPLEX #90 tabs aspirin 81 mg tablet,delayed 81 mg PO DAILY 06/18/24 01/12/25 Unknown History release (Adult Aspirin Regimen) glipizide 2.5 mg tablet See Rx Instructions PO BID #60 tabs 07/14/24 01/12/25 Unknown Rx citalopram 20 mg tablet 20 mg PO DAILY #90 tabs 07/15/24 01/12/25 Unknown Rx galantamine 4 mg tablet 4 mg PO BID 90 days #180 tabs 07/15/24 01/12/25 Unknown Rx meclizine 25 mg tablet 25 mg PO DAILY PRN vertigo #30 tabs 07/26/24 01/12/25 Unknown Rx insulin glargine 100 unit/mL (3 24 unit (0.24 mL) SUBCUT DAILY 30 09/07/24 01/12/25 Unknown Rx mL) subcutaneous pen ( #15 mL KwikPen U-100 Insulin) clopidogrel 75 mg tablet See Rx Instructions .Route 09/27/24 01/12/25 Unknown Rx .COMPLEX #90 tabs amlodipine 5 mg tablet 5 mg PO DAILY #90 tabs 11/18/24 01/12/25 Unknown Rx losartan 25 mg tablet 25 mg PO BID #90 tabs 12/01/24 01/12/25 Unknown Rx Allergies Allergy/AdvReac Type Severity Reaction Status Date / Time Penicillins Allergy Intermediate swelling Verified 11/18/24 07:06 left arm Sulfa (Sulfonamide Allergy Mild yeast Verified 11/18/24 07:06 Antibiotics) infection Current Medications Generic Name Dose Route Start Last Admin Trade Name Freq PRN Reason Stop Dose Admin Sodium Chloride 1,000 mls @ 75 mls/hr 01/14/25 23:45 01/15/25 00:42 Sodium Chloride 0.9% IV 75 mls/hr .[id number] JOSÉ MIGUEL Administration Clindamycin HCl/Dextrose 600 mg in 50 mls @ 100 mls/hr 01/15/25 07:38 01/15/25 07:56 Cleocin IV 01/15/25 08:07 100 mls/hr ONCE ONE Administration Protocol Ketorolac Tromethamine 15 mg 01/15/25 00:30 01/15/25 05:46 Ketorolac 30 Mg/Ml Inj IVP 01/20/25 00:29 15 mg Q6H JOSÉ MIGUEL Administration PFSH Anesthesia Medical History (Updated 01/15/25 @ 07:49 by Archie Blood DO) Hypertension Hypercholesterolemia Type 2 diabetes mellitus History of TIA (transient ischemic attack) Hypothyroidism Bleeding internal hemorrhoids Surgical History S/P colonoscopy Family History Mother Cancer Other Diabetes Social History Smoking and tobacco/nicotine status: never used tobacco/nicotine Alcohol intake: never Data Anesthesia 01/15/25 04:45 01/15/25 04:45 Short CBC 01/14/25 01/15/25 Range/Units 22:51 04:45 WBC 11.18 7.75 (3.29-11.43) 10^3/uL Hgb 13.10 12.40 (11.27-16.99) g/dL Hct 40.4 39.5 (36-47) % MCV 90.4 89.6 (85-98) fl Plt Count 158 144 L (157-399) 10^3/cmm Neut % (Auto) 88.3 84.1 % Neut # (Auto) 9.87 H 6.52 (1.8-7.7) 10^3/uL BMP 01/14/25 01/15/25 22:51 04:45 Sodium 138 135 L Potassium 4.4 4.4 Chloride 100 99 Carbon Dioxide 28 25 BUN 22 22 Creatinine 0.8 0.9 Glucose 339 H 384 H Calcium 9.3 8.8 Cardiac Enzymes 01/14/25 01/15/25 01/15/25 Range/Units 22:51 01:20 04:45 Creatine Kinase 107 (26-192) U/L Troponin T Baseline 16 H (0-10) ng/L Troponin T 120 Minute 14.98 H (0-10) ng/L Delta Troponin T -1.02 L (0-10) ABS# Troponin T Hi Sens 6Hr 17.52 H (0-10) ng/L Troponin T Hi Sens 6Hr Delta 1.52 (0-12) ng/L NT-Pro-B Natriuret Pep 449 (0-450) pg/mL Liver Function 01/14/25 01/15/25 Range/Units 22:51 04:45 Total Bilirubin 0.6 0.6 (0.15-1.2) mg/dL AST 21 17 (0-32) U/L ALT 20 17 (0-33) U/L Alkaline Phosphatase 122 H 104 (35-105) U/L Albumin 4.1 3.7 (3.5-5.2) g/dL Urine 01/14/25 Range/Units 23:27 Urine Color Yellow (Yellow) Urine Appearance Clear (CLEAR) Urine pH 7.0 (5-7) Ur Specific Steward 1.021 (1.005-1.030) Urine Protein Negative (Negative) Urine Glucose (UA) 3+ H (Normal) Urine Ketones Trace (Negative) Urine Nitrate Negative (Negative) Urine Bilirubin Negative (Negative) Ur Leukocyte Esterase Negative (Negative) Urine RBC 0-2 (0-2) /hpf Urine WBC 0-5 (0-5) /hpf Cardiac Studies: Echocardiogram 09/19/22
--- NOTE | 2025-01-15 08:57 | P.OP_ITS ---
Operative Report Date of procedure: January 15, 2025 Pre-op diagnosis: Right intertrochanteric hip fracture Post-op diagnosis: same Procedure done: Right hip nail Surgeon: Archie Blood DO Estimated blood loss (mL): 15 Procedure: Right hip nail Patient is brought to the procedure after undergoing anesthesia was placed in the supine position on the fracture table. All areas of impingement were well- padded. The C-arm was brought into reduced fracture fracture was reduced with traction. Patient was prepped and draped normal sterile fashion. Skin incision was made over the proximal part of the femur. The starting pin was placed into the tip of the greater trochanter. And drilled in. AP and lateral fluoroscopy ensured that the pin was in appropriate position. Tip of the trochanter was reamed out with the drill. Nail was placed. The lag screw starting point was placed with a pin. Is confirmed in AP and lateral views. The lag screw hole was drilled out. And last was placed. This was 100 mm screw. Compression was made across the fracture. The proximal locking bolt was inserted. And then backed off half turn. The distal locking screw was then placed as a 35 mm screw. AP lateral fluoroscopy and showed that the fracture and hardware in good position. Wounds were irrigated and closed with Vicryl and dilan. Sterile dressings were applied and patient was transferred to the PACU in stable condition.
[2025-01-15] MEDS: fentaNYL 50 mcg/mL INJ 2mL 100 MCG (09:20)
--- NOTE | 2025-01-15 09:47 | ANE.PACU2 ---
Inpatient post-anesthesia follow up: Airway intact: Yes Vital signs: Temperature 98.4 F Pulse Rate 73 Respiratory Rate 18 Blood Pressure 163/87 Pulse Oximetry 95 Oxygen Delivery Me thod Nasal Cannula Oxygen Flow Rate 3 Fraction of Inspir ed Oxygen Hydration adequate: Yes Nausea and vomiting: No Pain level: 1 Mental status: Baseline
--- NOTE | 2025-01-15 09:55 | PC.NURSE ---
0990 - accepted into room 260 with SOHEILA Barrios charge at side - pt in no distress upon this nurse exiting care
[2025-01-15] MEDS: fixodent 39 gm Tube 1 APPLIC DENTAL (12:17)
--- NOTE | 2025-01-15 12:57 | PC.CHAP ---
Pastoral Care Encounter/Spiritual Assessment Type of Contact [x] Declined yard inspector visit [] Patient/Family/Request visit [] Outpatient visit [] Follow-up visit [] Physician referral [] Code/Alert [x] Routine visit [] Staff referral [] Actively dying [] Patient sleeping [] Family support [] [] Out of room [] Palliative care [] [] Receiving care in room [] Pre-surgical visit [] Trauma [] Long length of stay [] ICU visit [] Other: Relational/Emotional Strength [] Patient feels connected with others/family/visitors/staff [] Distress [] Loneliness/isolation [] Abandonment Spirituality of Patient [] Person of Michelle [] Attends Mu-Ism of their Michelle [] Believes in Prayer [] Reads Bible or Scientology materials [] There are Spiritual issues to be addressed Group Program Manager Interventions [] Prayer [] Active listening [] Non-anxious presence [] Spiritual/emotional support [] Crisis/trauma care [] Spiritual counseling [] Bereavement support [] Provided bereavement packet [] Provided Bible/devotional materials [] Provided toy/stuffed animal, coloring book to patient or family member [] Provided Communion [] Anointing/[place]aban [] Salvation [] Completed spiritual assessment [] Other: Impact on Illness or Injury [] Angry [] Fearful [] Anxious [] Often cries [] Exhaustion [] Unable to work [] Unable to attend hoahaoism [] Unable to walk/stand [] Unable to read [] Unable to drive [] Unable to eat/drink [] Unable to sleep [] Unable to be with family [] Patient intubated [] Other: Summary Time spent with patient
--- NOTE | 2025-01-15 13:01 | P.PN_ITS ---
Subjective 2 Subjective: seen this am pt s/p surgery Vitals/I&O/Wt Last Vital Signs Temp 98.0 F 01/15/25 12:52 Pulse 60 01/15/25 12:52 Resp 16 01/15/25 12:52 BP 114/49 01/15/25 12:52 Pulse Ox 98 01/15/25 12:52 O2 Del Method Nasal Cannula 01/15/25 12:52 O2 Flow Rate 3 01/15/25 11:00 01/14/25 01/15/25 01/15/25 22:59 06:59 14:59 Intake Total 0 / 0 1000 / 1000 1065 / 1065 Output Total 1400 / 1400 75 / 75 Balance 0 / 0 -400 / -400 990 / 990 Weight last 48 hrs Weight 78.744 kg Weight 78.199 kg Weight 78.018 kg Physical Exam 2 Narrative: General: Alert oriented x3, patient seen resting comfortably in bed HEENT: Normocephalic, atraumatic, EOMI, Cardio: RRR, normal s1, s2 Respiratory: clear to auscultation b/l , on NC at this time s/p surgery GI: Abdomen soft, nontender, bowel sounds + Extremities: no edema, no cyanosis right hip surgical dressing and ice pack in place Urinary Catheter Management: Lange: Cath Placed During This Visit: yes Reason for Continuing Indwelling Catheter: Required Immobilization for Trauma or Surgery or Anesthesia Urinary Catheter Date of Insertion: 01/14/25 Urinary Catheter Time of Insertion: 23:25 Data 01/15/25 04:45 01/15/25 04:45 A&P Assessment and plan 1. Closed fracture of right hip: 2. Hypertension: Plan: #1 Patient status post mechanical fall sustaining closed fracture of the right hip - Keep n.p.o. - Admit to general medical floor - Orthopedics consulted for a repair of the right hip fracture to optimize for good chance for ambulation and healing. -Pain management with morphine and Toradol ordered #2 Hypertension - Continue home medication of losartan and Pneumovax 01/15/2025 We will need to confirm home medications. Continue aspirin today and restart Plavix in AM. Continue insulin sliding scale moderate-dose intensity Hold losartan at this time as blood pressures are soft. Simvastatin 40 daily Chest x-ray shows perihilar haziness nonspecific possibly mild edema or infiltrates through the also represent low lung volumes clinical correlation recommended. Ceftriaxone 1 mg daily, azithromycin 500 PDMP PDMP Reviewed: Not Reviewed Attestations 2 Medical Necessity Statement*: Patient with right hip fracture from a mechanical fall is going for surgical repair with orthopedics consultation and this patient will need at least 2 midnights for optimization of care and this qualifies patient for inpatient stay Diagnoses Closed fracture of right hip S72.001A Hypertension I10
[2025-01-15] MEDS: cefTRIAXone 1,000 mg SDV 1000 MG IVP (14:12)
[2025-01-16] VITALS (7 sets, daily range): BP systolic 106–151; BP diastolic 54–68; PULSE 66–76; RESP 15–20; TEMP 36.3–37; O2SAT 90–99
[2025-01-16 03:53] LABS: Hematocrit 30.0 % (36-47); Hemoglobin 9.60 g/dL (11.27-16.99); Mean Corpuscular HGB Conc 32.0 g/dL (30-55); Mean Corpuscular Hemoglobin 29.4 pg (27-33); Mean Corpuscular Volume 92.0 fl (85-98); Nucleated Red Blood Cells % 0 %; Platelet Count 125 10^3/cmm (157-399); Red Blood Count 3.26 10^6/uL (3.85-5.65); White Blood Count 7.79 10^3/uL (3.29-11.43)
[2025-01-16 04:36] LABS: Alanine Aminotransferase 14 U/L (0-33); Albumin Level 3.1 g/dL (3.5-5.2); Alkaline Phosphatase 75 U/L (35-105); Aspartate Amino Transferase 15 U/L (0-32); Blood Urea Nitrogen 36 mg/dL (8-23); Calcium 8.0 mg/dL (8.5-10.5); Carbon Dioxide 24 mmol/L (22-29); Chloride 104 mmol/L (98-107); Globulin 2.3 g/dL (1.3-4.6); Glucose 341 mg/dL (65-115); Magnesium 1.8 mg/dL (1.7-2.3); Osmolality Calculated 310 mOsm/kg (285-295); Sodium 139 mmol/L (136-145); Total Protein 5.4 g/dL (6.6-8.7)
[2025-01-16 04:48] LABS: Creatinine Clr Calc Pharmacy 25.8545
[2025-01-16 04:49] LABS: Anion Gap 15.9 (5-19); Potassium 4.9 mmol/L (3.5-5.1)
--- NOTE | 2025-01-16 11:48 | CTR_ITS ---
PROCEDURE INFORMATION: Exam: CT Abdomen And Pelvis Without Contrast Exam date and time: 01/16/2025 12:46 PM Age: 84 years old Clinical indication: Abnormal findings; Abnormal lab test; Other: Elevated creatinine; Prior surgery; Surgery date: Post-operative (0-2 days); Surgery type: Hip TECHNIQUE: Imaging protocol: Computed tomography of the abdomen and pelvis without contrast. Radiation optimization: All CT scans at this facility use at least one of these dose optimization techniques: automated exposure control; mA and/or kV adjustment per patient size (includes targeted exams where dose is matched to clinical indication); or iterative reconstruction. COMPARISON: OT XR hip RT 2-3V wo/w pel* [id number] 01/15/2025 8:45 AM RADIATION DOSE METRICS: Total DLP (mGy-cm): 1005.39 FINDINGS: Lungs: Bibasilar minimal atelectasis Heart: Cardiomegaly is seen. Liver: Normal. No mass. Gallbladder and biliary ducts: There is a gallstone present. Pancreas: Normal. No ductal dilation. Spleen: Normal. No splenomegaly. Adrenal glands: Normal. No mass. Kidneys and ureters: No hydronephrosis or obstructing ureteral stone. Nonspecific bilateral perinephric stranding changes. Stomach and bowel: Scattered diverticulosis is seen. No small bowel loop dilatation. Appendix: Appendix is not visualized. Intraperitoneal space: Unremarkable. No free air. No significant fluid collection. Vasculature: Mild calcified atherosclerotic changes are seen throughout the abdominal aorta. Lymph nodes: Unremarkable. No enlarged lymph nodes. Urinary bladder: Air-fluid level in the bladder. Reproductive: Post hysterectomy changes are seen. Bones/joints: Postsurgical changes involving the right femur through the intertrochanteric fracture are seen. There is a 1 cm sclerotic focus in the L3 vertebral body. Severe lumbar spine degenerative changes. Soft tissues: Unremarkable. CT/CT abdomen pelvis wo con [id number] IMPRESSION: 1. Nonspecific bilateral perinephric stranding changes. Finding is nonspecific. This could be secondary to nephrotic syndrome or UTI. Clinical correlation is advised. 2. No obstructive uropathy. 3. Air-fluid level in the bladder. This is likely iatrogenic. 4. There is a 1 cm sclerotic focus in the L3 vertebral body. Finding is nonspecific. Correlation with the patient's history is advised. If indicated, bone scanning can be obtained for further evaluation. 5. Cardiomegaly. 6. Mild calcified atherosclerotic changes are seen throughout the abdominal aorta. 7. Cholelithiasis 8. Scattered diverticulosis is seen. 9. Severe lumbar spine degenerative changes.
--- NOTE | 2025-01-16 11:49 | PM.PN ---
Subjective Subjective: Seen this morning Creatinine 1.8. Unclear reasons. Will check CT abdomen pelvis Patient denies any abdominal pain at this time. She feels well denies any pain today. Vitals/I&O/Wt Last Vital Signs Temp 98.0 F 01/16/25 11:10 Pulse 70 01/16/25 11:10 Resp 20 H 01/16/25 11:10 BP 143/66 01/16/25 11:10 Pulse Ox 99 01/16/25 11:10 O2 Del Method Nasal Cannula 01/16/25 11:10 O2 Flow Rate 3 01/15/25 11:00 01/15/25 01/16/25 01/16/25 22:59 06:59 14:59 Intake Total 290 / 1355 1046.25 / 2401.25 150 / 150 Output Total 275 / 350 125 / 475 Balance 15 5 921.25 / 1926.25 150 / 150 Weight last 48 hrs Weight 80.966 kg Weight 78.744 kg Weight 78.199 kg Weight 78.018 kg Physical Exam Narrative: General: Alert oriented x3, patient seen resting comfortably in bed HEENT: Normocephalic, atraumatic, EOMI, Cardio: RRR, normal s1, s2 Respiratory: clear to auscultation b/l , GI: Abdomen soft, nontender, bowel sounds + Extremities: no edema, no cyanosis right hip surgical dressing and ice pack in place Urinary Catheter Management: Lange: Cath Placed During This Visit: yes, but has since been removed by the nurse Reason for Continuing Indwelling Catheter: Required Immobilization for Trauma or Surgery or Anesthesia Urinary Catheter Date of Insertion: 01/14/25 Urinary Catheter Time of Insertion: 23:25 Date Urinary Catheter Removed: 01/16/25 Time Urinary Catheter Discontinued: 06:30 Data 01/16/25 02:58 01/16/25 02:58 A&P Assessment and plan 1. Closed fracture of right hip: 2. Hypertension: Plan: #1 Patient status post mechanical fall sustaining closed fracture of the right hip - Keep n.p.o. - Admit to general medical floor - Orthopedics consulted for a repair of the right hip fracture to optimize for good chance for ambulation and healing. -Pain management with morphine and Toradol ordered #2 Hypertension - Continue home medication of losartan and Pneumovax 01/15/2025 We will need to confirm home medications. Continue aspirin today and restart Plavix in AM. Continue insulin sliding scale moderate-dose intensity Hold losartan at this time as blood pressures are soft. Simvastatin 40 daily Chest x-ray shows perihilar haziness nonspecific possibly mild edema or infiltrates through the also represent low lung volumes clinical correlation recommended. Ceftriaxone 1 mg daily, azithromycin 500 01/16/2025 Continue home medications today Continue insulin sliding scale moderate intensity Restart losartan Continue to treat for empiric pneumonia ceftriaxone and azithromycin daily. Creatinine 1.8 today. Unclear reasons of why patient has an ZAID. Will order gentle IV fluid hydration normal saline 75 cc/h Check CT abdomen pelvis Place Lange catheter Further management decisions to be made after imaging studies are reviewed. Check chest x-ray PDMP PDMP Reviewed: Not Reviewed Attestations Medical Necessity Statement*: ZAID, status post hip surgery Requires continued hospitalization for above reasons. Coding Level of Care Code Acute Code for [facility] Fwd Diagnoses Closed fracture of right hip S72.001A Hypertension I10
--- NOTE | 2025-01-16 11:51 | XRR_ITS ---
PROCEDURE INFORMATION: Exam: XR Chest Exam date and time: 01/16/2025 12:52 PM Age: 84 years old Clinical indication: Shortness of breath; Prior surgery; Surgery date: Post-operative (0-2 days); Surgery type: Hip; Additional info: Hypoxia TECHNIQUE: Imaging protocol: Radiologic exam of the chest. Views: 1 view. COMPARISON: CR (CHEST, ) 01/14/2025 9:24 PM FINDINGS: Lungs: Pulmonary vessels are within normal limits. Left midlung field and lower lung field linear densities. Right lung is clear. Pleural spaces: No pneumothorax. Heart/Mediastinum: Cardiomegaly is seen. Bones/joints: Unremarkable. XR/XR chest 1V portable [id number] IMPRESSION: 1. No acute pulmonary finding. 2. Cardiomegaly. 3. Left midlung field and lower lung field linear densities. Finding could represent scarring or atelectasis.
--- NOTE | 2025-01-16 12:16 | P.PN_ITS ---
Subjective 2 Subjective: Patient sitting up eating lunch pain is controlled. Vitals/I&O/Wt Last Vital Signs Temp 98.0 F 01/16/25 11:10 Pulse 70 01/16/25 11:10 Resp 20 H 01/16/25 11:10 BP 143/66 01/16/25 11:10 Pulse Ox 99 01/16/25 11:10 O2 Del Method Nasal Cannula 01/16/25 11:10 O2 Flow Rate 3 01/15/25 11:00 01/15/25 01/16/25 01/16/25 22:59 06:59 14:59 Intake Total 290 / 1355 1046.25 / 2401.25 150 / 150 Output Total 275 / 350 125 / 475 Balance 15 / 1005 921.25 / 1926.25 150 / 150 Weight last 48 hrs Weight 178 lb 8 oz Weight 173 lb 9.6 oz Weight 172 lb 6.4 oz Weight 172 lb Physical Exam 2 Narrative: Wound is clean dry and intact Urinary Catheter Management: Lange: Cath Placed During This Visit: yes, but has since been removed by the nurse Reason for Continuing Indwelling Catheter: Required Immobilization for Trauma or Surgery or Anesthesia Urinary Catheter Date of Insertion: 01/14/25 Urinary Catheter Time of Insertion: 23:25 Date Urinary Catheter Removed: 01/16/25 Time Urinary Catheter Discontinued: 06:30 Data 01/16/25 02:58 01/16/25 02:58 A&P Assessment and plan 1. Closed fracture of right hip, initial encounter: Postop day #1 right hip nail Up with physical therapy PDMP PDMP Reviewed: Not Reviewed Attestations 2 Medical Necessity Statement*: Per primary service Coding Level of Care Code Acute Code for [facility] Fwd Diagnoses Closed fracture of right hip, initial encounter S72.001A Encounter type: initial encounter
[2025-01-16] MEDS: cefTRIAXone 1,000 mg SDV 1000 MG IVP (13:36)
[2025-01-17 03:22] LABS: Hematocrit 27.7 % (36-47); Hemoglobin 8.70 g/dL (11.27-16.99); Mean Corpuscular HGB Conc 31.4 g/dL (30-55); Mean Corpuscular Hemoglobin 28.4 pg (27-33); Mean Corpuscular Volume 90.5 fl (85-98); Nucleated Red Blood Cells % 0 %; Platelet Count 105 10^3/cmm (157-399); Red Blood Count 3.06 10^6/uL (3.85-5.65); White Blood Count 7.31 10^3/uL (3.29-11.43)
[2025-01-17 03:55] VITALS: BP 152/71; PULSE 74; RESP 15; TEMP 36.3; O2SAT 91
[2025-01-17 04:03] LABS: Alanine Aminotransferase 13 U/L (0-33); Albumin Level 3.1 g/dL (3.5-5.2); Alkaline Phosphatase 67 U/L (35-105); Aspartate Amino Transferase 17 U/L (0-32); Blood Urea Nitrogen 39 mg/dL (8-23); Calcium 7.9 mg/dL (8.5-10.5); Carbon Dioxide 24 mmol/L (22-29); Chloride 109 mmol/L (98-107); Globulin 2.0 g/dL (1.3-4.6); Glucose 135 mg/dL (65-115); Magnesium 1.9 mg/dL (1.7-2.3); Osmolality Calculated 303 mOsm/kg (285-295); Sodium 141 mmol/L (136-145); Total Protein 5.1 g/dL (6.6-8.7)
[2025-01-17 04:06] LABS: Creatinine Clr Calc Pharmacy 39.3409
[2025-01-17 04:07] LABS: Anion Gap 12.3 (5-19); Potassium 4.3 mmol/L (3.5-5.1)
--- NOTE | 2025-01-17 07:57 | PC.SOCIAL ---
IMM Update Pg 2 of IMM Updated. Copy provided at bedside.
[2025-01-17 08:00] VITALS: BP 159/87; PULSE 74; RESP 17; TEMP 36.9; O2SAT 94
[2025-01-17 08:18] VITALS: BP 159/87
[2025-01-17 09:17] LABS: Ferritin 208 ng/mL (15-150); Iron 73 ug/dL (37-145)
[2025-01-17 11:11] LABS: Hematocrit 29.2 % (36-47); Hemoglobin 9.20 g/dL (11.27-16.99); Mean Corpuscular HGB Conc 31.5 g/dL (30-55); Mean Corpuscular Hemoglobin 29.0 pg (27-33); Mean Corpuscular Volume 92.1 fl (85-98); Nucleated Red Blood Cells % 0 %; Platelet Count 128 10^3/cmm (157-399); Red Blood Count 3.17 10^6/uL (3.85-5.65); White Blood Count 7.27 10^3/uL (3.29-11.43)
[2025-01-17] MEDS: polyethylene glycol 3350 Pkt 17 gm PO (11:17)
[2025-01-17 12:00] VITALS: BP 195/81; PULSE 77; RESP 18; TEMP 36.4; O2SAT 97
--- NOTE | 2025-01-17 12:08 | P.DS_ITS ---
Discharge Providers Date of Admission: 01/14/25 23:58 Date of Discharge: January 17, 2025 Attending Provider at Admission: Darcy Silvestre MD Attending Provider at Discharge: Saleem Pike MD Primary Care Provider: PAUL Manley Diagnoses at Discharge Discharge Diagnosis 1. Closed fracture of right hip, initial encounter: Reason for Visit Reason for Visit: right hip pain Hospital Course Hospital Course This is a 84-year-old female with a past medical history of hypertension, type 2 diabetes, who presents [facility] for a fall Patient was admitted to [facility] for mechanical fall, closed right hip fracture, status post right hip nail, Patient's hospitalization was complicated by acute anemia, no bloody or black stools, hemoglobin at discharge 9.2, discharged with close follow-up repeat hemoglobin tomorrow Continue home aspirin for DVT prophylaxis, continue home Plavix Patient's hospitalization was complicated by concerns for pneumonia, chest x-ray showed perihilar haziness, discharged on oral Levaquin Patient's hospitalization was complicated by ZAID, received IV fluids, creatinine 1.2 at discharge For patient's urinary retention, patient failed voiding trial, Herrera catheter had to be replaced, follow-up with urology as outpatient for urodynamic testing, and removal of Herrera catheter On discharge patient is alert to person, place, not to time she does follow commands, suspect some degree of dementia, discharged on galantamine -Please monitor your blood sugars closely -Monitor your blood sugars 3 times daily as after meals -Please record your blood sugars, and a blood sugar log -For your Humalog -Please inject blood sugar after meals based on sliding scale provided -Do not inject insulin if you do not eat as hypoglycemia kills -This is a Humalog sliding scale -Insulin sliding ?fingerstick? Insulin ?141-180?0 units/sq 181-220?2 units/sq ?221-260?4 units/sq ?261-300 6 units/sq ?301-350?8 units/sq ?351-400 10 units/sq ?401-450?12 units/sq >450? 14units/sq -If your blood sugar is greater than 500 go to the emergency room -If your blood sugar is less than 60 or at anytime you feel lightheaded or dizzy or diaphoretic or have chest palpitations check your blood sugar, and eat a hard candy or drink orange juice and go immediately to the emergency room -Remember hypoglycemia kills, so if his blood sugar is less than 60 we have to increase it by taking in a sugary meal such as a hard candy or orange juice and go to the emergency room -If you have any questions please call us where here to help - Please recheck hemoglobin tomorrow - Please recheck creatinine tomorrow - Please use hydrocodone sparingly for pain, do not drive or operate heavy machinery or drink while taking medication - Please follow-up with urology, for Herrera catheter removal due to urinary retention Physical Exam Const: COMMON NORMALS: no acute distress and patient oriented x3 Resp: COMMON NORMALS: normal respiratory effort, No retractions, No use of accessory muscles and clear to auscultation bilaterally AUSCULTATION: clear to auscultation bilaterally Cardio: COMMON NORMALS: regular rate, regular rhythm, S1 normal heart sound present and S2 normal heart sound present RATE: regular rate RHYTHM: regular rhythm HEART SOUNDS: S1 normal heart sound present and S2 normal heart sound present GI: COMMON NORMALS: Normal to inspection, nondistended, normoactive bowel sounds present and non-tender Extremity: COMMON NORMALS: no pedal edema Neuro: COMMON NORMALS: patient oriented x3, CN's II-XII intact bilaterally and moves all extremities Psych: COMMON NORMALS: mental status grossly normal Urinary Catheter Management: Herrera: Cath Placed During This Visit: yes, but has since been removed by the nurse Reason for Continuing Indwelling Catheter: Acute Urinary Retention or Obstruction Urinary Catheter Date of Insertion: 01/16/25 Urinary Catheter Time of Insertion: 13:40 Date Urinary Catheter Removed: 01/16/25 Time Urinary Catheter Discontinued: 06:30 Discharge Data Studies Completed and Pending Completed Studies During Hospitalization Category Date Time Status CT abdomen pelvis wo con [id number] Stat Cat Scan 01/16/25 11:48 Completed XR chest 1V portable [id number] Stat Exams 01/14/25 21:25 Completed XR chest 1V portable [id number] Stat Exams 01/16/25 11:51 Completed XR hip RT 2-3V wo/w pel* [id number] Stat Exams 01/14/25 21:16 Completed Pending at discharge Category Date Time Status C-arm Fluoroscopy [id number] Routine Exams 01/15/25 07:25 Taken XR hip RT 2-3V wo/w pel* [id number] Routine Exams 01/15/25 08:00 Taken CBC Auto Diff [Complete Blood Count w/Auto] Routine Lab 01/17/25 13:00 Ordered Occult Blood Stool [Immunochemical Fecal OCB] Routine Lab 01/17/25 08:29 Uncollected Urinalysis Routine Lab 01/17/25 11:57 Uncollected Radiology Impressions Abdomen/Pelvis CT 01/16/25 11:48 IMPRESSION: 1. Nonspecific bilateral perinephric stranding changes. Finding is nonspecific. This could be secondary to nephrotic syndrome or UTI. Clinical correlation is advised. 2. No obstructive uropathy. 3. Air-fluid level in the bladder. This is likely iatrogenic. 4. There is a 1 cm sclerotic focus in the L3 vertebral body. Finding is nonspecific. Correlation with the patient's history is advised. If indicated, bone scanning can be obtained for further evaluation. 5. Cardiomegaly. 6. Mild calcified atherosclerotic changes are seen throughout the abdominal aorta. 7. Cholelithiasis 8. Scattered diverticulosis is seen. 9. Severe lumbar spine degenerative changes. Chest X-Ray 01/16/25 11:51 IMPRESSION: 1. No acute pulmonary finding. 2. Cardiomegaly. 3. Left midlung field and lower lung field linear densities. Finding could represent scarring or atelectasis. Laboratory Results WBC 7.27 10^3/uL (3.29-11.43) 01/17/25 10:36 RBC 3.17 10^6/uL (3.85-5.65) L 01/17/25 10:36 Hgb 9.20 g/dL (11.27-16.99) L 01/17/25 10:36 Hct 29.2 % (36-47) L 01/17/25 10:36 MCV 92.1 fl (85-98) 01/17/25 10:36 MCH 29.0 pg (27-33) 01/17/25 10:36 MCHC 31.5 g/dL (30-55) 01/17/25 10:36 RDW 14.5 % (12.1-15.1) 01/17/25 10:36 Plt Count 128 10^3/cmm (157-399) L 01/17/25 10:36 MPV 11.2 fL (7.4-10.4) H 01/17/25 10:36 Neut % (Auto) 68.4 % 01/17/25 10:36 Lymph % (Auto) 20.4 % 01/17/25 10:36 Lawrence % (Auto) 7.6 % 01/17/25 10:36 Eos % (Auto) 2.8 % 01/17/25 10:36 Baso % (Auto) 0.1 % 01/17/25 10:36 Reticulocyte % (Auto) 1.6 % (0.5-2.0) 01/17/25 02:26 Neut # (Auto) 4.98 10^3/uL (1.8-7.7) 01/17/25 10:36 Lymph # (Auto) 1.5 10^3/uL (0.8-4.8) 01/17/25 10:36 Lawrence # (Auto) 0.6 10^3/uL (0.2-0.9) 01/17/25 10:36 Eos # (Auto) 0.2 10^3/uL (0.0-0.8) 01/17/25 10:36 Baso # (Auto) 0.0 10^3/uL (0.0-0.1) 01/17/25 10:36 Nucleated RBC % (auto) 0 % 01/17/25 10:36 Nucleated RBCs # 0.0 /100WBC 01/17/25 10:36 Sodium 141 mmol/L (136-145) 01/17/25 02:26 Potassium 4.3 mmol/L (3.5-5.1) 01/17/25 02:26 Chloride 109 mmol/L (98-107) H 01/17/25 02:26 Carbon Dioxide 24 mmol/L (22-29) 01/17/25 02:26 Anion Gap 12.3 (5-19) 01/17/25 02:26 BUN 39 mg/dL (8-23) H 01/17/25 02:26 Creatinine 1.2 mg/dL (0.5-0.9) H 01/17/25 02:26 GFR Calculation Not Reportable 01/17/25 02:26 Glucose 135 mg/dL (65-115) H 01/17/25 02:26 POC Glucose 199 mg/dL (70-110) H 01/17/25 11:45 Calculated Osmolality 303 mOsm/kg (285-295) H 01/17/25 02:26 Calcium 7.9 mg/dL (8.5-10.5) L 01/17/25 02:26 Phosphorus 4.1 mg/dL (2.5-4.5) 01/15/25 04:45 Magnesium 1.9 mg/dL (1.7-2.3) 01/17/25 02:26 Iron 73 ug/dL (37-145) 01/17/25 02:26 Ferritin 208 ng/mL (15-150) H 01/17/25 02:26 Total Bilirubin 0.4 mg/dL (0.15-1.2) 01/17/25 02:26 AST 17 U/L (0-32) 01/17/25 02:26 ALT 13 U/L (0-33) 01/17/25 02:26 Alkaline Phosphatase 67 U/L (35-105) 01/17/25 02:26 Creatine Kinase 107 U/L (26-192) 01/14/25 22:51 Troponin T Baseline 16 ng/L (0-10) H 01/14/25 22:51 Troponin T 120 Minute 14.98 ng/L (0-10) H 01/15/25 01:20 Delta Troponin T -1.02 ABS# (0-10) L 01/15/25 01:20 Troponin T Hi Sens 6Hr 17.52 ng/L (0-10) H 01/15/25 04:45 Troponin T Hi Sens 6Hr Delta 1.52 ng/L (0-12) 01/15/25 04:45 NT-Pro-B Natriuret Pep 449 pg/mL (0-450) 01/14/25 22:51 Total Protein 5.1 g/dL (6.6-8.7) L 01/17/25 02:26 Albumin 3.1 g/dL (3.5-5.2) L 01/17/25 02:26 Globulin 2.0 g/dL (1.3-4.6) 01/17/25 02:26 Urine Color Yellow (Yellow) 01/14/25 23:27 Urine Appearance Clear (CLEAR) 01/14/25 23:27 Urine pH 7.0 (5-7) 01/14/25 23:27 Ur Specific [place] 1.021 (1.005-1.030) 01/14/25 23: Urine Protein Negative (Negative) 01/14/25 23: Urine Glucose (UA) 3+ (Normal) H 01/14/25 23:27 Urine Ketones Trace (Negative) 01/14/25 23:27 Urine Blood Negative (Negative) 01/14/25 23:27 Urine Nitrate Negative (Negative) 01/14/25 23: Urine Bilirubin Negative (Negative) 01/14/25 23:27 Urine Urobilinogen 0.2 mg/dL (Negative) 01/14/25 23:27 Ur Leukocyte Esterase Negative (Negative) 01/14/25 23: Urine RBC 0-2 /hpf (0-2) 01/14/25 23: Urine WBC 0-5 /hpf (0-5) 01/14/25 23:27 Ur Squamous Epith Cells 0-5 /hpf (0-5) 01/14/25 23: Amorphous Sediment Not Reportable 01/14/25 23: Urine Bacteria None seen /hpf (NONE) 01/14/25 23: Hyaline Casts 0.40 /lpf 01/14/25 23:27 Vitals Last Vital Signs Temp 97.6 F 01/17/25 12:00 Pulse 77 01/17/25 12:00 Resp 18 01/17/25 12:00 BP 195/81 01/17/25 12:00 Pulse Ox 97 01/17/25 12:00 O2 Del Method Room Air 01/17/25 12:00 O2 Flow Rate 3 01/15/25 11:00 Discharge Plan Discharge Patient Disposition: Xfer SNF Condition: Stable Prescriptions: New insulin lispro [Humalog U-100 Insulin] 100 unit/mL Solution See Rx Instructions .ROUTE .COMPLEX Qty: 10 0RF Rx Instructions: Inject, subcut, three times daily after meals, based on low dose insulin sliding scale hydrocodone-acetaminophen 5-325 mg tablet 1 tab PO Q8H PRN (Reason: pain) 7 Days Qty: 21 0RF levofloxacin 750 mg tablet 750 mg PO DAILY 4 Days Qty: 4 0RF Continued galantamine 4 mg tablet 4 mg PO BID 90 Days Qty: 180 3RF Rx Instructions: administer with AM and PM meals. 340B citalopram 20 mg tablet 20 mg PO DAILY Qty: 90 3RF mecobalamin (vitamin B12) 1,000 mcg tablet,chewable 1,000 mcg PO DAILY (DME) FreeStyle Ghada 2 Sensor Kit See Rx Instructions .Route Qty: 6 1RF Rx Instructions: As directed (DME) FreeStyle Ghada 2 [facility] See Rx Instructions .Route Qty: 1 0RF Rx Instructions: As directed aspirin [Adult Aspirin Regimen] 81 mg tablet,delayed release (DR/EC) 81 mg PO DAILY meclizine 25 mg tablet 25 mg PO DAILY PRN (Reason: vertigo) Qty: 30 0RF amlodipine 5 mg tablet 5 mg PO DAILY Qty: 90 3RF levothyroxine 100 mcg tablet See Rx Instructions .ROUTE .COMPLEX Qty: 90 1RF Dose Instruction: TAKE 1 TABLET BY MOUTH ONCE DAILY Rx Instructions: TAKE 1 TABLET BY MOUTH ONCE DAILY clopidogrel 75 mg tablet See Rx Instructions .ROUTE .COMPLEX Qty: 90 1RF Dose Instruction: TAKE 1 TABLET BY MOUTH ONCE DAILY Rx Instructions: TAKE 1 TABLET BY MOUTH ONCE DAILY losartan 25 mg tablet 25 mg PO BID Qty: 90 3RF vitamin E 670 mg (1,000 unit) Capsule 670 mg PO DAILY ascorbic acid (vitamin C) [Vitamin C] 1,000 mg Tablet 1,000 mg PO DAILY potassium chloride 10 mEq Capsule, Extended Release 10 meq PO DAILY cholecalciferol (vitamin D3) [Vitamin D3] 25 mcg (1,000 unit) Capsule 25 mcg PO DAILY Changed insulin glargine [Basaglar KwikPen U-100 Insulin] 100 unit/mL (3 mL) insulin pen 10 unit SUBCUT DAILY 30 Days Qty: 15 5RF Discontinued glipizide 5 mg tablet See Rx Instructions .ROUTE .COMPLEX Rx Instructions: TAKE 1/2 TABLET BY MOUTH BEFORE breakfast AND LUNCH, if blood sugar drops below 100 AFTER taking it; STOP it Discharge Order = DC NOW: Discharge Order (Routine); Ordered 01/17/25 Ordered By: Saleem Pike Referrals: [facility] [Outside] Archie Blood DO [Physician, Orthopedics] Referral Note: We have notified your physician's clinic of the need for a follow-up appointment to be scheduled. If you have not heard from them within the next 2 business days, please call them directly. Vanesa Quinn FNP [Primary Care Provider, Nurse Practitioner] Mario Potter MD [Referring, Urology] - 1-3 days Referral Note: urinary retention, herrera cath removal We have notified your physician's clinic of the need for a follow-up appointment to be scheduled. If you have not heard from them within the next 2 business days, please call them directly. Discharge Diet: Diabetic Discharge Activity: Increase activity as tolerated Patient Instructions: Hydrocodone/Acetaminophen (By mouth), Levofloxacin (By mouth) (Levaquin, Levaquin Leva-rodríguez), Insulin Lispro (By injection), Acute Wound Care (DC), Opioid Safety, Post Anesthesia Care, Patient Portal & Sandro Instructions Activity Restrictions/Additional Instructions: -Please monitor your blood sugars closely -Monitor your blood sugars 3 times daily as after meals -Please record your blood sugars, and a blood sugar log -For your Humalog -Please inject blood sugar after meals based on sliding scale provided -Do not inject insulin if you do not eat as hypoglycemia kills -This is a Humalog sliding scale -Insulin sliding ?fingerstick? Insulin ?141-180?0 units/sq 181-220?2 units/sq ?221-260?4 units/sq ?261-300 6 units/sq ?301-350?8 units/sq ?351-400 10 units/sq ?401-450?12 units/sq >450? 14units/sq -If your blood sugar is greater than 500 go to the emergency room -If your blood sugar is less than 60 or at anytime you feel lightheaded or dizzy or diaphoretic or have chest palpitations check your blood sugar, and eat a hard candy or drink orange juice and go immediately to the emergency room -Remember hypoglycemia kills, so if his blood sugar is less than 60 we have to increase it by taking in a sugary meal such as a hard candy or orange juice and go to the emergency room -If you have any questions please call us where here to help - Please recheck hemoglobin tomorrow - Please recheck creatinine tomorrow - Please use hydrocodone sparingly for pain, do not drive or operate heavy machinery or drink while taking medication - Please follow-up with urology, for Herrera catheter removal due to urinary retention Discharge Attestations Time Spent in Discharge Care*: greater than 30 min Quality Metrics Clinical Quality Measures [ No reported AMI, CVA or VTE this stay] Coding Level of Care Code 59022 Total time (in minutes) for Discharge: 45 Diagnoses Closed fracture of right hip, initial encounter S72.001A Encounter type: initial encounter
[2025-01-17 12:17] VITALS: BP 159/80
[2025-01-17 12:35] LABS: Glucose Urine UA Negative (Normal); Nitrate Urine Negative (Negative); Specific Gravity, Urine 1.009 (1.005-1.030)
[2025-01-17 12:40] LABS: Add Urine Microscopic? YES
[2025-01-17 13:21] LABS: Hematocrit 29.3 % (36-47); Hemoglobin 9.70 g/dL (11.27-16.99); Mean Corpuscular HGB Conc 33.1 g/dL (30-55); Mean Corpuscular Hemoglobin 29.8 pg (27-33); Mean Corpuscular Volume 89.9 fl (85-98); Nucleated Red Blood Cells % 0 %; Platelet Count 120 10^3/cmm (157-399); Red Blood Count 3.26 10^6/uL (3.85-5.65); White Blood Count 7.90 10^3/uL (3.29-11.43)
[2025-01-17] MEDS: cefTRIAXone 1,000 mg SDV 1000 MG IVP (13:36)
[2025-01-17 13:50] LABS: Slide Review Slide Review Perform
[2025-01-17 15:17] VITALS: BP 159/80; PULSE 77; RESP 16; TEMP 36.4; O2SAT 97
--- NOTE | 2025-01-17 15:17 | PC.NURSE ---
Pt leaving to facility with herrera in place d/t retention. Iv removed and paperwork given to mary lou peng truss driver helper to take to facility.
== END 2025-01-17 15:19 | disposition skilled nursing facility (03) | DRG 480 ==
LOC: ER 01-15 00:32 → MEDSURG 01-15 00:41
PROVIDERS: Internal Medicine; Orthopaedic Surgery; Admitting Provider Internal Medicine; Emergency Provider Emergency Medicine; PCP Nurse Practitioner; Visit Provider Family Medicine
PROC: 0QS636Z Reposition Right Upper Femur with Intramedullary Internal Fixation Device, Percutaneous Approach (ICD-10-PCS; CPT 27245; principal; 2025-01-15 09:55)
DX: S72.141A Displaced intertrochanteric fracture of right femur, initial encounter for closed fracture (principal); J18.9 Pneumonia, unspecified organism; N17.9 Acute kidney failure, unspecified; W01.0XXA Fall on same level from slipping, tripping and stumbling without subsequent striking against object, initial encounter; I10 Essential (primary) hypertension; E11.65 Type 2 diabetes mellitus with hyperglycemia; D64.9 Anemia, unspecified; R33.9 Retention of urine, unspecified; F03.90 Unspecified dementia, unspecified severity, without behavioral disturbance, psychotic disturbance, mood disturbance, and anxiety; E78.00 Pure hypercholesterolemia, unspecified; E03.9 Hypothyroidism, unspecified; Z79.84 Long term (current) use of oral hypoglycemic drugs; Z79.51 Long term (current) use of inhaled steroids; Z79.82 Long term (current) use of aspirin; Z79.02 Long term (current) use of antithrombotics/antiplatelets; Z88.0 Allergy status to penicillin; Z88.2 Allergy status to sulfonamides; Z86.73 Personal history of transient ischemic attack (TIA), and cerebral infarction without residual deficits
CPT/HCPCS: 36415; 36416; 51702; 71045; 73502; 74176; 76000; 80053; 80061; 81001; 82044; 82550; 82728; 82962; 83036; 83540; 83735; 83880; 84100; 84439; 84443; 84484; 85025; 85045; 87086; 93005; 96360; 96361; 96372; 97110; 97162; 97167; 97530; 97535; 99214; 99285; A4216; C1713; C1776; J0696; J1100; J1815; J1885; J2371; J2405; J2704; J3010; J3490; J7030; J9999; Q0144

== ENCOUNTER → 2025-01-27 13:34 | Outpatient (BNVA) | payer MEDICARE, OTHER, SELFPAY | PROVIDERS: PCP Nurse Practitioner; Visit Provider Orthopaedic Surgery | DX: Z98.890 Other specified postprocedural states (principal) | CPT/HCPCS: 73502; 99024 ==

== ENCOUNTER → 2025-02-24 14:51 | Outpatient (BNVA) | payer MEDICARE, OTHER, SELFPAY | PROVIDERS: PCP Nurse Practitioner; Visit Provider Orthopaedic Surgery | DX: Z98.890 Other specified postprocedural states (principal) | CPT/HCPCS: 73502; 99024 ==

== ENCOUNTER 2025-03-12 06:33 | Emergency (ER) | payer MEDICARE, OTHER, SELFPAY ==
--- OUTSIDE RECORDS SUMMARY | 2025-03-01 10:35 | XMS_ITS | Encounter Summary ---
Author Organization [facility] Address [address] [place] [address] Care Team Providers Care Jet Wiper Name Role Phone Brayan Fournier MD Primary Care Provider [phone] Reason for Referral * Eval and Treat (Routine) - Authorized Specialty Diagnoses / Procedures Referred By Sundeep t Referred To Contact General Surgery Diagnoses Acute cholecystitis Procedures NE OFFICE/OUTPATIENT ESTABLISHED MOD MDM 30 MIN NE OFFICE/OUTPATIENT NEW MODERATE [place] [address] [place] [id number] Phone: tel: fax: [facility] General and Trauma Surgery-[address] [place] [address] Phone: tel: fax: Referral ID Status Reason Start Date Expiration Date V isits Requested Visits Authorized [id number] Authorized 03/07/2025 03/07/2026 1 1 Reason for Visit * Reason Comments Altered mental status * Auth/Cert (Routine) Specialty Diagnoses / Procedures Referred By Sundeep t Referred To Contact Emergency Medicine [facility] [address] [place] [phone] Phone: tel: fax: Referral ID Status Reason Start Date Expiration Date Visits Re quested Visits Authorized [id number] 1 1 Encounter Details Date Type Department Care Team (Latest Contact Info) Description 03/01/2025 10:35 AM CDT - 03/07/2025 12:51 PM CDT Hospital Encounter [facility] [address] [place] [address] Babak Larkin, [address] [place] [address] Sebas Feliz MD [address] [place] [address] Nayeli Chan MD [address] [place] [address] Acute metabolic encephalopathy Discharge Disposition: [facility]) with Medicare Certification in Anticipation of Skilled Care Social History Tobacco Use Types Packs/Day Years Used Date Smoking Tobacco: Never Smokeless Tobacco: Never Alcohol Use Standard Drinks/Week Comments No 0 (1 standard drink = 0.6 oz pur e alcohol) Food Insecurity Answer Date Recorded Do you find you are eating l ess than you should because you can t pay for food? No 03/01/2025 Transportation Needs Answer Date Record ed Have you gone without health care because you didn t have a way to get there? 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 No 2024 Housing Stability Answer Date Recorded Do you worry you won t have a steady place to sleep or struggle to pay rent or mortgage? No 03/01/2025 Utility Needs Answer Date Recorded Do you have difficulty payin g for utility costs (electric, water or gas bills)? No 03/01/2025 Medication Needs Answer Date Recorded Have you skipped taking medi cation due to cost or worry you can t afford new medications? No 03/01/2025 Feeling Safe Answer Date Recorded Are you in a relationship wi th someone who hurts you emotionally and/or physically? No 03/01/2025 Food Insecurity Answer Date Recorded Patient needs follow up regardin 03/01/2025 Transportation Needs Answer Date Record ed Patient needs follow up regardin 03/01/2025 Utility Needs Answer Date Recorded Patient needs follow up regardin 03/01/2025 Comments No Sex and Gender Information Value Date Recorded Sex Assigned at Not on file Legal Sex Female 1:50 PM TOOL LIAISON Gender Identity Not on file Sexual Orientation Not on file documented as of this encounter Last Filed Vital Signs Vital Sign Reading Time Taken Comments Blood Pressure 141/85 03/07/2025 7:00 AM CDT Pulse 72 03/07/2025 7:00 AM CDT Temperature 36.6 C (97.8 F) 03/07/2025 7:00 AM CDT Respiratory Rate 16 03/07/2025 7:00 AM CDT Oxygen Saturation 94% 03/07/2025 7:00 AM CDT Inhaled Oxygen Concentration - - Weight 73.2 kg (161 lb 6 oz) 03/06/2025 2:00 AM CDT Height 167.6 cm (5' 6 ) 03/01/2025 4:54 PM CDT Body Mass Index 26.05 03/01/2025 4:54 PM CDT documented in this encounter Discharge Summaries * Nayeli Chan MD - 03/07/2025 8:29 AM CDT [facility] Helen Farrell 84 y.o. female 1940 CSN: [id number] Date of Admission: 03/01/2025 Date of Discharge: 03/07/2025 LOS: 6 days Discharging Physician: Nayeli Chan MD PCP: Brayan Fournier MD Code Status at Discharge: NO CPR (In Event of Cardiopulmonary Arrest) Dispo: Home Labs and studies from this hospitalization needing follow up: CBC and Basic Metabolic Panel (BMP) in 1 week Pending Labs Order Current Status BLOOD CULTURE Preliminary result BLOOD CULTURE Preliminary result BLOOD CULTURE Preliminary result BLOOD CULTURE Preliminary result Abnormal Imaging: CT abdomen pelvis IMPRESSION: 1. Cholelithiasis. 2. Inflammatory changes are present in the gallbladder consistent with cholecystitis. 3. Diverticulosis without evidence of diverticulitis. 4. Very small right pulmonary embolism is incidentally noted. Follow up with PCP: Follow-up: You must follow up with Brayan Fournier MD in 3-5 days Follow up with Consultants: With Surgery in 1-2 weeks. Discharge Condition: improving Primary Discharge Diagnosis: Acute metabolic encephalopathy Other Active medical issues also addressed during this admission: Active Hospital Problems Diagnosis Protein-calorie malnutrition, moderate Anticoagulated Acute cholecystitis Calculus of gallbladder with acute cholecystitis without obstruction Pulmonary embolus (CMS/HCC) History of dementia Generalized weakness Stage I pressure ulcer of right heel Complicated urinary tract infection Acute metabolic encephalopathy Anxiety and depression UTI (urinary tract infection) Anemia History of TIA (transient ischemic attack) - 2009 Dyslipidemia Essential hypertension Hypothyroidism Resolved Hospital Problems No resolved problems to display. HOSPITAL COURSE: Please see H and P for full details on admission, symptoms and initial care. Helen Farrell is a 84 y.o. female with PMH significant for Alzheimer dementia, HTN, T2DM, hypothyroidism, HLD, prior ???light strokes?? (2009), recent right hip fracture s/p repair (entered NH 01/17/25) with indwelling Herrera, presents from nursing facility for acute confusion and reported new left-sided weakness with LKW ~06:30 on 03/01/25. EMS noted mild left-sided weakness and left facial droop;BG 188; VSS en route. On ED arrival: subtle/questionable L facial droop; no definite UE drift; bilateral LE weakness (unable to lift either leg) thought to be baseline post-hip surgery; NIHSS 7 driven by bilateral leg weakness. Family later felt mental status was at baseline. CT head: no acute process; chronic atrophy and small-vessel ischemic changes. Neurology evaluated and favored delirium on dementia (stroke/TIA unlikely); thrombolysis/EVT not pursued. Workup notable for UA with pyuria/bacteriuria and WBC clumps; started on ceftriaxone. Complained of right-sided abdominal pain ? CT A/P showed cholelithiasis with inflammatory changes; RUQ US confirmed cholecystitiswith 2.3-2.5 cm neck stone and wall thickening (7-8 mm). CT A/P also incidentally revealed a very small subsegmental PE in RLL. Heparin infusion started per PE protocol. Hemodynamically stable, SpO? >=92% on room air. Vitals in ED: BP 140-172/58-69, HR ~80s, afebrile, RR 18-29, SpO? 92-94% RA. Labs: WBC 10.2 ? 12.9 K, Hgb 9.6 ? 11.1 g/dL (normocytic), Plt 168?196 K. CMP: BUN 24, Cr 0.91, Alb2.7, Glu 189. INR 1.3, PTT 31.5. TSH 1.99. UA: turbid; LE 3+, WBC >100/hpf, bacteria 3+, WBC clumps present; nitrite negative. ECG: NSR, possible old anterior infarct; no acute ischemic changes. Skin: Stage I pressure injury R heel. 03/02: Assumed care of patient. Continue IV antibiotics. Surgery recommending IR percutaneous cholecystostomy tube. Currently on heparin drip for DVT and PE. Urine growing E. coli, blood cultures pending 03/03: IR recommending HIDA prior to drain placement. HIDA showing cystic duct obstruction and acute cholecystitis. GI consulted appreciate recs. 03/04: percutaneous drain placed by IR yesterday. Output bilious. No abdominal pain. Fluid culturesgrowing enterococcus faecalis. Continue abx and await sensitivities. Ampicillin added for enterococcus on urine culture 03/05: Still with output from drain 40 mL charted for today but appears more in there during rounds. Continue abx. Surgery signed off will see in clinic. 03/06: continue IV abx may return to facility tomorrow. Hgb pending from today but if stable will start AC. 03/07: Hgb stable 7.3 will go and send with eliquis. Would advise rechecking hgb in 1-2 days to monitor. Will dc to facility today. Follow up with surgery in clinic in 1-2 weeks. Follow up with pcp in 3-5 days. May need to hold eliquis until seen by surgery for plan. PCP COMMUNICATION : Brayan Fournier MD via [employer] communication MEDICATION CHANGES (significant): MEDICATION RECONCILIATION: Current and discharge medications reviewed and reconciled: Yes Consultants: IP CONSULT TO WOUND/SKIN CARE TEAM IP CONSULT TO IV TEAM IP CONSULT TO NUTRITION SERVICES IP CONSULT TO NUTRITION SERVICES IP CONSULT TO CASE MANAGEMENT IP CONSULT TO IV TEAM IP CONSULT TO IV TEAM Procedures performed: 03/07 4651 Note By: Kyler Mcarthur, FOREMAN/PILE DRIVING AND ERECTION 03/06 9957 Note By: Tayler Hernández, PCT DISCHARGE MEDICATIONS: Medication List START taking these medications amoxicillin-clavulanate 875-125 mg tablet Commonly known as: AUGMENTIN Take 1 Tablet by mouth every 12 hours for 7 days. Signed by: Dr. Cris Chan Refills: 0 apixaban 5 mg tablet Commonly known as: ELIQUIS Take 2 Tablets (10 mg) by mouth 2 times daily for 7 days, THEN 1 Tablet (5 mg) 2 times daily for 23days. Start taking on: March 07, 2025 Signed by: Dr. Cris Chan Refills: 0 ferrous sulfate 325 mg (65 mg iron) tablet Take 1 Tablet (325 mg) by mouth daily. Signed by: Dr. Cris Chan Refills: 0 silver Gel, Sustained Release Commonly known as: SILVASORB Apply to affected area 2 times daily. Signed by: Dr. Cris Chan Refills: 0 CONTINUE taking these medications acetaminophen 325 mg tablet Commonly known as: TYLENOL Take 650 mg by mouth 3 times daily. Refills: 0 amLODIPine 5 mg tablet Commonly known as: NORVASC Take 5 mg by mouth daily. Refills: 0 ascorbic acid (vitamin C) 1,000 mg Tablet Commonly known as: VITAMIN C Take 1,000 mg by mouth daily. Refills: 0 aspirin 81 mg Capsule Take 1 Capsule by mouth daily. Refills: 0 bisacodyL 10 mg Suppository Commonly known as: DULCOLAX Insert 10 mg by rectum 1 time daily as needed for Constipation. Refills: 0 cholecalciferol (Vitamin D3) 25 mcg (1,000 unit) Capsule Commonly known as: VITAMIN D3 Take 1 Capsule by mouth daily. Refills: 0 citalopram 20 mg tablet Commonly known as: CeleXA Take 20 mg by mouth daily. Refills: 0 clopidogreL 75 mg Tablet Commonly known as: PLAVIX Take 75 mg by mouth daily. Refills: 0 cyanocobalamin 1,000 mcg Tablet Take 1,000 mcg by mouth daily. Refills: 0 galantamine 4 mg tablet Commonly known as: RAZADYNE Take 4 mg by mouth 2 times daily. Refills: 0 HYDROcodone-acetaminophen 5-325 mg tablet Commonly known as: NORCO Take 1 Tablet by mouth every 8 hours as needed for Pain. Refills: 0 insulin glargine 100 unit/mL pen syringe Commonly known as: LANTUS Inject 25 Units by subcutaneous injection daily at bedtime. Refills: 0 insulin lispro 100 unit/mL pen syringe Commonly known as: HumaLOG,ADMELOG Inject 2-10 Units by subcutaneous injection 4 times daily with meals and at bedtime. 70-149=0 units 150-199=2 units 200-249=4 units 250-299=6 units 300-349=8 units 350+ =10 units and call MD Refills: 0 Insulin Syringe-Needle U-100 0.5 mL 30 gauge x 5/16 Syringe Use with insulin BID. Signed by: Dr. Zena Otto Quantity: 100 Each Refills: 2 lancets 30 gauge Use to check glucose TID. Signed by: Dr. Zena Otto Quantity: 100 Each Refills: 2 levothyroxine 100 mcg tablet Commonly known as: SYNTHROID TAKE 1 TABLET BY MOUTH ONCE DAILY. Patient must be seen for any additional refills Signed by: Dr. Zena Otto Quantity: 90 Tablet Refills: 0 losartan 25 mg tablet Commonly known as: COZAAR Take 1 tablet by mouth twice daily Signed by: Nurse Practitioner Cris Smith Quantity: 180 Tablet Refills: 0 magnesium HYDROXIDE 400 mg/5 mL suspension Commonly known as: MILK OF MAGNESIA Take 30 mL by mouth 1 time daily as needed for Constipation. Refills: 0 meclizine 25 mg tablet Commonly known as: ANTIVERT Take 25 mg by mouth 1 time daily as needed for Dizziness. Refills: 0 mirtazapine 7.5 mg tablet Commonly known as: REMERON Take 7.5 mg by mouth daily at bedtime. Refills: 0 pantoprazole 40 mg Tablet, Delayed Release (E.C.) Commonly known as: PROTONIX Take 40 mg by mouth daily. Refills: 0 polyethylene glycol 3350 17 gram/dose Powder Commonly known as: MIRALAX Take 17 Grams by mouth 1 time daily as needed for Constipation. Dissolve in 8 ounces of fluid and drink entire liquid Refills: 0 potassium CHLORIDE 10 mEq Extended Release tablet Commonly known as: KLOR-CON M10 Take 10 mEq by mouth daily. Refills: 0 Where to Get Your Medications Information about where to get these medications is not yet available Ask your nurse or doctor about these medications amoxicillin-clavulanate 875-125 mg tablet apixaban 5 mg tablet ferrous sulfate 325 mg (65 mg iron) tablet silver Gel, Sustained Release No future appointments. Activity level: up as tolerated Diet: DIET PEDIATRIC GENERAL Effective Now DIET SUPPLEMENT GEN ADULT BID; Complete Oral Supplement, Wound Care: drain care DISCHARGE EXAM: BP (!) 141/85 (BP Location: Right arm, Patient Position (BP): Supine) Pulse 72 Temp 97.8 ??F (36.6 ??C) (Temporal) Resp 16 Ht 5' 6 (1.676 m) Wt 73.2 kg (161 lb 6 oz) SpO2 94% BMI 26.05kg/m?? Last documented weight: Weight: 73.2 kg (161 lb 6 oz) (03/06/25 0200) General: alert, in no distress Neurologic: Grossly normal HEENT: atraumatic, Normocephalic, without obvious abnormality Lungs: normal respiratory effort Heart: normal rate and regular rhythm Abdomen: Soft, non-tender. Bowel sounds normal. No masses, no organomegaly, SAMARA drain right side with bilious output Extremities: extremities normal, atraumatic, no cyanosis or edema Skin: negative Home Healthcare Is this patient being discharged with Home Health? No Total time spent on discharge services today including examining and educating the patient and available family members, writing prescriptions and reviewing the discharge medication list, documentingthis discharge summary and coordinating outpatient care and follow up required less than 30 minutes. documented in this encounter Discharge Instructions * Discharge Instructions* Ledy Horta RN - 03/01/2025 1:01 PM CDT [facility] Discharge Instructions Discharge & Transfer patient to: Name of Facility: [facility] Transfer care to Attending Provider at [facility] Symptoms/Diagnosis: Acute metabolic encephalopathy Procedures Performed, if any: 03/07 9562 Note By: Kyler Mcarthur, FOREMAN/PILE DRIVING [employer] ERECTION 03/06 153 Note By: Tayler Hernández, PCT Labs and studies from this hospitalization needing follow up: CBC and Comprehensive Metabolic Panel (CMP) in 1 week Follow up PCP Please schedule follow up appointment with facility physician or PCP/ Brayan Fournier MD, Please schedule follow up appointment in one week. Follow up consultants With Surgery in 2 weeks If the office does not reach you to make a follow up appointment, please call [phone]. Additional problems: Active Hospital Problems Diagnosis Protein-calorie malnutrition, moderate Anticoagulated Acute cholecystitis Calculus of gallbladder with acute cholecystitis without obstruction Pulmonary embolus (CMS/HCC) History of dementia Generalized weakness Stage I pressure ulcer of right heel Complicated urinary tract infection Acute metabolic encephalopathy Anxiety and depression UTI (urinary tract infection) Anemia History of TIA (transient ischemic attack) - 2010 Dyslipidemia Essential hypertension Hypothyroidism Resolved Hospital Problems No resolved problems to display. Level of Care: [x] Skilled [] Maintenance [] Rehab Rehab potential: fair Code Status: DNR Labs: Recent Labs 03/05/25 0451 03/06/25 1544 03/07/25 0456 WBC 5.6 7.3 6.7 HGB 7.4* 8.2* 7.3* HCT 23.7* 26.7* 23.9* PLT 214 308 307 Recent Labs 03/05/25 0451 03/06/25 1544 03/07/25 0456 NA 139 142 144 K 4.1 4.0 4.0 CL 106 107 110* CO2 23 23 26 CA 8.3* 8.6* 8.6* BUN 43* 30* 30* CREAT 0.97* 0.79 0.89 GLUCOSE 335* 279* 298* Recent Labs 03/05/25 0451 03/06/25 1544 03/07/25 0456 TOTALPROTEIN 4.5* 5.6* 5.1* ALBUMIN 2.4* 2.6* 2.5* BILITOTAL 0.3 0.4 0.4 ALKPHOS 176* 153* 138* AST 32 28 22 ALT 53* 39* 30 No results for input(s): INR , PT in the last 72 hours. Invalid input(s): PTT Finger stick blood glucose: No Activity level: up as tolerated and mobility device: walker with assistance of two, wheelchair Clinical Care/Ancillary services: Physical therapy evaluate and treat: Yes Occupational therapy evaluate and treat: Yes Speech therapy evaluate and treat: No Respiratory Treatment/Oxygen: Not Applicable DIET: DIET PEDIATRIC GENERAL Effective Now DIET SUPPLEMENT GEN ADULT BID; Complete Oral Supplement, Wound Care: IR bilary drain please empty minimum two times daily Communicable Disease: NA: Other Comments: Follow up in the Emergency Room For any recurrence or worsening of admission concerns, chest pain, palpitations, shortness of breath, coughing blood, nausea, vomiting, diarrhea, pain, fever, chills, bleeding, bloody or tarry stools, change to urine or bowel output, Contact hospitalist office [phone] for questions if patients are discharged by [facility]. Contact [facility] Transfer [facility] at [phone] if patient needs a direct admission. Tell us about the patient and how we can help them. If we can provide the service that is needed, we will do the rest of the work. Ledy Horta RN 03/07/2025, 9:04 AM As we discussed, you do have a urinary tract infection. You did receive 1 dose of ceftriaxone in your IV. Will be important that you take and finish the antibiotics prescribed. A urine culture was sent to the lab. This takes about 48 hours to get results. If it is discovered you need a different antibiotic you will be contacted and new antibiotic will be called in for you. Make sure that your [facility] is treating the sore on the back of your heel aggressively. This could continue to worsen increasing risk of infection etc. Your blood counts were a bit lower than what they have been historically. Make sure you are primaryprovider is aware of this as well as they may want to continue to monitor your blood counts to makesure they do not continue to decline. FOLLOWUP WITH YOUR DOCTOR You were examined and treated today on an emergency basis only. This emergency medical screening examination does not substitute for complete medical care. Please remember that medicine is an art as well as a science and not everything can be addressed during your emergency visit. We try very hard to rule out life- threatening problems here. As such, you may need to address additional problems with a primary care physician. Your visit here is not complete without an examination and follow-up by your primary care physician. It is your responsibility to contact your primary doctor for a follow-up visit as soon as possible. You may also have been given the name of a specialist to contact. It isyour responsibility to contact and make an appointment with the specialist as well. We have not made any appointments for you. 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 Make the appointment today sothere is no delay! Please follow your discharge instructions from today in the meantime. If you do not have a primary care doctor, then you have been given the contact information of the doctor who is business liaison officer to see new patients after your visit today. Call the number listed and make an appointment right away. Call [phone] for a referral to a primary care doctor if you do not have one. Call for an appointment and further care. Otherwise, call the physician of your choice for an appointment and follow up. ANALYSIS OF X-RAYS AND LABS Any x-ray findings you may have had today are considered only preliminary until they are officiallyread by the radiologist. If you had x-rays or CAT scans today, there may be other things seen afterthe radiologist looks at the films. You might be contacted advising you of any new findings. If youare still experiencing problems, you may need additional x-rays or images taken. If any labs were sent out and not run today, you also might be contacted advising you of any new results. These discrepancies may require you to return to the ER to be re-evaluated. The results may even alter your treatment course. LEARN YOUR MEDICATIONS Take your medications as prescribed. If you have been given a prescription, you are responsible for properly filling your prescription and following the instructions exactly. Be sure to get it filled right away and read the medication instructions provided by the pharmacy. Do not drive or operate machinery until you know what effect the medicine will have on your body. If your prescription makes you tired, or sleepy, or contains narcotics, you should not drink alcohol, including beer and wine, drive, or participate in any other activities that you need to be clear-headed for. If you were given a prescription for narcotic pain medication consider taking an lfsr-oek-bbgimbc stool softener such as metamucil or colace to help prevent constipation. Do not take more than 4 grams (4000 milligrams) of tylenol (acetaminophen) per day as this can damage your liver. Most narcotic pain medications have tylenol in them. If you do not think it is helping, call your doctor. Do not increase how much you take or how oftenyou take it without talking to your doctor first. Do not take other people???s medications. Failureto take your medications properly can lead to medical problems, including but not limited, to overdose or . If you need medication refills, please contact your primary doctor. We do not provide medication refills. 24-hour [place] pharmacies [facility] at [address] [facility] and [address] [facility] KNOW YOUR DIAGNOSIS You have also been given additional sheets of paper explaining your diagnosis, prescriptions, home care instructions and any warning signs. Read this information carefully. By signing this discharge form, or having your responsible constitution party sign, you agree that you have received this information and ar e responsible for reading it. Please ask questions and ask the nurse to go over anything you don???t understand before you leave. After that time, you are responsible for knowing your medical condition, how that condition is being treated and what things require an immediate reevaluation. RESPOND TO WARNING SIGNS If your symptoms do not improve within the timeline we discussed, or they become worse, either contact your primary care physician immediately or come back to the emergency department. In the event of an emergency, dial 9-1-1 for an ambulance. Medical emergencies include but are not limited to: sudden headache, fever, bleeding, dizziness, paralysis, chest pain, stomach pain, nausea and vomiting, worsening pain, unable to keep fluids down or any other symptoms that worry you. Remember that the emergency department is open 24 hours a day, every day, and we will be happy to see you at any time. * Discharge Instr - Activity* Ledy Horta RN - 03/07/2025 9:07 AM CDT Activity as tolerated with maximal two person assist and walker * Discharge Instr - Diet* Ledy Horta RN - 03/07/2025 9:08 AM CDT General diet with supplements * Attachments The following attachments cannot be sent through Care Everywhere. * Acute Cholecystitis: General Info (French) * Biliary Drain Care: General Info (French) * Apixaban (French) * Amoxicillin and Clavulanic Acid (French) documented in this encounter Medications at Time of Discharge amoxicillin-clavu lanate (AUGMENTIN) 875-125 mg tablet Take 1 Tablet by mouth every 12 hours for 7 days. 03/07/2025 silver (SILVASORB) Gel, Sustained Release Apply to affected area 2 times daily. 03/07/2025 apixaban (ELIQUIS) 5 mg tablet Take 2 Tablets (10 mg) by mouth 2 times daily for 7 days, THEN 1 Tablet (5 mg) 2 times daily for 23 days. 03/07/2025 5 ferrous sulfate 325 mg (65 mg iron) tablet Take 1 Tablet (325 mg) by mouth daily. 03/07/2025 potassium CHLORIDE (KLOR-CON M10) 10 mEq Extended Release tablet Take 10 mEq by mouth daily. 02/11/2025 pantoprazole (PROTONIX) 40 mg Tablet, Delayed Release (E.C.) Take 40 mg by mouth daily. 02/10/2025 mirtazapine (REMERON) 7.5 mg tablet Take 7.5 mg by mouth daily at bedtime. 02/08/2025 HYDROcodone-aceta minophen (NORCO) 5-325 mg tablet Take 1 Tablet by mouth every 8 hours as needed for Pain. 02/28/2025 galantamine (RAZADYNE) 4 mg tablet Take 4 mg by mouth 2 times daily. 02/08/2025 clopidogreL (PLAVIX) 75 mg Tablet Take 75 mg by mouth daily. 02/11/2025 citalopram (CeleXA) 20 mg tablet Take 20 mg by mouth daily. 02/11/2025 amLODIPine (NORVASC) 5 mg tablet Take 5 mg by mouth daily. 02/11/2025 ascorbic acid, vitamin C, (VITAMIN C) 1,000 mg Tablet Take 1,000 mg by mouth daily. acetaminophen (TYLENOL) 325 mg tablet Take 650 mg by mouth 3 times daily. cholecalciferol, Vitamin D3, (VITAMIN D3) 25 mcg (1,000 unit) Capsule Take 1 Capsule by mouth daily. cyanocobalamin 1,000 mcg Tablet Take 1,000 mcg by mouth daily. aspirin 81 mg Capsule Take 1 Capsule by mouth daily. insulin lispro (HumaLOG,ADMELOG) 100 unit/mL pen syringe Inject 2-10 Units by subcutaneous injection 4 times daily with meals and at bedtime. 70-149=0 units 150-199=2 units 200-249=4 units 250-299=6 units 300-349=8 units 350+ =10 units and call MD insulin glargine (LANTUS) 100 unit/mL pen syringe Inject 25 Units by subcutaneous injection daily at bedtime. meclizine (ANTIVERT) 25 mg tablet Take 25 mg by mouth 1 time daily as needed for Dizziness. bisacodyL (DULCOLAX) 10 mg Suppository Insert 10 mg by rectum 1 time daily as needed for Constipation. magnesium HYDROXIDE (MILK OF MAGNESIA) 400 mg/5 mL suspension Take 30 mL by mouth 1 time daily as needed for Constipation. polyethylene glycol 3350 (MIRALAX) 17 gram/dose Powder Take 17 Grams by mouth 1 time daily as needed for Constipation. Dissolve in 8 ounces of fluid and drink entire liquid levothyroxine 100 mcg tabletIndications :Hypothyroidism, unspecified type TAKE 1 TABLET BY MOUTH ONCE DAILY. Patient must be seen for any additional refills 90 Tablet 0 07/27/2020 losartan (COZAAR) 25 mg tablet Take 1 tablet by mouth twice daily 180 Tablet 0 10/19/2019 Insulin Syringe-Needle U-100 0.5 mL 30 gauge x 16 Syringe Use with insulin BID. 100 Each 2 07/16/2019 lancets 30 gauge Use to check glucose TID. 100 Each 2 03/03/2018 documented as of this encounter Progress Notes * Aneta Velázquez RN - 03/07/2025 1:55 PM CDT Report called to see Jade nurse at [facility] in [place], [place]. All questions answered. Pt transferred to EMS stretcher without incident. Discharge paperwork sent with EMS staff. No s/s distress; pt denied any further needs or concerns at time of discharge. Spouse Oleksandr updated. Pt left this facility with her herrera catheter and gallbladder drain in place. * Nayeli Chan MD - 03/06/2025 9:53 AM CDT Images from the original note were not included. Your life is our life's work [facility] Hospitalist/[facility] Medicine Progress Note LOS: 5 days Room/Bed: 3106/02 Patient name: Helen Farrell Date of : 1940 HOSPITAL COURSE SUMMARY: Helen Farrell is a 84 y.o. female with PMH significant for Alzheimer dementia, HTN, T2DM, hypothyroidism, HLD, prior ???light strokes?? (2009), recent right hip fracture s/p repair (entered NH 01/17/25) with indwelling Herrera, presents from nursing facility for acute confusion and reported new left-sided weakness with LKW ~06:30 on 03/01/25. EMS noted mild left-sided weakness and left facial droop;BG 188; VSS en route. On ED arrival: subtle/questionable L facial droop; no definite UE drift; bilateral LE weakness (unable to lift either leg) thought to be baseline post-hip surgery; NIHSS 7 driven by bilateral leg weakness. Family later felt mental status was at baseline. CT head: no acute process; chronic atrophy and small-vessel ischemic changes. Neurology evaluated and favored delirium on dementia (stroke/TIA unlikely); thrombolysis/EVT not pursued. Workup notable for UA with pyuria/bacteriuria and WBC clumps; started on ceftriaxone. Complained of right-sided abdominal pain ? CT A/P showed cholelithiasis with inflammatory changes; RUQ US confirmed cholecystitiswith 2.3-2.5 cm neck stone and wall thickening (7-8 mm). CT A/P also incidentally revealed a very small subsegmental PE in RLL. Heparin infusion started per PE protocol. Hemodynamically stable, SpO? >=92% on room air. Vitals in ED: BP 140-172/58-69, HR ~80s, afebrile, RR 18-29, SpO? 92-94% RA. Labs: WBC 10.2 ? 12.9 K, Hgb 9.6 ? 11.1 g/dL (normocytic), Plt 168?196 K. CMP: BUN 24, Cr 0.91, Alb2.7, Glu 189. INR 1.3, PTT 31.5. TSH 1.99. UA: turbid; LE 3+, WBC >100/hpf, bacteria 3+, WBC clumps present; nitrite negative. ECG: NSR, possible old anterior infarct; no acute ischemic changes. Skin: Stage I pressure injury R heel. 03/02: Assumed care of patient. Continue IV antibiotics. Surgery recommending IR percutaneous cholecystostomy tube. Currently on heparin drip for DVT and PE. Urine growing E. coli, blood cultures pending 03/03: IR recommending HIDA prior to drain placement. HIDA showing cystic duct obstruction and acute cholecystitis. GI consulted appreciate recs. 03/04: percutaneous drain placed by IR yesterday. Output bilious. No abdominal pain. Fluid culturesgrowing enterococcus faecalis. Continue abx and await sensitivities. Ampicillin added for enterococcus on urine culture 03/05: Still with output from drain 40 mL charted for today but appears more in there during rounds. Continue abx. Surgery signed off will see in clinic. 03/06: continue IV abx may return to facility tomorrow. Hgb pending from today but if stable will start AC. Consultants: IP CONSULT TO WOUND/SKIN CARE TEAM IP CONSULT TO IV TEAM IP CONSULT TO NUTRITION SERVICES IP CONSULT TO NUTRITION SERVICES IP CONSULT TO CASE MANAGEMENT SUBJECTIVE: Patient resting in bed sleepy today not wanting to be examined. ROS: History obtained from the patient Constitutional: negative for fever, chills, negative for confusion, fatigue Pulmonary: negative for dyspnea, no cough Cardiovascular: negative for chest pain, no palpitations, no orthopnea GI: negative for nausea, vomiting, diarrhea and constipation, no abdominal pain Renal: no dysuria, no hematuria Musculoskeletal: no back pain, no joint pain, no calf swelling Neuro: negative for headache, no vision changes, no dizziness Skin: no skin rash, no redness OBJECTIVE: Temp (24hrs), Av.3 ??F (36.3 ??C), Min:97.1 ??F (36.2 ??C), Max:97.5 ??F (36.4 ??C) BP (!) 157/59 (BP Location: Right arm, Patient Position (BP): Supine) Pulse 81 Temp 97.1 ??F (36.2 ??C) (Temporal) Resp 16 Ht 5' 6 (1.676 m) Wt 73.2 kg (161 lb 6 oz) SpO2 97% BMI 26.05kg/m?? Intake/Output Summary (Last 24 hours) at 03/06/2025 0953 Last data filed at 03/06/2025 0500 Gross per 24 hour Intake -- Output 1510 ml Net -1510 ml Last documented weight: Weight: 73.2 kg (161 lb 6 oz) (03/06/25 0200) EXAM: General: alert, in no distress Neurologic: Grossly normal HEENT: atraumatic, Normocephalic, without obvious abnormality Lungs: normal respiratory effort Heart: normal rate and regular rhythm Abdomen: Soft, non-tender. Bowel sounds normal. No masses, no organomegaly, SAMARA drain right side with bilious output Extremities: extremities normal, atraumatic, no cyanosis or edema Skin: negative LABORATORY: Recent Labs 03/03/25 1331 03/04/25 0547 03/05/25 0451 WBC 10.6 8.0 5.6 HGB 7.0* 7.6* 7.4* HCT 22.4* 24.3* 23.7* PLT 192 162 214 Recent Labs 03/03/25 1331 03/04/25 0547 03/05/25 0451 NA 134* 133* 139 K 4.3 4.1 4.1 CL 101 103 106 CO2 23 19* 23 CA 8.7* 8.4* 8.3* BUN 47* 50* 43* CREAT 1.59* 1.28* 0.97* GLUCOSE 263* 232* 335* Recent Labs 03/03/25 1331 03/04/25 0547 03/05/25 0451 TOTALPROTEIN 5.8* 5.0* 4.5* ALBUMIN 2.4* 2.0* 2.4* BILITOTAL 0.4 0.3 0.3 ALKPHOS 226* 190* 176* AST 204* 77* 32 ALT 105* 77* 53* No results for input(s): INR , PT in the last 72 hours. Invalid input(s): PTT No results for input(s): BASETROP , 2HRTROP , DELTA , 6HRTROP in the last 72 hours. Diagnostic testing reviewed by me: Medications were reviewed by me. Current Facility-Administered Medications: EPINEPHrine 1 mg/mL (1 mL) injection 0.3 mg, 0.3 mg, IM, ONE time PRN, Nayeli Chan MD ampicillin (OMNIPEN) 2,000 mg in sodium chloride 0.9% 100 mL IVPB (MBP), 2,000 mg, IV, every 6 hours, Nayeli Chan MD, Stopped at 03/06/25 0851 HYDROmorphone (PF) (DILAUDID) injection 1 mg, 1 mg, IV, every 8 hours PRN, Nayeli Chan MD, 1 mg at 03/03/25 0829 dextrose 5 % - sodium chloride 0.9 % infusion, , IV, see admin instructions, Nayeli Chan MD dextrose 50% (D50) syringe 12.5 Gram, 12.5 Gram, IV, see admin instructions, Nayeli Chan MD dextrose 50% (D50) syringe 25 Gram, 25 Gram, IV, see admin instructions, Nayeli Chan MD glucagon HCL 1 mg/mL injection 1 mg, 1 mg, IM, see admin instructions, Nayeli Chan MD insulin lispro (HumaLOG,ADMELOG) injection 0-6 Units, 0-6 Units, subCUT, TID WITH meals, Nayeli Chan MD, 2 Units at 03/06/25 0821 insulin lispro (HumaLOG,ADMELOG) injection 0-3 Units, 0-3 Units, subCUT, daily BEDTIME, Nayeli Chan MD, 1 Units at 03/05/25 2047 [Held by Provider] heparin in 0.45% NaCl 25,000 unit/250 mL infusion, 12 Units/kg/hr, IV, titrate, Nayeli Chan MD, Stopped at 03/03/25 1427 silver (SILVASORB) gel, , Topical, BID, Nayeli Chan MD, Given at 03/06/25 0823 dextrose 5 % - sodium chloride 0.9 % infusion, , IV, see admin instructions, Sebas Feliz MD dextrose 50% (D50) syringe 12.5 Gram, 12.5 Gram, IV, see admin instructions, Sebas Feliz MD dextrose 50% (D50) syringe 25 Gram, 25 Gram, IV, see admin instructions, Sebas Feliz MD glucagon HCL 1 mg/mL injection 1 mg, 1 mg, IM, see admin instructions, Sebas Feliz MD sodium chloride flush injection 10 mL, 10 mL, IV, every 12 hours (2 times daily), Sebas Feliz MD, 10 mL at 03/05/25 204 sodium chloride flush injection 10 mL, 10 mL, IV, see admin instructions, Sebas Feliz MD sodium chloride 0.9 % flush bag 25 mL, 25 mL, IV, see admin instructions, Sebas Feliz MD dextrose 5 % in water 250 mL flush bag 25 mL, 25 mL, IV, see admin instructions, Sebas Feliz MD acetaminophen (TYLENOL) tablet 650 mg, 650 mg, Oral, every 6 hours PRN, Sebas Feliz MD,650 mg at 03/04/25 171 naloxone (NARCAN) 0.4 mg/mL injection 0.1-0.4 mg, 0.1-0.4 mg, IV, see admin instructions, Sebas Feliz MD ondansetron (ZOFRAN) 4 mg/2 mL injection 4 mg, 4 mg, IV, every 6 hours PRN, Sebas Feliz MD calcium as CARBONATE (TUMS) 500 mg (200 mg elemental) chewable tablet 400 mg, 400 mg, Oral, every 6hours PRN, Sebas Feliz MD HYDROcodone-acetaminophen (NORCO) 5-325 mg per tablet 1 Tablet, 1 Tablet, Oral, every 8 hours PRN, Sebas Feliz MD aspirin (ECOTRIN EC) tablet 81 mg, 81 mg, Oral, daily, Sebas Feliz MD, 81 mg at 03/06/25 0819 amLODIPine (NORVASC) tablet 5 mg, 5 mg, Oral, daily, Sebas Feliz MD, 5 mg at 03/06/25 0829 losartan (COZAAR) tablet 25 mg, 25 mg, Oral, BID, Sebas Feliz MD, 25 mg at 03/06/25 0818 pantoprazole (PROTONIX) tablet 40 mg, 40 mg, Oral, daily, Sebas Feliz MD, 40 mg at 03/06/25 0819 citalopram (CeleXA) tablet 20 mg, 20 mg, Oral, daily, Sebas Feliz MD, 20 mg at 819 galantamine (RAZADYNE) tablet 4 mg, 4 mg, Oral, BID, Sebas Feliz MD, 4 mg at 03/06/25 08 levothyroxine (SYNTHROID) tablet 100 mcg, 100 mcg, Oral, daily EARLY, Sebas Feliz MD, 100 mcg at 03/06/25 0525 cefTRIAXone (ROCEPHIN) 2,000 mg in sodium chloride 0.9% 50 mL IVPB (MBP), 2,000 mg, IV, every 24 hours (daily), Sebas Feliz MD, Last Rate: 118 mL/hr at 03/06/25 0856, 2,000 mg at 856 Primary discharge diagnosis: Acute metabolic encephalopathy Other active medical issues also addressed during this admission: Active Hospital Problems Diagnosis Protein-calorie malnutrition, moderate Anticoagulated Acute cholecystitis Calculus of gallbladder with acute cholecystitis without obstruction Pulmonary embolus (CMS/HCC) History of dementia Generalized weakness Stage I pressure ulcer of right heel Complicated urinary tract infection Acute metabolic encephalopathy Anxiety and depression UTI (urinary tract infection) Anemia History of TIA (transient ischemic attack) - 2009 Dyslipidemia Essential hypertension Hypothyroidism Resolved Hospital Problems No resolved problems to display. ASSESSMENT AND PLAN: Acute metabolic encephalopathy likely secondary to UTI and acute cholecystitis Continue IV fluids, blood cultures neg, urine culture growing E. Coli and enterococcus Continue IV Rocephin and ampicillin Surgery consulted and recommending IR percutaneous cholecystostomy tube, IR recommended HIDA scan which showed cystic duct obstruction with acute cholecystitis S/p IR percutaneous cholecystostomy tube placement 03/04 with bilious output Fluid cultures growing enterococcus faecalis continue ampicillin per sensitivities Incidental small subsegmental PE right lower lobe likely secondary to immobilization Bilateral lower extremity DVTs Holding heparin for anemia Echo with EF 65% and grade 1 DD Anemia Hgb pending today. 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 Escrow Processor consulted for ASPEN assessment and intervention plan per malnutrition pathway. Continue malnutrition pathway, supplemental feeds, serial assessments, closely monitor for refeeding syndrome, metabolic derangements, hypoglycemia, etc. No indication for appetite stimulants at thistime - Current Diet and/or Nutritional Supplementation ordered: DIET GENERAL Effective Now - Daily weights Impact of Malnutrition on patient condition and outcomes: Decreased ability to perform activities, Decreased activity tolerance and reduced mobility , Poor wound healing, and Skin breakdown DVT prophylaxis: DVT Pharmacologic Prophylaxis: heparin in 0.45% NaCl 25,000 unit/250 mL infusion [[id number]] Code status: NO CPR (In Event of Cardiopulmonary Arrest) Outpatient follow up: PCP surgery Anticipated Disposition Location: LTC Timeframe: 03/08/2025 Criteria: Improved Patient's understanding of illness: Fair Primary family contact: MDM complexity: [] Mild [x] Moderate [] High Nayeli Chan MD 03/06/2025, 9:53 AM * Nayeli Chan MD - 03/05/2025 9:33 AM CDT Images from the original note were not included. Your life is our life's work [facility] Hospitalist/Hospital Medicine Progress Note LOS: 4 days Room/Bed: 310/ Patient name: Helen Farrell Date of : 1940 HOSPITAL COURSE SUMMARY: Helen Farrell is a 84 y.o. female with PMH significant for Alzheimer dementia, HTN, T2DM, hypothyroidism, HLD, prior ???light strokes?? (2009), recent right hip fracture s/p repair (entered NH 01/17/25) with indwelling Herrera, presents from nursing facility for acute confusion and reported new left-sided weakness with LKW ~06:30 on 03/01/25. EMS noted mild left-sided weakness and left facial droop;BG 188; VSS en route. On ED arrival: subtle/questionable L facial droop; no definite UE drift; bilateral LE weakness (unable to lift either leg) thought to be baseline post-hip surgery; NIHSS 7 driven by bilateral leg weakness. Family later felt mental status was at baseline. CT head: no acute process; chronic atrophy and small-vessel ischemic changes. Neurology evaluated and favored delirium on dementia (stroke/TIA unlikely); thrombolysis/EVT not pursued. Workup notable for UA with pyuria/bacteriuria and WBC clumps; started on ceftriaxone. Complained of right-sided abdominal pain ? CT A/P showed cholelithiasis with inflammatory changes; RUQ US confirmed cholecystitiswith 2.3-2.5 cm neck stone and wall thickening (7-8 mm). CT A/P also incidentally revealed a very small subsegmental PE in RLL. Heparin infusion started per PE protocol. Hemodynamically stable, SpO? >=92% on room air. Vitals in ED: BP 140-172/58-69, HR ~80s, afebrile, RR 18-29, SpO? 92-94% RA. Labs: WBC 10.2 ? 12.9 K, Hgb 9.6 ? 11.1 g/dL (normocytic), Plt 168?196 K. CMP: BUN 24, Cr 0.91, Alb2.7, Glu 189. INR 1.3, PTT 31.5. TSH 1.99. UA: turbid; LE 3+, WBC >100/hpf, bacteria 3+, WBC clumps present; nitrite negative. ECG: NSR, possible old anterior infarct; no acute ischemic changes. Skin: Stage I pressure injury R heel. 03/02: Assumed care of patient. Continue IV antibiotics. Surgery recommending IR percutaneous cholecystostomy tube. Currently on heparin drip for DVT and PE. Urine growing E. coli, blood cultures pending 03/03: IR recommending HIDA prior to drain placement. HIDA showing cystic duct obstruction and acute cholecystitis. GI consulted appreciate recs. 03/04: percutaneous drain placed by IR yesterday. Output bilious. No abdominal pain. Fluid culturesgrowing enterococcus faecalis. Continue abx and await sensitivities. Ampicillin added for enterococcus on urine culture 03/05: Still without output from drain 40 mL charted for today but appears more in there during rounds. Continue abx. Surgery signed off will see in clinic. Consultants: IP CONSULT TO WOUND/SKIN CARE TEAM IP CONSULT TO IV TEAM IP CONSULT TO NUTRITION SERVICES IP CONSULT TO NUTRITION SERVICES IP CONSULT TO CASE MANAGEMENT SUBJECTIVE: Patient resting in bed denies any abdominal pain. States she is feeling better. ROS: History obtained from the patient Constitutional: negative for fever, chills, negative for confusion, fatigue Pulmonary: negative for dyspnea, no cough Cardiovascular: negative for chest pain, no palpitations, no orthopnea GI: negative for nausea, vomiting, diarrhea and constipation, no abdominal pain Renal: no dysuria, no hematuria Musculoskeletal: no back pain, no joint pain, no calf swelling Neuro: negative for headache, no vision changes, no dizziness Skin: no skin rash, no redness OBJECTIVE: Temp (24hrs), Av.2 ??F (36.2 ??C), Min:96.8 ??F (36 ??C), Max:97.3 ??F (36.3 ??C) BP (!) 141/53 (BP Location: Right arm, Patient Position (BP): Supine) Pulse 81 Temp 97.3 ??F (36.3 ??C) (Temporal) Resp 16 Ht 5' 6 (1.676 m) Wt 74.8 kg (164 lb 14.5 oz) SpO2 97% BMI 26.62 kg/m?? Intake/Output Summary (Last 24 hours) at 03/05/2025 0933 Last data filed at 03/05/2025 0421 Gross per 24 hour Intake 680 ml Output 515 ml Net 165 ml Last documented weight: Weight: 74.8 kg (164 lb 14.5 oz) (03/05/25 0421) EXAM: General: alert, in no distress Neurologic: Grossly normal HEENT: atraumatic, Normocephalic, without obvious abnormality Lungs: normal respiratory effort Heart: normal rate and regular rhythm Abdomen: Soft, non-tender. Bowel sounds normal. No masses, no organomegaly, SAMARA drain right side with bilious output Extremities: extremities normal, atraumatic, no cyanosis or edema Skin: negative LABORATORY: Recent Labs 03/03/25 1331 03/04/25 0547 03/05/25 0451 WBC 10.6 8.0 5.6 HGB 7.0* 7.6* 7.4* HCT 22.4* 24.3* 23.7* PLT 192 162 214 Recent Labs 03/03/25 1331 03/04/25 0547 03/05/25 0451 NA 134* 133* 139 K 4.3 4.1 4.1 CL 101 103 106 CO2 23 19* 23 CA 8.7* 8.4* 8.3* BUN 47* 50* 43* CREAT 1.59* 1.28* 0.97* GLUCOSE 263* 232* 335* Recent Labs 03/03/25 1331 03/04/25 0547 03/05/25 0451 TOTALPROTEIN 5.8* 5.0* 4.5* ALBUMIN 2.4* 2.0* 2.4* BILITOTAL 0.4 0.3 0.3 ALKPHOS 226* 190* 176* AST 204* 77* 32 ALT 105* 77* 53* No results for input(s): INR , PT in the last 72 hours. Invalid input(s): PTT No results for input(s): BASETROP , 2HRTROP , DELTA , 6HRTROP in the last 72 hours. Diagnostic testing reviewed by me: Medications were reviewed by me. Current Facility-Administered Medications: [COMPLETED] ampicillin TEST DOSE- 100 mg in sodium chloride 0.9 % 50 mL IVPB, 100 mg, IV, ONE time only, Nayeli Chan MD, 100 mg at 03/04/25 1206 EPINEPHrine 1 mg/mL (1 mL) injection 0.3 mg, 0.3 mg, IM, ONE time PRN, Nayeli Chan MD [] diphenhydrAMINE (BENADRYL) injection 25 mg, 25 mg, IV, ONE time PRN, Nayeli Chan MD [] hydrocortisone sod succinate (PF) (Solu-CORTEF) 100 mg in sterile water 2 mL injection, 100 mg, IV, ONE time PRN, Nayeli Chan MD ampicillin (OMNIPEN) 2,000 mg in sodium chloride 0.9% 100 mL IVPB (MBP), 2,000 mg, IV, every 6 hours, Nayeli Chan MD, Stopped at 03/05/25 0838 [COMPLETED] perflutren lipid microspheres (DEFINITY) 1.3 mL in sodium chloride 0.9% 10 mL injection, 0-10 mL, IV, intra-proc ONE time, Khanh Castellano MD, 0.52 mL at 03/04/25 1320 [DISCONTINUED] ampicillin (OMNIPEN) 2,000 mg in sodium chloride 0.9% 100 mL IVPB (MBP), 2,000 mg, IV, every 6 hours, Nayeli Chan MD HYDROmorphone (PF) (DILAUDID) injection 1 mg, 1 mg, IV, every 8 hours PRN, Nayeli Chan MD, 1 mg at 03/03/25 0829 [] sodium chloride 0.9 % infusion, , IV, continuous, Nayeli Chan MD, Stopped at1 1429 dextrose 5 % - sodium chloride 0.9 % infusion, , IV, see admin instructions, Nayeli Chan MD dextrose 50% (D50) syringe 12.5 Gram, 12.5 Gram, IV, see admin instructions, Nayeli Chan MD dextrose 50% (D50) syringe 25 Gram, 25 Gram, IV, see admin instructions, Nayeli Chan MD glucagon HCL 1 mg/mL injection 1 mg, 1 mg, IM, see admin instructions, Nayeli Chan MD insulin lispro (HumaLOG,ADMELOG) injection 0-6 Units, 0-6 Units, subCUT, TID WITH meals, Nayeli Chan MD, 3 Units at 03/05/25 0804 insulin lispro (HumaLOG,ADMELOG) injection 0-3 Units, 0-3 Units, subCUT, daily BEDTIME, Nayeli Chan MD, 2 Units at 03/04/25 2103 [Held by Provider] heparin in 0.45% NaCl 25,000 unit/250 mL infusion, 12 Units/kg/hr, IV, titrate, Nayeli Chan MD, Stopped at 03/03/25 1427 metroNIDAZOLE (FLAGYL) IVPB 500 mg, 500 mg, IV, every 8 hours, Sebas Feliz MD, Stopped at 03/05/25 0627 silver (SILVASORB) gel, , Topical, BID, Nayeli Chan MD, Given at 03/04/25 2104 dextrose 5 % - sodium chloride 0.9 % infusion, , IV, see admin instructions, Sebas Feliz MD dextrose 50% (D50) syringe 12.5 Gram, 12.5 Gram, IV, see admin instructions, Sebas Feliz MD dextrose 50% (D50) syringe 25 Gram, 25 Gram, IV, see admin instructions, Sebas Feliz MD glucagon HCL 1 mg/mL injection 1 mg, 1 mg, IM, see admin instructions, Sebas Feliz MD sodium chloride flush injection 10 mL, 10 mL, IV, every 12 hours (2 times daily), Sebas Feliz MD, 10 mL at 03/05/25 0900 sodium chloride flush injection 10 mL, 10 mL, IV, see admin instructions, Sebas Feliz MD sodium chloride 0.9 % flush bag 25 mL, 25 mL, IV, see admin instructions, Sebas Feliz MD dextrose 5 % in water 250 mL flush bag 25 mL, 25 mL, IV, see admin instructions, Sebas Feliz MD acetaminophen (TYLENOL) tablet 650 mg, 650 mg, Oral, every 6 hours PRN, Sebas Feliz MD,650 mg at 03/04/25 171 naloxone (NARCAN) 0.4 mg/mL injection 0.1-0.4 mg, 0.1-0.4 mg, IV, see admin instructions, Sebas Feliz MD ondansetron (ZOFRAN) 4 mg/2 mL injection 4 mg, 4 mg, IV, every 6 hours PRN, Sebas Feliz MD calcium as CARBONATE (TUMS) 500 mg (200 mg elemental) chewable tablet 400 mg, 400 mg, Oral, every 6hours PRN, Sebas Feliz MD HYDROcodone-acetaminophen (NORCO) 5-325 mg per tablet 1 Tablet, 1 Tablet, Oral, every 8 hours PRN, Sebas Feliz MD aspirin (ECOTRIN EC) tablet 81 mg, 81 mg, Oral, daily, Sebas Feliz MD, 81 mg at 03/05/25 08 amLODIPine (NORVASC) tablet 5 mg, 5 mg, Oral, daily, Sebas Feliz MD, 5 mg at 03/05/25 08 losartan (COZAAR) tablet 25 mg, 25 mg, Oral, BID, Sebas Feliz MD, 25 mg at 03/05/25 08 pantoprazole (PROTONIX) tablet 40 mg, 40 mg, Oral, daily, Sebas Feliz MD, 40 mg at 03/05/25 08 citalopram (CeleXA) tablet 20 mg, 20 mg, Oral, daily, Sebas Feliz MD, 20 mg at galantamine (RAZADYNE) tablet 4 mg, 4 mg, Oral, BID, Sebas Feliz MD, 4 mg at 03/05/25 08 levothyroxine (SYNTHROID) tablet 100 mcg, 100 mcg, Oral, daily EARLY, Sebas Feliz MD, 100 mcg at 03/05/25 0524 cefTRIAXone (ROCEPHIN) 2,000 mg in sodium chloride 0.9% 50 mL IVPB (MBP), 2,000 mg, IV, every 24 hours (daily), Sebas Feliz MD, Stopped at 03/04/25 1033 Primary discharge diagnosis: Acute metabolic encephalopathy Other active medical issues also addressed during this admission: Active Hospital Problems Diagnosis Protein-calorie malnutrition, moderate Anticoagulated Acute cholecystitis Calculus of gallbladder with acute cholecystitis without obstruction Pulmonary embolus (CMS/HCC) History of dementia Generalized weakness Stage I pressure ulcer of right heel Complicated urinary tract infection Acute metabolic encephalopathy Anxiety and depression UTI (urinary tract infection) Anemia History of TIA (transient ischemic attack) - 2009 Dyslipidemia Essential hypertension Hypothyroidism Resolved Hospital Problems No resolved problems to display. ASSESSMENT AND PLAN: Acute metabolic encephalopathy likely secondary to UTI and acute cholecystitis Continue IV fluids, blood cultures neg, urine culture growing E. Coli and enterococcus Continue IV Rocephin and ampicillin Surgery consulted and recommending IR percutaneous cholecystostomy tube, IR recommended HIDA scan which showed cystic duct obstruction with acute cholecystitis S/p IR percutaneous cholecystostomy tube placement 03/04 with bilious output, 40mL charted but appears more in rounds Fluid cultures growing enterococcus faecalis continue ampicillin per sensitivities Incidental small subsegmental PE right lower lobe likely secondary to immobilization Bilateral lower extremity DVTs Holding heparin for anemia Echo with EF 65% and grade 1 DD Anemia Hgb stable at 7.4. Did receive one unit during admission Iron studies show slightly low iron, will start oral iron since WBC count normal today Stage I pressure injury right heel POA Wound care consulted Chronic co-morbidities Essential HTN, BP stable, continue PT amlodipine, losartan, monitor Hx of CVA, continue aspirin, hold Plavix, hold statins Hypothyroidism, continue IOS PROGRAMMER levothyroxine Recent right hip fracture s/p repair Anxiety and depression, continue IOS PROGRAMMER citalopram Dementia, continue IOS PROGRAMMER galantamine Protein calorie malnutrition, consulted dietitian, malnutrition pathway in place Nutrition Status: Provider Assessment/Plan: Symptoms/Signs/Physical Exam: Poor Appetite, Weight Loss, and Eating Poorly Etiology: Chronic illness Nutrition Treatment Plan: Malnutrition Commentary: Underlying malnutrition impairing the body's response to above medical conditions and is associated with prolonged length of stay and increased riskof readmission and mortality. Escrow Processor consulted for ASPEN assessment and intervention plan per malnutrition pathway. Continue malnutrition pathway, supplemental feeds, serial assessments, closely monitor for refeeding syndrome, metabolic derangements, hypoglycemia, etc. No indication for appetite stimulants at thistime - Current Diet and/or Nutritional Supplementation ordered: DIET GENERAL Effective Now - Daily weights Impact of Malnutrition on patient condition and outcomes: Decreased ability to perform activities, Decreased activity tolerance and reduced mobility , Poor wound healing, and Skin breakdown DVT prophylaxis: DVT Pharmacologic Prophylaxis: heparin in 0.45% NaCl 25,000 unit/250 mL infusion [[id number]] Code status: NO CPR (In Event of Cardiopulmonary Arrest) Outpatient follow up: PCP surgery Anticipated Disposition Location: [facility] Timeframe: 03/08/2025 Criteria: Improved Patient's understanding of illness: Fair Primary family contact: MDM complexity: [] Mild [x] Moderate [] High Nayeli Chan MD 03/05/2025, 9:33 AM * Liberty Goldstein, [facility] - 03/04/2025 1:52 PM CDT Images from the original note were not included. Patient educated regarding Definity ultrasound contrast and verbalizes positive understanding. Definity administered per policy. Patient free from complaints throughout procedure. [facility] PHYSICIAN ORDERS # [id number] ECHOCARDIOGRAPHY PROTOCOL FOR USE OF ECHOCARDIOGRAPHIC IMAGE ENHANCING AGENT (DEFINITY) This protocol is to be used during an Echocardiogram when a patient is technically difficult to image (as defined by [place] Society of Echocardiography guidelines - the inability to detect two or more contiguous segments in any three of the apical views) or when left ventricular thrombus is suspected. Verify consent to treat has been signed and explain the procedure to the patient. Confirm that the patient does not have a known allergy or hypersensitivity to Definity Perflutren Lipid Microspheres or its components such as polyethylene glycol (PEG). Patient indicated he was not allergic and wanted to have the contrast. Enter order for Definity into Electronic Health Record ???per protocol?? (will require interpreting table tender sludge to sign). Trained Echo Technologists may proceed with use of echocardiographic image enhancing agent. [facility] currently utilizes Definity (perflutren lipid microspheres). Administer Definity per Echocardiography Policy and Procedure #251 Administration of Ultrasound Contrast as follows: 1.3 mL of activated Definity (perflutren lipid microspheres) diluted with 8.7 mL of preservative-free saline in a 10 mL syringe Initial injection of up to 3mL administered slowly (subsequent injection of 1 to 2 mL as needed) References: Definity Prescribing Information package insert; Revised February 2011 http://www.[email or web address]/pdf/[email or web address]% .pdf ASE Consensus Statement - [place] Society of Echocardiography Consensus Statement on the Clinical Applications of Ultrasonic Contrast Agents in Echocardiography; RAYMOND, March 2008 http://www.asecho.org/files/public/ContrastConsensusStatement.pdf www.[employer]/how-administration.html Approved by: Medication Management Committee Initiated: 09/18/2011 Revised: 09/25/2023 Expires: * Joy Conte RD - 03/04/2025 11:35 AM CDT The patient was evaluated by the dietitian and was found to have Malnutrition Nutrition Diagnosis: Moderate protein-calorie malnutrition (03/04/251099). The malnutrition pathway is recommended and the assessment via ASPEN criteria and nutrition recommendations from the dietitian are as follows: ASPEN Malnutrition Assessment and Findings Subcutaneous Fat Loss Assessment: Mild fat loss (03/04/25 1100) Muscle Wasting Assessment: Moderate (03/04/251099) Edema: Normal contour with a barely perceptible pit (no findings) (03/04/25 1100) Hand Pipeline Welder: Mild rotor plate washer (mild) (03/04/25 1100) Percentage of Energy: < or equal to 50% for > or equal to 5 days (severe-acute) (03/04/251099) Percentage of Weight Loss: Unable to assess (wt possibly in error) (03/04/251099) Malnutrition Decision Malnutrition Nutrition Diagnosis: Moderate protein-calorie malnutrition (03/04/251099) BMI BMI (Calculated): (!) 32.57 (03/01/25 8084) Malnutrition Recommendations Nutrition Interventions: Encourage adequate intake;Encourage fluids;Monitor weight trends;Oral nutrition supplement (03/04/25 1100) Cosigned by Nayeli Chan MD at 03/04/2025 12:43 PM CDT * Nayeli Chan MD - 03/04/2025 11:22 AM CDT Images from the original note were not included. Your life is our life's work [facility] Hospitalist/Hospital Medicine Progress Note LOS: 3 days Room/Bed: 3106/02 Patient name: Helen Farrell Date of : 1940 HOSPITAL COURSE SUMMARY: Helen Farrell is a 84 y.o. female with PMH significant for Alzheimer dementia, HTN, T2DM, hypothyroidism, HLD, prior ???light strokes?? (2009), recent right hip fracture s/p repair (entered NH 01/17/25) with indwelling Herrera, presents from nursing facility for acute confusion and reported new left-sided weakness with LKW ~06:30 on 03/01/25. EMS noted mild left-sided weakness and left facial droop;BG 188; VSS en route. On ED arrival: subtle/questionable L facial droop; no definite UE drift; bilateral LE weakness (unable to lift either leg) thought to be baseline post-hip surgery; NIHSS 7 driven by bilateral leg weakness. Family later felt mental status was at baseline. CT head: no acute process; chronic atrophy and small-vessel ischemic changes. Neurology evaluated and favored delirium on dementia (stroke/TIA unlikely); thrombolysis/EVT not pursued. Workup notable for UA with pyuria/bacteriuria and WBC clumps; started on ceftriaxone. Complained of right-sided abdominal pain ? CT A/P showed cholelithiasis with inflammatory changes; RUQ US confirmed cholecystitiswith 2.3-2.5 cm neck stone and wall thickening (7-8 mm). CT A/P also incidentally revealed a very small subsegmental PE in RLL. Heparin infusion started per PE protocol. Hemodynamically stable, SpO? >=92% on room air. Vitals in ED: BP 140-172/58-69, HR ~80s, afebrile, RR 18-29, SpO? 92-94% RA. Labs: WBC 10.2 ? 12.9 K, Hgb 9.6 ? 11.1 g/dL (normocytic), Plt 168?196 K. CMP: BUN 24, Cr 0.91, Alb2.7, Glu 189. INR 1.3, PTT 31.5. TSH 1.99. UA: turbid; LE 3+, WBC >100/hpf, bacteria 3+, WBC clumps present; nitrite negative. ECG: NSR, possible old anterior infarct; no acute ischemic changes. Skin: Stage I pressure injury R heel. 03/02: Assumed care of patient. Continue IV antibiotics. Surgery recommending IR percutaneous cholecystostomy tube. Currently on heparin drip for DVT and PE. Urine growing E. coli, blood cultures pending 03/03: IR recommending HIDA prior to drain placement. HIDA showing cystic duct obstruction and acute cholecystitis. GI consulted appreciate recs. 03/04: percutaneous drain placed by IR yesterday. Output bilious. No abdominal pain. Fluid culturesgrowing enterococcus faecalis. Continue abx and await sensitivities. Ampicillin added for enterococcus on urine culture Consultants: IP CONSULT TO WOUND/SKIN CARE TEAM IP CONSULT TO IV TEAM IP CONSULT TO NUTRITION SERVICES IP CONSULT TO NUTRITION SERVICES SUBJECTIVE: Patient resting in bed no distress. Denies any abdominal pain states she thinks she is feeling better. ROS: History obtained from the patient Constitutional: negative for fever, chills, negative for confusion, fatigue Pulmonary: negative for dyspnea, no cough Cardiovascular: negative for chest pain, no palpitations, no orthopnea GI: negative for nausea, vomiting, diarrhea and constipation, no abdominal pain Renal: no dysuria, no hematuria Musculoskeletal: no back pain, no joint pain, no calf swelling Neuro: negative for headache, no vision changes, no dizziness Skin: no skin rash, no redness OBJECTIVE: Temp (24hrs), Av.3 ??F (36.3 ??C), Min:97 ??F (36.1 ??C), Max:97.8 ??F (36.6 ??C) BP 132/51 (BP Location: Left arm, Patient Position (BP): Sitting) Pulse 71 Temp 97 ??F (36.1 ??C) (Temporal) Resp 16 Ht 5' 6 (1.676 m) Wt 91.5 kg (201 lb 11.5 oz) SpO2 96% BMI 32.56 kg/m?? Intake/Output Summary (Last 24 hours) at 03/04/2025 1122 Last data filed at 03/04/2025 0844 Gross per 24 hour Intake 240 ml Output 855 ml Net -615 ml Last documented weight: Weight: 91.5 kg (201 lb 11.5 oz) (03/01/25 1654) EXAM: General: alert, in no distress Neurologic: Grossly normal HEENT: atraumatic, Normocephalic, without obvious abnormality Lungs: normal respiratory effort Heart: normal rate and regular rhythm Abdomen: Soft, non-tender. Bowel sounds normal. No masses, no organomegaly, SAMARA drain right side with bilious output Extremities: extremities normal, atraumatic, no cyanosis or edema Skin: negative LABORATORY: Recent Labs 03/01/25 1613 03/02/25 0046 03/03/25 1331 03/04/25 0547 WBC 12.9* 11.7* 10.6 8.0 HGB 11.1* 9.9* 7.0* 7.6* HCT 35.5* 30.9* 22.4* 24.3* PLT 196 181 192 162 Recent Labs 03/02/25 0046 03/03/25 1331 03/04/25 0547 NA 135* 134* 133* K 4.3 4.3 4.1 CL 101 101 103 CO2 23 23 19* CA 8.8 8.7* 8.4* BUN 22 47* 50* CREAT 0.81 1.59* 1.28* GLUCOSE 315* 263* 232* Recent Labs 03/03/25 1331 03/04/25 0547 TOTALPROTEIN 5.8* 5.0* ALBUMIN 2.4* 2.0* BILITOTAL 0.4 0.3 ALKPHOS 226* 190* AST 204* 77* ALT 105* 77* No results for input(s): INR , PT in the last 72 hours. Invalid input(s): PTT No results for input(s): BASETROP , 2HRTROP , DELTA , 6HRTROP in the last 72 hours. Diagnostic testing reviewed by me: Medications were reviewed by me. Current Facility-Administered Medications: ampicillin TEST DOSE- 100 mg in sodium chloride 0.9 % 50 mL IVPB, 100 mg, IV, ONE time only, Nayeli Chan MD EPINEPHrine 1 mg/mL (1 mL) injection 0.3 mg, 0.3 mg, IM, ONE time PRN, Nayeli Chan MD diphenhydrAMINE (BENADRYL) injection 25 mg, 25 mg, IV, ONE time PRN, Nayeli Chan MD hydrocortisone sod succinate (PF) (Solu-CORTEF) 100 mg in sterile water 2 mL injection, 100 mg, IV,ONE time PRN, Nayeli Chan MD ampicillin (OMNIPEN) 2,000 mg in sodium chloride 0.9% 100 mL IVPB (MBP), 2,000 mg, IV, every 6 hours, Nayeli Chan MD [DISCONTINUED] VANCOMYCIN CONSULT TO PHARMACY, , See Admin Instructions, see admin instructions, Nayeli Chan MD [DISCONTINUED] vancomycin in sodium chloride 0.9% (VANCOCIN) 1250 mg/262.5 mL IVPB 1,250 mg, 15 mg/kg, IV, ONE time only, Nayeli Chan MD [DISCONTINUED] ampicillin (OMNIPEN) 2,000 mg in sodium chloride 0.9% 100 mL IVPB (MBP), 2,000 mg, IV, every 6 hours, Nayeli Chan MD HYDROmorphone (PF) (DILAUDID) injection 1 mg, 1 mg, IV, every 8 hours PRN, Nayeli Chan MD, 1 mg at 03/03/25 0829 [COMPLETED] dextrose 5% - sodium chloride 0.45% infusion, , IV, ONE time only, Ramin Siegel MD, Stopped at 03/03/25 1445 [COMPLETED] lidocaine PF 1% (XYLOCAINE MPF) injection 30 mL, 300 mg, Infiltration, ONE time only, Ramin Siegel MD, 30 mL at 03/03/25 1441 [COMPLETED] iopamidoL (ISOVUE-300) 61% injection (single-use vial) 30 mL, 30 mL, IV, intra-proc ONEtime, Joni Perry MD, 10 mL at 03/03/25 1445 sodium chloride 0.9 % infusion, , IV, continuous, Nayeli Chan MD, Last Rate: 75 mL/hr at 03/03/25 1607, New Bag at 03/03/25 1607 dextrose 5 % - sodium chloride 0.9 % infusion, , IV, see admin instructions, Nayeli Chan MD dextrose 50% (D50) syringe 12.5 Gram, 12.5 Gram, IV, see admin instructions, Nayeli Chan MD dextrose 50% (D50) syringe 25 Gram, 25 Gram, IV, see admin instructions, Nayeli Chan MD glucagon HCL 1 mg/mL injection 1 mg, 1 mg, IM, see admin instructions, Nayeli Chan MD insulin lispro (HumaLOG,ADMELOG) injection 0-6 Units, 0-6 Units, subCUT, TID WITH meals, Nayeli Chan MD, 2 Units at 03/04/25 1026 insulin lispro (HumaLOG,ADMELOG) injection 0-3 Units, 0-3 Units, subCUT, daily BEDTIME, Nayeli Chan MD [COMPLETED] midazolam (VERSED) injection 1 mg, 1 mg, IV, ONE time only, Joni Perry MD, 1 mg at1 1445 [Held by Provider] heparin in 0.45% NaCl 25,000 unit/250 mL infusion, 12 Units/kg/hr, IV, titrate, Nayeli Chan MD, Stopped at 03/03/25 1427 metroNIDAZOLE (FLAGYL) IVPB 500 mg, 500 mg, IV, every 8 hours, Sebas Feliz MD, Stopped at 03/04/25 0614 silver (SILVASORB) gel, , Topical, BID, Nayeli Chan MD, Given at 03/03/25 2102 dextrose 5 % - sodium chloride 0.9 % infusion, , IV, see admin instructions, Sebas Feliz MD dextrose 50% (D50) syringe 12.5 Gram, 12.5 Gram, IV, see admin instructions, Sebas Feliz MD dextrose 50% (D50) syringe 25 Gram, 25 Gram, IV, see admin instructions, Sebas Feliz MD glucagon HCL 1 mg/mL injection 1 mg, 1 mg, IM, see admin instructions, Sebas Feliz MD sodium chloride flush injection 10 mL, 10 mL, IV, every 12 hours (2 times daily), Sebas Feliz MD, 10 mL at 03/04/25 1005 sodium chloride flush injection 10 mL, 10 mL, IV, see admin instructions, Sebas Feliz MD sodium chloride 0.9 % flush bag 25 mL, 25 mL, IV, see admin instructions, Sebas Feliz MD dextrose 5 % in water 250 mL flush bag 25 mL, 25 mL, IV, see admin instructions, Sebas Feliz MD acetaminophen (TYLENOL) tablet 650 mg, 650 mg, Oral, every 6 hours PRN, Sebas Feliz MD naloxone (NARCAN) 0.4 mg/mL injection 0.1-0.4 mg, 0.1-0.4 mg, IV, see admin instructions, Sebas Feliz MD ondansetron (ZOFRAN) 4 mg/2 mL injection 4 mg, 4 mg, IV, every 6 hours PRN, Sebas Feliz MD calcium as CARBONATE (TUMS) 500 mg (200 mg elemental) chewable tablet 400 mg, 400 mg, Oral, every 6hours PRN, Sebas Feliz MD HYDROcodone-acetaminophen (NORCO) 5-325 mg per tablet 1 Tablet, 1 Tablet, Oral, every 8 hours PRN, Sebas Feliz MD aspirin (ECOTRIN EC) tablet 81 mg, 81 mg, Oral, daily, Sebas Feliz MD, 81 mg at 03/04/25 1004 amLODIPine (NORVASC) tablet 5 mg, 5 mg, Oral, daily, Sebas Feliz MD, 5 mg at 03/04/25 1004 losartan (COZAAR) tablet 25 mg, 25 mg, Oral, BID, Sebas Feliz MD, 25 mg at 03/04/25 1004 pantoprazole (PROTONIX) tablet 40 mg, 40 mg, Oral, daily, Sebas Feliz MD, 40 mg at 03/04/25 1004 citalopram (CeleXA) tablet 20 mg, 20 mg, Oral, daily, Sebas Feliz MD, 20 mg at galantamine (RAZADYNE) tablet 4 mg, 4 mg, Oral, BID, Sebas Feliz MD, 4 mg at 03/04/25 1009 levothyroxine (SYNTHROID) tablet 100 mcg, 100 mcg, Oral, daily EARLY, Sebas Feliz MD, 100 mcg at 03/04/25 0513 cefTRIAXone (ROCEPHIN) 2,000 mg in sodium chloride 0.9% 50 mL IVPB (MBP), 2,000 mg, IV, every 24 hours (daily), Sebas Feliz MD, Last Rate: 118 mL/hr at 03/04/25 1003, 2,000 mg at [DISCONTINUED] insulin lispro (HumaLOG,ADMELOG) injection 0-6 Units, 0-6 Units, subCUT, TID WITH meals, Sebas Feliz MD, 2 Units at 03/03/25 1218 Primary discharge diagnosis: Acute metabolic encephalopathy Other active medical issues also addressed during this admission: Active Hospital Problems Diagnosis Anticoagulated Acute cholecystitis Calculus of gallbladder with acute cholecystitis without obstruction Pulmonary embolus (CMS/HCC) History of dementia Generalized weakness Stage I pressure ulcer of right heel Complicated urinary tract infection Acute metabolic encephalopathy Anxiety and depression UTI (urinary tract infection) Anemia History of TIA (transient ischemic attack) - 2009 Dyslipidemia Essential hypertension Hypothyroidism Resolved Hospital Problems No resolved problems to display. ASSESSMENT AND PLAN: Acute metabolic encephalopathy likely secondary to UTI and acute cholecystitis Continue IV fluids, blood cultures neg at 24 hrs, urine culture growing E. Coli and enterococcus Continue IV Rocephin, flagyl and ampicillin Surgery consulted and recommending IR percutaneous cholecystostomy tube, IR recommended HIDA scan which showed cystic duct obstruction with acute cholecystitis S/p IR percutaneous cholecystostomy tube placement 03/04 with bilious output Fluid cultures growing enterococcus faecalis Incidental small subsegmental PE right lower lobe likely secondary to immobilization Bilateral lower extremity DVTs Holding heparin for anemia Echo pending Anemia Hgb dropped to 7.0 yesterday so did give 1 unit since she was having drain placed. Hgb stable todayat 7.6 Iron studies pending Stage I pressure injury right heel POA Wound care consulted Chronic co-morbidities Essential HTN, BP stable, continue PT amlodipine, losartan, monitor Hx of CVA, continue aspirin, hold Plavix, hold statins Hypothyroidism, continue IOS PROGRAMMER levothyroxine Recent right hip fracture s/p repair Anxiety and depression, continue IOS PROGRAMMER citalopram Dementia, continue IOS PROGRAMMER galantamine Protein calorie malnutrition, consulted dietitian, malnutrition pathway in place Nutrition Status: Provider Assessment/Plan: Symptoms/Signs/Physical Exam: Poor Appetite, Weight Loss, and Eating Poorly Etiology: Chronic illness Nutrition Treatment Plan: Malnutrition Commentary: Underlying malnutrition impairing the body's response to above medical conditions and is associated with prolonged length of stay and increased riskof readmission and mortality. Escrow Processor consulted for ASPEN assessment and intervention plan per malnutrition pathway. Continue malnutrition pathway, supplemental feeds, serial assessments, closely monitor for refeeding syndrome, metabolic derangements, hypoglycemia, etc. No indication for appetite stimulants at thistime - Current Diet and/or Nutritional Supplementation ordered: DIET GENERAL Effective Now - Daily weights Impact of Malnutrition on patient condition and outcomes: Decreased ability to perform activities, Decreased activity tolerance and reduced mobility , Poor wound healing, and Skin breakdown DVT prophylaxis: DVT Pharmacologic Prophylaxis: heparin in 0.45% NaCl 25,000 unit/250 mL infusion [[id number]] Code status: NO CPR (In Event of Cardiopulmonary Arrest) Outpatient follow up: PCP surgery Anticipated Disposition Location: LT Timeframe: 03/08/2025 Criteria: Improved Patient's understanding of illness: Fair Primary family contact: MDM complexity: [] Mild [x] Moderate [] High Nayeli Chan MD 03/04/2025, 11:22 AM * Marcos Coates, Occupational Therapist - 03/04/2025 8:54 AM CDT [facility] - Therapy Services [address] Ph. Acute Occupational Therapy Evaluation 03/04/2025 Room: [address] [place] [address] Name: Helen Farrell Age: 84 y.o. Patient Class: Inpatient Date of : 1940 Insurance: Payor: MEDICARE / Plan: MEDICARE PART A AND B / Product Type: Medicare / Prior to OT session thorough chart review completed, including prior OT notes as applicable. Consent to evaluate provided by patient and nurse Date of admission: 03/01/2025 SUBJECTIVE Occupational Profile Information provided by: patient and chart Pt s/p surgery for R hip fracture 01/17/2025. She has been at [facility] since then. Pt stated she has been doing therapy and been requiring 2x assist to get to a wheelchair. She needed help propelling w/c at SNF. Pt stated she was walking very little, unsure on how much she was walking at SNF. While at SNF, pt stated staff was helping complete ADLs for her. Prior Level of Function - at home before 01/17/2025 when she had hip fracture ADLs: independent IADLs: independent Patient does not drive Functional mobility: independent Falls: 2 in the last 6 months Home Information Employment/daily routine: Pt enjoys crocheting. Self-care assist available at home: Pt lives with her but states she has no 24/7 assist available. Home environment: 1-level home 2 step(s) to enter Walk-in shower Durable medical equipment already in home: Walkers: unknown what type Canes: single point cane Shower chair Grab bars Additional Information Patient/family statement/goal(s): none stated Comments: Pt was in bed and agreeable to therapy. Pain: Refer to flowsheet for documentation of pain and interventions. OBJECTIVE Cognition Level of alertness: alert Orientation: disoriented to situation and year and oriented to person, place, and month Command following: fair Safety awareness: fair; limited by slow processing, decreased problem solving, and decreased insight into deficits Memory: baseline dementia diagnosis Vision: not assessed UE Function UE Assessment Right Left ROM Formal assessment deferred due to pt requiring BUE support on bed rails Pt able to bring UE to 90 degrees while standing using recliner bar Formal assessment deferred due to pt requiring BUE support on bed rails Pt able to bring UE to 90 degrees while standing using recliner bar Strength Not formally tested; generalized weakness present Not formally tested; generalized weakness present All additional UE assessments (including tone, coordination, sensation, and edema) not indicated ordeemed WFL. Occupational Performance Activities of Daily Living - not advanced d/t pt's fatigue and weakness after completing bed mobility and sit to stand Feeding: supervision for watchful oversight for safety for [id number] excursion Grooming: NT; anticipate minimal assistance in bed. Unable to perform sitting EOB due to poor sitting balance and UE support on bed. Upper extremity dressing: NT; anticipate minimal assistance seated Lower extremity dressing: maximal assistance to don socks Toileting: dependent assistance with herrera catheter Toilet transfer: maximal assistance x2 providers to stand from EOB. All tasks not tested with anticipated assist levels are based on observed tasks and movement patterns. Functional Mobility All mobility completed with gait belt and non-skid socks Bed mobility: maximal assistance x2 providers supine < > sit EOB for trunk and leg managementand pt needing assist adjusting hips Sit to stand: maximal assistance x2 providers from EOB while holding onto back of recliner. Pt benefited from bilateral support and knee blocking from therapists. Sitting balance: moderate assistance for static tasks with L lateral lean d/t pain in R hip. Pt sat~8 minutes EOB Standing balance: maximal assistance x2 providers for static tasks with L lateral lean. Pt stood ~2minutes. Patient required verbal, visual, and tactile cues for attention to task, sequencing, initiation of task, command following, and safety. [facility] AM-PAC Daily Activity How much help from another person does the patient currently need? Score 1. Putting on and taking off regular lower body clothing? 2 - A lot (max to mod assist) 2. Bathing (including washing, rinsing, drying)? 2 - A lot (max to mod assist) 3. Toileting, which includes using toilet, bedpan or urinal? 1 - Total assist or cannot do at all 4. Putting on and taking off regular upper body clothing? 3 - A little (supervision to min assist) 5. Taking care of personal grooming such as brushing teeth? 3 - A little (supervision to min assist) 6. Eating meals? 3 - A little (supervision to min assist) Total score 14/24 0-19 indicates likely facility discharge 19-24 indicates likely community discharge *Scores determined based on patient report, observation or professional expertise* Vitals Current O2 requirement: 2 L/min via nasal cannula Vital signs stable throughout. During activity: SpO2: 91% Precautions Patient precautions: fall and bleeding Patient bracing: none Weight bearing: no restrictions ASSESSMENT & PLAN Evaluation Details Helen Farrell is a 84 y.o. female referred for OT following admission for acute metabolic encephalopathy. Additional pertinent diagnoses and past medical history related to this hospital stay are present in physician H&P and physician daily notes. PT and OT combined this date due to anticipated need for two therapists to manage progressing advanced transfer skills and medical complexity impacting safety during transfers. Patient would benefit from combined session for next visit. OT evaluation: Low complexity Assessment Patient is currently functioning below her prior level of function. Patient presents with acute functional deficits including: Functional balance Safety awareness Decreased functional strength Decreased endurance Pain These deficits impact patient ability to complete: Functional mobility Bathing Toileting Dressing Personal hygiene/grooming Patient would benefit from continued skilled OT services in order to increase occupational performance through modification and remediation approaches such as ADL training, balance training, endurance training, strength training, and patient education Plan During acute hospitalization, recommend medium frequency treatment (3-5 times/week). Current plan of care to continue until goals met or patient discharges from facility Anticipate ongoing OT treatment sessions with specific focus on ADLs, functional mobility and transfers, balance, and activity tolerance. Recommendations Based on OT assessment of patient's ability to complete self care tasks, AM-PAC Daily Activity Score, functional cognition and safety awareness, potential for improvement, available home support, participation in therapeutic intervention, and tolerance for activity, anticipated discharge disposition, once medically ready: care home facility (03/04/25 0854). Rationale: Patient needs daily (weekday) skilled OT services. Anticipate tolerance is limited for intensive or adapted intensive rehab program. * The final discharge location is determined through physician, case management, and patient/caregiver input along with insurance authorization of skilled services when appropriate. Plan of care and discharge recommendations shared with patient and PT OT recommended DME and AE upon discharge: No new DME recommended (03/04/25 08) No new additional adaptive equipment necessary (03/04/25853) Education provided to patient regarding OT recommendations and plan of care, and d/c planning. Education response: would benefit from reinforcement Nursing Staff Mobility Recommendations Recommended daily activity during admission: sit EOB with 2 person assist Disposition At start of session, patient found lying in bed At end of session, patient left in bed, call light in reach, and bed alarm activated Further treatment notes and therapeutic goals can be found in Care Plan Notes. If the patient discharges from facility before another therapy visit, this shall serve as therapy discharge summary. Thank you for this referral, Ashlee Hill, Student Therapist Patient seen under direct supervision, agree with above documentation and associated education. IRAM Lee/Mckenna, Occupational Therapist * Laisha Hansen, Physical Therapist - 03/04/2025 8:54 AM CDT [facility] - Therapy Services 3K Ph. Acute Physical Therapy Evaluation 03/04/2025 Room: [address] [place] [address] Name: Helen Farrell Age: 84 y.o. Date of : 1940 Insurance: Payor: MEDICARE / Plan: MEDICARE PART A AND B / Product Type: Medicare / Patient Class: Inpatient Onset of illness/injury or date of surgery: 03/01/2025 Subjective Information/History Subjective Information Provided By: Patient and chart Pt has been at a SNF since 01/17/25 d/t a fall resulting in a R hip fx. This was repaired before d/c to SNF. At SNF, pt has required x2 assist to stand pivot transfer to/from her wheelchair. She was unable to walk any distances but was working with therapy. Had assistance for wheelchair propulsion. Prior level of Function: Prior to 01/17, pt was independent with no AD for mobility. Does not drive, enjoys crocheting. Patient reports a history of falls: 2 in the last 6 months, most recent causing hip fx ~01/17 Home Environment: SNF since 01/17 [facility] Number of Outside Stairs: 2, no HR Available Adaptive Equipment: Cane: single point cane Walker Shower Chair Grab Bars Assistance available: Pt lives with her spouse, who is not available for 09/12 assistance per pt. Has been receiving 24/7 care from SNF staff since 01/17. Patient/Family Goals Statement: to get better Pain: Refer to Doc Flowsheet for documented pain levels. Consent To Treatment Given By: Patient and Nurse Safety Awareness Orientation: Person, Place, and Date (month, not year), aware of prior hip fx but not reason for current admission Command Following: fair Safety Awareness: Fair , slow processing, decreased problem solving, and poor insight into deficits Precautions Patient Precautions: Fall Risk, Oxygen, Bleeding, and drain Bracing/Orthotics: none Weight Bearing: No Restrictions Objective Information/Examination Muscle Tone: Normal Coordination: Normal Sensation: Intact to light touch ROM/Strength: Right UE: Defer to OT Left UE: Defer to OT Right LE: Abnormal: hip flexion: 2-/5, knee extension: 3-/5, dorsiflexion: 3/5, plantarflexion: 4/5 Left LE: Abnormal: hip flexion: 2-/5, knee extension: 3-/5, dorsiflexion: 3/5, plantarflexion: 4/5 Functional Mobility: Rolling: maximal assistance Supine to sit: maximal assistance x2 to manage BLE and trunk Sit to supine: maximal assistance x2 Sit to stand: maximal assistance x2 from EOB with BUE on recliner bar. Pt stood x2 minutes with continuous max x2 support and verbal/tactile cues for weight shifting to the R. Pt tends to lean L. Unable to weight shift enough to lift feet for transfer. Patient required verbal cues proper posture, proper techniques for ADL's and functional transfers, and use of UE's in transfers Balance: Sitting: Abnormal: fair-, moderate assistance for static sitting x8 minutes at EOB, pt with L lean d/t pain in R hip and at drain site Standing: Abnormal: poor, maximal assistance x2, see above Vitals Patient on 2 liters/min via nasal cannula Vital signs stable throughout session During activity: O2 Sat: 91% [facility] AM-PAC Basic Mobility How much help from another person does the patient currently need? Score 1. Turning from your back to your side while in a flat bed without using bedrails? 2 - A lot (max to mod assist) 2. Moving from lying on your back to sitting on the side of a flat bed without using bedrails? 1 - Total assist or cannot do at all 3. Moving to and from a bed to a chair (including a wheelchair)? 1 - Total assist or cannot do at all 4. Standing up from a chair using your arms (e.g., wheelchair, or bedside chair)? 1 - Total assist or cannot do at all 5. Walking in hospital room? 1 - Total assist or cannot do at all 6. Climbing 3-5 steps with a railing? 1 - Total assist or cannot do at all Total score 12/09 0-16 - indicates likely facility discharge 17-24 indicates likely community discharge * scores determined based on patient report, observation or professional expertise Assessment/Plan Helen Farrell is a 84 y.o. female is referred for physical therapy. Based on objective findings above, the patient presents with the following impairments: balance deficits, decreased activity tolerance, decreased range of motion, decreased strength, pain, and risk for falls which impacts her ability to return to PLOF and safely mobilize with independence. Patient is currently functioning significantly below her prior level of function. Pt presents on 03/01/25 with confusion and L sided weakness d/t acute metabolic encephalopathy. Pt also complained of abdominal pain d/t acte cholecystitis with gallstone and was found to have a small R PE and BL DVT. A cholecystostomy tube/drain was placed in IR and she was started on heparin for DVT/PE management. Plan will include but is not limited to: Gait Training, Transfer Training, Patient/Family Education, Balance Training, ROM, Wheelchair Mobility, and Functional Strengthening. Specific focus for next treatment session: progress standing. PT and OT sessions combined. Two therapists needed due to progressing advanced transfer skills. Anticipate combined session indicated at next session. PT Evaluation: low complexity Recommendations During acute hospitalization, recommend medium frequency treatment (3-5 times per week). Current plan of care to continue until goals met or patient discharges from facility. Functional Prognosis: Based on prior level of function and deficits, anticipate slow return to PLOF. Based on PT assessment of and/or progress with physical function, AM-PAC Basic Mobility score, potential for improvement, available home support, participation in therapeutic intervention, tolerance for activity, and safety , anticipated discharge disposition once medically ready: care home facility (03/04/25854). Pt needs daily (weekday) skilled PT services. Anticipate tolerance for an intensive program may be limited and extended recovery time needed. * The final discharge location is determined through physician, case management, and patient/caregiver input along with insurance authorization of skilled services when appropriate Plan of care and/or discharge recommendations shared with: Patient, Clinical Technician, and Nurse PT Recommended DME: No new DME recommended (03/04/25854). Daily activity recommendations: Up with 2 assist to EOB Recommendations for referral to another service: Care Management Education/Training Provided Education provided: daily activity with nursing staff, plan of care, rehabilitation principles, andsafety Learner, method of education, and response to learning listed in Education tab in Epic. Disposition At start of session, patient found lying in bed At end of session, patient left lying in bed, call light in reach, phone in reach, bed alarm in place, waffle cushion re-inflated , patient instructed to not get up without assistance from staff, andstaff notified of patient's location Current Diagnoses/Past Medical History Pertinent diagnoses and past medical history related to this hospital stay are present in physicianH&P and physician daily notes. Prior to PT session a thorough chart review was completed including prior PT notes as applicable. Further treatment notes and therapeutic goals can be found in Care Plan Notes. If the patient discharges from the facility before another therapy visit, this shall serve as the therapy discharge summary. Thank you for this referral, Laisha Hansen Physical Therapist * Esme Joyce PHARMACIST - 03/04/2025 8:16 AM CDT Vancomycin Consult to Pharmacy Current Antibiotic Therapies Vancomycin Day # 1 Serum creatinine: 1.28 mg/dL (H) 03/04/25 0547 Estimated creatinine clearance: 38.6 mL/min (A) NOTE: This calculation is potentially inaccurate in acute and/or chronic kidney disease and over/under weight patients, and thus is only an estimation of renal function Assessment: Helen Farrell is a 84 y.o. female who is starting Vancomycin per pharmacy to dose for UTI. Dosing body weight is 91.5 kg, baseline labs are as follows: Scr 1.28 mg/dL, est CrCl 38.6 mL/min. Plan: 1. Begin vancomycin 1250 mg IV one time only. 2. Due to unstable renal function will begin w/ random level monitoring w/ AM labs and assess renalfunction/provide supplemental doses as is appropriate. 3. Continue to monitor renal function daily. Pharmacy will continue to monitor the patient's labs. We will follow-up with daily progress note for Vancomycin and Aminoglycoside Consults and will write a progress note in the future if any additional dosage adjustment is needed on other renal consults. Subjective/Objective: Helen Farrell is a 84 y.o. female Temp (24hrs), Av.3 ??F (36.3 ??C), Min:97 ??F (36.1 ??C), Max:97.8 ??F (36.6 ??C) BP 132/51 (BP Location: Left arm, Patient Position (BP): Sitting) Pulse 71 Temp 97 ??F (36.1 ??C) (Temporal) Resp 16 Ht 5' 6 (1.676 m) Wt 91.5 kg (201 lb 11.5 oz) SpO2 96% BMI 32.56 kg/m?? WBC Date/Time Value Ref Range Status 03/04/2025 05:47 AM 8.0 4.8 - 10.8 K/uL Final 03/03/2025 01:31 PM 10.6 4.8 - 10.8 K/uL Final 03/02/2025 12:46 AM 11.7 (H) 4.8 - 10.8 K/uL Final PLATELETS Date/Time Value Ref Range Status 03/04/2025 05:47 AM 162 140 - 440 K/uL Final 03/03/2025 01:31 PM 192 140 - 440 K/uL Final 03/02/2025 12:46 AM 181 140 - 440 K/uL Final BUN Date/Time Value Ref Range Status 03/04/2025 05:47 AM 50 (H) 8 - 23 mg/dL Final 03/03/2025 01:31 PM 47 (H) 8 - 23 mg/dL Final 03/02/2025 12:46 AM 22 8 - 23 mg/dL Final CREATININE Date/Time Value Ref Range Status 03/04/2025 05:47 AM 1.28 (H) 0.51 - 0.95 mg/dL Final Comment: The GFR result is not clinically significant on patients <18 or >70 years of age. 03/03/2025 01:31 PM 1.59 (H) 0.51 - 0.95 mg/dL Final Comment: The GFR result is not clinically significant on patients <18 or >70 years of age. 03/02/2025 12:46 AM 0.81 0.51 - 0.95 mg/dL Final Comment: The GFR result is not clinically significant on patients <18 or >70 years of age. Thank you for the consult and involving us in the care of this patient, we will continue to monitor. Esme Joyce PHARMACIST * Esme Joyce PHARMACIST - 03/04/2025 8:13 AM CDT PHARMACY CONSULT SERVICE PROTOCOL: A ???CONSULT TO PHARMACY?? order has been placed on this patient per Hospital Pharmacy policy- [facility] Clinical Pharmacy Services. This order can be found on the [facility] MAR and authorizes pharmacy tomanage the dosing and monitoring of consulted medications as follows: Pharmacy will order the initial doses and any labs deemed clinically necessary to dose a consulted medication. These initial orders will be signed ???Per Protocol?? under the name of the provider who placed the ???CONSULT TO PHARMACY?? order. Pharmacy will have the authority to modify the doses and order any labs deemed clinically necessaryfor consulted medications on subsequent days as long as the ???CONSULT TO PHARMACY?? order remainsactive on the MAR. Orders for dosing changes and follow-up labs will be signed ???Per Protocol?? in [facility]. The name of the provider signed on the follow-up orders for cosignature will be assigned as follows: Consults for patients whose antimicrobials are being managed by members of the [employer] or Hospitalist physician groups: If the original authorizing provider is no longer the attending physician for the patient, responsibility for cosignature of the follow-up medication orders and labs will transfer from the original authorizing provider to the current attending physician. Consults for patients whose antimicrobials are being managed by any other provider: Responsibility for cosignature of the follow-up medication orders and labs will remain with the original authorizing provider of the ???CONSULT TO PHARMACY?? order. Any attending physician has the authority to cancel pharmacy dosing/monitoring and resume dosing/monitoring of the medications without pharmacy assistance at any time by discontinuing the ???CONSULT TO PHARMACY?? order from the [facility]. This protocol has been approved by the [facility] Pharmacy and Therapeutics Committee. Cosigned by Nayeli Chan MD at 03/04/2025 12:43 PM CDT * Cristopher Peraza DO - 03/04/2025 7:32 AM CDT General Surgery Progress Note Helen Farrell 1940 CSN: [id number] 03/04/2025 Admit Date: 03/01/2025 Hospital day: LOS: 3 days Subjective: This is a 84 y.o. female here for altered mental status, has h/o dementia. Workup revealed a small PE, for which heparin infusion was started, as well as cholecystitis. She says she had right sided abdominal pain, but not right now. She hasn't eaten in 3 days because she didn't like the food. She denies and nausea or vomiting. She hasn't had this pain before. Denies any fevers or chills. Interval History: 03/02--Consult for cholecystitis. Surgical recommendation for cholecystostomy tube given anticoagulation status 03/03--IR cholecystostomy tube ordered and pending. Resting in bed, but tender in epigastric and RUQ area as expected. Denies nausea. Afebrile. No am labs. 03/04 - s/p PCT yesterday. Resting comfortably in bed this morning. Has no appetite. Objective: BP (!) 111/41 (BP Location: Left arm, Patient Position (BP): Supine) Comment: rn informed Pulse 70 Temp 97.8 ??F (36.6 ??C) (Temporal) Resp 15 Ht 5' 6 (1.676 m) Wt 91.5 kg (201 lb 11.5 oz) SpO2 98% BMI 32.56 kg/m?? Temp (24hrs), Av.3 ??F (36.3 ??C), Min:97 ??F (36.1 ??C), Max:97.8 ??F (36.6 ??C) Intake/Output Summary (Last 24 hours) at 03/04/2025 0732 Last data filed at 03/04/2025 0514 Gross per 24 hour Intake 120 ml Output 855 ml Net -735 ml General appearance: wakens to voice, in no distress Lungs: normal respiratory effort Heart: regular rate and rhythm Abdomen: Soft, less tender to RUQ and epigastric region. PCT in place at RUQ draining bile Extremities: moves all extremities Skin: Skin color, texture, turgor normal. Neurologic: Grossly normal Data Review: CBC: Recent Labs 03/01/25 1100 03/01/25 1613 03/02/25 0046 03/03/25 1331 03/04/25 0547 WBC 10.2 12.9* 11.7* 10.6 8.0 HGB 9.6* 11.1* 9.9* 7.0* 7.6* HCT 30.8* 35.5* 30.9* 22.4* 24.3* PLT 168 196 181 192 162 MCV 90.6 90.8 88.3 90.0 90.3 BMP: Recent Labs 03/01/25 1100 03/02/25 0046 03/03/25 1331 03/04/25 0547 GLUCOSE 189* 315* 263* 232* BUN 24* 22 47* 50* CREAT 0.91 0.81 1.59* 1.28* NA 137 135* 134* 133* K 3.8 4.3 4.3 4.1 CL 104 101 101 103 CO2 24 23 23 19* ANIONGAP 9 11 10 11 CA 8.8 8.8 8.7* 8.4* GB US: IMPRESSION: 1. Cholelithiasis. 2. Prominently thickened gallbladder wall consistent with cholecystitis. 3. No biliary ductal dilatation. CT Abd Pelvis: IMPRESSION: 1. Cholelithiasis. 2. Inflammatory changes are present in the gallbladder consistent with cholecystitis. 3. Diverticulosis without evidence of diverticulitis. 4. Very small right pulmonary embolism is incidentally noted. Assessment: Active Hospital Problems Diagnosis Anticoagulated Acute cholecystitis Calculus of gallbladder with acute cholecystitis without obstruction Pulmonary embolus (CMS/HCC) History of dementia Generalized weakness Stage I pressure ulcer of right heel Complicated urinary tract infection Acute metabolic encephalopathy Anxiety and depression UTI (urinary tract infection) Anemia History of TIA (transient ischemic attack) - 2009 Dyslipidemia Essential hypertension Hypothyroidism Resolved Hospital Problems No resolved problems to display. Plan: Acute cholecystitis w/ chronic anticoagulation - IV antibiotics per medicine - ADAT - Analgesia - 03/03: IR placed percutaneous cholecystostomy tube - WBC trending down and less tender on exam OK to discharge from Surgery standpoint when tolerating diet. Surgery Clinic follow-up and after-care instructions placed in EMR. Please call with any further questions or concerns. Cristopher Peraza DO * Beba Gonzalez RT - 03/03/2025 2:54 PM CDT Procedural Radiation Dose: Cumulative Dose : plane A: 31.33 Plane B: (units in mGy) Dose Area Product (DAP) : plane A: 8378 Plane B: (units in mGy-cm2) All interventional radiology devices/equipment that were utilized during this case were removed intact as reported per time study technologist * Jessi Ames RN - 03/03/2025 2:47 PM CDT Imaging Nurse Post Procedure Note Gallbladder drain placement Dressing (x by appropriate choice): tegaderm: Bandaid: Percustay: Gauze/tape: X Dermabond: Steristrips: Sureseal: Other: suture Dressing location: right upper quadrant Cumulative Dose : plane A: 31 Plane B: (units in mGy) Dose Area Product (DAP) : plane A: 8378 Plane B: (units in mGy-cm2) All interventional radiology devices/equipment that were utilized during this case were removed intact as reported per time study technologist Sedation time: 3 (min) (may also be documented via sedation tracking in sedation navigator) Post Procedure pulses d = pulse doppled, p = pulse palpable, a = pulse absent (not palpable or doppled). If left blank then that pulse was not assessed and/or NA. Right pedal pulse: Right post tib: Left pedal pulse: Left post tib: Right upper extremity: Left upper extremity: Report: Called to Imaging RN: Called to nurse on floor/unit: Yes Tolerated well: X Other: Medications given: versed 1 mg * Beba Gonzalez, RT - 03/03/2025 2:05 PM CDT IMAGING SERVICES- CONTRAST, MEDICATION and FLUSH PROTOCOL [facility] Enter the protocol in the patient's electronic health record using smartQuaDPharmarase: .imagingcontrastprotocol Communication Orders: Initiate a peripheral IV, if not already in place, and discontinue IV prior to discharge Enter order if needed: Insert Peripheral IV Medication Orders: Lidocaine 4% (L.M.X.4)- applied topically ONE TIME prior to IV catheter insertion PRN (apply 15 minutes prior to procedure) Sodium chloride 0.9% (normal saline) flush- 10 mLs PRN for saline lock or medication administration Oxygen- For respiratory distress, initiate O2 to maintain saturation greater than 90% CAT SCAN CT IV CONTRAST PROTOCOLS FOR ADULTS Iopamidol Injection 61% (ISOVUE-300)- Double bolus with MD approval Routine exams dosed by weight: <150lbs- 75mL 151lbs to 220lbs- 100mL >220lbs- 125mL CT Angiography: 100mL Runoff and Triphasic Liver Protocols: 150mL Iopamidol Injection 76% (ISOVUE-370) Cardiac- 110mL TAVR- 160mL CT IV CONTRAST PROTOCOLS FOR PEDIATRICS Iopamidol Injection 61% (ISOVUE-300) Infant- Routine exams: 1mL per pound and Pediatric- Head / Face: 1mL per pound up to 50 lbs Pediatric- Routine exams: 1mL per pound up to 75 lbs 75-150 lbs: 75mL 150-220 lbs: 100mL >220 lbs: 125mL CT ORAL CONTRAST PROTOCOLS FOR ADULTS Iohexol 300mg/mL (OMNIPAQUE) for CT scan unless patient has a documented allergy to contrast * 15ml added to 16 oz of clear liquid of patient's choice. Preferred route is oral. May use nasoenteric tube if needed. Administer 16 oz the diluted Omnipaque 300, orally 1st dose 30-60 minutes prior to scan and 2nd dose just before scan. * Barium Sulfate 2% w/v (READI-CAT2) for CT scan when patient has documented contrast allergy Administer 2 doses of 450mL of barium sulfate. First dose 30-60 min prior to exam and 2nd dose justbefore exam. Preferred route is oral. May use nasoenteric tube if needed. Barium Sulfate 0.1% w/v, 0.1% w/w (VOLUMEN) for Enterography and GI Bleed protocols Administer VoLumen- 3 doses of 450 mL. 1st dose must be completed within 20 minutes. 2nd dose must be completed in the next 30 minutes. 3rd dose is given at scan time. Preferred route is oral. May use nasoenteric tube if needed. CT ORAL CONTRAST PROTOCOLS FOR PEDIATRICS Preferred route is oral, may use nasoenteric tube if needed. [place] to 3 months- Barium Sulfate 2%w/v (READI-CAT2) thinned with water to a consistency for typical bottle feeding 3 Months to 3 years- Iohexol 300mg/mL (OMNIPAQUE) 5mL diluted with 16oz clear fluid. 1 dose: 30min prior to exam 4 years to 10 years- Iohexol 300mg/mL (OMNIPAQUE) 8mL diluted with 16oz clear fluid. 1 dose: 30min prior to exam 10 years and up- Iohexol 300mg/mL (OMNIPAQUE) 15mL diluted with 16oz clear fluid. 2 doses: first dose 30min prior to exam and 2nd dose just before scan if tolerated CT CYSTOGRAM Iopamidol 61% Injection ([id number]): 25mL Dilute into 500mL bag of sterile NS administer up to 300mL retrograde via urinary catheter DIAGNOSTIC RADIOLOGY Enter the protocol in the patient's electronic health record using [email or web address]: ADULTS PROCEDURE DOSAGE ARTHROGRAMS Plain ISOVUE 300 12mL MRI-(Ankle,Elbow,Hip,Wrist,Knee,Shoulder) ISOVUE 300 5mL / Prohance .2ml CT-(Ankle,Elbow,Hip,Wrist,Knee,Shoulder) ISOVUE 300 20mL BARIUM ENEMAS BARIUM ENEMA AIR CONTRAST LIQUID POLIBAR 1900ml BARIUM ENEMA/ GASTROGRAFIN B.E. LIQUID POLIBAR 800mL + 3200mL of water or GASTROGRAFIN 960mL + 3040mL of water. CYSTOGRAM CYSTOGRAFIN 1500mL ESOPHAGUS BARIUM SWALLOW E-Z-HD Barium Sulfate for Suspension 340g. and/or E-Z-PAQUE Barium Sulfate Oral Suspension 355mL OMNIPAQUE 350 50ml or GASTROGRAFIN 120mL Barium tablet 700mg (if indicated) MODIFIED BARIUM SWALLOW Barium tablet 700mg, Varibar paste 90g/Varibar thin 74g/ Varibar honey 125mL/ Varibar Sunflower 120mL HYSTEROSALPINGOGRAM ISOVUE 300 30ml IVP'S ISOVUE 300 100ml MYELOGRAMS: CERVICAL ISOVUE-M 300 10mL THORACIC ISOVUE-M 300 10mL LUMBAR ISOVUE-M 200 12mL SMALL BOWEL SERIES E-Z-PAQUE Barium Sulfate for Oral Suspension 710mL or GASTROGRAFIN 240mL LOOPOGRAM ISOVUE 300 60mL NEPHROSTOGRAM ISOVUE 300 60mL RETROGRADE URETHROGRAM Cystografin 300mL UPPER GI Upper GI E-Z-HD Barium Sulfate for Suspension: 340g. and/or E-Z-PAQUE Barium Sulfate for Oral Suspension: 355mL Upper GI Air Contrast Same as above EZ Gas crystals (if indicated) URETHROCYSTOGRAM VOIDING Cystografin 1500mL PORT CONTRAST INJECTION WITH Isovue 300 20mL [facility] P[facility] PROCEDURE CONTRAST DOSAGE Upper GI Under Age 5 Liquid E-Z-Paque (Thin Barium) 240mL Omnipaque 180 (hypaque) or 350 50mL Upper GI Above Age 5 EZ HD (Thick Barium) 340g Liquid E-Z Paque (Thin Barium) 240mL EZ Gas Packet 4g Omnipaque 350 (hypaque) 50mL Small Bowel Series Under Age 5 Liquid E-Z Paque (Thin Barium) 240mL Omnipaque 180 (hypaque) 50mL Small Bowel Series Above Age 5 Liquid E-Z Paque (Thin Barium) 480mL Omnipaque 350 50mL Barium Swallow Under Age 5 Liquid E-Z Paque (Thin Barium) 240mL Omnipaque 180 (hypaque) 50mL Barium Swallow Above Age 5 EZ HD (Thick Barium) 340g Liquid E-Z Paque (Thin Barium) 240mL Omnipaque 350 50mL Modified Barium Swallow >1 Varibar Oado42r: 1 to 2 Varibar Thin74 Paste 90g (Video Swallow with Speech) <2 Varibar [id number], [id number], Honey 125mL, Paste 90g IVP Isovue 300 100mL/1mL per lb. Urethrocystogram Voiding Cystografin 500mL Barium Enema Liquid Polibar 400mL+1600 water 2000mL Barium Enema with Hypaque Gastrografin 1 bottle mixed 5 bottle water 720mL Over 5 Gastrografin 480mL+1520 water 2000mL Barium Enema Air Contrast Liquid Polibar 1900mL INTERVENTIONAL RADIOLOGY PROCEDURE DOSAGE IR ARTERIOGRAM VISIPAQUE 320 OR OMNIPAQUE 300 MAX DOSAGE 400mL IR BILIARY ISOVUE 200 MAX DOSAGE 300 mL IR FISTULOGRAM ISOVUE 200 OR VISIPAQUE 320 MAX DOSAGE 400mL IR IVC FILTER ISOVUE 200 OR VISIPAQUE MAX DOSAGE 400 mL IR TUBE PLACEMENT ISOVUE 200 MAX DOSAGE 300 mL IR VENOUS ABDOMINAL VISIPAQUE 320 OR ISOVUE 200 MAX DOSAGE 400 mL IR VENOUS ACCESS ISOVUE 200 MAX DOSAGE 300 mL IR VENOUS UPPER AND LOWER EXTREMITY VISIPAQUE 320 OR ISOVUE 200 MAX DOSAGE 400 mL IR SPINAL INTERVENTION ISOVUE 200 MAX DOSAGE 100mL (FOR BALLOON ONLY) MRI MRI IV CONTRAST PROTOCOLS FOR ADULTS Gadobenate Dimeglumine (MULTIHANCE) (0.1mmol/0.2mL)- Administer 0.1mmol/kg = 0.2mL/kg up to 30mL MAX, intravenously, one time only for routine MRI Gadoxetate (EOVIST) (2.5 mmol/10mL)- Administer 0.025mmol/kg = 0.1mL/kg up to 15mL MAX, intravenously, one time only when requested by radiologist for Liver protocol Gadoteridol (PROHANCE) (0.1mmol/0.2mL)- Administer 0.1mmol/kg = 0.2mL/kg up to 30mL MAX, intravenously, one time only when approved by radiologist for routine MRI MRI IV CONTRAST PROTOCOLS FOR PEDIATRICS Radiologist to determine the need for contrast Term neonates and older: Gadobenate Dimeglumine (MULTIHANCE) (0.1mmol/0.2mL) -Administer 0.1mmol/kg = 0.2mL/kg up 20mL MAX, intravenously, one time only MRI ORAL CONTRAST PROTOCOLS Barium Sulfate 0.1% w/v, 0.1% w/w (VOLUMEN) for Enterography Administer VoLumen- 3 doses of 450 mL. 1st dose must be completed within 20 minutes. 2nd dose must be completed in the next 30 minutes. 3rd dose is given at scan time. Preferred route is oral. May use nasoenteric tube if needed. Use half dose if patient is <100lb NUCLEAR MEDICINE Procedure: Abscess Localization Medications for Procedure: In-111 Leukocytes *Syringes prepped with 2000 units of Heparin added to 10ml of 6% Hetastarch- Approximately 45ml's patient's blood added to the above for labeling Adult Dose: 300-550uCi Pediatric Dose Calculation: .0075mCi/kg Pediatric Minimum: 50uCi Pediatric Maximum: 500uCi Reference: #3 Procedure: Abscess Localization Medications for Procedure: Tc-99m HMPAO Leukocytes *Syringes prepped with 2000 units of Heparin added to 10ml of 6% Hetastarch- Approximately 45ml's patient's blood added to the above for labeling Adult Dose: 15-30mCi Pediatric Dose Calculation: .15mCi/kg Pediatric Minimum: 500uCi Pediatric Maximum: 10.5mCi Reference: #3 Procedure: Abscess Localization Medications for Procedure: Ga-67 Citrate Adult Dose: Ga-67 Citrate Pediatric Dose Calculation: .05mCi/kg Pediatric Minimum: .05mCi/kg Pediatric Maximum: .05mCi/kg Reference: .05mCi/kg Procedure: Arthrogram Medications for Procedure: Tc-99m Sulfur Colloid Adult Dose: 1.0mCi Procedure: Blood Pool ([place]/Hepatic Hemangioma/GI Bleed) Medications for Procedure: Tc-99m Ultratag *Syringe prepped with Heparin Lock Flush(concentration of 100 units/ml) volume of ~.1ml used so dose is ~10 units of Heparin for each procedure Adult Dose: 30mCi Pediatric Dose Calculation: .25mCi/kg Pediatric Minimum: 2.5mCi Pediatric Maximum: 17.5mCi Reference: #1 Comments: Used .25mCi/kg for all exams in this category per Nuclear Medicine physicians Procedure: Bone Scan Medications for Procedure: Tc-99m HDP Adult Dose: 20mCi Pediatric Dose Calculation: .25mCi/kg Pediatric Minimum: 1.0mCi Pediatric Maximum: 17.5mCi Reference: #2 Procedure: Bone Scan Medications for Procedure: Tc-99m MDP Adult Dose: 20mCi Pediatric Dose Calculation: .25mCi/kg Pediatric Minimum: 1.0mCi Pediatric Maximum: 17.5mCi Reference: #2 Procedure: Bone Marrow Imaging Medications for Procedure: Tc-99m Sulfur Colloid Adult Dose: 10mCi Pediatric Dose Calculation: .14mCi/kg Pediatric Minimum: 1.0mCi Pediatric Maximum: 10.0mCi Reference: #1 Procedure: Bowel Imaging (Meckel's) Medications for Procedure: Tc-99m Pertechnetate Adult Dose: 10mCi Pediatric Dose Calculation: .05mCi/kg Pediatric Minimum: 250uCi Pediatric Maximum: 3.5mCi Reference: #2 Procedure: Brain (Cerebral flow) Medications for Procedure: Tc-99m Pertechnetate Adult Dose: 20mCi Pediatric Dose Calculation: .28mCi/kg Pediatric Minimum: 4mCi Pediatric Maximum: 20.0mCi Reference: #1 Procedure: Brain (SPECT) Medications for Procedure: Tc-99m HMPAO(Ceretec) Adult Dose: 30mCi Pediatric Dose Calculation: .35mCi/kg Pediatric Minimum: 3mCi Pediatric Maximum: 25.0mCi Reference: #1 Procedure: Brain (DaTscan) Medications for Procedure: Tc-99m Ioflupane (DaTscan) *120 mg Potassium Iodide in 8 Oz. given PO one hour prior to dosing for procedure Adult Dose: 5mCi Procedure: Cisternogram Medications for Procedure: In-111 DTPA Adult Dose: 2mCi Pediatric Dose Calculation: .007mCi/kg Pediatric Minimum: 100uCi Pediatric Maximum: 500uCi Reference: #1 Procedure: Cystogram Medications for Procedure: Tc-99m Sulfur Colloid or MAA Adult Dose: 1.0mCi Procedure: Gastric Empty (Solid) Medications for Procedure: Tc-99m Sulfur Colloid (eggs/oatmeal/formula) Adult Dose: 1.0mCi Pediatric Dose Calculation: NMIS weight based calculation Pediatric Minimum: 250uCi Pediatric Maximum: 1.0mCi Reference: #5 Procedure: Gastro-esophageal Reflux Medications for Procedure: Tc-99m Sulfur Colloid Adult Dose: 1.0mCi Pediatric Dose Calculation: NMIS weight based calculation Pediatric Minimum: 250uCi Pediatric Maximum: 1.0mCi Reference: #5 Procedure: Hepatobiliary With or without EF Medications for Procedure: Tc-99m Mebrofenin *If using CCK (Sincalide) for EF- dose is .02mcg/kg Sincalide prepared using 5 ml Sterile water added to 5 mcg vial of Sincalide Adult Dose: 5.0mCi Pediatric Dose Calculation: .05mCi/kg Pediatric Minimum: 500uCi Pediatric Maximum: 3.5mCi Reference: #2 Procedure: Hepatobiliary With or without EF Medications for Procedure: Tc-99m Mebrofenin *Bilirubin >1.5mg Adult Dose: 8.0mCi Pediatric Dose Calculation: N/A Pediatric Minimum: 1.0mCi * Pediatric Maximum: 1.0mCi * Reference: #2 Procedure: Hepatic Artery Angiography (Sphere Mapping) Medications for Procedure: Tc-99m MAA Adult Dose: 4.0mCi Pediatric Dose Calculation: N/A Procedure: LeVeen Shunt Patency Medications for Procedure: Tc-99m Sulfur Colloid or MAA Adult Dose: 3.0mCi Procedure: Liver/Spleen Imaging Medications for Procedure: Tc-99m Sulfur Colloid Adult Dose: 5.0mCi Pediatric Dose Calculation: .05mCi/kg Pediatric Minimum: 200uCi Pediatric Maximum: 3.5mCi Reference: #1 Procedure: Lymphoscintigraphy (Breast) Medications for Procedure: Tc-99m Sulfur Colloid (filtered) Adult Dose: 250-550uCi Pediatric Dose Calculation: N/A Procedure: Lymphoscintigraphy (Breast) Medications for Procedure: Tc-99m Tilmanocept (Lymphoseek) Adult Dose: 250-550uCi Pediatric Dose Calculation: N/A Procedure: Lymphoscintigraphy (Melanoma) Medications for Procedure: Tc-99m Sulfur Colloid (filtered) Adult Dose: 500uCi Pediatric Dose Calculation: N/A Procedure: Lymphoscintigraphy (Melanoma) Medications for Procedure: Tc-99m Tilmanocept (Lymphoseek) Adult Dose: 500uCi Pediatric Dose Calculation: N/A Procedure: Lymphoscintigraphy (Melanoma/Breast - 24 hr Injection) Medications for Procedure: Tc-99m Sulfur Colloid (filtered) Adult Dose: 1.8mCi Pediatric Dose Calculation: N/A Procedure: Lymphoscintigraphy (Melanoma/Breast - 24 hr Injection) Medications for Procedure: Tc-99m Tilmanocept (Lymphoseek) Adult Dose: 1.8mCi Pediatric Dose Calculation: N/A Procedure: Lymphoscintigraphy (Lymphedema) Medications for Procedure: Tc-99m Tilmanocept (Lymphoseek) *Apply Topical Lidocaine 30 minutes prior to injections using 4% Anesthetic cream to both feet between webbing of 1st and 2nd toes. Tube is 5 grams of 4% lidocaine Adult Dose: 1.0mCi Pediatric Dose Calculation: N/A Comments: Split dose in (2) 1ml syringes ~500uCi/.1ml each Procedure: Metabolic Tumor Imaging Medications for Procedure: FDG-18 Adult Dose: 10-14mCi Pediatric Dose Calculation: .12mCi/kg Pediatric Minimum: 1.0mCi Pediatric Maximum: 8.4mCi Reference: #2 Procedure: Metabolic Tumor Imaging Medications for Procedure: F-18 Na Flouride Adult Dose: 10-15mCi Pediatric Dose Calculation: .06mCi/kg Pediatric Minimum: .5mCi Pediatric Maximum: 4.2mCi Reference: #2 Procedure: Metabolic Tumor Imaging Medications for Procedure: F-18 fluciclovine(Axumin) Adult Dose: 10.0mCi Pediatric Dose Calculation: N/A Procedure: Metabolic Brain Imaging Medications for Procedure: FDG-18 Adult Dose: 6mCi Pediatric Dose Calculation: .10mCi/kg Pediatric Minimum: 1.0mCi Pediatric Maximum: 5.0mCi Reference: #2 Procedure: Myocardial Perfusion Imaging (Same Day Protocol) Medications for Procedure: Tc-99m Tetrofosmin or Sestamibi *Pharmacologic Stress testing using 0.4mg Lexiscan (regadenoson) for all Myocardial Perfusion protocols Adult Dose: 10mCi (Rest) 30mCi(Stress) *8.0mCi(Rest) *24.0mCi(Stress) Pediatric Dose Calculation: .07mCi/kg, .28mCi/kg Pediatric Minimum: ---, --- Pediatric Maximum: 6.0mCi, 24.0mCi Reference: #1 Comments: *Only used during periods of Tc 99m shortages Procedure: Myocardial Perfusion Imaging (2 day protocol) Day 1(Rest) Day 2(Stress) Medications for Procedure: Tc-99m Tetrofosmin or Sestamibi Adult Dose: 20mCi(Rest), 30mCi(Stress) Pediatric Dose Calculation: .07mCi/kg, .28mCi/kg Pediatric Minimum: ---, --- Pediatric Maximum: 6.0mCi, 24.0mCi Reference: #1 Procedure: Myocardial Perfusion Imaging (Same Day Weight Based Dosing) Medications for Procedure: Tc-99m Tetrofosmin or Sestamibi Adult Dose: Up to 220lbs 10mCi (Rest) 30mCi (Stress) 220-285lbs 13mCi (Rest) 39mCi (Stress) 286-351lbs 16mCi (Rest) 48mCi (Stress) 352lbs and > 19mCi (Rest) 57mCi (Stress) Pediatric Dose Calculation: N/A Procedure: Myocardial Perfusion Imaging (Same Day Weight Based Dosing) Medications for Procedure: Tl-201 Thallous Chloride Adult Dose: 3.25mCi Pediatric Dose Calculation: .035mCi/kg Pediatric Maximum: 2.5mCi Reference: #1 Procedure: Myocardial Infarction Imaging Medications for Procedure: Tc-99m Pyrophosphate Adult Dose: 25.0mCi Pediatric Dose Calculation: N/A Procedure: Parathyroid Imaging Medications for Procedure: Tc-99m Sestamibi Adult Dose: 20.0mCi Pediatric Dose Calculation: .28mCi/kg Pediatric Minimum: 2.0mCi Pediatric Maximum: 20.0mCi Reference: #1 Procedure: Pulmonary Perfusion Imaging Medications for Procedure: Tc-99m MAA Adult Dose: 6.0mCi Pediatric Dose Calculation: .03mCi/kg Pediatric Minimum: 400uCi Pediatric Maximum: 2.1mCi Reference: #2 Procedure: Pulmonary Perfusion Imaging (Pumlonary HTN or Right to Left Shunts) Medications for Procedure: Tc-99m MAA Adult Dose: 1-2.5mCi in max of .2ml volume Pediatric Dose Calculation: N/A Procedure: Pulmonary Perfusion Imaging ( Patients - All Trimesters) Medications for Procedure: Tc-99m MAA Adult Dose: 3.0mCi Pediatric Dose Calculation: N/A Procedure: Pulmonary Ventilation Imaging Medications for Procedure: Xe-133 Gas Adult Dose: 10-30mCi Pediatric Dose Calculation: Adult dose Procedure: Pulmonary Ventilation Imaging Medications for Procedure: Tc-99m DTPA Adult Dose: 35mCi Pediatric Dose Calculation: Adult dose Procedure: Renal Imaging (Cortical) Medications for Procedure: Tc-99m DMSA Adult Dose: 5mCi Pediatric Dose Calculation: .05mCi/kg Pediatric Minimum: 500uCi Pediatric Maximum: 3.5mCi Reference: #2 Procedure: Renal Imaging (Function/ Lasix) Medications for Procedure: Tc-99m MAG 3 *(Lasix IV) 0.5 mg/kg in the adult patient using a minimum of 40 mg and a maximum of 80 mg. The dose for infants (0-1yr. old) is 1mg/kg. The dose for a child (1-16yr. old) is 0.5mg/kg, without a minimum Adult Dose: 10mCi Pediatric Dose Calculation: .15mCi/kg Pediatric Minimum: 500uCi Pediatric Maximum: 10.0mCi Reference: #2 Procedure: Thyroid Uptake/Imaging Medications for Procedure: I-123 Sodium Iodide capsules or solution Adult Dose: 200-500uCi Pediatric Dose Calculation: 5uCi/kg Pediatric Minimum: 50uCi Pediatric Maximum: 250uCi Reference: #4 Procedure: Thyroid Uptake/Imaging Medications for Procedure: I-131 Sodium Iodide Solution (uptake only) Adult Dose: 5-10uCi Pediatric Dose Calculation: N/A Procedure: Thyroid Uptake/Imaging Medications for Procedure: Tc-99m Pertechnetate (scan only) Adult Dose: 10mCi Pediatric Dose Calculation: .14mCi/kg Pediatric Minimum: 1.0mCi Pediatric Maximum: 10.0mCi Reference: #1 Procedure: Tumor Localization Imaging Medications for Procedure: Ga-67 Citrate Adult Dose: 10mCi Pediatric Dose Calculation: .14mCi/kg Pediatric Maximum: 10.0mCi Reference: #1 Procedure: Tumor Localization Imaging Medications for Procedure: In-111 Capromab Pendetide(Prostascint) Adult Dose: 6.0mCi Pediatric Dose Calculation: N/A Procedure: Tumor Localization Imaging (MIBG Scans) Medications for Procedure: I-123 Metaiodobenzylguanidine (MIBG) *120 mg Potassium Iodide in 8 Oz. given PO one hour prior to dosing for procedure Adult Dose: 10mCi Pediatric Dose Calculation: .14mCi/kg Pediatric Minimum: 1.0mCi Pediatric Maximum: 10.0mCi Reference: #2 Procedure: Tumor Localization Imaging (MIBG Scans) Medications for Procedure: I-131Metaiodobenzylguanidine (MIBG) *120 mg Potassium Iodide in 8 Oz. given PO one hour prior to dosing for procedure Adult Dose: 1.0mCi Pediatric Dose Calculation: N/A Procedure: Tumor Localization Imaging Medications for Procedure: In-111 Pentetreotide (Octreoscan) Adult Dose: 6.0mCi Pediatric Dose Calculation: .08mCi/kg Pediatric Maximum: 6.0mCi Reference: #1 Procedure: Tumor Localization Imaging Medications for Procedure: I-131 Sodium Iodide Adult Dose: 5.0mCi Pediatric Dose Calculation: N/A Procedure: Tumor Localization Imaging Medications for Procedure: I-123 Sodium Iodide Adult Dose: 1.5-2.0mCi Pediatric Dose Calculation: .028mCi/kg Reference: No reference information Procedure: Venogram (Upper/Lower Extremities) Medications for Procedure: Tc-99m Ultratag *Syringe prepped with Heparin Lock Flush(concentration of 100 units/ml) volume of ~.1ml used so dose is ~10 units of Heparin for each procedure Adult Dose: 30mCi Pediatric Dose Calculation: N/A Procedure: Ventricular Shunt Imaging Medications for Procedure: Tc-99m DTPA Adult Dose: 1.0mCi Pediatric Dose Calculation: N/A References for Pediatric Administration: Nuclear Medicine Procedure Manual, Division of Nuclear Medicine, [facility] of Radiology; [email or web address].html [place] Consensus Guidelines for Administered Radiopharmaceutical Activities in Children andAdolescents; http://interactive.snm.org/docs/Pediatric dose consensus guidelines Final 2010.pdf ACR-SNM-SPR Practice guideline for the performance of Scintigraphy for inflammation and infection; www/acr.org.guidelines. Revised 2009 9.1 Vonda PING, Louis WC, Iain RD. Nuclear Medicine Diagnosis and Therapy. [employer]1996. Chapter 37, page 930, Table 1. Pediatric weight/dose database file NMIS system: Pediatric Dose = Adult dose (mCi) x Dose Factor Range of Weight (lbs) Dose Factor (%) 0.00-5.00 10 5.01-10.00 10 10.01-15.00 16 15.01-20.00 21 20.01-25.00 25 25.01-30.00 30 30.01-40.00 34 40.01-50.00 41 50.01-60.00 48 60.01-70.00 54 70.01-80.00 61 80.01-90.00 67 90.01-100.00 72 100.01-110.00 78 110.01-120.00 83 120.01-130.00 88 130.01-140.00 94 140.01-142.00 99 142.01-150.00 100 Attention: Any exam, radiopharmaceutical or dosage not included on this list requires physician approval and a written prescription Approved by: Medical Executive Committee and Imaging Services * Nayeli Chan MD - 03/03/2025 10:31 AM CDT Images from the original note were not included. Your life is our life's work [facility] Hospitalist/Hospital Medicine Progress Note LOS: 2 days Room/Bed: 3106/02 Patient name: Helen Farrell Date of : 1940 HOSPITAL COURSE SUMMARY: Helen Farrell is a 84 y.o. female with PMH significant for Alzheimer dementia, HTN, T2DM, hypothyroidism, HLD, prior ???light strokes?? (2009), recent right hip fracture s/p repair (entered NH 01/17/25) with indwelling Herrera, presents from nursing facility for acute confusion and reported new left-sided weakness with LKW ~06:30 on 03/01/25. EMS noted mild left-sided weakness and left facial droop;BG 188; VSS en route. On ED arrival: subtle/questionable L facial droop; no definite UE drift; bilateral LE weakness (unable to lift either leg) thought to be baseline post-hip surgery; NIHSS 7 driven by bilateral leg weakness. Family later felt mental status was at baseline. CT head: no acute process; chronic atrophy and small-vessel ischemic changes. Neurology evaluated and favored delirium on dementia (stroke/TIA unlikely); thrombolysis/EVT not pursued. Workup notable for UA with pyuria/bacteriuria and WBC clumps; started on ceftriaxone. Complained of right-sided abdominal pain ? CT A/P showed cholelithiasis with inflammatory changes; RUQ US confirmed cholecystitiswith 2.3-2.5 cm neck stone and wall thickening (7-8 mm). CT A/P also incidentally revealed a very small subsegmental PE in RLL. Heparin infusion started per PE protocol. Hemodynamically stable, SpO? >=92% on room air. Vitals in ED: BP 140-172/58-69, HR ~80s, afebrile, RR 18-29, SpO? 92-94% RA. Labs: WBC 10.2 ? 12.9 K, Hgb 9.6 ? 11.1 g/dL (normocytic), Plt 168?196 K. CMP: BUN 24, Cr 0.91, Alb2.7, Glu 189. INR 1.3, PTT 31.5. TSH 1.99. UA: turbid; LE 3+, WBC >100/hpf, bacteria 3+, WBC clumps present; nitrite negative. ECG: NSR, possible old anterior infarct; no acute ischemic changes. Skin: Stage I pressure injury R heel. 03/02: Assumed care of patient. Continue IV antibiotics. Surgery recommending IR percutaneous cholecystostomy tube. Currently on heparin drip for DVT and PE. Urine growing E. coli, blood cultures pending 03/03: IR recommending HIDA prior to drain placement. HIDA showing cystic duct obstruction and acute cholecystitis. GI consulted appreciate recs. Consultants: IP CONSULT TO WOUND/SKIN CARE TEAM IP CONSULT TO IV TEAM SUBJECTIVE: Patient resting in bed states that she is feeling better, no real abdominal pain ROS: History obtained from the patient Constitutional: negative for fever, chills, negative for confusion, fatigue Pulmonary: negative for dyspnea, no cough Cardiovascular: negative for chest pain, no palpitations, no orthopnea GI: negative for nausea, vomiting, diarrhea and constipation, no abdominal pain Renal: no dysuria, no hematuria Musculoskeletal: no back pain, no joint pain, no calf swelling Neuro: negative for headache, no vision changes, no dizziness Skin: no skin rash, no redness OBJECTIVE: Temp (24hrs), Av.4 ??F (36.3 ??C), Min:96.9 ??F (36.1 ??C), Max:98.5 ??F (36.9 ??C) BP 134/54 (BP Location: Left arm, Patient Position (BP): Supine) Pulse 81 Temp 96.9 ??F (36.1 ??C) (Temporal) Resp 16 Ht 5' 6 (1.676 m) Wt 91.5 kg (201 lb 11.5 oz) SpO2 97% BMI 32.56 kg/m?? Intake/Output Summary (Last 24 hours) at 03/03/2025 1031 Last data filed at 03/03/2025 0800 Gross per 24 hour Intake 500 ml Output 300 ml Net 200 ml Last documented weight: Weight: 91.5 kg (201 lb 11.5 oz) (03/01/25 1654) EXAM: General: alert, in no distress Neurologic: Grossly normal HEENT: atraumatic, Normocephalic, without obvious abnormality Lungs: normal respiratory effort Heart: normal rate and regular rhythm Abdomen: Soft, non-tender. Bowel sounds normal. No masses, no organomegaly. Extremities: extremities normal, atraumatic, no cyanosis or edema Skin: negative LABORATORY: Recent Labs 03/01/25 1100 03/01/25 1613 03/02/25 0046 WBC 10.2 12.9* 11.7* HGB 9.6* 11.1* 9.9* HCT 30.8* 35.5* 30.9* PLT 168 196 181 Recent Labs 03/01/25 1100 03/02/25 0046 NA 137 135* K 3.8 4.3 CL 104 101 CO2 24 23 CA 8.8 8.8 BUN 24* 22 CREAT 0.91 0.81 GLUCOSE 189* 315* Recent Labs 03/01/25 1100 TOTALPROTEIN 5.7* ALBUMIN 2.7* BILITOTAL 0.6 ALKPHOS 101 AST 16 ALT 14 Recent Labs 03/01/25 1100 INR 1.3* PT 16.7* No results for input(s): BASETROP , 2HRTROP , DELTA , 6HRTROP in the last 72 hours. Diagnostic testing reviewed by me: Medications were reviewed by me. Current Facility-Administered Medications: HYDROmorphone (PF) (DILAUDID) injection 1 mg, 1 mg, IV, every 8 hours PRN, Nayeli Chan MD, 1 mg at 03/03/25 0829 [DISCONTINUED] HYDROmorphone (PF) (DILAUDID) injection 0.5 mg, 0.5 mg, IV, every 8 hours PRN, Nayeli Chan MD heparin in 0.45% NaCl 25,000 unit/250 mL infusion, 12 Units/kg/hr, IV, titrate, Nayeli Chan MD, Last Rate: 10.1 mL/hr at 03/03/25 0200, 11 Units/kg/hr at 03/03/25 0200 metroNIDAZOLE (FLAGYL) IVPB 500 mg, 500 mg, IV, every 8 hours, Sebas Feliz MD, Stopped at 03/03/25 0637 silver (SILVASORB) gel, , Topical, BID, Nayeli Chan MD, Given at 03/02/252025 insulin lispro (HumaLOG,ADMELOG) injection 0-6 Units, 0-6 Units, subCUT, TID WITH meals, Sebas Feliz MD, 2 Units at 03/03/25 0800 dextrose 5 % - sodium chloride 0.9 % infusion, , IV, see admin instructions, Sebas Feliz MD dextrose 50% (D50) syringe 12.5 Gram, 12.5 Gram, IV, see admin instructions, Sebas Feliz MD dextrose 50% (D50) syringe 25 Gram, 25 Gram, IV, see admin instructions, Sebas Feliz MD glucagon HCL 1 mg/mL injection 1 mg, 1 mg, IM, see admin instructions, Sebas Feliz MD sodium chloride flush injection 10 mL, 10 mL, IV, every 12 hours (2 times daily), Sebas Feliz MD, 10 mL at 03/02/252025 sodium chloride flush injection 10 mL, 10 mL, IV, see admin instructions, Sebas Feliz MD sodium chloride 0.9 % flush bag 25 mL, 25 mL, IV, see admin instructions, Sebas Feliz MD dextrose 5 % in water 250 mL flush bag 25 mL, 25 mL, IV, see admin instructions, Sebas Feliz MD acetaminophen (TYLENOL) tablet 650 mg, 650 mg, Oral, every 6 hours PRN, Sebas Feliz MD naloxone (NARCAN) 0.4 mg/mL injection 0.1-0.4 mg, 0.1-0.4 mg, IV, see admin instructions, Sebas Feliz MD ondansetron (ZOFRAN) 4 mg/2 mL injection 4 mg, 4 mg, IV, every 6 hours PRN, Sebas Feliz MD calcium as CARBONATE (TUMS) 500 mg (200 mg elemental) chewable tablet 400 mg, 400 mg, Oral, every 6hours PRN, Sebas Feliz MD HYDROcodone-acetaminophen (NORCO) 5-325 mg per tablet 1 Tablet, 1 Tablet, Oral, every 8 hours PRN, Sebas Feliz MD aspirin (ECOTRIN EC) tablet 81 mg, 81 mg, Oral, daily, Sebas Feliz MD, 81 mg at 03/02/251011 amLODIPine (NORVASC) tablet 5 mg, 5 mg, Oral, daily, Sebas Feliz MD, 5 mg at 03/02/251011 losartan (COZAAR) tablet 25 mg, 25 mg, Oral, BID, Sebas Feliz MD, 25 mg at 03/02/252024 pantoprazole (PROTONIX) tablet 40 mg, 40 mg, Oral, daily, Sebas Feliz MD, 40 mg at 03/02/251011 citalopram (CeleXA) tablet 20 mg, 20 mg, Oral, daily, Sebas Feliz MD, 20 mg at galantamine (RAZADYNE) tablet 4 mg, 4 mg, Oral, BID, Sebas Feliz MD, 4 mg at 03/02/252025 levothyroxine (SYNTHROID) tablet 100 mcg, 100 mcg, Oral, daily EARLY, Sebas Feliz MD, 100 mcg at 03/03/25 0538 cefTRIAXone (ROCEPHIN) 2,000 mg in sodium chloride 0.9% 50 mL IVPB (MBP), 2,000 mg, IV, every 24 hours (daily), Sebas Feliz MD, Stopped at 03/02/25 1118 Primary discharge diagnosis: Acute metabolic encephalopathy Other active medical issues also addressed during this admission: Active Hospital Problems Diagnosis Anticoagulated Acute cholecystitis Calculus of gallbladder with acute cholecystitis without obstruction Pulmonary embolus (CMS/HCC) History of dementia Generalized weakness Stage I pressure ulcer of right heel Complicated urinary tract infection Acute metabolic encephalopathy Anxiety and depression UTI (urinary tract infection) Anemia History of TIA (transient ischemic attack) - 2009 Dyslipidemia Essential hypertension Hypothyroidism Resolved Hospital Problems No resolved problems to display. ASSESSMENT AND PLAN: Acute metabolic encephalopathy likely secondary to UTI and acute cholecystitis Continue IV fluids, blood cultures neg at 24 hrs, urine culture growing E. coli Continue IV Rocephin and Flagyl Surgery consulted and recommending IR percutaneous cholecystostomy tube, IR recommended HIDA scan which showed cystic duct obstruction with acute cholecystitis, GI consulted awaiting recs Incidental small subsegmental PE right lower lobe likely secondary to immobilization Bilateral lower extremity DVTs Continue heparin drip Echo pending Stage I pressure injury right heel POA Wound care consulted Chronic co-morbidities Essential HTN, BP stable, continue PT amlodipine, losartan, monitor Hx of CVA, continue aspirin, hold Plavix, hold statins Hypothyroidism, continue IOS PROGRAMMER levothyroxine Recent right hip fracture s/p repair Anxiety and depression, continue IOS PROGRAMMER citalopram Dementia, continue IOS PROGRAMMER galantamine Protein calorie malnutrition, consulted dietitian, malnutrition pathway in place Nutrition Status: Provider Assessment/Plan: Symptoms/Signs/Physical Exam: Poor Appetite, Weight Loss, and Eating Poorly Etiology: Chronic illness Nutrition Treatment Plan: Malnutrition Commentary: Underlying malnutrition impairing the body's response to above medical conditions and is associated with prolonged length of stay and increased riskof readmission and mortality. Escrow Processor consulted for ASPEN assessment and intervention plan per malnutrition pathway. Continue malnutrition pathway, supplemental feeds, serial assessments, closely monitor for refeeding syndrome, metabolic derangements, hypoglycemia, etc. No indication for appetite stimulants at thistime - Current Diet and/or Nutritional Supplementation ordered: DIET GENERAL Effective Now - Daily weights Impact of Malnutrition on patient condition and outcomes: Decreased ability to perform activities, Decreased activity tolerance and reduced mobility , Poor wound healing, and Skin breakdown DVT prophylaxis: DVT Pharmacologic Prophylaxis: heparin in 0.45% NaCl 25,000 unit/250 mL infusion [[id number]] Code status: NO CPR (In Event of Cardiopulmonary Arrest) Outpatient follow up: PCP surgery Anticipated Disposition Location: [facility] Timeframe: 03/05/2025 Criteria: Improved Patient's understanding of illness: Fair Primary family contact: MDM complexity: [] Mild [x] Moderate [] High Nayeli Chan MD 03/03/2025, 10:31 AM * Mike Barreto Occupational Therapist - 03/03/2025 10:25 AM CDT Attempted to see patient for OT evaluation. After discussion with nursing will hold due to pt recently getting dilaudid and just returning from scan and unable to maintain wakefulness. Will attempt again later as time allows and continue with attempts for evaluation/established plan of care. Thank you, Mike Barreto Occupational Therapist * Felicita Jonas FNP - 03/03/2025 7:39 AM CDT General Surgery Progress Note Helen Farrell 1940 CSN: [id number] 03/03/2025 Admit Date: 03/01/2025 Hospital day: LOS: 2 days Subjective: This is a 84 y.o. female here for altered mental status, has h/o dementia. Workup revealed a small PE, for which heparin infusion was started, as well as cholecystitis. She says she had right sided abdominal pain, but not right now. She hasn't eaten in 3 days because she didn't like the food. She denies and nausea or vomiting. She hasn't had this pain before. Denies any fevers or chills. Interval History: 03/02--Consult for cholecystitis. Surgical recommendation for cholecystostomy tube given anticoagulation status 03/03--IR cholecystostomy tube ordered and pending. Resting in bed, but tender in epigastric and RUQ area as expected. Denies nausea. Afebrile. No am labs. Objective: BP 134/54 (BP Location: Left arm, Patient Position (BP): Supine) Pulse 81 Temp 96.9 ??F (36.1 ??C) (Temporal) Resp 16 Ht 5' 6 (1.676 m) Wt 91.5 kg (201 lb 11.5 oz) SpO2 97% BMI 32.56 kg/m?? Temp (24hrs), Av.4 ??F (36.3 ??C), Min:96.9 ??F (36.1 ??C), Max:98.5 ??F (36.9 ??C) Intake/Output Summary (Last 24 hours) at 03/03/2025 0739 Last data filed at 03/03/2025 0417 Gross per 24 hour Intake 620 ml Output 300 ml Net 320 ml General appearance: alert, in no distress Lungs: clear to auscultation bilaterally, normal respiratory effort Heart: regular rate and rhythm, S1, S2 normal Abdomen: Soft, tender to RUQ and epigastric region. Non peritoneal Extremities: moves all extremities Skin: Skin color, texture, turgor normal. Neurologic: Grossly normal Data Review: CBC: Recent Labs 03/01/25 1100 03/01/25 1613 03/02/25 0046 WBC 10.2 12.9* 11.7* HGB 9.6* 11.1* 9.9* HCT 30.8* 35.5* 30.9* PLT 168 196 181 MCV 90.6 90.8 88.3 BMP: Recent Labs 03/01/25 1100 03/02/25 0046 GLUCOSE 189* 315* BUN 24* 22 CREAT 0.91 0.81 NA 137 135* K 3.8 4.3 CL 104 101 CO2 24 23 ANIONGAP 9 11 CA 8.8 8.8 GB US: IMPRESSION: 1. Cholelithiasis. 2. Prominently thickened gallbladder wall consistent with cholecystitis. 3. No biliary ductal dilatation. CT Abd Pelvis: IMPRESSION: 1. Cholelithiasis. 2. Inflammatory changes are present in the gallbladder consistent with cholecystitis. 3. Diverticulosis without evidence of diverticulitis. 4. Very small right pulmonary embolism is incidentally noted. Assessment: Active Hospital Problems Diagnosis Acute cholecystitis Calculus of gallbladder with acute cholecystitis without obstruction Pulmonary embolus (CMS/HCC) History of dementia Generalized weakness Stage I pressure ulcer of right heel Complicated urinary tract infection Acute metabolic encephalopathy Anxiety and depression UTI (urinary tract infection) Anemia History of TIA (transient ischemic attack) - 2009 Dyslipidemia Essential hypertension Hypothyroidism Resolved Hospital Problems No resolved problems to display. Plan: Acute cholecystitis w/ chronic anticoagulation - IV antibiotics per medicine - IV fluids - Analgesia - Based on current anticoagulation status and PE, surgery has recommended IR consult for cholecystostomy tube. Pending Surgery will follow for dakoat tube placement PAUL Valverde Cosigned by Cristopher Peraza DO at 03/04/2025 4:07 PM CDT * Nayeli Chan MD - 03/02/2025 1:32 PM CDT Images from the original note were not included. Your life is our life's work [facility] Hospitalist/[facility] Medicine Progress Note LOS: 1 day Room/Bed: 3106/02 Patient name: Helen Farrell Date of : 1940 HOSPITAL COURSE SUMMARY: Helen Farrell is a 84 y.o. female with PMH significant for Alzheimer dementia, HTN, T2DM, hypothyroidism, HLD, prior ???light strokes?? (2009), recent right hip fracture s/p repair (entered NH 01/17/25) with indwelling Herrera, presents from nursing facility for acute confusion and reported new left-sided weakness with LKW ~06:30 on 03/01/25. EMS noted mild left-sided weakness and left facial droop;BG 188; VSS en route. On ED arrival: subtle/questionable L facial droop; no definite UE drift; bilateral LE weakness (unable to lift either leg) thought to be baseline post-hip surgery; NIHSS 7 driven by bilateral leg weakness. Family later felt mental status was at baseline. CT head: no acute process; chronic atrophy and small-vessel ischemic changes. Neurology evaluated and favored delirium on dementia (stroke/TIA unlikely); thrombolysis/EVT not pursued. Workup notable for UA with pyuria/bacteriuria and WBC clumps; started on ceftriaxone. Complained of right-sided abdominal pain ? CT A/P showed cholelithiasis with inflammatory changes; RUQ US confirmed cholecystitiswith 2.3-2.5 cm neck stone and wall thickening (7-8 mm). CT A/P also incidentally revealed a very small subsegmental PE in RLL. Heparin infusion started per PE protocol. Hemodynamically stable, SpO? >=92% on room air. Vitals in ED: BP 140-172/58-69, HR ~80s, afebrile, RR 18-29, SpO? 92-94% RA. Labs: WBC 10.2 ? 12.9 K, Hgb 9.6 ? 11.1 g/dL (normocytic), Plt 168?196 K. CMP: BUN 24, Cr 0.91, Alb2.7, Glu 189. INR 1.3, PTT 31.5. TSH 1.99. UA: turbid; LE 3+, WBC >100/hpf, bacteria 3+, WBC clumps present; nitrite negative. ECG: NSR, possible old anterior infarct; no acute ischemic changes. Skin: Stage I pressure injury R heel. 03/02: Assumed care of patient. Continue IV antibiotics. Surgery recommending IR percutaneous cholecystostomy tube. Currently on heparin drip for DVT and PE. Urine growing E. coli, blood cultures pending Consultants: IP CONSULT TO WOUND/SKIN CARE TEAM IP CONSULT TO IV TEAM SUBJECTIVE: Patient resting in bed denies any abdominal pain ROS: History obtained from the patient Constitutional: negative for fever, chills, negative for confusion, fatigue Pulmonary: negative for dyspnea, no cough Cardiovascular: negative for chest pain, no palpitations, no orthopnea GI: negative for nausea, vomiting, diarrhea and constipation, no abdominal pain Renal: no dysuria, no hematuria Musculoskeletal: no back pain, no joint pain, no calf swelling Neuro: negative for headache, no vision changes, no dizziness Skin: no skin rash, no redness OBJECTIVE: Temp (24hrs), Av.8 ??F (36.6 ??C), Min:96.7 ??F (35.9 ??C), Max:99 ??F (37.2 ??C) BP 128/53 (BP Location: Right arm, Patient Position (BP): Supine) Pulse 100 Temp 99 ??F (37.2 ??C) (Temporal) Resp 16 Ht 5' 6 (1.676 m) Wt 91.5 kg (201 lb 11.5 oz) SpO2 97% BMI 32.56 kg/m?? Intake/Output Summary (Last 24 hours) at 03/02/2025 1332 Last data filed at 03/02/2025 1300 Gross per 24 hour Intake 120 ml Output 1900 ml Net -1780 ml Last documented weight: Weight: 91.5 kg (201 lb 11.5 oz) (03/01/25 1654) EXAM: General: alert, in no distress Neurologic: Grossly normal HEENT: atraumatic, Normocephalic, without obvious abnormality Lungs: normal respiratory effort Heart: normal rate and regular rhythm Abdomen: Soft, non-tender. Bowel sounds normal. No masses, no organomegaly. Extremities: extremities normal, atraumatic, no cyanosis or edema Skin: negative LABORATORY: Recent Labs 03/01/25 1100 03/01/25 1613 03/02/25 0046 WBC 10.2 12.9* 11.7* HGB 9.6* 11.1* 9.9* HCT 30.8* 35.5* 30.9* PLT 168 196 181 Recent Labs 03/01/25 1100 03/02/25 0046 NA 137 135* K 3.8 4.3 CL 104 101 CO2 24 23 CA 8.8 8.8 BUN 24* 22 CREAT 0.91 0.81 GLUCOSE 189* 315* Recent Labs 03/01/25 1100 TOTALPROTEIN 5.7* ALBUMIN 2.7* BILITOTAL 0.6 ALKPHOS 101 AST 16 ALT 14 Recent Labs 03/01/25 1100 INR 1.3* PT 16.7* No results for input(s): BASETROP , 2HRTROP , DELTA , 6HRTROP in the last 72 hours. Diagnostic testing reviewed by me: Medications were reviewed by me. Current Facility-Administered Medications: heparin in 0.45% NaCl 25,000 unit/250 mL infusion, 13 Units/kg/hr, IV, titrate, Nayeli Chan MD, Last Rate: 11.9 mL/hr at 03/02/25 1015, 13 Units/kg/hr at 03/02/25 1015 metroNIDAZOLE (FLAGYL) IVPB 500 mg, 500 mg, IV, every 8 hours, Sebas Feliz MD, Stopped at 03/02/25 1039 [DISCONTINUED] heparin in 0.45% NaCl 25,000 unit/250 mL infusion, 21 Units/kg/hr, IV, titrate, Sebas Feliz MD [COMPLETED] cefTRIAXone (ROCEPHIN) 1,000 mg in sodium chloride 0.9% 50 mL IVPB (MBP), 1,000 mg, IV,ONE time only, Babak Larkin DO, Stopped at 03/01/25 1541 [COMPLETED] sodium chloride flush injection 10 mL, 10 mL, IV, every 5 minutes PRN, Babak Larkin DO, 10 mL at 03/01/25 1431 [COMPLETED] iopamidoL (ISOVUE-300) 61% injection (drawn from multi-use bulk pack) 100 mL, 100 mL, IV, intra-proc ONE time, Babak Larkin DO, 100 mL at 03/01/25 1431 [COMPLETED] fentaNYL (PF) (SUBLIMAZE) 50 mcg/mL injection 50 mcg, 50 mcg, IV, ONE time only, Babak Larkin DO, 50 mcg at 03/01/25 1538 insulin lispro (HumaLOG,ADMELOG) injection 0-6 Units, 0-6 Units, subCUT, TID WITH meals, Sebas Feliz MD, 5 Units at 03/02/25 1209 dextrose 5 % - sodium chloride 0.9 % infusion, , IV, see admin instructions, Sebas Feliz MD dextrose 50% (D50) syringe 12.5 Gram, 12.5 Gram, IV, see admin instructions, Sebas Feliz MD dextrose 50% (D50) syringe 25 Gram, 25 Gram, IV, see admin instructions, Sebas Feliz MD glucagon HCL 1 mg/mL injection 1 mg, 1 mg, IM, see admin instructions, Sebas Feliz MD sodium chloride flush injection 10 mL, 10 mL, IV, every 12 hours (2 times daily), Sebas Feliz MD, 10 mL at 03/02/25 1013 sodium chloride flush injection 10 mL, 10 mL, IV, see admin instructions, Sebas Feliz MD sodium chloride 0.9 % flush bag 25 mL, 25 mL, IV, see admin instructions, Sebas Feliz MD dextrose 5 % in water 250 mL flush bag 25 mL, 25 mL, IV, see admin instructions, Sebas Feliz MD acetaminophen (TYLENOL) tablet 650 mg, 650 mg, Oral, every 6 hours PRN, Sebas Feliz MD naloxone (NARCAN) 0.4 mg/mL injection 0.1-0.4 mg, 0.1-0.4 mg, IV, see admin instructions, Sebas Feliz MD ondansetron (ZOFRAN) 4 mg/2 mL injection 4 mg, 4 mg, IV, every 6 hours PRN, Sebas Feliz MD calcium as CARBONATE (TUMS) 500 mg (200 mg elemental) chewable tablet 400 mg, 400 mg, Oral, every 6hours PRN, Sebas Feliz MD [COMPLETED] heparin injection 7,300 Units, 80 Units/kg, IV, ONE time only, Babak Larkin, DO, 7,300 Units at 03/01/25 1639 HYDROcodone-acetaminophen (NORCO) 5-325 mg per tablet 1 Tablet, 1 Tablet, Oral, every 8 hours PRN, Sebas Feliz MD aspirin (ECOTRIN EC) tablet 81 mg, 81 mg, Oral, daily, Sebas Feliz MD, 81 mg at 03/02/25 1012 amLODIPine (NORVASC) tablet 5 mg, 5 mg, Oral, daily, Sebas Feliz MD, 5 mg at 03/02/25 1012 losartan (COZAAR) tablet 25 mg, 25 mg, Oral, BID, Sebas Feliz MD, 25 mg at 03/02/25 1012 pantoprazole (PROTONIX) tablet 40 mg, 40 mg, Oral, daily, Sebas Feliz MD, 40 mg at 03/02/25 1012 citalopram (CeleXA) tablet 20 mg, 20 mg, Oral, daily, Sebas Feliz MD, 20 mg at 012 galantamine (RAZADYNE) tablet 4 mg, 4 mg, Oral, BID, Sebas Feliz MD, 4 mg at 03/02/25 1013 levothyroxine (SYNTHROID) tablet 100 mcg, 100 mcg, Oral, daily EARLY, Sebas Feliz MD, 100 mcg at 03/02/25 0632 cefTRIAXone (ROCEPHIN) 2,000 mg in sodium chloride 0.9% 50 mL IVPB (MBP), 2,000 mg, IV, every 24 hours (daily), Sebas Feliz MD, Stopped at 03/02/25 1118 [DISCONTINUED] iopamidoL (ISOVUE-300) 61% injection (drawn from multi-use bulk pack) 75 mL, 75 mL, IV, intra-proc ONE time, Babak Larkin DO [DISCONTINUED] heparin in 0.45% NaCl 25,000 unit/250 mL infusion, 18 Units/kg/hr, IV, titrate, Babak Larkin DO, Stopped at 03/02/25 0159 Primary discharge diagnosis: Acute metabolic encephalopathy Other active medical issues also addressed during this admission: Active Hospital Problems Diagnosis Acute cholecystitis Acute metabolic encephalopathy Anxiety and depression UTI (urinary tract infection) Anemia History of TIA (transient ischemic attack) - 2009 Dyslipidemia Essential hypertension Hypothyroidism Resolved Hospital Problems No resolved problems to display. ASSESSMENT AND PLAN: Acute metabolic encephalopathy likely secondary to UTI and acute cholecystitis Continue IV fluids, blood cultures pending, urine culture growing E. coli Continue IV Rocephin and Flagyl Surgery consulted and recommending IR percutaneous cholecystostomy tube Incidental small subsegmental PE right lower lobe likely secondary to immobilization Bilateral lower extremity DVTs Continue heparin drip Echo pending Stage I pressure injury right heel POA Wound care consulted Chronic co-morbidities Essential HTN, BP stable, continue PT amlodipine, losartan, monitor Hx of CVA, continue aspirin, hold Plavix, hold statins Hypothyroidism, continue IOS PROGRAMMER levothyroxine Recent right hip fracture s/p repair Anxiety and depression, continue IOS PROGRAMMER citalopram Dementia, continue IOS PROGRAMMER galantamine Protein calorie malnutrition, consulted dietitian, malnutrition pathway in place Nutrition Status: Provider Assessment/Plan: Symptoms/Signs/Physical Exam: Poor Appetite, Weight Loss, and Eating Poorly Etiology: Chronic illness Nutrition Treatment Plan: Malnutrition Commentary: Underlying malnutrition impairing the body's response to above medical conditions and is associated with prolonged length of stay and increased riskof readmission and mortality. Escrow Processor consulted for ASPEN assessment and intervention plan per malnutrition pathway. Continue malnutrition pathway, supplemental feeds, serial assessments, closely monitor for refeeding syndrome, metabolic derangements, hypoglycemia, etc. No indication for appetite stimulants at thistime - Current Diet and/or Nutritional Supplementation ordered: DIET GENERAL Effective Now - Daily weights Impact of Malnutrition on patient condition and outcomes: Decreased ability to perform activities, Decreased activity tolerance and reduced mobility , Poor wound healing, and Skin breakdown DVT prophylaxis: DVT Pharmacologic Prophylaxis: heparin in 0.45% NaCl 25,000 unit/250 mL infusion [[id number]] Code status: NO CPR (In Event of Cardiopulmonary Arrest) Outpatient follow up: PCP surgery Anticipated Disposition Location: [facility] Timeframe: 03/05/2025 Criteria: Improved Patient's understanding of illness: Fair Primary family contact: MDM complexity: [] Mild [x] Moderate [] High Nayeli Chan MD 03/02/2025, 1:32 PM * Sen Obando RN - 03/01/2025 11:08 AM CDT STROKE ACTIVATION NOTE: RECOMMENDATIONS FROM NEUROLOGIST: Low suspicion for stroke/TIA. Defer to ED for further plan of care Helen Farrell, ( 1940), [id number], Patient Contact Information: Level of Neurology consult? 1 - Requires Neurologist Activation Date: 03/01/2025: Pt current location: 01/25 1020 Message received for stroke activation in room 9. [address] Larkin and Stroke Navigator at bedside. EMS/RN present at bedside, reports patient had sudden onset of left side weakness and facial droop this am. Patient had recent right hip fracture with pain. Patient assessed on CT table. NIH of [address] Znedejas called with patient condition and history. CT head ordered. GCS 15, Patient stable, taken directly to CT/MRI POC BG WNL LKW 0630. NIHSS 7, BEFAST not done, (s/s including: RIGHT side, LEFT side, and weakness - leg) History of Afib/flutter? no. Patient on IOS PROGRAMMER anticoagulant? No Modified Mower Scale (MDS): 4 - Moderately severe disability; unable to walk without assistance and unable to attend to own bodily Pt actual weight obtained (91kg ) NA NeuroHospitalist at bedside. [address] CTH reviewed by Neurologist at 1055, negative for hemorrhage. Reason for delay in CTRead > 45 min: no delay. [address] Zendejas. Pt not a candidate for thrombolytic therapy. Time LKW reviewed by neurologist to determine guideline driven care. and Stroke Mimic per Neurologist/Provider. Patient is not a candidate for endovascular therapy. Stroke Mimic per Neurology/Provider 1100 Stroke team completed activation in collaboration with RN. Patient and concerned others at bedside were updated on results of stroke/TIA workup thus far, and advised on what to expect over the next 24-48 hours. Not Stroke/TIA per DR. Zendejas. All questions answered to their satisfaction at this time. Vitals: 03/01/25 1040 03/01/25 1051 03/01/25 1052 03/01/25 1100 BP: (!) 145/61 (!) 140/58 (!) 142/69 BP Location: Right leg Pulse: 82 82 84 Resp: 18 23 29 Temp: 98.2 ??F (36.8 ??C) TempSrc: Oral SpO2: 94% 94% 94% NIHSS 03/01/2025 1045 Interval: Baseline 1a. Level of Consciousness: 0 1b. LOC Questions: 1 1c. LOC Commands: 0 2. Best Gaze: 0 3. Visual: 0 4. Facial Palsy: 0 5a. Motor Arm, Left: 0 5b. Motor Arm, Right: 0 6a. Motor Leg, Left: 3 6b. Motor Leg, Right: 3 7. Limb Ataxia: 0 8. Sensory: 0 9. Best Language: 0 10. Dysarthria: 0 11. Extinction and Inattention (formerly Neglect): 0 NIHSS (Total): 7 Lab Results Component Value Date/Time GLUCPOC 173 (H) 04/15/2019 07:10 AM GLUCOSE 278 (H) 04/14/2019 06:54 AM CREAT 0.93 04/14/2019 06:54 AM LDLCALC 41 07/16/2019 10:07 AM Dysphagia Screen: a Cosigned by Parker Zendejas MD at 03/10/2025 10:12 AM CDT documented in this encounter H&P Notes * Sebas Feliz MD - 03/01/2025 6:46 PM CDT [facility] History and physical- date of admission: 03/01/2025 Patient name: Helen Farrell Date of : 1940 CSN number: [id number] PCP: Brayan Fournier MD Chief Complaint: Chief Complaint Patient presents with Altered mental status History of present illness: Pt seen and examined at the bedside Helen Farrell is a 84 y.o. female with PMH significant for Alzheimer dementia, HTN, T2DM, hypothyroidism, HLD, prior ???light strokes?? (2009), recent right hip fracture s/p repair (entered NH 01/17/25) with indwelling Herrera, presents from nursing facility for acute confusion and reported new left-sided weakness with LKW ~06:30 on 03/01/25. EMS noted mild left-sided weakness and left facial droop;BG 188; VSS en route. On ED arrival: subtle/questionable L facial droop; no definite UE drift; bilateral LE weakness (unable to lift either leg) thought to be baseline post-hip surgery; NIHSS 7 driven by bilateral leg weakness. Family later felt mental status was at baseline. CT head: no acute process; chronic atrophy and small-vessel ischemic changes. Neurology evaluated and favored delirium on dementia (stroke/TIA unlikely); thrombolysis/EVT not pursued. Workup notable for UA with pyuria/bacteriuria and WBC clumps; started on ceftriaxone. Complained of right-sided abdominal pain ? CT A/P showed cholelithiasis with inflammatory changes; RUQ US confirmed cholecystitiswith 2.3-2.5 cm neck stone and wall thickening (7-8 mm). CT A/P also incidentally revealed a very small subsegmental PE in RLL. Heparin infusion started per PE protocol. Hemodynamically stable, SpO? >=92% on room air. Vitals in ED: BP 140-172/58-69, HR ~80s, afebrile, RR 18-29, SpO? 92-94% RA. Labs: WBC 10.2 ? 12.9 K, Hgb 9.6 ? 11.1 g/dL (normocytic), Plt 168?196 K. CMP: BUN 24, Cr 0.91, Alb2.7, Glu 189. INR 1.3, PTT 31.5. TSH 1.99. UA: turbid; LE 3+, WBC >100/hpf, bacteria 3+, WBC clumps present; nitrite negative. ECG: NSR, possible old anterior infarct; no acute ischemic changes. Skin: Stage I pressure injury R heel. Past medical history: Past Medical History: Diagnosis Date Arthritis Basal cell carcinoma CVD (cerebrovascular disease) Light stroke 2009 x2 Dementia (CMS/HCC) Diabetes Hypothyroidism Joint pain Motion sickness Night sweats Night sweats Unspecified disorder of lipoid metabolism Unspecified essential hypertension Wears glasses Active chronic medical issues that patient has been followed for as outpatient: Patient Active Problem List Diagnosis Code Hypothyroidism E03.9 Uncontrolled type 2 diabetes mellitus with hyperglycemia, with long-term current use of insulin E11.65, Z79.4 Sciatica M54.30 Essential hypertension I10 Preoperative general physical examination Z01.818 Dyslipidemia E78.5 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 Z96.652 Dysphoric mood R45.89 Primary osteoarthritis of right knee M17.11 History of TIA (transient ischemic attack) - 2009 Z86.73 Hyperkalemia E87.5 Obesity (BMI 30.0-34.9) E66.811 Acute metabolic encephalopathy G93.41 Anxiety and depression F41.9, F32.A UTI (urinary tract infection) N39.0 Anemia D64.9 Acute cholecystitis K81.0 Past surgical history: Past Surgical History: Procedure Laterality Date HX BLADDER SUSPENSION HX HYSTERECTOMY complete 1992 HX KNEE SURGERY Left early HX TONSILLECTOMY INSERT PERIPHERAL IV 03/02/2025 NE ARTHRP KNE CONDYLE&PLATU MEDIAL&LAT COMPARTMENTS Right 04/13/2019 KNEE ARTHROPLASTY TOTAL REPLACEMENT performed by Manjit Trejo MD at [facility] OR NE ARTHRP KNE CONDYLE&PLATU MEDIAL&LAT COMPARTMENTS Left 02/13/2017 KNEE ARTHROPLASTY TOTAL REPLACEMENT performed by Arnold Garcia MD at [facility] OR NE UNLISTED PROCEDURE MUSCSKELETAL SYSTEM GENERAL Left 05/27/2017 EXTREMITY MANIPULATION performed by Arnold Garcia MD at [facility] OR Current medications: Prior to Admission Medications Prescriptions Last Dose Informant Patient Reported? Taking? HYDROcodone-acetaminophen (NORCO) 5-325 mg tablet 02/28/2025 Evening Yes Yes Sig: Take 1 Tablet by mouth every 8 hours as needed for Pain. Insulin Syringe-Needle U-100 0.5 mL 30 gauge x 5/16 Syringe No No Sig: Use with insulin BID. acetaminophen (TYLENOL) 325 mg tablet 03/01/2025 Yes Yes Sig: Take 650 mg by mouth 3 times daily. amLODIPine (NORVASC) 5 mg tablet 03/01/2025 Morning Yes Yes Sig: Take 5 mg by mouth daily. ascorbic acid, vitamin C, (VITAMIN C) 1,000 mg Tablet 03/01/2025 Morning Yes Yes Sig: Take 1,000 mg by mouth daily. aspirin 81 mg Capsule 03/01/2025 Morning Yes Yes Sig: Take 1 Capsule by mouth daily. bisacodyL (DULCOLAX) 10 mg Suppository Yes Yes Sig: Insert 10 mg by rectum 1 time daily as needed for Constipation. cholecalciferol, Vitamin D3, (VITAMIN D3) 25 mcg (1,000 unit) Capsule 03/01/2025 Morning Yes Yes Sig: Take 1 Capsule by mouth daily. citalopram (CeleXA) 20 mg tablet 03/01/2025 Morning Yes Yes Sig: Take 20 mg by mouth daily. clopidogreL (PLAVIX) 75 mg Tablet 03/01/2025 Morning Yes Yes Sig: Take 75 mg by mouth daily. cyanocobalamin 1,000 mcg Tablet 03/01/2025 Morning Yes Yes Sig: Take 1,000 mcg by mouth daily. galantamine (RAZADYNE) 4 mg tablet 03/01/2025 Morning Yes Yes Sig: Take 4 mg by mouth 2 times daily. insulin glargine (LANTUS) 100 unit/mL pen syringe 02/28/2025 Bedtime Yes Yes Sig: Inject 25 Units by subcutaneous injection daily at bedtime. insulin lispro (HumaLOG,ADMELOG) 100 unit/mL pen syringe Morning Yes Yes Sig: Inject 2-10 Units by subcutaneous injection 4 times daily with meals and at bedtime. 70-149=0 units 150-199=2 units 200-249=4 units 250-299=6 units 300-349=8 units 350+ =10 units and call MD lancets 30 gauge No No Sig: Use to check glucose TID. levothyroxine 100 mcg tablet 03/01/2025 Morning No Yes Sig: TAKE 1 TABLET BY MOUTH ONCE DAILY. Patient must be seen for any additional refills losartan (COZAAR) 25 mg tablet 03/01/2025 Morning No Yes Sig: Take 1 tablet by mouth twice daily magnesium HYDROXIDE (MILK OF MAGNESIA) 400 mg/5 mL suspension Yes Yes Sig: Take 30 mL by mouth 1 time daily as needed for Constipation. meclizine (ANTIVERT) 25 mg tablet Yes Yes Sig: Take 25 mg by mouth 1 time daily as needed for Dizziness. mirtazapine (REMERON) 7.5 mg tablet 02/28/2025 Bedtime Yes Yes Sig: Take 7.5 mg by mouth daily at bedtime. pantoprazole (PROTONIX) 40 mg Tablet, Delayed Release (E.C.) 03/01/2025 Morning Yes Yes Sig: Take 40 mg by mouth daily. polyethylene glycol 3350 (MIRALAX) 17 gram/dose Powder Yes Yes Sig: Take 17 Grams by mouth 1 time daily as needed for Constipation. Dissolve in 8 ounces of fluid and drink entire liquid potassium CHLORIDE (KLOR-CON M10) 10 mEq Extended Release tablet 03/01/2025 Morning Yes Yes Sig: Take 10 mEq by mouth daily. Facility-Administered Medications: None Allergies and intolerances: Allergies Allergen Reactions Sulfa (Sulfonamide Antibiotics) Other (See Comments) Yeast infection Niacin Rash Penicillins Swelling Social history: Social History Socioeconomic History Marital status: Spouse name: Not on file Number of children: Not on file Years of education: Not on file Highest education level: Not on file Occupational History Not on file Tobacco Use Smoking status: Never Smokeless tobacco: Never Vaping Use Vaping status: Never Used Substance and Sexual Activity Alcohol use: No Drug use: No Sexual activity: Not Currently Other Topics Concern Not on file Social History Narrative Not on file Health-Related Social Needs Food Insecurity: Not on file (03/01/2025) Transportation Needs: No Transportation Needs (03/01/2025) Transportation Needs Patient needs follow up regarding:: 1 Domestic Concerns: Not At Risk (03/01/2025) Feeling Safe Patient has indicated abuse: : No Housing Stability: Low Risk (03/01/2025) Housing Stability Struggle to pay rent or mortgage: No Family History: Family History Problem Relation Name Age of Onset Healthy Son Diabetes Son Stroke Brother Breast Cancer Maternal Cousin 50's? Cancer Mother age 65 pancreatic Unknown Father Heart Disease Mother age 65 ROS: ROS negative except as mentioned above in HPI OBJECTIVE: Temp (24hrs), Av.9 ??F (36.6 ??C), Min:96.7 ??F (35.9 ??C), Max:99 ??F (37.2 ??C) BP 128/53 (BP Location: Right arm, Patient Position (BP): Supine) Pulse 100 Temp 99 ??F (37.2 ??C) (Temporal) Resp 16 Ht 5' 6 (1.676 m) Wt 91.5 kg (201 lb 11.5 oz) SpO2 97% BMI 32.56 kg/m?? Intake/Output Summary (Last 24 hours) at 03/02/2025 0823 Last data filed at 03/02/2025 0147 Gross per 24 hour Intake -- Output 1600 ml Net -1600 ml Last documented weight: Weight: 91.5 kg (201 lb 11.5 oz) (03/01/25 1654) EXAM: General: Awake, alert, in no acute distress, generalized weakness Mental exam: A&Ox 2-3 Neurologic: Grossly unremarkable with no acute focal deficits HEENT: NC/AT, EOMI, dry oral mucosa Neck: Supple, no JVD Chest wall: Nontender Lungs: CTAB, No w/r/r Heart:RRR, Normal S1, S2, No m/r/g Abdomen: Soft, moderate diffuse newness to palpation, Carrion sign positive. Bowel sounds normal. Nopalpable masses Extremities: No BLE edema, No cyanosis. No calf tenderness. Peripheral pulses palpable. Skin: Intact, no new bruises or rashes on exposed skin. Lab Data/EKG/Imaging: I have independently reviewed labs, imaging and pertinent data as detailed above in HPI Primary diagnosis: Acute metabolic encephalopathy Other active medical issues Active Hospital Problems Diagnosis Acute cholecystitis Acute metabolic encephalopathy Anxiety and depression UTI (urinary tract infection) Anemia History of TIA (transient ischemic attack) - 2009 Dyslipidemia Essential hypertension Hypothyroidism Resolved Hospital Problems No resolved problems to display. ASSESSMENT AND PLAN: Acute metabolic encephalopathy likely secondary to UTI and acute calculous cholecystitis Continue IV Rocephin and Flagyl, ordered blood cultures, check urine cultures Continue supportive care with IV fluids, pain control and antiemetics as needed Monitor neurostatus Reviewed imaging as above Consulted surgery NPO, serial abdominal examination Incidentally found very small subsegmental PE (RLL), likely provoked due to immobility Started therapeutic heparin infusion, continue cardiac telemetry Ordered echocardiogram Ordered bilateral lower extremity venous Doppler Hold off on dedicated CTA chest for now to avoid IV contrast burden DM type II Accu-Cheks, SSI, hypoglycemia protocol Lab Results Component Value Date/Time HGBA1C 8.2 (H) 07/16/2019 10:07 AM Right heel Stage I pressure injury, POA Offloading, skin checks, barrier protection, early mobilization Chronic co-morbidities Essential HTN, BP stable, continue PT amlodipine, losartan, monitor Hx of CVA, continue aspirin, hold Plavix, hold statins Hypothyroidism, continue IOS PROGRAMMER levothyroxine Recent right hip fracture s/p repair Anxiety and depression, continue IOS PROGRAMMER citalopram Dementia, continue IOS PROGRAMMER galantamine Protein calorie malnutrition, consulted dietitian, malnutrition pathway in place. DVT Pharmacologic Prophylaxis: heparin in 0.45% NaCl 25,000 unit/250 mL infusion [[id number]] Current diet : DIET NPO Strict Code status and goals of care was discussed with the patient, and code status was updated in the chart. Code Status: NO CPR (In Event of Cardiopulmonary Arrest) Admission status; inpatient I anticipate that the patient will be hospitalized for 2 midnights or greater, as outlined in my assessment and plan. [facility], Level 3 Sebas Feliz MD Hospitalist documented in this encounter Procedure Notes * Kyler Mcarthur CNA - 03/07/2025 4:58 AM CDT VASCULAR ACCESS TEAM Lab collection PATIENT NAME: Helen Farrell DATE OF : 1940 CSN: [id number] DATE: 03/07/2025 Room: [address] [place] [address] Admit Date: 03/01/2025 Hospital day: LOS: 6 days [place]: Allergies Allergen Reactions Sulfa (Sulfonamide Antibiotics) Other (See Comments) Yeast infection Niacin Rash Penicillins Swelling Ultrasound Guided LAB COLLECTION Ultrasound assessment was performed to assess adequacy of vascular anatomy Adequate vessel was located Insertion site cleansed for 30 seconds with Chlora-prep. Site allowed to dry before ultrasound guided needle stick. Labs collected Yes Location: right, lower Arm 1 attempts 30minutes required to complete procedure Kyler Mcarthur CNA * Tayler Hernández, PCT - 03/06/2025 3:37 PM CDT VASCULAR ACCESS TEAM Lab collection PATIENT NAME: Helen Farrell DATE OF : 1940 CSN: [id number] DATE: 03/06/2025 Room: [address] [place] [address] Admit Date: 03/01/2025 Hospital day: LOS: 5 days [place]: Allergies Allergen Reactions Sulfa (Sulfonamide Antibiotics) Other (See Comments) Yeast infection Niacin Rash Penicillins Swelling Ultrasound Guided LAB COLLECTION Ultrasound assessment was performed to assess adequacy of vascular anatomy Adequate vessel was located Insertion site cleansed for 30 seconds with Chlora-prep. Site allowed to dry before ultrasound guided needle stick. Labs collected Yes Location: left, lower Arm Blood Cultures collected No 1 attempts 40 minutes required to complete procedure During assessment of BUE for lab collection, RUE PIV along with LUE PIV both found to be located within non compressing vessels. RUE currently infusing. The above findings were communicated to Bedside nurse. * Joni Perry MD - 03/03/2025 2:51 PM CDT Post Procedure Vascular/ [place] Interventional Radiology Note: Pre-Radiology Procedure Diagnosis: Cholecystitis Technical Procedure: GB drain placement Specimen: bile Estimated Blood Loss: Minimal Findings: See dictated report Post-Radiology Procedure Diagnosis: As above Joni Perry MD 03/03/25 2:52 PM * Sheela Erwin RVT - 03/02/2025 10:08 AM CDT CARDIOVASCULAR SERVICES [place]IN[place] [address] TECHNOLOGIST PRELIMINARY WORKSHEET PHYSICIAN INTERPRETATION TO FOLLOW Patient Name: Helen Farrell #: [id number] Date:03/02/2025 Tech Initials: [facility] Exam End Time: 0900 Critical Result Notification [x] Dr. Chan [] RN (name) Notification Time: 1000 Noninvasive lower extremity venous study performed on: [x] Right [x] Left A. [] There are no echo images consistent with acute venous obstruction throughout the venous system scanned. B. [x] Imaging is consistent with an obstruction in the [] Superficial venous [x] Deep venous system [x] Right [x] Left [] Groin [] Groin [] Proximal Thigh [] Proximal Thigh [x] Distal Thigh [] Distal Thigh [x] Popliteal [] Popliteal [] Calf [x] Calf [] Softer echoes are considered consistent with acute venous obstruction [] Brighter echoes are considered consistent with chronic venous obstruction [] Soft echoes not well adhered to vein wall are considered consistent with freefloating obstruction [] Venous reflux is considered to be consistent with venous insufficiency Technologist Comments: * Foster Guzman RN - 03/02/2025 7:34 AM CDTProcedure(s): INSERT PERIPHERAL IV VASCULAR ACCESS TEAM Peripheral IV insertion PATIENT NAME: Helen Farrell DATE OF : 1940 CSN: [id number] DATE: 03/02/2025 Room: [address] [place] [address] Admit Date: 03/01/2025 Hospital day: LOS: 1 day Allergies: Allergies Allergen Reactions Sulfa (Sulfonamide Antibiotics) Other (See Comments) Yeast infection Niacin Rash Penicillins Swelling PERIPHERAL IV INSERTION Ultrasound assessment was performed to assess adequacy of vascular anatomy Adequate vessel was located Insertion site cleansed for 30 seconds with Chlora-prep. Allowed to dry before initial needle stick. A 20 Gauge 2 Inch peripheral IV was successfully placed using ultrasound guidance in the right, lower Arm Secure port adhesive used Yes 1 attempts 35 minutes required to complete procedure Positive blood return noted Neutral pressure cap applied Catheter Flushed with 5ml of Normal Saline Transparent dressing applied with date, time and initials of cowoker inserting. LDA documentation is contained in EMR flowsheet Patient tolerated well. Foster Guzman RN documented in this encounter Consult Notes * Joy Conte RD - 03/04/2025 11:32 AM CDTAssociated Order(s): IP CONSULT TO NUTRITION SERVICES; IP CONSULT TO NUTRITION SERVICES Reason For Nutrition Assessment: Consult, and Pressure Ulcer/Skin, Nutrition Diagnosis Malnutrition Nutrition Diagnosis: Moderate protein-calorie malnutrition (03/04/25 1100) In the context of: Acute Illness/Injury Problem: Malnutrition (03/04/251099) Etiology: Inadequate protein, energy, nutrient intake;Acute illness;Decreased appetite (03/04/251099) Signs/Symptoms: Fat loss;Muscle wasting;Intake history/diet recall (03/04/251099) Malnutrition Impact: Reduced oral intake, Delayed recovery, Poor wound healing, Increased readmission risk, Increased hospitalization length, and Increased risk of infection Interventions/Recommendations: Modify diet from pediatric General to General Monitor weights - obtain standing scale weight if able Add Ensure BID Nutrition Interventions: Encourage adequate intake;Encourage fluids;Monitor weight trends;Oral nutrition supplement (03/04/251099) Goals: 75-100% of meals, Consume ordered supplements daily, No N/V, and Stable weight Monitoring/Evaluation: PO intake and tolerance, stool output, weight, labs, and skin integrity Nutrition Discharge Plan: Continue General diet and encourage ONS as tolerated 2x a day if PO intake doesn't improve. See below for full assessment Assessment 84 y.o.female admitted with Acute metabolic encephalopathy. PMH includes cerebrovascular disease, diabetes, hypothyroidism, hypertension, and dementia. Subjective: Pt seen earlier this am. Pt reporting no appetite otherwise feeling ok. Noted pt also with stage I PI on heel. Pt is agreeable to trying Ensure, will add for pt. Due to recent poor appetite and physical losses pt meets criteria for acute malnutrition. Food and Nutrition Related History: Pt reporting decreased appetite for several days. Pt does not have a specific reason just states she is not hungry . Pt reports no GI issues. Pt reports does takevitamins at home but isn't sure which ones. Weight changes: unclear wt gain/wt loss. Pt reporting UBW of ~145lbs and bedscale is now weighing pt at 73kg (~161lbs). Unclear which wt is correct would recommend obtaining standing scale weight. Subjective Global Assessment: Weight: During the past 2 weeks the patient's weight has: Decreased (03/04/251099) Food Intake: Compared to normal intake, over the past month the patient's intake has been: Less than usual (03/04/251099) Less than usual: Normal food but less than normal amounts (03/04/251099) Symptoms: Patient reports the following problems that have kept them from eating enough during the past 2 weeks: Fatigue;No appetite, did not feel like eating (03/04/251099) Activities & Function: Over the past month the patient generally rates their activity as: : Lowenergy but in bed or chair less than half the day (03/04/251099) Total score = SGA Score : 9 (03/04/251099) Nutrition Focused Exam Physical Findings- Summary: Malnutrition Nutrition Diagnosis: Moderate protein-calorie malnutrition (03/04/251099) Orbital: Slightly dark circles, somewhat hollow (moderate) (03/04/251099) Facial cheeks (buccal pads): Slightly depressed inward (mild) (03/04/251099) Biceps and triceps: Minor but noticeable thinning of fat tissue fold (mild) (03/04/251099) Ribs - lower back, mid axillary line: Unable to assess (03/04/251099) Subcutaneous Fat Loss Assessment: Mild fat loss (03/04/251099) Temporal: Flattened, slight but increasing depression (moderate) (03/04/251099) Clavicle: Slight protrusion (mild) (03/04/251099) Shoulder (deltoid muscle): Shoulders rounded but acromion process may protrude slightly (mild) (03/04/251099) Scapula: Unable to assess (03/04/251099) Interosseous: Slightly depressed (moderate) (03/04/251099) Thigh (quadriceps muscle): Flattened thigh appearance but no depressions (mild) (03/04/251099) Knee: Knee bone is noticeable, little muscle mass around it (moderate) (03/04/251099) Calf (gastrocnemius muscle): Some shape and firmness loss to tissue (moderate) (03/04/251099) Muscle Wasting Assessment: Moderate (03/04/251099) Edema: Normal contour with a barely perceptible pit (no findings) (03/04/251099) Hand Pipeline Welder: Mild rotor plate washer (mild) (03/04/251099) Percentage of Energy: < or equal to 50% for > or equal to 5 days (severe-acute) (03/04/251099) Percentage of Weight Loss: Unable to assess (wt possibly in error) (03/04/251099) Estimated Needs: Estimated Energy Target: 4326-5519 (03/04/251099) Estimated Protein Target: 60-70 (03/04/251099) Estimated Fluid Target : [id number] (03/04/251099) Nutrition Energy Formula: Calories per kilogram (03/04/251099) Weight Used for Formula: [place] weight (59kg) (03/04/251099) Clinical Data: Height: 5' 6 (167.6 cm) (03/01/25 1654) [place] body weight: 59.3 kg (130 lb 11.7 oz) Adjusted ideal body weight: 72.2 kg (159 lb 2 oz) Body mass index is 32.56 kg/m??. Admission:Weight: 91.5 kg (201 lb 11.5 oz) (03/01/25 1045) Weight Method: Actual (03/01/25 104) Current:Weight: 91.5 kg (201 lb 11.5 oz) (03/01/25 1654) Wt Readings from Last 8 Encounters: 03/01/25 91.5 kg (201 lb 11.5 oz) 07/16/19 88 kg (194 lb) 05/27/19 88 kg (194 lb) 04/28/19 88 kg (194 lb) 02/08/19 88.3 kg (194 lb 9.6 oz) 01/27/19 87.5 kg (193 lb) 12/04/18 87.9 kg (193 lb 12.8 oz) 11/04/18 88 kg (194 lb) Labs Recent Labs 03/02/25 0046 03/03/25 1331 03/04/25 0547 GLUCOSE 315* 263* 232* BUN 22 47* 50* CREAT 0.81 1.59* 1.28* GFR >60 32 42 NA 135* 134* 133* K 4.3 4.3 4.1 CO2 23 23 19* ANIONGAP 11 10 11 CA 8.8 8.7* 8.4* ALBUMIN -- 2.4* 2.0* ALKPHOS -- 226* 190* ALT -- 105* 77* AST -- 204* 77* BILITOTAL -- 0.4 0.3 Lab Results Component Value Date/Time HGBA1C 8.2 (H) 07/16/2019 10:07 AM Current Diet and Intake: DIET PEDIATRIC GENERAL Effective Now Food/Meal: Breakfast (03/04/25843),Intake (%): (!) 10% (03/04/25843) , Skin: Wound 03/01/25 1830 Right heel Pressure Injury-Dressing Appearance: intact (03/02/251911) Kirit Score: 15 (03/03/252002) Gastrointestinal: Last Bowel Movement (mm/dd/yyyy): 03/02/25 (03/03/252002) Stool Consistency - Reference [place] Stool Chart: soft - (type 4/5) (03/02/25 1118) Allergies: Allergies Allergen Reactions Sulfa (Sulfonamide Antibiotics) Other (See Comments) Yeast infection Niacin Rash Penicillins Swelling Past Medical History: Diagnosis Date Arthritis Basal cell carcinoma CVD (cerebrovascular disease) Light stroke 2009 x2 Dementia (CMS/HCC) Diabetes Hypothyroidism Joint pain Motion sickness Night sweats Night sweats Unspecified disorder of lipoid metabolism Unspecified essential hypertension Wears glasses Time spent:Consultation Time (mins): 30 mins (03/04/25 1100) * Karli Neves RN - 03/02/2025 1:50 PM CDTAssociated Order(s): IP CONSULT TO WOUND/SKIN CARE TEAM Images from the original note were not included. Skin/Wound/Ulcer/Pressure Injury Consult [facility] Patient Information Today's Date: 03/02/2025 Name: Helen Farrell Age: 84 y.o. Date of : 1940 CSN: [id number] Date/time of admission: 03/01/2025 10:35 AM Hospital day: LOS: 1 day Room: [address] [place] [address] Physical Assessment Wound Details: Wound 03/01/25 1830 Right heel Pressure Injury (Active) present on admission Wound (WDL) WDL except 03/02/25 1119 Pictures Taken (Date) 03/02/25 03/02/25 111 Dressing Appearance intact 03/02/25 111 Wound Shape irregular 03/02/251118 Wound Base eschar 03/02/25 111 Periwound Area satellite lesions;blanchable erythema 03/02/25 111 Wound Edges open 03/02/25 111 Wound Length (cm) 1.3 cm 03/02/25 111 Wound Width (cm) 1 cm 03/02/25 1119 Wound Depth (cm) 0.1 cm 03/02/25 111 [facility] Wound Surface Area 1.3 cm^2 03/02/25 111 Wound Surface Area (cm^2) 1.02 cm^2 03/02/25 111 [facility] Wound Volume 0.13 cm. 03/02/25 111 Wound Volume (cm^3) 0.068 cm^3 03/02/25 111 Pressure Injury Stage U 03/02/25 111 Dressing Application silicone border dressing 10/15/25 1119 Coccyx intact and blanching Mattress/surface type: Atmos Air Change surface area to: Waffle mattress, wedges, and TruVue boots. NOTES: Focused skin assessment per consult order. L heel intact. Nutrition BMI: Body mass index is 32.56 kg/m??. Current diet order: DIET GENERAL Effective Now Pressure Injury Prevention Recommendations Turn / reposition at minimum of every 2 hours or more frequently as determined by patient condition When in chair reposition at minimum every 1 hour or more frequently as determined by patient Condition Keep skin clean and free of excess moisture Frequent perineal care for excess moisture and with any soiling Protect and float heels when in bed --as condition allows HOB at lowest level tolerated by patient and medical condition. Do not massage bony prominences. Prevent shearing by utilizing lift sheets and appropriate lift equipment based on patient needs. Skin Assessment every shift Wound/Dressing Recommendations Recommendations: R heel- Cleanse wound with normal saline and pat dry. Apply Silvasorb gel BID (pull back mepilex). Cover with Mepilex border and change every 3 days and PRN per soiling. Coccyx-Wash with soap and water, pat dry. Apply Desitin 13% (SPD) BID and PRN as needed. L heel- Cleanse wound with normal saline and pat dry. Apply Mepilex border. Change every 3 days andPRN per soiling. For prevention. Dr. Chan notified of findings and recommendations. Skin team will not follow general wounds. Pressure injuries to be followed weekly unless otherwise specified. Will need to be re-consulted for new skin concerns. Total time spent: 30 min. Karli Neves RN Skin/Wound/Ostomy Please call hospital offset press operator helper to have skin team paged with questions or needs. Cosigned by Nayeli Chan MD at 03/03/2025 12:26 PM CDT * Cristopher Peraza DO - 03/02/2025 11:46 AM CDT General Surgery Consult Note Helen Farrell 1940 CSN: [id number] 03/02/2025 Subjective: Consult for: cholecystitis This is a 84 y.o. female here for altered mental status, has h/o dementia. Workup revealed a small PE, for which heparin infusion was started, as well as cholecystitis. She says she had right sided abdominal pain, but not right now. She hasn't eaten in 3 days because she didn't like the food. She denies and nausea or vomiting. She hasn't had this pain before. Denies any fevers or chills. Past Medical History: Diagnosis Date Arthritis Basal cell carcinoma CVD (cerebrovascular disease) Light stroke 2009 x2 Dementia (CMS/HCC) Diabetes Hypothyroidism Joint pain Motion sickness Night sweats Night sweats Unspecified disorder of lipoid metabolism Unspecified essential hypertension Wears glasses Past Surgical History: Procedure Laterality Date HX BLADDER SUSPENSION HX HYSTERECTOMY complete 1992 HX KNEE SURGERY Left early HX TONSILLECTOMY INSERT PERIPHERAL IV 03/02/2025 NE ARTHRP KNE CONDYLE&PLATU MEDIAL&LAT COMPARTMENTS Right 04/13/2019 KNEE ARTHROPLASTY TOTAL REPLACEMENT performed by Manjit Trejo MD at [facility] OR NE ARTHRP KNE CONDYLE&PLATU MEDIAL&LAT COMPARTMENTS Left 02/13/2017 KNEE ARTHROPLASTY TOTAL REPLACEMENT performed by Arnold Garcia MD at [facility] OR NE UNLISTED PROCEDURE MUSCSKELETAL SYSTEM GENERAL Left 05/27/2017 EXTREMITY MANIPULATION performed by Arnold Garcia MD at [facility] OR Current Facility-Administered Medications Medication Dose Route Frequency Provider Last Rate Last Admin heparin in 0.45% NaCl 25,000 unit/250 mL infusion 13 Units/kg/hr IV titrate Nayeli Chan MD 11.9 mL/hr at 03/02/25 1015 13 Units/kg/hr at 03/02/25 1015 metroNIDAZOLE (FLAGYL) IVPB 500 mg 500 mg IV every 8 hours Sebas Feliz MD Stopped at 03/02/25 1039 [DISCONTINUED] heparin in 0.45% NaCl 25,000 unit/250 mL infusion 21 Units/kg/hr IV titrate Sebas Feliz MD [COMPLETED] cefTRIAXone (ROCEPHIN) 1,000 mg in sodium chloride 0.9% 50 mL IVPB (MBP) 1,000 mg IV ONE time only Babak Larkin DO Stopped at 03/01/25 1541 [COMPLETED] sodium chloride flush injection 10 mL 10 mL IV every 5 minutes PRN Babak Larkin DO 10 mL at 03/01/25 1431 [COMPLETED] iopamidoL (ISOVUE-300) 61% injection (drawn from multi-use bulk pack) 100 mL 100 mL IV intra-proc ONE time Babak Larkin, 100 mL at 03/01/25 1431 [COMPLETED] fentaNYL (PF) (SUBLIMAZE) 50 mcg/mL injection 50 mcg 50 mcg IV ONE time only Babak Larkin DO 50 mcg at 03/01/25 1538 insulin lispro (HumaLOG,ADMELOG) injection 0-6 Units 0-6 Units subCUT TID WITH meals Sebas Feliz MD 3 Units at 03/02/25 0753 dextrose 5 % - sodium chloride 0.9 % infusion IV see admin instructions Sebas Feliz MD dextrose 50% (D50) syringe 12.5 Gram 12.5 Gram IV see admin instructions Sebas Feliz MD dextrose 50% (D50) syringe 25 Gram 25 Gram IV see admin instructions Sebas Feliz MD glucagon HCL 1 mg/mL injection 1 mg 1 mg IM see admin instructions Sebas Feliz MD sodium chloride flush injection 10 mL 10 mL IV every 12 hours (2 times daily) Sebas Feliz MD 10 mL at 03/02/25 1013 sodium chloride flush injection 10 mL 10 mL IV see admin instructions Sebas Feliz MD sodium chloride 0.9 % flush bag 25 mL 25 mL IV see admin instructions Sebas Feliz MD dextrose 5 % in water 250 mL flush bag 25 mL 25 mL IV see admin instructions Sebas Feliz MD acetaminophen (TYLENOL) tablet 650 mg 650 mg Oral every 6 hours PRN Sebas Feliz MD naloxone (NARCAN) 0.4 mg/mL injection 0.1-0.4 mg 0.1-0.4 mg IV see admin instructions Sebas Feliz MD ondansetron (ZOFRAN) 4 mg/2 mL injection 4 mg 4 mg IV every 6 hours PRN Sebas Feliz MD calcium as CARBONATE (TUMS) 500 mg (200 mg elemental) chewable tablet 400 mg 400 mg Oral every 6 hours PRN Sebas Feliz MD [COMPLETED] heparin injection 7,300 Units 80 Units/kg IV ONE time only Babak Larkin, DO 7,300Units at 03/01/25 1639 HYDROcodone-acetaminophen (NORCO) 5-325 mg per tablet 1 Tablet 1 Tablet Oral every 8 hours PRN Sebas Feliz MD aspirin (ECOTRIN EC) tablet 81 mg 81 mg Oral daily Sebas Feliz MD 81 mg at 03/02/25 1012 amLODIPine (NORVASC) tablet 5 mg 5 mg Oral daily Sebas Feliz MD 5 mg at 03/02/25 1012 losartan (COZAAR) tablet 25 mg 25 mg Oral BID Sebas Feliz MD 25 mg at 03/02/25 1012 pantoprazole (PROTONIX) tablet 40 mg 40 mg Oral daily Sebas Feliz MD 40 mg at 012 citalopram (CeleXA) tablet 20 mg 20 mg Oral daily Sebas Feliz MD 20 mg at 03/02/25 1012 galantamine (RAZADYNE) tablet 4 mg 4 mg Oral BID Sebas Feliz MD 4 mg at 03/02/25 1013 levothyroxine (SYNTHROID) tablet 100 mcg 100 mcg Oral daily EARLY Sebas Feliz MD 100 mcg at 03/02/25 0632 cefTRIAXone (ROCEPHIN) 2,000 mg in sodium chloride 0.9% 50 mL IVPB (MBP) 2,000 mg IV every 24 hours(daily) Sebas Feliz MD Stopped at 03/02/25 1118 [DISCONTINUED] iopamidoL (ISOVUE-300) 61% injection (drawn from multi-use bulk pack) 75 mL 75 mL IVintra-proc ONE time Babak Larkin DO [DISCONTINUED] heparin in 0.45% NaCl 25,000 unit/250 mL infusion 18 Units/kg/hr IV titrate Babak Larkin DO Stopped at 03/02/25 0159 Allergies Allergen Reactions Sulfa (Sulfonamide Antibiotics) Other (See Comments) Yeast infection Niacin Rash Penicillins Swelling Social History Tobacco Use Smoking status: Never Smokeless tobacco: Never Substance Use Topics Alcohol use: No Family History Problem Relation Name Age of Onset Healthy Son Diabetes Son Stroke Brother Breast Cancer Maternal Cousin 50's? Cancer Mother age 65 pancreatic Unknown Father Heart Disease Mother age 65 Review of Systems Except as listed above, all other systems were reviewed and are negative. Objective: BP 128/53 (BP Location: Right arm, Patient Position (BP): Supine) Pulse 100 Temp 99 ??F (37.2 ??C) (Temporal) Resp 16 Ht 5' 6 (1.676 m) Wt 91.5 kg (201 lb 11.5 oz) SpO2 97% BMI 32.56 kg/m?? General appearance: alert, in no distress, slowed mentation Neck: supple, symmetrical, trachea midline Lungs: normal respiratory effort Heart: regular rate and rhythm Abdomen: soft, non-distended, RUQ tenderness Extremities: extremities normal, atraumatic, no cyanosis or edema, intact distal pulses, moves all extremities equally Skin: Skin color, texture, turgor normal. No rashes or lesions Neurologic: Grossly normal Data Review: CBC: Recent Labs 03/01/25 1100 03/01/25 1613 03/02/25 0046 WBC 10.2 12.9* 11.7* HGB 9.6* 11.1* 9.9* HCT 30.8* 35.5* 30.9* PLT 168 196 181 MCV 90.6 90.8 88.3 BMP: Recent Labs 03/01/25 1100 03/02/25 0046 GLUCOSE 189* 315* BUN 24* 22 CREAT 0.91 0.81 NA 137 135* K 3.8 4.3 CL 104 101 CO2 24 23 ANIONGAP 9 11 LFTs: Recent Labs 03/01/25 1100 ALKPHOS 101 ALT 14 AST 16 BILITOTAL 0.6 ALBUMIN 2.7* Coagulation: Recent Labs 03/01/25 1100 03/01/25 1613 PT 16.7* -- INR 1.3* -- APTT 31.5 25.1 ABGs: No results for input(s): PH , PCO2 , PO2 , HCO3 , BASEEXCESS , SO2 in the last [address] abdomen and pelvis: 1. Cholelithiasis. 2. Inflammatory changes are present in the gallbladder consistent with cholecystitis. 3. Diverticulosis without evidence of diverticulitis. 4. Very small right pulmonary embolism is incidentally noted. Imaging studies personally reviewed. Labs personally reviewed. Assessment: Principal Problem: Acute metabolic encephalopathy Active Problems: Hypothyroidism Essential hypertension Dyslipidemia History of TIA (transient ischemic attack) - 2009 Anxiety and depression UTI (urinary tract infection) Anemia Acute cholecystitis Plan: # acute calculous cholecystitis: - continue antibiotics - consult IR for percutaneous cholecystostomy tube given Plavix and current anticoagulation Cristopher Peraza DO * Foster Guzman RN - 03/02/2025 7:08 AM CDTAssociated Order(s): IP CONSULT TO IV TEAM VASCULAR ACCESS CONSULT PATIENT NAME: Helen Farrell DATE OF : 1940 CSN: [id number] DATE: 03/02/2025 Room: [address] [place] [address] Admit Date: 03/01/2025 Hospital day: LOS: 1 day INDICATION: Numerous incompatible IV medications. EXCLUSIONS/CONSIDERATIONS: Pt currently on heparin infusion. LAST RECORDED TEMP: Temp: 97.8 ??F (36.6 ??C) (03/02/25 0338)] Assessment Allergies Allergen Reactions Sulfa (Sulfonamide Antibiotics) Other (See Comments) Yeast infection Niacin Rash Penicillins Swelling Lab Results Component Value Date/Time CREAT 0.81 03/02/2025 12:46 AM BUN 22 03/02/2025 12:46 AM NA 135 (L) 03/02/2025 12:46 AM K 4.3 03/02/2025 12:46 AM KPOC 4.0 05/27/2017 06:15 AM CL 101 03/02/2025 12:46 AM CO2 23 03/02/2025 12:46 AM GFR >60 03/02/2025 12:46 AM Lab Results Component Value Date/Time WBC 11.7 (H) 03/02/2025 12:46 AM HGB 9.9 (L) 03/02/2025 12:46 AM HGBPOC 14.3 05/27/2017 06:15 AM HCT 30.9 (L) 03/02/2025 12:46 AM HCTPOC 42 05/27/2017 06:15 AM PLT 181 03/02/2025 12:46 AM MCV 88.3 03/02/2025 12:46 AM Lab Results Component Value Date/Time INR 1.3 (H) 03/01/2025 11:00 AM PT 16.7 (H) 03/01/2025 11:00 AM Past Medical History: Diagnosis Date Arthritis Basal cell carcinoma CVD (cerebrovascular disease) Light stroke 2009 x2 Dementia (CMS/HCC) Diabetes Hypothyroidism Joint pain Motion sickness Night sweats Night sweats Unspecified disorder of lipoid metabolism Unspecified essential hypertension Wears glasses Past Surgical History: Procedure Laterality Date HX BLADDER SUSPENSION HX HYSTERECTOMY complete 1992 HX KNEE SURGERY Left early HX TONSILLECTOMY NE ARTHRP KNE CONDYLE&PLATU MEDIAL&LAT COMPARTMENTS Right 04/13/2019 KNEE ARTHROPLASTY TOTAL REPLACEMENT performed by Manjit Trejo MD at [facility] OR NE ARTHRP KNE CONDYLE&PLATU MEDIAL&LAT COMPARTMENTS Left 02/13/2017 KNEE ARTHROPLASTY TOTAL REPLACEMENT performed by Aronld Garcia MD at [facility] OR NE UNLISTED PROCEDURE MUSCSKELETAL SYSTEM GENERAL Left 05/27/2017 EXTREMITY MANIPULATION performed by Arnold Garcia MD at [facility] OR Current Facility-Administered Medications: heparin in 0.45% NaCl 25,000 unit/250 mL infusion, 15 Units/kg/hr, IV, titrTray simon Muhammad Khalid, MD, Last Rate: 13.7 mL/hr at 03/02/25 0309, 15 Units/kg/hr at 03/02/25 0309 [DISCONTINUED] heparin in 0.45% NaCl 25,000 unit/250 mL infusion, 21 Units/kg/hr, IV, Tray jacob Muhammad Khalid, MD [COMPLETED] cefTRIAXone (ROCEPHIN) 1,000 mg in sodium chloride 0.9% 50 mL IVPB (MBP), 1,000 mg, IV,ONE time only, Babak Larkin DO, Stopped at 03/01/25 1541 [COMPLETED] sodium chloride flush injection 10 mL, 10 mL, IV, every 5 minutes PRN, Babak Larkin DO, 10 mL at 03/01/25 1431 [COMPLETED] iopamidoL (ISOVUE-300) 61% injection (drawn from multi-use bulk pack) 100 mL, 100 mL, IV, intra-proc ONE time, Babak Larkin DO, 100 mL at 03/01/25 1431 [COMPLETED] fentaNYL (PF) (SUBLIMAZE) 50 mcg/mL injection 50 mcg, 50 mcg, IV, ONE time only, Babak Larkin DO, 50 mcg at 03/01/25 1538 insulin lispro (HumaLOG,ADMELOG) injection 0-6 Units, 0-6 Units, subCUT, TID WITH meals, Sebas Feliz MD, 3 Units at 03/01/252113 dextrose 5 % - sodium chloride 0.9 % infusion, , IV, see admin instructions, Sebas Feliz MD dextrose 50% (D50) syringe 12.5 Gram, 12.5 Gram, IV, see admin instructions, Sebas Feliz MD dextrose 50% (D50) syringe 25 Gram, 25 Gram, IV, see admin instructions, Sebas Feliz MD glucagon HCL 1 mg/mL injection 1 mg, 1 mg, IM, see admin instructions, Sebas Feliz MD sodium chloride flush injection 10 mL, 10 mL, IV, every 12 hours (2 times daily), Sebas Feliz MD, 10 mL at 03/01/252112 sodium chloride flush injection 10 mL, 10 mL, IV, see admin instructions, Sebas Feliz MD sodium chloride 0.9 % flush bag 25 mL, 25 mL, IV, see admin instructions, Sebas Feliz MD dextrose 5 % in water 250 mL flush bag 25 mL, 25 mL, IV, see admin instructions, Sebas Feliz MD acetaminophen (TYLENOL) tablet 650 mg, 650 mg, Oral, every 6 hours PRN, Sebas Feliz MD naloxone (NARCAN) 0.4 mg/mL injection 0.1-0.4 mg, 0.1-0.4 mg, IV, see admin instructions, Sebas Feliz MD ondansetron (ZOFRAN) 4 mg/2 mL injection 4 mg, 4 mg, IV, every 6 hours PRN, Sebas Feliz MD calcium as CARBONATE (TUMS) 500 mg (200 mg elemental) chewable tablet 400 mg, 400 mg, Oral, every 6hours PRN, Sebas Feliz MD [COMPLETED] heparin injection 7,300 Units, 80 Units/kg, IV, ONE time only, Babak Larkin, DO, 7,300 Units at 03/01/25 1639 HYDROcodone-acetaminophen (NORCO) 5-325 mg per tablet 1 Tablet, 1 Tablet, Oral, every 8 hours PRN, Sebas Feliz MD aspirin (ECOTRIN EC) tablet 81 mg, 81 mg, Oral, daily, Sebas Feliz MD amLODIPine (NORVASC) tablet 5 mg, 5 mg, Oral, daily, Sebas Feliz MD losartan (COZAAR) tablet 25 mg, 25 mg, Oral, BID, Sebas Feliz MD, 25 mg at 03/01/252111 pantoprazole (PROTONIX) tablet 40 mg, 40 mg, Oral, daily, Sebas Feliz MD citalopram (CeleXA) tablet 20 mg, 20 mg, Oral, daily, Sebas Feliz MD galantamine (RAZADYNE) tablet 4 mg, 4 mg, Oral, BID, Sebas Feliz MD, 4 mg at 03/01/252111 levothyroxine (SYNTHROID) tablet 100 mcg, 100 mcg, Oral, daily EARLY, Sebas Feliz MD, 100 mcg at 03/02/25 0632 cefTRIAXone (ROCEPHIN) 2,000 mg in sodium chloride 0.9% 50 mL IVPB (MBP), 2,000 mg, IV, every 24 hours (daily), Sebas Feliz MD [DISCONTINUED] iopamidoL (ISOVUE-300) 61% injection (drawn from multi-use bulk pack) 75 mL, 75 mL, IV, intra-proc ONE time, Babak Larkin DO [DISCONTINUED] heparin in 0.45% NaCl 25,000 unit/250 mL infusion, 18 Units/kg/hr, IV, titrate, Babak Larkin DO, Stopped at 03/02/25 0159 PLAN Assess pt for additional PIV access. Foster Guzman RN * Parker Zendejas MD - 03/01/2025 11:46 AM CDT Neurology Consultation Note Patient seen 03/01/2025 and visit completed about 11:46 AM. Babak Larkin DO requests an evaluation of the patient for strokelike symptoms CHIEF COMPLAINT : Stroke activated HISTORY OF PRESENT ILLNESS This is a 84-year-old right-handed female with known history of Alzheimer dementia and hypertensionlives in a retirement who presented with confusional episode. Patient has been having episode of confusion on and off. Episode of staring and drifting away. According to family patient usually awake and alert responding answer questions following commands. She had hip fracture status post surgeryin 01/17/2025. Today last known normal around 6:30 AM while at breakfast they noted that she has beenhaving some confusion left facial droop and possible side weakness. Per the time she came to the ERher symptoms has almost resolved with no any other focal deficit. When family came she knew them engage with them appropriately without any problem. No any focal deficit was appreciated. Blood pressure 140/90. Past Medical History: ALLERGY Allergies Allergen Reactions Sulfa (Sulfonamide Antibiotics) Other (See Comments) Yeast infection Penicillins Swelling PAST HISTORY Past Medical History: Diagnosis Date Arthritis Basal cell carcinoma CVD (cerebrovascular disease) Light stroke 2009 x2 Diabetes Hypothyroidism Joint pain Motion sickness Night sweats Night sweats Unspecified disorder of lipoid metabolism Unspecified essential hypertension Wears glasses Past Surgical History: Procedure Laterality Date HX BLADDER SUSPENSION HX HYSTERECTOMY complete 1992 HX KNEE SURGERY Left early HX TONSILLECTOMY NE MUSCULOSKELETAL SURGERY UNLISTED Left 05/27/2017 EXTREMITY MANIPULATION performed by Arnold Garcia MD at [facility] OR NE TOTAL KNEE ARTHROPLASTY Right 04/13/2019 KNEE ARTHROPLASTY TOTAL REPLACEMENT performed by Manjit Trejo MD at [facility] OR NE TOTAL KNEE ARTHROPLASTY Left 02/13/2017 KNEE ARTHROPLASTY TOTAL REPLACEMENT performed by Arnold Garcia MD at [facility] OR SOCIAL HISTORY reports that she has never smoked. She has never used smokeless tobacco. She reports that she does not drink alcohol and does not use drugs. FAMILY HISTORY family history includes Breast Cancer in her maternal cousin; Cancer in her mother; Diabetes in yee; Healthy in her son; Heart Disease in her mother; Stroke in her brother; Unknown in her father. PRIOR TO ADMISSION MEDICATIONS No current facility-administered medications on file prior to encounter. Current Outpatient Medications on File Prior to Encounter Medication Sig Dispense Refill insulin aspart protamine-aspar (NovoLOG Mix 70-30 U-100 Insuln) 100 unit/mL (70- 30) vial Inject 25 units subq twice daily with meals. Patient must be seen for any additional refills 20 mL 0 levothyroxine 100 mcg tablet TAKE 1 TABLET BY MOUTH ONCE DAILY. Patient must be seen for any additional refills 90 Tablet 0 metFORMIN (GLUCOPHAGE) 1,000 mg tablet TAKE 1 TABLET BY MOUTH TWICE DAILY WITH MEALS 180 Tablet 0 losartan (COZAAR) 25 mg tablet Take 1 tablet by mouth twice daily 180 Tablet 0 blood sugar diagnostic Strip Use to test blood glucose three times daily. 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 100 Each 2 simvastatin (ZOCOR) 40 mg tablet TAKE 1 TABLET BY MOUTH LATE IN THE DAY 90 Tablet 3 dimenhyDRINATE (DRAMAMINE) 50 mg Tablet Take 50 mg by mouth every 4 hours as needed for Dizziness. mv-mn/C/glutamin/lysin/sasc462 (AIRBORNE, ASCORBATE SODIUM, ORAL) Take 1 Tablet by mouth 1 time daily as needed. lancets 30 gauge Use to check glucose TID. 100 Each 2 Blood-Glucose Meter Use to check glucose TID. 1 Each 1 Review of Systems A 14 system review of symptoms was performed, All other systems are negative. Constitutional: no fever, chills, weight loss Eye: no loss of vision, blurred vision or double vision. ENT: no hearing loss, runny nose or sore throat. Cardio: no chest pain or discomfort, no palpitations. Resp: no shortness of breath, cough or sputum. GI: no nausea, vomiting, diarrhea or constipation Urinary: no retention or incontinence. EXAMINATION NIHSS 03/01/2025 1045 Interval: Baseline 1a. Level of Consciousness: 0 1b. LOC Questions: 1 1c. LOC Commands: 0 2. Best Gaze: 0 3. Visual: 0 4. Facial Palsy: 0 5a. Motor Arm, Left: 0 5b. Motor Arm, Right: 0 6a. Motor Leg, Left: 3 6b. Motor Leg, Right: 3 7. Limb Ataxia: 0 8. Sensory: 0 9. Best Language: 0 10. Dysarthria: 0 11. Extinction and Inattention (formerly Neglect): 0 NIHSS (Total): 7 BP (!) 142/69 Pulse 84 Temp 98.2 ??F (36.8 ??C) (Oral) Resp 29 Wt 91.5 kg (201 lb 11.5 oz) SpO2 94% BMI 32.56 kg/m?? General: NAD, pleasant, cooperative CVS: RRR, no carotid bruit. Chest: No signs of resp distress, clear breath sounds Abdomen: Soft, NTTP Extremities: no edema or cyanosis Neuro: MENTAL STATUS: AAOx3, memory intact, fund of knowledge appropriate LANG/SPEECH: Naming and repetition intact, fluent, follows 3-step commands CRANIAL NERVES: Nonfocal XII: midline tongue protrusion MOTOR: 5/5 in both upper and lower extremities REFLEXES: 2/4 throughout, bilateral flexor planter response, no Holman's, no clonus SENSORY:Normal, no extinction to double sided stimulation (visual & tactile), Romberg absent COORD: Normal finger to nose and heel to ryan, no tremor, no dysmetria GAIT: Deferred due to acute condition DATA The following data was reviewed: Imaging: reviewed . Labs: reviewed This is accompanied by active hospital problems of: Active Problems: * No active hospital problems. * Assessment and plan: Symptoms is consistent with acute confusional state on chronic dementia. She does have Alzheimer dementia. Less likely due to stroke or TIA Recommendation: Rule out any septic metabolic etiology Can go home on dementia medication such as Aricept 10 mg a day and or Namenda 10 mg twice daily Discussed with Dr. Larkin No further recommendation Parker Zendejas MD Neurologist - Board certified [facility] Department of Neurology [facility] [address] [place] [address] Office: [phone] documented in this encounter ED Notes * Imani Naik RN - 03/01/2025 4:56 PM CDT Report called to Boyd PARNELL, all questions answered. * Katharine Contreras - 03/01/2025 11:00 AM CDT Reason for Visit: Crisis (stroke) Patient spiritual issues identified summary of patient???s most significant issue(s): Patient (stroke team with pt) present during encounter. Goals of Spiritual Care Maintenance Controller Plan: Spiritual Care Services remain available for referral PRN. Recommendations for Healthcare Team As spiritual needs/distress arise, please contact Spiritual Care Services. We will follow up as needed. Thank you for this referral. Rev Katharine Lovett MBA, MDiv, [facility] Maintenance Controller II Certified, [email or web address] Care [email or web address] [phone] Dept [phone] [facility] Mobile Phone * Imani Naik RN - 03/01/2025 10:55 AM CDT Stroke alert cancelled at this time. * Imani Naik RN - 03/01/2025 10:36 AM CDT Pt brought in by flight from [facility] in [place]. Per [place] facility, pt had new onset confusion this morning, LKW was 0630. Pt complained of new left sided weakness. She takes Plavix. Blood glucose 188. VSS per EMS. Pt axox4 at baseline. Left facial droop present at arrival to ED. 79 kg. Bilat 20 g. She has been in [place] since 01/17 after R hip fracture. * Babak Larkin, - 03/01/2025 10:35 AM CDT HISTORY OF PRESENT ILLNESS Helen Farrell, a 84 y.o. female presents to the ED with a Chief Complaint of Altered mental status Subjective Patient presents for concerns of altered mental status and left-sided weakness. Last known well approximately 630 this morning. EMS reports that they were called for some confusion and new onset left-sided weakness. EMS reportsthat she is oriented x 2-3. She has had clear speech. Vital signs were normal and route. Some mild left-sided weakness reported with a race of 2. Patient is currently residing in a penitentiary status post right hip fracture and repair. She does have indwelling Herrera catheter in place. Patient states that she generally feels well. Still with pain to her right leg. Is not walking yet.But she does get around in a wheelchair in the care facility. She has had no fever that she knows of. No nausea vomiting. Denies chest pain shortness of breath abdominal pain. When asked if she feels more weak on the left she states that she does not know. She feels generally weak as well. History provided by: The patient and the EMS personnel REVIEW OF SYSTEMS Review of Systems Constitutional: Negative. HENT: Negative. Respiratory: Negative. Cardiovascular: Negative. Gastrointestinal: Negative. Musculoskeletal: Negative for back pain and neck pain. Skin: Negative for wound. Neurological: Positive for weakness. Negative for dizziness and headaches. PAST MEDICAL HISTORY REVIEWED MEDICAL: Patient has a past medical history of Arthritis, Basal cell carcinoma, CVD (cerebrovascular disease), Diabetes, Hypothyroidism, Joint pain, Motion sickness, Night sweats, Night sweats, Unspecified disorder of lipoid metabolism, Unspecified essential hypertension, and Wears glasses. SURGICAL: Patient has a past surgical history that includes pr arthrp kne condyle&platu medial&lat compartments (Right, 04/13/2019); pr unlisted procedure muscskeletal system general (Left, 05/27/2017); knee surgery (Left); hysterectomy; tonsillectomy; bladder suspension; and pr arthrp kne condyle&platu medial&lat compartments (Left, 02/13/2017). FAMILY: Patient's family history includes Breast Cancer in her maternal cousin; Cancer in her mother; Diabetes in her son; Healthy in her son; Heart Disease in her mother; Stroke in her brother; Unknown in her father. SOCIAL: reports that she has never smoked. She has never used smokeless tobacco. She reports that she does not drink alcohol and does not use drugs. No history on file. Social History Other Topics Concern Not on file ALLERGIES Sulfa (sulfonamide antibiotics) and Penicillins HOME MEDICATIONS Patient's Home Medications Current Home Medications BLOOD SUGAR DIAGNOSTIC STRIP BLOOD-GLUCOSE METER DIMENHYDRINATE (DRAMAMINE) 50 MG TABLET INSULIN ASPART PROTAMINE-ASPAR (NOVOLOG MIX 70-30 U-100 INSULN) 100 UNIT/ML (70- 30) VIAL INSULIN SYRINGE-NEEDLE U-100 0.5 ML 30 GAUGE X 5/16 SYRINGE LANCETS 30 GAUGE LEVOTHYROXINE 100 MCG TABLET LOSARTAN (COZAAR) 25 MG TABLET METFORMIN (GLUCOPHAGE) 1,000 MG TABLET MV-MN/C/GLUTAMIN/LYSIN/[id number] (AIRBORNE, ASCORBATE SODIUM, ORAL) SIMVASTATIN (ZOCOR) 40 MG TABLET Medications Modified during this Encounter No medications on file Medications Discontinued during this Encounter No medications on file Objective PHYSICAL EXAM INITIAL VS BP: (!) 145/61 (03/01/25 1040), Heart Rate: 82 bpm (03/01/25 1040), Resp: 18 (03/01/25 1040), Pulse: 82 (03/01/25 1040), Temp: 98.2 ??F (36.8 ??C) (03/01/25 1052), Temp src: Oral (03/01/25 1052), SpO2: 94 % (03/01/25 1040), Height: (not recorded), Weight: 91.5 kg (201 lb 11.5 oz) (03/01/25 1045), BMI (Calculated): (not recorded) No LMP recorded. Physical Exam Constitutional: General: She is not in acute distress. Appearance: Normal appearance. She is well-developed. She is not ill-appearing or toxic-appearing. Comments: Chronically ill-appearing. No acute distress. She is awake and alert. Did not know the month but is able to tell me her birthdate and age. HENT: Head: Normocephalic and atraumatic. Eyes: General: No scleral icterus. Conjunctiva/sclera: Conjunctivae normal. Pupils: Pupils are equal, round, and reactive to light. Cardiovascular: Rate and Rhythm: Normal rate and regular rhythm. Heart sounds: Normal heart sounds. No murmur heard. No friction rub. No gallop. Pulmonary: Effort: Pulmonary effort is normal. Breath sounds: Normal breath sounds. Abdominal: General: There is no distension. Palpations: Abdomen is soft. Tenderness: There is no abdominal tenderness. There is no guarding or rebound. Musculoskeletal: General: No tenderness. Cervical back: Normal range of motion and neck supple. No rigidity. Right lower leg: No edema. Left lower leg: No edema. Skin: General: Skin is warm and dry. Findings: No rash. Neurological: General: No focal deficit present. Mental Status: She is alert and oriented to person, place, and time. Cranial Nerves: No cranial nerve deficit. Comments: Questionable mild left facial droop noted. No drift to the left upper extremity. Patient is unable to lift either her left or right leg. Please see trade show coordinator's notes for specifics. Psychiatric: Mood and Affect: Mood normal. Behavior: Behavior normal. DIAGNOSTICS LAB: CBC WITH DIFFERENTIAL - Abnormal Result Value WBC 10.2 RBC 3.40 (*) HEMOGLOBIN 9.6 (*) HEMATOCRIT 30.8 (*) MCV 90.6 MCH 28.2 MCHC 31.2 PLATELETS 168 MPV 11.0 RDW 15.3 (*) RDW-STDEV 50.5 NEUTROPHILS 78 (*) LYMPHOCYTES 13 (*) MONOCYTES 8 EOSINOPHILS 0 BASOPHILS 0 IMMATURE GRANULOCYTES 0 NEUTROPHIL ABSOLUTE 8.01 (*) LYMPHOCYTE ABSOLUTE 1.30 MONOCYTE ABSOLUTE 0.84 (*) EOSINOPHIL ABSOLUTE 0.03 BASOPHILS ABSOLUTE 0.01 IMMATURE GRANULOCYTES ABSOLUTE 0.03 SMEAR REVIEWED: NA - Not Applicable PROTIME-INR - Abnormal PROTIME 16.7 (*) INR 1.3 (*) COMPREHENSIVE METABOLIC PANEL - Abnormal SODIUM 137 POTASSIUM 3.8 CHLORIDE 104 CO2 24 CALCIUM 8.8 BUN 24 (*) CREATININE 0.91 GLUCOSE 189 (*) TOTAL PROTEIN 5.7 (*) ALBUMIN 2.7 (*) BILIRUBIN TOTAL 0.6 ALKALINE PHOSPHATASE 101 AST 16 ALT 14 GFR >60 ANION GAP 9 URINALYSIS WITH REFLEX MICROSCOPIC - Abnormal COLOR UA Yellow CLARITY UA Turbid (*) SPECIFIC GRAVITY UA 1.026 PH UA 6.5 LEUKOCYTE ESTERASE UA 3+ (*) NITRITE UA Negative PROTEIN UA 2+ (*) GLUCOSE UA Negative KETONES UA Negative UROBILINOGEN UA <2.0 BILIRUBIN UA Negative BLOOD UA 1+ (*) WBC UA >100 (*) RBC UA 26-50 (*) BACTERIA UA 3+ (*) EPITHELIAL CELLS, URINE 0-5 WBC CLUMPS Present (*) PTT - Normal PTT 31.5 TSH REFLEXIVE - Normal TSH 1.99 URINE CULTURE EXTRA TUBE (URINE LEE) CBC WITHOUT DIFFERENTIAL PTT UNFRACTIONATED HEPARIN MONITORING POC GLUCOSE POC GLUCOSE RADIOLOGY: CT ABDOMEN PELVIS W CONTRAST Radiologist Impression IMPRESSION: 1. Cholelithiasis. 2. Inflammatory changes are present in the gallbladder consistent with cholecystitis. 3. Diverticulosis without evidence of diverticulitis. 4. Very small right pulmonary embolism is incidentally noted. The findings and/or imaging diagnoses in the above impression have been deemed a critical result by the interpreting radiologist and immediately reported as such to the ordering physician or appropriate licensed caregiver in accordance with current radiology department policy. CT HEAD WO CONTRAST Radiologist Impression IMPRESSION: Please see below. Exam: CT HEAD WO CONTRAST Date/Time of Exam: 03/01/2025 10:48 AM Reason For Exam: Neuro deficit, acute, stroke suspected, left sx. Diagnosis: See Reason for Exam. Technique: CT of the head was performed without the administration of intravenous contrast. Comparison: CTA head and neck 11/21/2013. Findings: Interval development of moderate diffuse atrophy and worsening low attenuating chronic small vessel ischemic changes throughout the cerebral white matter. The brainstem and cerebellum are unremarkable. No abnormal extra-axial fluid. Intact calvarium. No fluid in the middle ear cavities or mastoid air cells. Lens replacement postoperative changes. IMPRESSION: 1. Atrophy and chronic small vessel ischemic changes. EKG: First and has EKG my interpretation: Normal sinus rhythm, rate 79, normal axis and intervals, ST and T waves show no signs of acute infarction PROCEDURES Procedures MEDICAL DECISION MAKING AND PLAN OF CARE Medical Decision Making Patient presents as a stroke activation. Apparently some confusion this morning and questionable left-sided weakness. History as above. On arrival there was questionable left facial droop however of present was incredibly subtle. No drift or weakness on the left upper extremity. Symmetric weakness to her lower extremities. Please see neurologist notes for specifics. CT of the head did not show anything acute. 1102: Spoke to the neurologist. He does feel this is less likely a TIA or stroke does not think this is acute. Likely dementia related. Family states that she is baseline currently. Will continue however to check for any signs of infection or other possible causes of a mild cephalopathy. Family did arrive. Met with them. They do state that she is baseline at this time. However patient's [id number] does mention patient has complained of some right sided abdominal pain for a couple of days. Patient did not initially mention this. She does state that she has had it for 1 to 2 days. On exam she does have quite a bit of tenderness in her right lower quadrant. She there are some guarding as well. Will have to obtain a CT of the abdomen pelvis. CT scan noted. Will add ultrasound of the gallbladder for better assessment. CT scan did discover a small PE in the right lower lung as well. At this time due to patient's comorbidities, complex case and multiple medical issues patient will require admission to the hospital. I did discuss this case with the hospitalist Dr. Feliz it was felt that since patient is not hypoxic and she is hemodynamically stable that we bolusing patient for CTA of the chest would not knife changer as we are can go ahead and start her on heparin drip. Patient did receive Rocephin already for urinary tract infection. Ultrasound of the gallbladder pending at the time of admission. Hospitalist will follow-up with this. At this time patient remains hemodynamically stable. Admitted to the hospital service for further evaluation and treatment. Problems Addressed: Anemia, unspecified type: undiagnosed new problem with uncertain prognosis Calculus of gallbladder with acute cholecystitis without obstruction: undiagnosed new problem with uncertain prognosis Complicated urinary tract infection: complicated acute illness or injury with systemic symptoms History of dementia: chronic illness or injury Other acute pulmonary embolism without acute cor pulmonale: complicated acute illness or injury Stage I pressure ulcer of right heel: undiagnosed new problem with uncertain prognosis Amount and/or Complexity of Data Reviewed Labs: ordered. Radiology: ordered. Decision-making details documented in ED Course. ECG/medicine tests: ordered and independent interpretation performed. Decision- making details documented in ED Course. Risk Prescription drug management. Parenteral controlled substances. Drug therapy requiring intensive monitoring for toxicity. Decision regarding hospitalization. Risk Details: Drug therapy requiring intensive monitoring for toxicity -heparin Clinical Scoring & Consults Medications Administered During the ED Stay from 03/01/2025 1035 to 03/01/2025 1555 Date/Time Order Dose Route Action 03/01/2025 1541 CDT cefTRIAXone (ROCEPHIN) 1,000 mg in sodium chloride 0.9% 50 mL IVPB (MBP) 0 mg IV Stopped 03/01/2025 1306 CDT cefTRIAXone (ROCEPHIN) 1,000 mg in sodium chloride 0.9% 50 mL IVPB (MBP) 1,000 mg IV New Bag 03/01/2025 1431 CDT sodium chloride flush injection 10 mL 10 mL IV Given 03/01/2025 1431 CDT iopamidoL (ISOVUE-300) 61% injection (drawn from multi-use bulk pack) 100 mL 100 mL IV Contrast Given 03/01/2025 1538 CDT fentaNYL (PF) (SUBLIMAZE) 50 mcg/mL injection 50 mcg 50 mcg IV Given . New Prescriptions for this Encounter LAST VS BP: (!) 172/62 (03/01/25 1500), Heart Rate: 78 bpm (03/01/25 1400), Resp: 21 (03/01/25 1400), Pulse: 85 (03/01/25 1500), Temp: 98.2 ??F (36.8 ??C) (03/01/25 1052), Temp src: Oral (03/01/25 1052), SpO2: 92 % (03/01/25 1500) CLINICAL IMPRESSION Diagnoses Diagnosis Comment Added By Time Added Complicated urinary tract infection [N39.0] Babak Larkin, DO 03/01/2025 1:00 PM Generalized weakness [R53.1] Babak Larkin, DO 03/01/2025 1:00 PM Stage I pressure ulcer of right heel [L89.611] Babak Larkin DO 03/01/2025 1:01 PM Anemia, unspecified type [D64.9] Babak Larkin DO 03/01/2025 1:27 PM History of dementia [Z86.59] Babak Larkin DO 03/01/2025 3:39 PM Calculus of gallbladder with acute cholecystitis without obstruction [K80.00] Babak Larkin DO 03/01/2025 3:39 PM Other acute pulmonary embolism without acute cor pulmonale [I26.99] Babak Larkin DO 03/01/2025 3:42 PM DISPOSITION, EDUCATION AND MEDICATION RECONCILIATION Medications reconciled. See after visit summary for patient education on discharged patients. ED Disposition ED Disposition Admit Condition Stable User Babak Larkin DO Date/Time FriMar 01, 2025 3:43 PM Comment -- ATTESTATION STATEMENTS Diagnoses Diagnosis Comment Added By Time Added Complicated urinary tract infection [N39.0] Babak Larkin DO 03/01/2025 1:00 PM Generalized weakness [R53.1] Babak Larkin DO 03/01/2025 1:00 PM Stage I pressure ulcer of right heel [L89.611] Babak Larkin DO 03/01/2025 1:01 PM Anemia, unspecified type [D64.9] Babak Larkin DO 03/01/2025 1:27 PM History of dementia [Z86.59] Babak Larkin DO 03/01/2025 3:39 PM Calculus of gallbladder with acute cholecystitis without obstruction [K80.00] Babak Larkin DO 03/01/2025 3:39 PM Other acute pulmonary embolism without acute cor pulmonale [I26.99] Babak Larkin DO 03/01/2025 3:42 PM documented in this encounter Miscellaneous Notes * Care Plan - Patricia Gooden MSW - 03/07/2025 8:42 AM CDT Clinical Technician Discharge Planning Expected Discharge Date Mar 07, 2025 Plan Discharge To: [facility] Facility (03/07/25840) Referrals Status: Facility Referrals - Accepted and Selected Destination - Admitted Since 03/01/2025 Service Provider Services Address Phone Fax Patient Preferred [facility] [address], [facility] [address] [phone] -- Follow-up on Referrals Sent: Yes (03/07/25840) Call to Dasha at [facility] who will accept patient today. 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 03/07/25840 Discharge Planning Plan Discharge To [facility] Facility Patient/Family Communications Referral Status update Discharge Plan Agreed Upon Spouse Resource List Given Care facilities Resource List Given To Spouse Information Given Concerning Criteria for (skilled) nursing facility Follow-up on Referrals Sent Yes Has discharge transport been arranged? Yes Transportation Provider [facility] Transportation Contact Name Lars Transportation Provider Phone [phone] Final Discharge Arrangements Final Discharge Disposition SNF Care Facility Name [facility] Phone Number phone # [phone] fax # [phone] Date Of Pick-Up 03/07/25 Time Of Pick-Up 0930 Copy of this transfer form will be sent with patient along with: AVS;Pertinent Medical Records Preferred Pharmacy: [facility] [address] [place] [address] [address] [id number] [place], [place] [address] [facility] [address] Patient / Family Communications: Patient/Family Communications: Referral Status update (03/07/25840) Discharge Plan Agreed Upon: Spouse (03/07/25840) Resources Provided: Resource List Given: Care facilities (03/07/25840) Resource List Given To: Spouse (03/07/25840) Information Given Concerning: Criteria for (skilled) nursing facility (03/07/25840) Transportation Plan: Has discharge transport been arranged?: Yes (03/07/25840) Transportation Provider: [facility] (03/07/25840) Transportation Contact Name: Lars (03/07/25840) Transportation Provider Phone: [phone] (03/07/25 08) Date Of Pick-Up: 03/07/25 (03/07/25840) Time Of Pick-Up: 929 (03/07/25840) Follow Up Appointments Scheduled MONIQUE Cooley * Care Plan - Meliton Harmon, RN - 03/05/2025 5:29 AM CDT Shift Summary Antibiotics and metroNIDAZOLE were administered and then discontinued during the shift, with ongoing herrera care and no new findings in infection-related documentation. Safety measures were maintained, including frequent rounding and fall risk acknowledgment. Skin and wound status remained stable, with dressing and herrera care performed. Oxygen therapy was continued and respiratory status remained unchanged. Musculoskeletal function was limited, with moderate weakness and need for assistance during transfers. Infection Risk/Actual: Infection prevention, control, or resolution by discharge: metroNIDAZOLE andampicillin (OMNIPEN) 2 g vial were administered and then stopped during the shift; herrera care with CHG was performed, and no signs identified in documentation related to UTI; drain site remained clean, dry, and patent with no change in drainage amount or odor. Safety/Fall: Absence of fall, injury, harm during hospitalization: Safety checks were completed, fall risk was acknowledged, and rounding tasks ensured personal items and call button remained in reach throughout the shift. Maintain skin integrity and/or promote wound healing by discharge: Skin and wound documentation remained unchanged, with herrera care performed and dressing intact at all sites. Achieve optimal respiratory function by discharge and/or maintain baseline function: Oxygen therapycontinued at 2 L/min via nasal cannula, SpO2 remained stable, and respiratory status documentation did not change. Achieve optimal musculoskeletal function by discharge or maintain baseline function: Mobility remained slightly limited, moderate generalized muscle weakness persisted, and patient required two-person assist for transfers; patient refused activity at one point. * Care Plan - Patricia Gooden MSW - 03/04/2025 3:24 PM CDT Clinical Technician Discharge Planning Expected Discharge Date Mar 08, 2025 Plan Discharge To: [facility] Facility;Intermediate care facility/assisted living (03/02/25 1101) Referrals Status: Facility Referrals - Accepted and Selected Destination - Admitted Since 03/01/2025 Service Provider Services Address Phone Fax Patient Preferred [facility] [address], [facility] [address] [phone] -- Call to [facility] and updated it would be possibly Friday next week before she would be ready fordischarge. Updated Oleksandr as well over the phone. Updates sent to the facility. Preferred Pharmacy: [facility] - [place], [place] - [address] [id number] - [place], [place] - [address] [facility] [place], [place] - [address] Patient / Family Communications Resources Provided Transportation Plan Follow Up Appointments Scheduled MONIQUE Cooley * Care Plan - Meliton Harmon, RN - 03/04/2025 6:04 AM CDT Shift Summary metroNIDAZOLE was administered and then stopped in the [facility] department, and herrera care with CHG was performed to support infection prevention. POC glucose was elevated at 240 mg/dL, and the provider was alerted. Skin and wound care included hygiene, regular repositioning, and maintenance of intact dressings, with no new breakdowns noted. Fall risk precautions and safety checks were maintained, and no falls or injuries occurred during the shift. Overall, comfort was maintained, and cognitive and neurological status remained stable with no significant changes during the shift. Infection Risk/Actual: Infection prevention, control, or resolution by discharge: metroNIDAZOLE wasadministered and then stopped in the [facility] department; herrera care with CHG was performed, and all dressings and device sites remained clean, dry, and intact during theshift. Safety/Fall: Absence of fall, injury, harm during hospitalization: Fall risk precautions were maintained, safety checks were completed, and no falls or injuries occurred during the shift. * Care Plan - Reggie Rasheed GN - 03/03/2025 6:05 PM CDT Shift Summary Percutaneous cholecystostomy tube was successfully placed in the right upper quadrant with minimal blood loss and no complications. Antibiotics and metroNIDAZOLE were administered as part of infection management, and blood cultureswere collected for further evaluation. Comfort was maintained with no significant pain reported and only brief facial grimacing observed. High fall risk interventions and safety precautions were implemented, with no falls or injuries documented. Skin integrity was preserved with regular repositioning, protective dressings, and no changes in wound status or dressing condition. Infection Risk/Actual: Infection prevention, control, or resolution by discharge: Infection prevention measures were implemented, including CHG bathing and aspiration precautions; antibiotics and metroNIDAZOLE were administered in [facility], and blood cultures were collected, with Fletcher auris not detected. Safety/Fall: Absence of fall, injury, harm during hospitalization: High fall risk interventions were completed, including low low bed and identification armband, with no reported falls or injuries during the shift. * Care Plan - Patricia Gooden MSW - 03/03/2025 3:17 PM CDT Clinical Technician Discharge Planning Expected Discharge Date Mar 05, 2025 Plan Discharge To: [facility] Facility;Intermediate care facility/assisted living (03/02/25 1101) Referrals Status: Facility Referrals - Accepted and Selected Destination - Admitted Since 03/01/2025 Service Provider Services Address Phone Fax Patient Preferred [facility] [address], [facility] [address] -- [facility] can accept at time of discharge. [place] and does not answer his cell # when we try to call. We will update him the next time see him. He was worried the facility could no take herwith a SAMARA drain. Preferred Pharmacy: [facility] - [place], [place] - [address] [id number] - [place], [place] - [address] [facility] [place] [place] - [address] Patient / Family Communications Resources Provided Transportation Plan Follow Up Appointments Scheduled MONIQUE Cooley * Care Plan - Eileen Castano RN - 03/03/2025 5:41 AM CDT Shift Summary Patient was very sleepy this shift. Patient rested with eyes closed most of the overnight hours this shift. Call device in reach. metroNIDAZOLE was administered and then stopped during the shift, and silver was applied to the wound area. POC glucose was elevated at 296 mg/dL during the evening assessment. Heparin infusion rate was decreased during the driver license technician. Safety checks and high fall risk interventions were maintained throughout the shift, with no reported falls or injuries. Overall, comfort was maintained, infection prevention measures were continued, and skin integrity interventions were consistently implemented during the shift. Infection Risk/Actual: Infection prevention, control, or resolution by discharge: Cloudy urine persisted and metroNIDAZOLE was administered and then stopped, with no new signs identified in documentation; wound on skin remained covered with intact dressing and silver was administered to the wound area. Safety/Fall: Absence of fall, injury, harm during hospitalization: High fall risk interventions were consistently completed with no additional interventions needed, and safety checks were performed regularly throughout the shift. * Care Plan - Patricia Gooden MSW - 03/02/2025 10:58 AM CDT Care Management Initial Assessment Initial Discharge Planning Assessment completed. Discussed Care Management's role and Discharge planning. Does the patient have family and/or a caregiver that is willing, able and available to assist if needed? Yes - Name/Relation:staff at [facility] Comments: patient is from [facility]. visited with patient and spouse. Spouse wishes for her to return to rehab, we will send a return referral to [facility]. states she was not walking at rehab, staff has to help with her ADL's. Patient Discharge Planning Goal: return to rehab Patient will potentially discharge to a SNF/NH? Returning Care Management visited with: patient and spouseBilly via in person. Prior to admission, patient resides at: [facility] . Prior to admission, living arrangements: group setting. Prior to admission, patient's functional level:requires assistance; uses N/A for mobility; needs assistance with iADLs: bathing, dressing, toileting, meal preparation, transportation, shopping, running errands, medication management, housekeeping, telephone use, and managing finances Community Ambulator: no Prior to admission, the patient has the following DME? N/A Services in the home/community: none Receives hemodialysis? No Emergency contact(s): Extended Emergency Contact Information Primary Emergency Contact: BUDOLEKSANDR J Address: [address] [place] [address] [facility] Mobile Relation: Spouse Secondary Emergency Contact: LIANG AFRRELL [facility] Mobile Relation: Son Prescription coverage: yes Preferred Pharmacy verified: [facility] - [place], [place] - [address] [id number] - [place], [place] - [address] [facility] [place], [place] - [address] [facility] [address] Insurance coverage verified: Payor: MEDICARE / Plan: MEDICARE PART A AND B / Product Type: Medicare/ Secondary Insurance:[place] Medicaid Status: NA Has VA Benefits: no Employment Status: retired PCP verified as: Brayan Fournier MD Patient has had a stay at an acute care hospital in the last 30 days. Recent Falls?: Last Known Fall: Within the last 6 months Plan for transportation at discharge: EMS or w/c van Care Management contact information provided. Care Management will continue to follow and assist asneeded. * Care Plan - Foster Guzman RN - 03/02/2025 7:36 AM CDT Problem: Infection, Risk/Actual (Adult) Goal: Infection, Risk/Actual: Infection Prevention/Resolution/Control Description: Patient will demonstrate the desired outcomes. Outcome: Progressing Note: Helen 's peripheral IV will remain free from infection. * Care Plan - Dakota Brewer RN - 03/02/2025 5:38 AM CDT Shift Summary Hygiene care was performed including CHG bathing and herrera care, and urine output was monitored. Family was present during the shift and discharge needs were reviewed. Safety checks and fall risk precautions were maintained throughout the shift. Laboratory results were obtained, including basic metabolic panel and CBC. Patient remained in bed with assistive equipment and no falls or injuries were documented. Infection Risk/Actual: Infection prevention, control, or resolution by discharge: WBC and neutrophil counts were elevated and urine appeared cloudy, but hygiene care was performed including CHG bathing and herrera care. Pt remains on heparin drift with a decrease to 15mg/kg after 0200 blood draw showing Safety/Fall: Absence of fall, injury, harm during hospitalization: Fall risk armband was in place and safety checks were completed; no falls or injuries were documented during the shift. Pt remains on Heparin drip with decrease in rate to 15mg/kg/hr at a rate of 13.7ml/hr. Anti-XA 1.26resulted at 0200. Next lab draw scheduled for 0800. * Gen AI ED Handoff - GENERATIVE AI HANDOFF NOTE - 03/01/2025 5:00 PM CDT SITUATION: Patient ( ) is a 84-year-old female who has been in the ER for 6 hours. She came to the ER due to altered mental status. The patient's most recent care team on record included: Imani Naik. BACKGROUND: Drips the patient are on include: heparin, last started at 2025-03-01 16:43:32. This patient has allergies to Sulfa (sulfonamide Antibiotics), Penicillins. ASSESSMENT: Patient's most recent vitals recorded in flowsheets were as follows: BP: 172/62 T: 98.2 F RR: 21 SPO2: 92% HR: 78 WT: 201.7 LBS BMI: 32.56 Lines most recently placed include: angiocath at 2025-03-01 13:07. The patient, Helen Farrell, an 84-year-old female, presents with altered mental status and left-sided weakness. She has a history of cerebrovascular disease, diabetes, hypothyroidism, hypertension, and dementia. [facility] is [facility] a [facility] following a right hip fracture and repair. The patient has an indwelling Herrera catheter and is not walking yet, using a wheelchair instead. She has a stage I pressure ulcer on her right heel. The patient has a complicated urinary tract infection, acute cholecystitis, and a small pulmonary embolism. She is also anemic with unspecified type. RECOMMENDATION: The patient is to be admitted for further evaluation and treatment. Start heparin drip for the pulmonary embolism. Continue monitoring for signs of infection or other causes of altered mental status. Ultrasound of the gallbladder is pending for better assessment of cholecystitis. The patient received Rocephin for the urinary tract infection. Discontinue all other anticoagulants. Monitor Anti-Xa levels every 6 hours after initiation of heparin infusion until stable, then daily. Obtain CBC without differential every 3 days while on heparin. Consult with a neurologist for stroke-like symptoms, though stroke is less likely. Consider dementia medication such as Aricept or Namenda. Monitor blood glucose levels due to diabetes and administer insulin as needed. Address the stage I pressure ulcer with appropriate wound care. Ensure the patient is on a high fall risk plan due to mobility issues. Spiritual care services are available for referral as needed. *This summary was created by mydalakyler MONROE. The responses are meant to enhance, not replace normal workflow. Please contact the ED nurse for any additional information.* * Treatment Plan - Xander Alexandra PHARMACIST - 03/01/2025 4:02 PM CDT EZEQUIEL [facility]OST[facility] Adult Heparin Anti-Xa Monitoring Protocol LiveData ORDERS ARE ENTERED ???PER PROTOCOL?? Nursing Orders: Heparin must be hung as primary IV on dedicated IV site, unless discussed with physician and exception is authorized Obtain an actual weight, not stated weight, for pharmacy verification Do not give IM injections unless credentialed prescriber is alerted and chooses to proceed. Exception: Patient may receive vaccinations without contacting provider. RN to hold pressure to site post administration for 2 minutes Call credentialed prescriber for any evidence of hematoma, decrease in hemoglobin of 2 gram/dL or more, or with any acute change in mental status When programming the smart pump, refer to weight in eMAR order (this may not correlate with patient's current weight) Verify weight in eMAR order matches weight in smartpump Enter actual volume infused into flowsheet directly from smart pump upon clearing the pump volume Laboratory Orders: Baseline: Unfractionated heparin monitoring (Anti-Xa), PTT, and CBC without differential if not obtained in the last 72 hours before starting IV Heparin Infusion monitoring: Timed Anti-Xa every 6 hours after the initiation of infusion, change in rate or bolus until 2 consecutive Anti-Xa are in therapeutic range PTT monitoring should be used instead of Anti-xa monitoring for the following: Facility only has PTT lab monitoring capabilities Patients who have received a Xa inhibitor Direct Oral Anticoagulant (DOAC) medication (rivaroxaban,apixaban, edoxaban), therapeutic Enoxaparin, or Fondaparinux within the last 48 hours Daily once stable: Anti-Xa daily while on heparin once stable Minimum every 3 days: CBC without differential drawn at minimum of every 3 days while on heparin Medication Orders: Discontinue ALL other orders for subcutaneous, oral or IV anticoagulants, for example but not limited to: enoxaparin (LOVENOX), or fondaparinux (ARIXTRA) or oral anticoagulants dabigatran (PRADAXA), apixaban (ELIQUIS), edoxaban (SAVAYSA) or rivaroxaban (XARELTO). This protocol is not recommended for use with continuous alteplase infusions. Contact provider for additional orders. Pharmacist to confirm indication to ensure correct protocol table is followed, if unclear from the physician order or via chart review Pharmacist to verify heparin rate changes based on lab results in the protocol tables below. Pharmacist may update the order and MAR to match the current infusion rate. Dosing Weight: Obtain using a scale, NOT stated weight order-specific heparin dosing weight to be calculated by pharmacist. If weight <= 100 kg, ACTUAL body weight will be used to perform dose calculations If weight exceeds 100 kg, an ADJUSTED body weight will be used to perform dose calculations Initial dosing weight to be used for heparin infusion for the duration of therapy. Caution should be used by the RN to observe that this is the weight programmed in the smart pump. DVT/PE Heparin Infusion (usual indication for VTE: PE/DVT) Per provider order - bolus or no bolus Adjusted body weight used for pts >100 kg Initial Bolus Dose 80 units/kg (MAX 10,000 units) Initial Infusion 18 units/kg/hour Anti-Xa (Units/mL) Bolus (if boluses are authorized by physician per infusion order) Hold Infusion IV infusion Change Next Level Less than 0.2 60 units/kg 0 min Increase heparin dose by 3 units/kg/hr 6 hours 0.2 - 0.29 30 units/kg 0 min Increase heparin dose by 2 units/kg/hr 6 hours 0.3 - 0.7 NO CHANGE Every 6 hours x 2 then every AM 0.71 - 0.8 none 0 min Decrease heparin dose by 1 units/kg/hr 6 hours 0.81 - 0.9 none 30 min Decrease heparin dose by 2 units/kg/hr 6 hours Greater than 0.9 none 60 min Decrease heparin dose by 3 units/kg/hr 6 hours Cardiac Heparin Infusion (usual indication: Atrial fibrillation, mechanical valves, ACS, high bleedrisk) Per provider order - bolus or no bolus Adjusted body weight used for pts >100 kg Initial Bolus Dose Atrial fibrillation, mechanical valves, high bleed risk: 60 units/kg (MAX 7500 units) ACS: 60 units/kg (MAX 4000 units) Initial Infusion Atrial fibrillation, mechanical valves, high bleed risk: 15 units/kg/hour ACS: 12 units/kg/hour (MAX 1000 units/hour) Anti-Xa (Units/mL) Bolus (if boluses are authorized by physician per infusion order) Hold Infusion IV infusion Change Next Level Less than 0.2 30 units/kg 0 min Increase heparin dose by 2 units/kg/hr 6 hours 0.2 - 0.29 15 units/kg 0 min Increase heparin dose by 1 units/kg/hr 6 hours 0.3 - 0.6 NO CHANGE Every 6 hours x 2 then every AM 0.61 - 0.7 none 0 min Decrease heparin dose by 1 units/kg/hr 6 hours 0.71 - 0.9 none 30 min Decrease heparin dose by 2 units/kg/hr 6 hours Greater than 0.9 none 60 min Decrease heparin dose by 3 units/kg/hr 6 hours * ED Bed Hold Comment Note - Jarod, Yris, RN - 03/01/2025 10:35 AM CDT Bed: 09 Expected date: 03/01/25 Expected time: Means of arrival: Comments: Means of Arrival: LL2 STROKE : TCD Paged 1020, ETA 1029 RACE Score:2 To Bed # CT then 09 documented in this encounter Plan of Treatment Upcoming Encounters Date Type Department Care Team (Late st Contact Info) Description 03/17/2025 2:00 PM CDT Office Visit [facility] General and Trauma Surgery-[address] [place] [address] Laisha Castro NP [address] [facility] [address] [place] [address] Scheduled Orders Name Type Priority Associated Diagnoses Orde r Schedule CBC WITH DIFFERENTIAL Lab Routine Complicated urinary tract infection Acute cholecystitis Expected: 03/14/2025, Expires: 03/07/2026 COMPREHENSIVE METABOLIC PANEL Lab Routine Complicated urinary tract infection Acute cholecystitis Expected: 03/14/2025, Expires: 03/07/2026 Scheduled Referrals Name Type Priority Associated Diagnoses Orde r Schedule AMB REFERRAL TO GENERAL SURGERY Outpatient Referral Routine Acute cholecystitis Ordered: 03/07/2025 documented as of this encounter Procedures Procedure Name Priority Date/Time Associated Diagnosis Comments TELEMETRY REPORT 03/09/2025 3:53 PM CDT TELEMETRY REPORT 03/08/2025 2:33 AM CDT POC GLUCOSE Routine 03/07/2025 11:41 AM CDT POC GLUCOSE Routine 03/07/2025 7:07 AM CDT CBC WITH DIFFERENTIAL Routine 03/07/2025 4:56 AM CDT COMPREHENSIVE METABOLIC PANEL Routine 03/07/2025 4:56 AM CDT POC GLUCOSE Routine 03/06/2025 9:35 PM CDT POC GLUCOSE Routine 03/06/2025 5:41 PM CDT CBC WITH DIFFERENTIAL Routine 03/06/2025 3:44 PM CDT COMPREHENSIVE METABOLIC PANEL Routine 03/06/2025 3:44 PM CDT POC GLUCOSE Routine 03/06/2025 12:07 PM CDT POC GLUCOSE Routine 03/06/2025 7:28 AM CDT POC GLUCOSE Routine 03/05/2025 8:46 PM CDT POC GLUCOSE Routine 03/05/2025 5:25 PM CDT POC GLUCOSE Routine 03/05/2025 11:34 AM CDT POC GLUCOSE Routine 03/05/2025 7:54 AM CDT IRON, TIBC, AND PERCENT SATURATION Routine 03/05/2025 4:51 AM CDT CBC WITH DIFFERENTIAL Routine 03/05/2025 4:51 AM CDT COMPREHENSIVE METABOLIC PANEL Routine 03/05/2025 4:51 AM CDT POC GLUCOSE Routine 03/04/2025 8:41 PM CDT POC GLUCOSE Routine 03/04/2025 5:08 PM CDT ECHOCARDIOGRAM W/ CONTRAST AGENT Routine 03/04/2025 1:40 PM CDT POC GLUCOSE Routine 03/04/2025 12:00 PM CDT POC GLUCOSE Routine 03/04/2025 7:58 AM CDT CBC WITH DIFFERENTIAL Routine 03/04/2025 5:47 AM CDT COMPREHENSIVE METABOLIC PANEL Routine 03/04/2025 5:47 AM CDT POC GLUCOSE Routine 03/03/2025 8:54 PM CDT POC GLUCOSE Routine 03/03/2025 5:35 PM CDT TYPE AND SCREEN Routine 03/03/2025 3:44 PM CDT US GUIDE NEEDLE PLACEMENT Routine 03/03/2025 2:54 PM CDT ANAEROBIC/AEROBIC CULTURE W GRAM STAIN Routine 03/03/2025 2:54 PM CDT IR TUBE PLACEMENT Routine 03/03/2025 2:5 1 PM CDT PREPARE RED BLOOD CELLS Routine 03/03/2025 2:26 PM CDT UNFRACTIONATED HEPARIN ACTIVITY Timed Study 03/03/2025 1:31 PM CDT CBC WITH DIFFERENTIAL Routine 03/03/2025 1:31 PM CDT COMPREHENSIVE METABOLIC PANEL Routine 03/03/2025 1:31 PM CDT POC GLUCOSE Routine 03/03/2025 12:09 PM CDT EXTRA TUBE (GREEN) Routine 03/03/2025 10 :34 AM CDT EXTRA TUBE Routine 03/03/2025 10:34 AM CDT NM HEPATOBILIARY SCAN Routine 03/03/2025 10:19 AM CDT POC GLUCOSE Routine 03/03/2025 7:48 AM CDT UNFRACTIONATED HEPARIN ACTIVITY Timed Study 03/02/2025 11:41 PM CDT POC GLUCOSE Routine 03/02/2025 8:23 PM CDT POC GLUCOSE Routine 03/02/2025 5:45 PM CDT FLETCHER AURIS SURVEILLANCE SCREEN Routine 03/02/2025 5:43 PM CDT UNFRACTIONATED HEPARIN ACTIVITY Timed Study 03/02/2025 4:10 PM CDT POC GLUCOSE Routine 03/02/2025 12:08 PM CDT US VENOUS DOPPLER LEG BILATERAL Routine 03/02/2025 10:09 AM CDT BLOOD CULTURE Routine 03/02/2025 8:35 AM CDT UNFRACTIONATED HEPARIN ACTIVITY Timed Study 03/02/2025 8:35 AM CDT BLOOD CULTURE Routine 03/02/2025 8:35 AM CDT BLOOD CULTURE Routine 03/02/2025 8:30 AM CDT BLOOD CULTURE Routine 03/02/2025 8:30 AM CDT POC GLUCOSE Routine 03/02/2025 7:51 AM CDT UNFRACTIONATED HEPARIN ACTIVITY Timed Study 03/02/2025 12:46 AM CDT CBC WITH DIFFERENTIAL Routine 03/02/2025 12:46 AM CDT BASIC METABOLIC PANEL Routine 03/02/2025 12:46 AM CDT POC GLUCOSE Routine 03/01/2025 9:11 PM CDT US GALLBLADDER Stat 03/01/2025 4:45 PM CDT UNFRACTIONATED HEPARIN ACTIVITY Stat 03/01/2025 4:13 PM CDT PTT Stat 03/01/2025 4:13 PM CDT CBC WITHOUT DIFFERENTIAL Stat 03/01/2025 4:[address] ABDOMEN PELVIS W CONTRAST Stat 03/01/2025 2:30 PM CDT URINE CULTURE Stat 03/01/2025 1:02 PM CDT EXTRA TUBE (URINE LEE) Stat 03/01/2025 12:04 PM CDT URINALYSIS W/REFLEX MICROSCOPIC Stat 03/01/2025 12:04 PM CDT TSH REFLEXIVE Stat 03/01/2025 11:00 AM CDT CBC WITH DIFFERENTIAL Stat 03/01/2025 11:00 AM CDT PTT Stat 03/01/2025 11:00 AM CDT PROTIME-INR Stat 03/01/2025 11:00 AM CDT COMPREHENSIVE METABOLIC PANEL Stat 03/01/2025 11:00 AM CDT EKG 12-LEAD Stat 03/01/2025 10:[address] HEAD WO CONTRAST Stat 03/01/2025 1 0:48 AM CDT documented in this encounter Results * TELEMETRY REPORT (03/09/2025 3:53 PM CDT) us Provider Scanning ECG ORDERABLES Final Result * TELEMETRY REPORT (03/08/2025 2:33 AM CDT) us Provider Scanning ECG ORDERABLES Final Result * (ABNORMAL) POC GLUCOSE (03/07/2025 11:41 AM CDT) GLUCOSE POC 291(H) 74 - 99 mg/dL 03/07/2025 11:41 AM CDT [facility] SPECIMEN SOURCE, GLUCOSE POC Capillary 03/07/2025 11:41 AM CDT [facility] Blood, whole 03/07/2025 11:4 1 AM CDT 03/07/2025 12:42 PM CDT Nayeli Chan MD POINT OF CARE TESTING Final Result Performing Organization Address [facility] Co de Phone Number [facility] CLIA # [id number] [address] [address] [place] [address] * (ABNORMAL) POC GLUCOSE (03/07/2025 7:07 AM CDT) [facility] GLUCOSE POC 258(H) 74 - 99 mg/dL 03/07/2025 7:07 AM CDT [facility] SPECIMEN SOURCE, GLUCOSE POC Capillary 03/07/2025 7:07 AM CDT [facility] Blood, whole 03/07/2025 7:07 AM CDT 03/07/2025 7:55 AM CDT Nayeli Chan MD POINT OF CARE TESTING Final Result Performing Organization Address [facility] de Phone Number [facility] CLIA # [id number] [address] [address] * (ABNORMAL) CBC WITH DIFFERENTIAL (03/07/2025 4:56 AM CDT) Pathologist [facility] WBC 6.7 4.8 - 10.8 K/uL 03/07/2025 5:29 AM CDT [facility] RBC 2.56(L) 4.20 - 5.40 M/uL 03/07/2025 5:29 AM CDT [facility] HEMOGLOBIN 7.3(L) 12.0 - 16.0 g/dL 03/07/2025 5:29 AM [facility] HEMATOCRIT 23.9(L) 36.0 - 46.0 % 03/07/2025 5:29 AM [facility] MCV 93.4 84.0 - 103.0 fL 03/07/2025 5:29 AM [facility] MCH 28.5 27.0 - 34.0 pg 03/07/2025 5:29 AM [facility] MCHC 30.5 30.0 - 35.0 g/dL 03/07/2025 5:29 AM [facility] PLATELETS 307 140 - 440 K/uL 03/07/2025 5:29 AM [facility] MPV 10.1 8.9 - 12.8 fL 03/07/2025 5:29 AM [facility] RDW 15.3(H) 11.0 - 14.5 % 03/07/2025 5:29 AM [facility] RDW-STDEV 52.4 37.0 - 54.0 fL 03/07/2025 5:29 AM [facility] NEUTROPHILS 70 42 - 75 % 03/07/2025 5:29 AM [facility] LYMPHOCYTES 15(L) 24 - 44 % 03/07/2025 5:29 AM [facility] MONOCYTES 9 2 - 10 % 03/07/2025 5:29 AM [facility] EOSINOPHILS 2 0 - 7 % 03/07/2025 5:29 AM [facility] BASOPHILS 0 0 - 1 % 03/07/2025 5:29 AM [facility] IMMATURE GRANULOCYTES 4(H) 0 - 2 % 03/07/2025 5:29 AM [facility] NEUTROPHIL ABSOLUTE 4.69 2.00 - 8.00 K/uL 03/07/2025 5:29 AM [facility] LYMPHOCYTE ABSOLUTE 1.02(L) 1.20 - 4.00 K/uL 03/07/2025 5:29 AM [facility] MONOCYTE ABSOLUTE 0.61(H) 0.10 - 0.60 K/uL 03/07/2025 5:29 AM CDT [facility] EOSINOPHIL ABSOLUTE 0.15 0.00 - 0.70 K/uL 03/07/2025 5:29 AM CDT [facility] BASOPHILS ABSOLUTE 0.02 0.00 - 0.20 K/uL 03/07/2025 5:29 AM T [facility] IMMATURE GRANULOCYTES ABSOLUTE 0.24(H) 0.00 - 0.10 K/uL 03/07/2025 5:29 AM T [facility] SMEAR REVIEWED: NA - Not Applicable 03/07/2025 5:29 AM [facility] Blood Venipuncture / Unknown 03/07/2025 4:56 AM CDT 03/07/2025 5:21 AM CDT Nayeli Chan MD HEMATOLOGY ORDERABLES Final Result [facility] CLIA # [id number] [address] [place] [address] * (ABNORMAL) COMPREHENSIVE METABOLIC PANEL (03/07/2025 4:56 AM CDT) SODIUM 144 136 - 145 mmol/L 03/07/2025 5:44 AM T [facility] POTASSIUM 4.0 3.5 - 5.1 mmol/L 03/07/2025 5:44 AM T [facility] CHLORIDE 110(H) 98 - 107 mmol/L 03/07/2025 5:44 AM T [facility] CO2 26 22 - 29 mmol/L 03/07/2025 5:44 AM T [facility] CALCIUM 8.6(L) 8.8 - 10.2 mg/dL 03/07/2025 5:44 AM T [facility] BUN 30(H) 8 - 23 mg/dL 03/07/2025 5:44 AM [facility] CREATININE 0.89 0.51 - 0.95 mg/dL 03/07/2025 5:44 AM [facility] Comment:The GFR result is no t clinically significant on patients <18 or >70 years of age. GLUCOSE 298(H) 74 - 99 mg/dL 03/07/2025 5:44 AM [facility] TOTAL PROTEIN 5.1(L) 6.4 - 8.3 g/dL 03/07/2025 5:44 AM [facility] ALBUMIN 2.5(L) 3.5 - 5.2 g/dL 03/07/2025 5:44 AM [facility] BILIRUBIN TOTAL 0.4 0.0 - 1.0 mg/dL 03/07/2025 5:44 AM [facility] ALKALINE PHOSPHATASE 138(H) 35 - 104 U/L 03/07/2025 5:44 AM [facility] AST 22 10 - 35 U/L 03/07/2025 5:44 AM [facility] ALT 30 <=35 U/L 03/07/2025 5:44 AM [facility] GFR >60 mL/min/1.7 3 sq meter 03/07/2025 5:44 AM [facility] Comment:eGFR calculated with 2020 CKD-EPI equation. Vegetarian diet, extremely high or low muscle mass, and may affect results. Cystatin C with Glomerular Filtration Rate is a suitable alternative for these patients. ANION GAP 8(L) 9 - 20 mmol/L 03/07/2025 5:44 AM [facility] Blood Venipuncture / Unknown 03/07/2025 4:56 AM CDT 03/07/2025 5:26 AM CDT Nayeli Chan MD CHEMISTRY ORDERABLES F inal Result [facility] CLIA # [id number] [id number] [place] [address] * (ABNORMAL) POC GLUCOSE (03/06/2025 9:35 PM CDT) [facility] GLUCOSE POC 280(H) 74 - 99 mg/dL 03/06/2025 9:35 PM CDT [facility] SPECIMEN SOURCE, GLUCOSE POC Capillary 03/06/2025 9:35 PM CDT [facility] Blood, whole 03/06/2025 9:35 PM CDT 03/06/2025 10:14 PM CDT Nayeli Chan MD POINT OF CARE TESTING Final Result Performing Organization Address City/[facility]/ZIP Co de Phone Number [facility] CLIA # [id number] [address] [address] [place] [address] * (ABNORMAL) POC GLUCOSE (03/06/2025 5:41 PM CDT) [facility] GLUCOSE POC 346(H) 74 - 99 mg/dL 03/06/2025 5:41 PM CDT [facility] SPECIMEN SOURCE, GLUCOSE POC Capillary 03/06/2025 5:41 PM CDT [facility] Blood, whole 03/06/2025 5:41 PM CDT 03/06/2025 6:12 PM CDT Nayeli Chan MD POINT OF CARE TESTING Final Result [facility] CLIA # [id number] [address] [address] * (ABNORMAL) CBC WITH DIFFERENTIAL (03/06/2025 3:44 PM CDT) [facility] WBC 7.3 4.8 - 10.8 K/uL 03/06/2025 3:52 PM [facility] RBC 2.93(L) 4.20 - 5.40 M/uL 03/06/2025 3:52 PM [facility] HEMOGLOBIN 8.2(L) 12.0 - 16.0 g/dL 03/06/2025 3:52 PM [facility] HEMATOCRIT 26.7(L) 36.0 - 46.0 % 03/06/2025 3:52 PM [facility] MCV 91.1 84.0 - 103.0 fL 03/06/2025 3:52 PM [facility] MCH 28.0 27.0 - 34.0 pg 03/06/2025 3:52 PM [facility] MCHC 30.7 30.0 - 35.0 g/dL 03/06/2025 3:52 PM [facility] PLATELETS 308 140 - 440 K/uL 03/06/2025 3:52 PM [facility] MPV 10.0 8.9 - 12.8 fL 03/06/2025 3:52 PM [facility] RDW 15.2(H) 11.0 - 14.5 % 03/06/2025 3:52 PM [facility] RDW-STDEV 50.4 37.0 - 54.0 fL 03/06/2025 3:52 PM [facility] NEUTROPHILS 72 42 - 75 % 03/06/2025 3:52 PM [facility] LYMPHOCYTES 13(L) 24 - 44 % 03/06/2025 3:52 PM [facility] MONOCYTES 9 2 - 10 % 03/06/2025 3:52 PM [facility] EOSINOPHILS 2 0 - 7 % 03/06/2025 3:52 PM [facility] BASOPHILS 0 0 - 1 % 03/06/2025 3:52 PM [facility] IMMATURE GRANULOCYTES 3(H) 0 - 2 % 03/06/2025 3:52 PM CDT [facility] NEUTROPHIL ABSOLUTE 5.28 2.00 - 8.00 K/uL 03/06/2025 3:52 PM CDT [facility] LYMPHOCYTE ABSOLUTE 0.93(L) 1.20 - 4.00 K/uL 03/06/2025 3:52 PM CDT [facility] MONOCYTE ABSOLUTE 0.68(H) 0.10 - 0.60 K/uL 03/06/2025 3:52 PM CDT [facility] EOSINOPHIL ABSOLUTE 0.13 0.00 - 0.70 K/uL 03/06/2025 3:52 PM CDT [facility] BASOPHILS ABSOLUTE 0.03 0.00 - 0.20 K/uL 03/06/2025 3:52 PM CDT [facility] IMMATURE GRANULOCYTES ABSOLUTE 0.24(H) 0.00 - 0.10 K/uL 03/06/2025 3:52 PM CDT [facility] SMEAR REVIEWED: NA - Not Applicable 03/06/2025 3:52 PM CDT [facility] Blood Venipuncture / Unknown 03/06/2025 3:44 PM CDT 03/06/2025 3:48 PM CDT Nayeli Chan MD HEMATOLOGY ORDERABLES Final Result [id number] [address] [place] [address] * (ABNORMAL) COMPREHENSIVE METABOLIC PANEL (03/06/2025 3:44 PM CDT) SODIUM 142 136 - 145 mmol/L 03/06/2025 4:29 PM CDT [facility] POTASSIUM 4.0 3.5 - 5.1 mmol/L 03/06/2025 4:29 PM CDT [facility] CHLORIDE 107 98 - 107 mmol/L 03/06/2025 4:29 PM CDT [facility] CO2 23 22 - 29 mmol/L 03/06/2025 4:29 PM [facility] CALCIUM 8.6(L) 8.8 - 10.2 mg/dL 03/06/2025 4:29 PM [facility] BUN 30(H) 8 - 23 mg/dL 03/06/2025 4:29 PM [facility] CREATININE 0.79 0.51 - 0.95 mg/dL 03/06/2025 4:29 PM [facility] Comment:The GFR result is no t clinically significant on patients <18 or >70 years of age. GLUCOSE 279(H) 74 - 99 mg/dL 03/06/2025 4:29 PM [facility] TOTAL PROTEIN 5.6(L) 6.4 - 8.3 g/dL 03/06/2025 4:29 PM [facility] ALBUMIN 2.6(L) 3.5 - 5.2 g/dL 03/06/2025 4:29 PM [facility] BILIRUBIN TOTAL 0.4 0.0 - 1.0 mg/dL 03/06/2025 4:29 PM [facility] ALKALINE PHOSPHATASE 153(H) 35 - 104 U/L 03/06/2025 4:29 PM [facility] AST 28 10 - 35 U/L 03/06/2025 4:29 PM [facility] ALT 39(H) <=35 U/L 03/06/2025 4:29 PM [facility] GFR >60 mL/min/1.7 3 sq meter 03/06/2025 4:29 PM [facility] Comment:eGFR calculated with 2020 CKD-EPI equation. Vegetarian diet, extremely high or low muscle mass, and may affect results. Cystatin C with Glomerular Filtration Rate is a suitable alternative for these patients. ANION GAP 12 9 - 20 mmol/L 03/06/2025 4:29 PM [facility] Blood Venipuncture / Unknown 03/06/2025 3:44 PM CDT 03/06/2025 4:10 PM CDT us Nayeli Chan MD CHEMISTRY ORDERABLES F inal Result Performing Organization Address [facility]/ZIP Co de Phone Number [facility] CLIA # [id number] [address] [facility] [place] [address] * (ABNORMAL) POC GLUCOSE (03/06/2025 12:07 PM CDT) GLUCOSE POC 220(H) 74 - 99 mg/dL 03/06/2025 12:07 PM CDT [facility] SPECIMEN SOURCE, GLUCOSE POC Capillary 03/06/2025 12:07 PM CDT [facility] Blood, whole 03/06/2025 12:0 7 PM CDT 03/06/2025 12:18 PM CDT Nayeli Chan MD POINT OF CARE TESTING Final Result Performing Organization Address [facility] Co de Phone Number [facility] CLIA # [id number] [id number] [place] [address] * (ABNORMAL) POC GLUCOSE (03/06/2025 7:28 AM CDT) GLUCOSE POC 238(H) 74 - 99 mg/dL 03/06/2025 7:28 AM CDT [facility] SPECIMEN SOURCE, GLUCOSE POC Capillary 03/06/2025 7:28 AM CDT [facility] Blood, whole 03/06/2025 7:28 AM CDT 03/06/2025 7:36 AM CDT us Nayeli Chan MD POINT OF CARE TESTING Final Result Performing Organization Address City/[facility]/ZIP Co de Phone Number [facility] CLIA # [id number] [id number] [place] [address] * (ABNORMAL) POC GLUCOSE (03/05/2025 8:46 PM CDT) GLUCOSE POC 260(H) 74 - 99 mg/dL 03/05/2025 8:46 PM CDT [facility] SPECIMEN SOURCE, GLUCOSE POC Capillary 03/05/2025 8:46 PM CDT [facility] Blood, whole 03/05/2025 8:46 PM CDT 03/05/2025 10:07 PM CDT Nayeli Chan MD POINT OF CARE TESTING Final Result Performing Organization Address [facility]/ZIP Co de Phone Number [facility] CLIA # [id number] [address] [address] * (ABNORMAL) POC GLUCOSE (03/05/2025 5:25 PM CDT) GLUCOSE POC 233(H) 74 - 99 mg/dL 03/05/2025 5:25 PM CDT [facility] SPECIMEN SOURCE, GLUCOSE POC Capillary 03/05/2025 5:25 PM CDT [facility] COMMENT, GLU POC Alerted Nurse/MICHELLE/DR 03/05/2025 5:25 PM CDT [facility] COMMENT 2, GLU POC Read Back 03/05/2025 5:25 PM CDT [facility] Blood, whole 03/05/2025 5:25 PM CDT 03/05/2025 6:01 PM CDT Nayeli Chan MD POINT OF CARE TESTING Final Result Performing Organization Address [facility]/ZIP Co de Phone Number [facility] CLIA # [id number] [address] [address] [place] [address] * (ABNORMAL) POC GLUCOSE (03/05/2025 11:34 AM CDT) GLUCOSE POC 262(H) 74 - 99 mg/dL 03/05/2025 11:34 AM CDT [facility] SPECIMEN SOURCE, GLUCOSE POC Capillary 03/05/2025 11:34 AM CDT [facility] COMMENT, GLU POC Alerted Nurse/MICHELLE/DR 03/05/2025 11:34 AM CDT [facility] COMMENT 2, GLU POC Read Back 03/05/2025 11:34 AM CDT [facility] Blood, whole 03/05/2025 11:3 4 AM CDT 03/05/2025 12:20 PM CDT Nayeli Chan MD POINT OF CARE TESTING Final Result Performing Organization Address [facility]/ZIP Co de Phone Number [facility] CLIA # [id number] [address] [address] * (ABNORMAL) POC GLUCOSE (03/05/2025 7:54 AM CDT) GLUCOSE POC 290(H) 74 - 99 mg/dL 03/05/2025 7:54 AM CDT [facility] SPECIMEN SOURCE, GLUCOSE POC Capillary 03/05/2025 7:54 AM CDT [facility] Blood, whole 03/05/2025 7:54 AM CDT 03/05/2025 8:04 AM CDT Nayeli Chan MD POINT OF CARE TESTING Final Result [facility] CLIA # [id number] [address] [address] * (ABNORMAL) IRON, TIBC, AND PERCENT SATURATION (03/05/2025 4:51 AM CDT) Pathologist [facility] IRON 35(L) 37 - 145 ug/dL 03/05/2025 6:28 AM CDT [facility] TIBC 187(L) 250 - 450 ug/dL 03/05/2025 6:28 AM CDT [facility] IRON % SATURATION 19 15 - 60 % 03/05/2025 6:28 AM CDT [facility] Blood Venipuncture / Unknown 03/05/2025 4:51 AM CDT 03/05/2025 5:45 AM CDT Nayeli Chan MD CHEMISTRY ORDERABLES F inal Result [id number] [address] [place] [address] [place] [address] * (ABNORMAL) COMPREHENSIVE METABOLIC PANEL (03/05/2025 4:51 AM CDT) [facility] SODIUM 139 136 - 145 mmol/L 03/05/2025 6:28 AM T [facility] POTASSIUM 4.1 3.5 - 5.1 mmol/L 03/05/2025 6:28 AM T [facility] CHLORIDE 106 98 - 107 mmol/L 03/05/2025 6:28 AM T [facility] CO2 23 22 - 29 mmol/L 03/05/2025 6:28 AM T [facility] CALCIUM 8.3(L) 8.8 - 10.2 mg/dL 03/05/2025 6:28 AM T [facility] BUN 43(H) 8 - 23 mg/dL 03/05/2025 6:28 AM T [facility] CREATININE 0.97(H) 0.51 - 0.95 mg/dL 03/05/2025 6:28 AM T [facility] Comment:The GFR result is no t clinically significant on patients <18 or >70 years of age. GLUCOSE 335(H) 74 - 99 mg/dL 03/05/2025 6:28 AM T [facility] TOTAL PROTEIN 4.5(L) 6.4 - 8.3 g/dL 03/05/2025 6:28 AM [facility] ALBUMIN 2.4(L) 3.5 - 5.2 g/dL 03/05/2025 6:28 AM T [facility] BILIRUBIN TOTAL 0.3 0.0 - 1.0 mg/dL 03/05/2025 6:28 AM [facility] ALKALINE PHOSPHATASE 176(H) 35 - 104 U/L 03/05/2025 6:28 AM T [facility] AST 32 10 - 35 U/L 03/05/2025 6:28 AM [facility] ALT 53(H) <=35 U/L 03/05/2025 6:28 AM T [facility] GFR 58 mL/min/1. 73 sq meter 03/05/2025 6:28 AM [facility] Comment:eGFR calculated with 2020 CKD-EPI equation. Vegetarian diet, extremely high or low muscle mass, and may affect results. Cystatin C with Glomerular Filtration Rate is a suitable alternative for these patients. ANION GAP 10 9 - 20 mmol/L 03/05/2025 6:28 AM [facility] Blood Venipuncture / Unknown 03/05/2025 4:51 AM CDT 03/05/2025 5:45 AM CDT Nayeli Chan MD CHEMISTRY ORDERABLES F inal Result [facility] CLIA # [id number] [address] [address] [place], [place] [address] * (ABNORMAL) CBC WITH DIFFERENTIAL (03/05/2025 4:51 AM CDT) [facility] WBC 5.6 4.8 - 10.8 K/uL 03/05/2025 5:50 AM CDT [facility] RBC 2.63(L) 4.20 - 5.40 M/uL 03/05/2025 5:50 AM CDT [facility] HEMOGLOBIN 7.4(L) 12.0 - 16.0 g/dL 03/05/2025 5:50 AM CDT [facility] HEMATOCRIT 23.7(L) 36.0 - 46.0 % 03/05/2025 5:50 AM CDT [facility] [employer] MCV 90.1 84.0 - 103.0 fL 03/05/2025 5:50 AM CDT [facility] [employer] [facility] MCH 28.1 27.0 - 34.0 pg 03/05/2025 5:50 AM CDT [facility] [employer] [facility] MCHC 31.2 30.0 - 35.0 g/dL 03/05/2025 5:50 AM CDT [facility] [employer] [facility] PLATELETS 214 140 - 440 K/uL 03/05/2025 5:50 AM CDT [facility] [employer] [facility] MPV 10.9 8.9 - 12.8 fL 03/05/2025 5:50 AM CDT [facility] RDW 15.2(H) 11.0 - 14.5 % 03/05/2025 5:[facility]-STDEV 50.4 37.0 - 54.0 fL 03/05/2025 5:50 AM CDT [facility] [employer] [facility] NEUTROPHILS 75 42 - 75 % 03/05/2025 5:50 AM CDT [facility] [employer] [facility] LYMPHOCYTES 11(L) 24 - 44 % 03/05/2025 5:50 AM CDT [facility] [employer] [facility] MONOCYTES 10 2 - 10 % 03/05/2025 5:50 AM CDT [facility] [employer] [facility] EOSINOPHILS 2 0 - 7 % 03/05/2025 5:50 AM CDT [facility] [employer] [facility] BASOPHILS 0 0 - 1 % 03/05/2025 5:50 AM CDT [facility] IMMATURE GRANULOCYTES 2 0 - 2 % 03/05/2025 5:50 AM CDT [facility] NEUTROPHIL ABSOLUTE 4.19 2.00 - 8.00 K/uL 03/05/2025 5:50 AM CDT [facility] LYMPHOCYTE ABSOLUTE 0.62(L) 1.20 - 4.00 K/uL 03/05/2025 5:50 AM CDT [facility] MONOCYTE ABSOLUTE 0.54 0.10 - 0.60 K/uL 03/05/2025 5:50 AM CDT [facility] EOSINOPHIL ABSOLUTE 0.13 0.00 - 0.70 K/uL 03/05/2025 5:50 AM CDT [facility] BASOPHILS ABSOLUTE 0.01 0.00 - 0.20 K/uL 03/05/2025 5:50 AM CDT [facility] IMMATURE GRANULOCYTES ABSOLUTE 0.09 0.00 - 0.10 K/uL 03/05/2025 5:50 AM CDT [facility] SMEAR REVIEWED: NA - Not Applicable 03/05/2025 5:50 AM CDT [facility] Blood Venipuncture / Unknown 03/05/2025 4:51 AM CDT 03/05/2025 5:44 AM CDT Nayeli Chan MD HEMATOLOGY ORDERABLES Final Result [facility] CLIA # [id number] [address] [place] [address] * (ABNORMAL) POC GLUCOSE (03/04/2025 8:41 PM CDT) [facility] GLUCOSE POC 313(H) 74 - 99 mg/dL 03/04/2025 8:41 PM CDT [facility] SPECIMEN SOURCE, GLUCOSE POC Capillary 03/04/2025 8:41 PM CDT [facility] Blood, whole 03/04/2025 8:41 PM CDT 03/04/2025 9:08 PM CDT Nayeli Chan MD POINT OF CARE TESTING Final Result Performing Organization Address [facility]/ZIP Co de Phone Number [facility] CLIA # [id number] [address] [facility] [place] [address] * (ABNORMAL) POC GLUCOSE (03/04/2025 5:08 PM CDT) GLUCOSE POC 265(H) 74 - 99 mg/dL 03/04/2025 5:08 PM CDT [facility] SPECIMEN SOURCE, GLUCOSE POC Capillary 03/04/2025 5:08 PM CDT [facility] Blood, whole 03/04/2025 5:08 PM CDT 03/04/2025 5:21 PM CDT Nayeli Chan MD POINT OF CARE TESTING Final Result Performing Organization Address City/[facility]/ZIP Co de Phone Number [facility] CLIA # [id number] [address] [id number] * ECHOCARDIOGRAM W/ CONTRAST AGENT (03/04/2025 1:40 PM CDT) EJECTION FRACTION 65 INTERFACE SYSTEM 03/04/2025 1:07 PM CDT Narrative INTERFACE SYSTEM - 03/04/2025 2:[address] [facility] Echocardiography Laboratory [address] [place] [address] Transthoracic Echocardiography Patient: Helen Farrell Study ID: ECHOCARDIOGRAM W Gender: F : 1940 Age: 84 Room: [facility] Study Date: 03/04/2025 Pt Status: Inpatient Study Time: 01:07:58 PM [facility] #: [id number] Ordering:eSbas Feliz Commissary Representative: LVO Indications and History: See Comments. Summary and Conclusion: - Left ventricle: The cavity size is normal. Wall thickness is upper normal to mildly increased. Global systolic function is vigorous. The estimated ejection fraction is 65-70%. For Epic reporting: the left ventricular ejection fraction is 65% by visual assessment. No diagnostic regional wall motion abnormality identified. Grade I diastolic dysfunction. The global longitudinal strain is -26.8% (Normal range is -18 to -25). - Right ventricle: The cavity size is normal. Systolic function is normal. Systolic pressure is not obtained. - Left atrium: The atrium is dilated. - Aortic valve: There is trivial regurgitation. - Mitral valve: The annulus is mildly to moderately calcified. The leaflets are mildly thickened and mildly calcified. The findings are consistent with mild stenosis. The mean diastolic gradient is 5mm Hg at HR 76 bpm. - Tricuspid valve: There is moderate regurgitation. - Pulmonic valve: There is trivial to mild regurgitation. Procedure information: Comparison is made to the study of 07/22/2009. Study status: Routine. Procedure: A transthoracic echocardiogram was performed. Image quality was adequate. Scanning was performed from the parasternal, apical, subcostal, and suprasternal notch acoustic windows. Intravenous contrast (Definity) was administered. There were no complications. There were no contrast reactions. Study components: M-mode, 2D, complete spectral Doppler, and color Doppler. Height: 167.6cm. Height: 66in. Weight: 91.5kg. Weight: 201.7lb. BMI: 32.6kg/m^2. BSA: 2.1m^2. Blood pressure: 122/59 Study date: 03/04/2025. Study time: 01:07 PM. Location: Bedside. Cardiac Anatomy: LEFT VENTRICLE: The cavity size is normal. Wall thickness is upper normal to mildly increased. Global systolic function is vigorous. The estimated ejection fraction is 65-70%. For Epic reporting: the left ventricular ejection fraction is 65% by visual assessment. No diagnostic regional wall motion abnormality identified. The longitudinal strain is -26.8% (Normal range is -18 to -25). The global longitudinal strain is -26.8% (Normal range is -18 to -25). Grade I diastolic dysfunction. RIGHT VENTRICLE: The cavity size is normal. Systolic function is normal. Systolic pressure is not obtained. LEFT ATRIUM: The atrium is dilated. RIGHT ATRIUM: The atrium is normal in size. ATRIAL SEPTUM: A patent foramen ovale cannot be excluded by Doppler. AORTIC VALVE: The valve is trileaflet. The leaflets are normal thickness. There is no stenosis. There is trivial regurgitation. MITRAL VALVE: The annulus is mildly to moderately calcified. The leaflets are mildly thickened and mildly calcified. The findings are consistent with mild stenosis. There is no significant regurgitation. TRICUSPID VALVE: Structurally normal valve. Mobility is unrestricted. There is no evidence for stenosis. There is moderate regurgitation. PULMONIC VALVE: Not well visualized. The valve appears to be grossly normal. There is no evidence for stenosis. There is trivial to mild regurgitation. PERICARDIUM: There is no pericardial effusion. AORTA: Aortic root: The root is not dilated. Measurements Left ventricle Value Right ventricle Value GLS, 2D -26.8 % ESTHER, LAX 3.2 cm ESD, LAX 2.7 cm ESTHER minor ax, A4C base 3.1 cm ESD/bsa, LAX 1.3 cm/m^2 ESTHER 3.2 cm FS, LAX 37 % TAPSE, 2D 2.0 cm FS, LAX chord 37 % TAPSE, MM 2.0 cm ESD major ax, A4C 4.8 cm S' lateral 17.4 cm/sec ESD/bsa major ax, A4C 2.3 cm/m^2 ESTHER minor ax, A4C 4.8 cm Left atrium Value ESTHER/bsa minor ax, A4C 2.3 cm/m^2 AP dim, ES 4.0 cm IRENE, A4C 19.0 cm^2 AP dim index, ES 1.9 cm/m^2 CHRISTIANO, A4C 8.7 cm^2 Area ES, A4C 21 cm^2 FAC, A4C 54 % SI dim, A2C 5.2 cm ESTHER major ax, A2C 6.2 cm Vol, ES, 1-p A4C 49 ml ESTHER/bsa major ax, A2C 2.9 cm/m^2 Vol/bsa, ES, 1-p A4C 23 ml/m^2 IRENE, A2C 20.1 cm^2 Vol, ES, 1-p A2C 28 ml CHRISTIANO, A2C 9.4 cm^2 Vol/bsa, ES, 1-p A2C 13 ml/m^2 FAC, A2C 53 % IVS, ED 1.0 cm Right atrium Value PW, ED 1.0 cm Area, ES, A4C 13 cm^2 IVS/PW, ED 0.99 EDV 86 ml Aortic valve Value ESV 28 ml Peak v, S 166 cm/sec EF 67 % Peak grad, S 11 mm Hg EDV/bsa 41 ml/m^2 LVOT/AV, Vpeak ratio 0.72 ESV/bsa 13 ml/m^2 ESTELLA, Vmax 2.48 cm^2 EDV, 1-p A2C 52 ml ESTELLA/bsa, Vmax 1.18 cm^2/m^2 ESV, 1-p A2C 34 ml EF, 1-p A2C 64 % Mitral valve Value SV, 1-p A2C 58 ml Mean v, D 104 cm/sec EDV/bsa, 1-p A2C 25 ml/m^2 Peak E 133 cm/sec ESV/bsa, 1-p A2C 16 ml/m^2 Peak A 172 cm/sec SV/bsa, 1-p A2C 27.6 ml/m^2 VTI leaflet coapt 47.5 cm EDV, 1-p A4C 50 ml Decel slope 387 cm/s^2 ESV, 1-p A4C 14 ml Decel time 292 ms EF, 1-p A4C 72 % PHT 99 ms SV, 1-p A4C 62 ml Mean grad, D 5 mm Hg EDV/bsa, 1-p A4C 24 ml/m^2 Peak grad, D 7 mm Hg ESV/bsa, 1-p A4C 7 ml/m^2 Peak E/A ratio 0.8 SV/bsa, 1-p A4C 30 ml/m^2 E-VTI 47.5 cm EDV, 2-p 52 ml A-VTI 45.6 cm ESV, 2-p 17 ml VTI E/A 1.0 EF, 2-p 68 % MVA, PHT 2.22 cm^2 SV, 2-p 36 ml MVA/bsa, PHT 1.06 cm^2/m^2 EDV/bsa, 2-p 25 ml/m^2 Soledad VTI 47.5 cm ESV/bsa, 2-p 8 ml/m^2 Vena contracta width 3.2 cm SV/bsa, 2-p 17.8 ml/m^2 EDV, MM Teich. 86 ml Tricuspid valve Value EF, MM Teich. 67 % TR vena contracta width 2.1 cm EDV/bsa, MM Teich. 41 ml/m^2 Peak RV-RA grad, S 37 mm Hg EF, MM on 2D Teich. 67 % E', lat soledad, TDI 8.4 cm/sec Aortic root Value E/e', lat soledad, TDI 16 S-T junct diam, ED 2.2 cm E', med soledad, TDI 7.0 cm/sec S-T junct diam/bsa, ED 1.0 cm/m^2 E/e', med soledad, TDI 19 E', avg, TDI 7.7 cm/sec Ascending aorta Value E/e', avg, TDI 17 AAo AP diam, S 3.1 cm AAo AP diam/bsa, S 1.5 cm/m^2 LVOT Value Diam, S 2.1 cm Area 3.5 cm^2 Peak keven, S 119 cm/sec Peak grad, S 6 mm Hg Legend: (L) and (H) harrison values outside specified reference range. [facility] are accredited with the Intersocietal Accreditation Commission - Echocardiography. Prepared and Electronically Authenticated Khanh Castellano Confirmed 03/04/2025 14:42 Procedure Note Khanh Castellano MD - 03/04/[address] [facility] Ech[facility] [address] [place] [address] Transthoracic Echocardiography Patient: Helen Farrell Study ID:ECHOCARDIOGRAM W Gender: F : 1940 Age: 84 Room: [facility] Study Date: 03/04/2025 Pt Status: Inpatient Study Time: 01:07:58 PM [facility] #: [id number] Ordering:Sebas Feliz Commissary Representative: LVO Indications and History: See Comments. Summary and Conclusion: - Left ventricle: The cavity size is normal. Wall thickness is uppernormal to mildly increased. Global systolic function is vigorous. The estimated ejection fraction is 65-70%. For Epic reporting: the left ventricular ejection fraction is 65% by visual assessment. No diagnostic regionalwall motion abnormality identified. Grade I diastolic dysfunction. Theglobal longitudinal strain is -26.8% (Normal range is -18 to -25). - Right ventricle: The cavity size is normal. Systolic function isnormal. Systolic pressure is not obtained. - Left atrium: The atrium is dilated. - Aortic valve: There is trivial regurgitation. - Mitral valve: The annulus is mildly to moderately calcified. Theleaflets are mildly thickened and mildly calcified. The findings are consistentwith mild stenosis. The mean diastolic gradient is 5mm Hg at HR 76 bpm. - Tricuspid valve: There is moderate regurgitation. - Pulmonic valve: There is trivial to mild regurgitation. Procedure information: Comparison is made to the study of 07/22/2009.Study status: Routine. Procedure: A transthoracic echocardiogram wasperformed. Image quality was adequate. Scanning was performed from the parasternal, apical, subcostal, and suprasternal notch acoustic windows. Intravenous contrast (Definity) was administered. There were no complications. Therewere no contrast reactions. Study components: M-mode, 2D, complete spectral Doppler, and color Doppler. Height: 167.6cm. Height: 66in. Weight: 91.5kg. Weight: 201.7lb. BMI: 32.6kg/m^2. BSA: 2.1m^2.Blood pressure: 122/59 Study date: 03/04/2025. Study time: 01:07 PM. Location: Bedside. Cardiac Anatomy: LEFT VENTRICLE: The cavity size is normal. Wall thickness is upper normalto mildly increased. Global systolic function is vigorous. The estimatedejection fraction is 65-70%. For Epic reporting: the left ventricular ejectionfraction is 65% by visual assessment. No diagnostic regional wall motionabnormality identified. The longitudinal strain is -26.8% (Normal range is -18 to-25). The global longitudinal strain is -26.8% (Normal range is -18 to -25).Grade I diastolic dysfunction. RIGHT VENTRICLE: The cavity size is normal. Systolic function isnormal. Systolic pressure is not obtained. LEFT ATRIUM: The atrium is dilated. RIGHT ATRIUM: The atrium is normal in size. ATRIAL SEPTUM: A patent foramen ovale cannot be excluded by Doppler. AORTIC VALVE: The valve is trileaflet. The leaflets are normalthickness. There is no stenosis. There is trivial regurgitation. MITRAL VALVE: The annulus is mildly to moderately calcified. The leafletsare mildly thickened and mildly calcified. The findings are consistent withmild stenosis. There is no significant regurgitation. TRICUSPID VALVE: Structurally normal valve. Mobility isunrestricted. There is no evidence for stenosis. There is moderate regurgitation. PULMONIC VALVE: Not well visualized. The valve appears to be grosslynormal. There is no evidence for stenosis. There is trivial to mild regurgitation. PERICARDIUM: There is no pericardial effusion. AORTA: Aortic root: The root is not dilated. Measurements Left ventricle Value Right ventricle Value GLS, 2D -26.8 % ESTHER, LAX 3.2 cm ESD, LAX 2.7 cm ESTHER minor ax, A4C base 3.1 cm ESD/bsa, LAX 1.3 cm/m^2 ESTHER 3.2 cm FS, LAX 37 % TAPSE, 2D 2.0 cm FS, LAX chord 37 % TAPSE, MM 2.0 cm ESD major ax, A4C 4.8 cm S' lateral 17.4cm/sec ESD/bsa major ax, A4C 2.3 cm/m^2 ESTHER minor ax, A4C 4.8 cm Left atrium Value ESTHER/bsa minor ax, A4C 2.3 cm/m^2 AP dim, ES 4.0 cm IRENE, A4C 19.0 cm^2 AP dim index, ES 1.9cm/m^2 CHRISTIANO, A4C 8.7 cm^2 Area ES, A4C 21cm^2 FAC, A4C 54 % SI dim, A2C 5.2 cm ESTHER major ax, A2C 6.2 cm Vol, ES, 1-p A4C 49 ml ESTHER/bsa major ax, A2C 2.9 cm/m^2 Vol/bsa, ES, 1-p A4C 23ml/m^2 IRENE, A2C 20.1 cm^2 Vol, ES, 1-p A2C 28 ml CHRISTIANO, A2C 9.4 cm^2 Vol/bsa, ES, 1-p A2C 13ml/m^2 FAC, A2C 53 % IVS, ED 1.0 cm Right atrium Value PW, ED 1.0 cm Area, ES, A4C 13cm^2 IVS/PW, ED 0.99 EDV 86 ml Aortic valve Value ESV 28 ml Peak v, S 166cm/sec EF 67 % Peak grad, S 11 mmHg EDV/bsa 41 ml/m^2 LVOT/AV, Vpeak ratio 0.72 ESV/bsa 13 ml/m^2 ESTELLA, Vmax 2.48cm^2 EDV, 1-p A2C 52 ml ESTELLA/bsa, Vmax 1.18cm^2/m^2 ESV, 1-p A2C 34 ml EF, 1-p A2C 64 % Mitral valve Value SV, 1-p A2C 58 ml Mean v, D 104cm/sec EDV/bsa, 1-p A2C 25 ml/m^2 Peak E 133cm/sec ESV/bsa, 1-p A2C 16 ml/m^2 Peak A 172cm/sec SV/bsa, 1-p A2C 27.6 ml/m^2 VTI leaflet coapt 47.5 cm EDV, 1-p A4C 50 ml Decel slope 387cm/s^2 ESV, 1-p A4C 14 ml Decel time 292 ms EF, 1-p A4C 72 % PHT 99 ms SV, 1-p A4C 62 ml Mean grad, D 5 mmHg EDV/bsa, 1-p A4C 24 ml/m^2 Peak grad, D 7 mmHg ESV/bsa, 1-p A4C 7 ml/m^2 Peak E/A ratio 0.8 SV/bsa, 1-p A4C 30 ml/m^2 E-VTI 47.5 cm EDV, 2-p 52 ml A-VTI 45.6 cm ESV, 2-p 17 ml VTI E/A 1.0 EF, 2-p 68 % MVA, PHT 2.22cm^2 SV, 2-p 36 ml MVA/bsa, PHT 1.06cm^2/m^2 EDV/bsa, 2-p 25 ml/m^2 Soledad VTI 47.5 cm ESV/bsa, 2-p 8 ml/m^2 Vena contracta width 3.2 cm SV/bsa, 2-p 17.8 ml/m^2 EDV, MM Teich. 86 ml Tricuspid valve Value EF, MM Teich. 67 % TR vena contracta width 2.1 cm EDV/bsa, MM Teich. 41 ml/m^2 Peak RV-RA grad, S 37 mmHg EF, MM on 2D Teich. 67 % E', lat soledad, TDI 8.4 cm/sec Aortic root Value E/e', lat soledad, TDI 16 S-T junct diam, ED 2.2 cm E', med soledad, TDI 7.0 cm/sec S-T junct diam/bsa, ED 1.0cm/m^2 E/e', med soledad, TDI 19 E', avg, TDI 7.7 cm/sec Ascending aorta Value E/e', avg, TDI 17 AAo AP diam, S 3.1 cm AAo AP diam/bsa, S 1.5cm/m^2 LVOT Value Diam, S 2.1 cm Area 3.5 cm^2 Peak keven, S 119 cm/sec Peak grad, S 6 mm Hg Legend: (L) and (H) harrison values outside specified reference range. [facility] are accredited with theIntersocietal Accreditation Commission - Echocardiography. Prepared and Electronically Authenticated Khanh Castellano Confirmed 03/04/2025 14:42 Sebas Feliz MD ORDERABLES Final R esult INTERFACE SYSTEM Refer to clinic/hospital department * (ABNORMAL) POC GLUCOSE (03/04/2025 12:00 PM CDT) GLUCOSE POC 223(H) 74 - 99 mg/dL 03/04/2025 12:00 PM CDT [facility] SPECIMEN SOURCE, GLUCOSE POC Capillary 03/04/2025 12:00 PM CDT [facility] Blood, whole 03/04/2025 12:0 0 PM CDT 03/04/2025 12:20 PM CDT Nayeli Chan MD POINT OF CARE TESTING Final Result Performing Organization Address [facility] de Phone Number [facility] CLIA # [id number] [address] [address] * (ABNORMAL) POC GLUCOSE (03/04/2025 7:58 AM CDT) GLUCOSE POC 209(H) 74 - 99 mg/dL 03/04/2025 7:58 AM CDT [facility] SPECIMEN SOURCE, GLUCOSE POC Capillary 03/04/2025 7:58 AM CDT [facility] Blood, whole 03/04/2025 7:58 AM CDT 03/04/2025 8:07 AM CDT Nayeli Chan MD POINT OF CARE TESTING Final Result Performing Organization Address City/[facility] Co de Phone Number [facility] CLIA # [id number] [address] [place] [address] * (ABNORMAL) COMPREHENSIVE METABOLIC PANEL (03/04/2025 5:47 AM CDT) SODIUM 133(L) 136 - 145 mmol/L 03/04/2025 6:39 AM T [facility] POTASSIUM 4.1 3.5 - 5.1 mmol/L 03/04/2025 6:39 AM T [facility] CHLORIDE 103 98 - 107 mmol/L 03/04/2025 6:39 AM T [facility] CO2 19(L) 22 - 29 mmol/L 03/04/2025 6:39 AM [facility] CALCIUM 8.4(L) 8.8 - 10.2 mg/dL 03/04/2025 6:39 AM [facility] BUN 50(H) 8 - 23 mg/dL 03/04/2025 6:39 AM [facility] CREATININE 1.28(H) 0.51 - 0.95 mg/dL 03/04/2025 6:39 AM [facility] Comment:The GFR result is no t clinically significant on patients <18 or >70 years of age. GLUCOSE 232(H) 74 - 99 mg/dL 03/04/2025 6:39 AM [facility] TOTAL PROTEIN 5.0(L) 6.4 - 8.3 g/dL 03/04/2025 6:39 AM [facility] ALBUMIN 2.0(L) 3.5 - 5.2 g/dL 03/04/2025 6:39 AM [facility] BILIRUBIN TOTAL 0.3 0.0 - 1.0 mg/dL 03/04/2025 6:39 AM [facility] ALKALINE PHOSPHATASE 190(H) 35 - 104 U/L 03/04/2025 6:39 AM [facility] AST 77(H) 10 - 35 U/L 03/04/2025 6:39 AM [facility] Comment:Hemolysis present. R esult may be falsely elevated. ALT 77(H) <=35 U/L 03/04/2025 6:39 AM CDT [facility] GFR 42 mL/min/1. 73 sq meter 03/04/2025 6:39 AM CDT [facility] Comment:eGFR calculated with 2020 CKD-EPI equation. Vegetarian diet, extremely high or low muscle mass, and may affect results. Cystatin C with Glomerular Filtration Rate is a suitable alternative for these patients. ANION GAP 11 9 - 20 mmol/L 03/04/2025 6:39 AM CDT [facility] Blood Venipuncture / Unknown 03/04/2025 5:47 AM CDT 03/04/2025 6:03 AM CDT Nayeli Chan MD CHEMISTRY ORDERABLES F inal Result [id number] [address] [place] [address] * (ABNORMAL) CBC WITH DIFFERENTIAL (03/04/2025 5:47 AM CDT) [facility] WBC 8.0 4.8 - 10.8 K/uL 03/04/2025 6:19 AM T [facility] RBC 2.69(L) 4.20 - 5.40 M/uL 03/04/2025 6:19 AM T [facility] HEMOGLOBIN 7.6(L) 12.0 - 16.0 g/dL 03/04/2025 6:19 AM T [facility] HEMATOCRIT 24.3(L) 36.0 - 46.0 % 03/04/2025 6:19 AM T [facility] MCV 90.3 84.0 - 103.0 fL 03/04/2025 6:19 AM T [facility] MCH 28.3 27.0 - 34.0 pg 03/04/2025 6:19 AM T [facility] MCHC 31.3 30.0 - 35.0 g/dL 03/04/2025 6:19 AM [facility] PLATELETS 162 140 - 440 K/uL 03/04/2025 6:19 AM [facility] MPV 11.0 8.9 - 12.8 fL 03/04/2025 6:19 AM [facility] RDW 15.0(H) 11.0 - 14.5 % 03/04/2025 6:19 AM [facility] RDW-STDEV 49.2 37.0 - 54.0 fL 03/04/2025 6:19 AM [facility] NEUTROPHILS 77(H) 42 - 75 % 03/04/2025 6:19 AM [facility] LYMPHOCYTES 11(L) 24 - 44 % 03/04/2025 6:19 AM [facility] MONOCYTES 9 2 - 10 % 03/04/2025 6:19 AM [facility] EOSINOPHILS 2 0 - 7 % 03/04/2025 6:19 AM [facility] BASOPHILS 0 0 - 1 % 03/04/2025 6:19 AM [facility] IMMATURE GRANULOCYTES 1 0 - 2 % 03/04/2025 6:19 AM [facility] NEUTROPHIL ABSOLUTE 6.17 2.00 - 8.00 K/uL 03/04/2025 6:19 AM [facility] LYMPHOCYTE ABSOLUTE 0.88(L) 1.20 - 4.00 K/uL 03/04/2025 6:19 AM [facility] MONOCYTE ABSOLUTE 0.71(H) 0.10 - 0.60 K/uL 03/04/2025 6:19 AM T [facility] EOSINOPHIL ABSOLUTE 0.14 0.00 - 0.70 K/uL 03/04/2025 6:19 AM [facility] BASOPHILS ABSOLUTE 0.01 0.00 - 0.20 K/uL 03/04/2025 6:19 AM T [facility] IMMATURE GRANULOCYTES ABSOLUTE 0.07 0.00 - 0.10 K/uL 03/04/2025 6:19 AM CDT [facility] SMEAR REVIEWED: NA - Not Applicable 03/04/2025 6:19 AM CDT [facility] Blood Venipuncture / Unknown 03/04/2025 5:47 AM CDT 03/04/2025 6:03 AM CDT Nayeli Chan MD HEMATOLOGY ORDERABLES Final Result Performing Organization Address City/[facility]/ZIP Co de Phone Number [facility] CLIA # [id number] [address] [address] * (ABNORMAL) POC GLUCOSE (03/03/2025 8:54 PM CDT) GLUCOSE POC 240(H) 74 - 99 mg/dL 03/03/2025 8:54 PM CDT [facility] SPECIMEN SOURCE, GLUCOSE POC Capillary 03/03/2025 8:54 PM CDT [facility] COMMENT, GLU POC Alerted Nurse/MICHELLE/DR 03/03/2025 8:54 PM CDT [facility] Blood, whole 03/03/2025 8:54 PM CDT 03/03/2025 9:43 PM CDT Nayeli Chan MD POINT OF CARE TESTING Final Result [facility] CLIA # [id number] [address] [address] * (ABNORMAL) POC GLUCOSE (03/03/2025 5:35 PM CDT) GLUCOSE POC 251(H) 74 - 99 mg/dL 03/03/2025 5:35 PM CDT [facility] SPECIMEN SOURCE, GLUCOSE POC Capillary 03/03/2025 5:35 PM CDT [facility] [place] Blood, whole 03/03/2025 5:35 PM CDT 03/03/2025 5:51 PM CDT us Nayeli Chan MD POINT OF CARE TESTING Final Result Performing Organization Address [facility] Co de Phone Number [facility] [place] CLIA # [id number] [address] [facility] [place] [address] * TYPE AND SCREEN (03/03/2025 3:44 PM CDT) ABO GROUP O 03/03/2025 5:19 PM CDT [facility] [place] RH (D) TYPE Positive 03/03/2025 5:19 PM CDT [facility] [place] ANTIBODY SCREEN Negative 03/03/2025 5:19 PM CDT [facility] [place] Blood Venipuncture / Unknown 03/03/2025 3:44 PM CDT 03/03/2025 3:56 PM CDT us Nayeli Chan MD BLOOD BANK ORDERABLES Edited Result - Final Performing Organization Address [facility] Co de Phone Number [facility] [employer] [facility] [place] CLIA#[id number] [address] [place] [address], * US GUIDE NEEDLE PLACEMENT (03/03/2025 2:54 PM CDT) Anatomical Region Laterality Modality Ultrasound 03/03/2025 2:55 PM CDT Impressions 03/03/2025 3:01 PM CDT IMPRESSION: Please see below. Examination: Percutaneous Cholecystostomy tube placement performed 03/03/2025 2:54 PM Reason For Exam: Other - Please see comments. Diagnosis: Complicated urinary tract infection; Generalized weakness; Stage I pressure ulcer of right heel; Anemia, unspecified type; History of dementia; Calculus of gallbladder with acute cholecystitis without obstruction; Other acute pulmonary embolism without acute cor pulmonale. 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 Perry Moderate (conscious) sedation for this procedure was performed with continuous physician supervision. Medical history, physical exam, drug dosages, routes of drug administration, monitoring data, and precise times of service are documented in the medical record on the [facility]-approved form, 'Sedative/Analgesic Administration for Diagnostic and Therapeutic Procedures'. Please see nursing flow sheets for dosage and time. Access site: Right upper quadrant.. Contrast: Isoview 300. Complications: None.. Estimated Blood Loss: Minimal. Technique: The procedure, with risks and benefits, was discussed with the patient. Informed and written consent were obtained and placed in the patients chart. The patient was brought to the angiography suite and placed on the table in a supine position. The patient was connected to hemodynamic monitoring including blood pressure cuff, pulse oximetry and EKG. The patient was sedated versed and fentanyl. The patients right upper quadrant and epigastric region were evaluated with ultrasound and an access site was chosen overlying the gallbladder. The area was prepped and draped in the normal sterile fashion. At this time, 1% lidocaine was infiltrated at the site for anesthesia. A 21 G trocar needle was placed into the gallbladder lumen via a transperitoneal route under ultrasound guidance (hardcopy images were obtained and stored). Bile was aspirated and sent to the lab for culture and sensitivity. A small amount of contrast was injected through the trocar to confirm placement and opacify the gallbladder lumen. Once placement was confirmed, a 0.018 wire was advanced into the lumen of the gallbladder under fluoroscopy. The trocar needle was exchanged over the wire for a 6 F coaxial dilator. The inner portion of the dilator and the 0.018 wire were removed. A 0.035 J wire was advanced through the dilator into the lumen of gallbladder under fluoroscopy. The dilator was exchanged over the 0.035 for an 8.5 F resolve catheter. The 8.5 F catheter was advanced into the gallbladder lumen over the wire using fluoroscopy. Contrast was injected and digital images were taken. The catheter was secured to the skin with a 2-0 nylon suture and connected to a gravity drainage bag. A sterile dressing was placed. The patient tolerated the procedure well and left the angiography suite in stable condition. Findings: Stones and sludge present in the gallbladder. The cystic duct does not opacified. +++++++++++++++++++++ IMPRESSION: Successful placement of an 8.5 F percutaneous cholecystostomy tube with the locking pigtail formed within the lumen of the gallbladder. Narrative Procedure Note Joni Perry MD - 03/03/2025 IMPRESSION: Please see below. Examination: Percutaneous Cholecystostomy tube placement performed 03/03/2025 2:54 PM Reason For Exam: Other - Please see comments. Diagnosis: Complicated urinary tract infection; Generalized weakness; Stage I pressure ulcer of right heel; Anemia, unspecified type; History of dementia; Calculus of gallbladder with acute cholecystitis without obstruction; Other acute pulmonary embolism without acute cor pulmonale. 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 Perry Moderate (conscious) sedation for this procedure was performed with continuous physician supervision. Medical history, physical exam, drug dosages, routes of drug administration, monitoring data, and precise times of service are documented in the medical record on the [facility]-approved form, 'Sedative/Analgesic Administration for Diagnostic and Therapeutic Procedures'. Please see nursing flow sheets for dosage and time. Access site: Right upper quadrant.. Contrast: Isoview 300. Complications: None.. Estimated Blood Loss: Minimal. Technique: The procedure, with risks and benefits, was discussed with the patient. Informed and written consent were obtained and placed in the patients chart. The patient was brought to the angiography suite and placed on the table in a supine position. The patient was connected to hemodynamic monitoring including blood pressure cuff, pulse oximetry and EKG. The patient was sedated versed and fentanyl. The patients right upper quadrant and epigastric region were evaluated with ultrasound and an access site was chosen overlying the gallbladder. The area was prepped and draped in the normal sterile fashion. At this time, 1% lidocaine was infiltrated at the site for anesthesia. A 21 G trocar needle was placed into the gallbladder lumen via a transperitoneal route under ultrasound guidance (hardcopy images were obtained and stored). Bile was aspirated and sent to the lab for culture and sensitivity. A small amount of contrast was injected through the trocar to confirm placement and opacify the gallbladder lumen. Once placement was confirmed, a 0.018 wire was advanced into the lumen of the gallbladder under fluoroscopy. The trocar needle was exchanged over the wire for a 6 F coaxial dilator. The inner portion of the dilator and the 0.018 wire were removed. A 0.035 J wire was advanced through the dilator into the lumen of gallbladder under fluoroscopy. The dilator was exchanged over the 0.035 for an 8.5 F resolve catheter. The 8.5 F catheter was advanced into the gallbladder lumen over the wire using fluoroscopy. Contrast was injected and digital images were taken. The catheter was secured to the skin with a 2-0 nylon suture and connected to a gravity drainage bag. A sterile dressing was placed. The patient tolerated the procedure well and left the angiography suite in stable condition. Findings: Stones and sludge present in the gallbladder. The cystic duct does not opacified. +++++++++++++++++++++ IMPRESSION: Successful placement of an 8.5 F percutaneous cholecystostomy tube with the locking pigtail formed within the lumen of the gallbladder. Nayeli Chan MD US ORDERABLES Final Result * (ABNORMAL) ANAEROBIC/AEROBIC CULTURE W GRAM STAIN (03/03/2025 2:54 PM CDT) CULTURE ENTEROCOCCUS FAECALIS(A) PEDRO PABLO MCG/ML 03/06/2025 8:12 AM CDT [facility] GRAM STAIN 4+ (Heavy) Gram positive cocci 03/06/2025 8:12 AM CDT [facility] GRAM STAIN 1+ (Rare or Occasional) Polymorphonuclear WBC 03/06/2025 8:12 AM CDT [facility] Lesion/Drainage Fluid ENTIRE GALLBLADDER / Unknown Collection / Unknown 03/03/2025 2:54 PM CDT 03/03/2025 3:08 PM CDT Narrative Organism Antibiotic Method Susceptibility Enterococcus faecalis AMPICILLIN PEDRO PABLO MCG/ML <=2 mcg/mL: Susceptible Enterococcus faecalis VANCOMYCIN PEDRO PABLO MCG/ML 1 mcg/mL: Susceptible Joni Perry MD MICROBIOLOGY - GENERAL ORDERABL ES Final Result [facility] CLIA # [id number] [address] [address] [place] [address] * IR TUBE PLACEMENT (03/03/2025 2:51 PM CDT) Anatomical Region Laterality Modality X-Ray Angiograph y 03/03/2025 2:52 PM CDT Impressions 03/03/2025 3:01 PM CDT IMPRESSION: Please see below. Examination: Percutaneous Cholecystostomy tube placement performed 03/03/2025 2:54 PM Reason For Exam: Other - Please see comments. Diagnosis: Complicated urinary tract infection; Generalized weakness; Stage I pressure ulcer of right heel; Anemia, unspecified type; History of dementia; Calculus of gallbladder with acute cholecystitis without obstruction; Other acute pulmonary embolism without acute cor pulmonale. 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 Perry Moderate (conscious) sedation for this procedure was performed with continuous physician supervision. Medical history, physical exam, drug dosages, routes of drug administration, monitoring data, and precise times of service are documented in the medical record on the [facility]-approved form, 'Sedative/Analgesic Administration for Diagnostic and Therapeutic Procedures'. Please see nursing flow sheets for dosage and time. Access site: Right upper quadrant.. Contrast: Isoview 300. Complications: None.. Estimated Blood Loss: Minimal. Technique: The procedure, with risks and benefits, was discussed with the patient. Informed and written consent were obtained and placed in the patients chart. The patient was brought to the angiography suite and placed on the table in a supine position. The patient was connected to hemodynamic monitoring including blood pressure cuff, pulse oximetry and EKG. The patient was sedated versed and fentanyl. The patients right upper quadrant and epigastric region were evaluated with ultrasound and an access site was chosen overlying the gallbladder. The area was prepped and draped in the normal sterile fashion. At this time, 1% lidocaine was infiltrated at the site for anesthesia. A 21 G trocar needle was placed into the gallbladder lumen via a transperitoneal route under ultrasound guidance (hardcopy images were obtained and stored). Bile was aspirated and sent to the lab for culture and sensitivity. A small amount of contrast was injected through the trocar to confirm placement and opacify the gallbladder lumen. Once placement was confirmed, a 0.018 wire was advanced into the lumen of the gallbladder under fluoroscopy. The trocar needle was exchanged over the wire for a 6 F coaxial dilator. The inner portion of the dilator and the 0.018 wire were removed. A 0.035 J wire was advanced through the dilator into the lumen of gallbladder under fluoroscopy. The dilator was exchanged over the 0.035 for an 8.5 F resolve catheter. The 8.5 F catheter was advanced into the gallbladder lumen over the wire using fluoroscopy. Contrast was injected and digital images were taken. The catheter was secured to the skin with a 2-0 nylon suture and connected to a gravity drainage bag. A sterile dressing was placed. The patient tolerated the procedure well and left the angiography suite in stable condition. Findings: Stones and sludge present in the gallbladder. The cystic duct does not opacified. +++++++++++++++++++++ IMPRESSION: Successful placement of an 8.5 F percutaneous cholecystostomy tube with the locking pigtail formed within the lumen of the gallbladder. Narrative Procedure Note Joni Perry MD - 03/03/2025 IMPRESSION: Please see below. Examination: Percutaneous Cholecystostomy tube placement performed 03/03/2025 2:54 PM Reason For Exam: Other - Please see comments. Diagnosis: Complicated urinary tract infection; Generalized weakness; Stage I pressure ulcer of right heel; Anemia, unspecified type; History of dementia; Calculus of gallbladder with acute cholecystitis without obstruction; Other acute pulmonary embolism without acute cor pulmonale. 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 Perry Moderate (conscious) sedation for this procedure was performed with continuous physician supervision. Medical history, physical exam, drug dosages, routes of drug administration, monitoring data, and precise times of service are documented in the medical record on the [facility]-approved form, 'Sedative/Analgesic Administration for Diagnostic and Therapeutic Procedures'. Please see nursing flow sheets for dosage and time. Access site: Right upper quadrant.. Contrast: Isoview 300. Complications: None.. Estimated Blood Loss: Minimal. Technique: The procedure, with risks and benefits, was discussed with the patient. Informed and written consent were obtained and placed in the patients chart. The patient was brought to the angiography suite and placed on the table in a supine position. The patient was connected to hemodynamic monitoring including blood pressure cuff, pulse oximetry and EKG. The patient was sedated versed and fentanyl. The patients right upper quadrant and epigastric region were evaluated with ultrasound and an access site was chosen overlying the gallbladder. The area was prepped and draped in the normal sterile fashion. At this time, 1% lidocaine was infiltrated at the site for anesthesia. A 21 G trocar needle was placed into the gallbladder lumen via a transperitoneal route under ultrasound guidance (hardcopy images were obtained and stored). Bile was aspirated and sent to the lab for culture and sensitivity. A small amount of contrast was injected through the trocar to confirm placement and opacify the gallbladder lumen. Once placement was confirmed, a 0.018 wire was advanced into the lumen of the gallbladder under fluoroscopy. The trocar needle was exchanged over the wire for a 6 F coaxial dilator. The inner portion of the dilator and the 0.018 wire were removed. A 0.035 J wire was advanced through the dilator into the lumen of gallbladder under fluoroscopy. The dilator was exchanged over the 0.035 for an 8.5 F resolve catheter. The 8.5 F catheter was advanced into the gallbladder lumen over the wire using fluoroscopy. Contrast was injected and digital images were taken. The catheter was secured to the skin with a 2-0 nylon suture and connected to a gravity drainage bag. A sterile dressing was placed. The patient tolerated the procedure well and left the angiography suite in stable condition. Findings: Stones and sludge present in the gallbladder. The cystic duct does not opacified. +++++++++++++++++++++ IMPRESSION: Successful placement of an 8.5 F percutaneous cholecystostomy tube with the locking pigtail formed within the lumen of the gallbladder. Nayeli Chan MD IR ORDERABLES Final Result * PREPARE RED BLOOD CELLS (03/03/2025 2:26 PM CDT) COMPONENT TYPE [id number] [facility] [place] COMPONENT IDENTIFICATION [id number] [facility] [place] UNIT ABO O [facility] [place] UNIT RH POS [facility] [place] CROSSMATCH Compatible [facility] [place] COMPONENT STATUS Returned [facility] [place] COMPONENT EXPIRATION DATE/TIME [id number] [facility] [place] COMPONENT CODING SYSTEM 5100 [facility] [place] VOLUME, BLOOD PRODUCT 350 [facility] [place] Other, specify 03/03/2025 2: 26 PM CDT Nayeli Chan MD LAB TRANSFUSION ORDERA BLES Edited Result - Final [facility] [place] CLIA#[id number] [facility] [place] [address], * (ABNORMAL) COMPREHENSIVE METABOLIC PANEL (03/03/2025 1:31 PM CDT) SODIUM 134(L) 136 - 145 mmol/L 03/03/2025 2:22 PM CDT [facility] POTASSIUM 4.3 3.5 - 5.1 mmol/L 03/03/2025 2:22 PM CDT [facility] CHLORIDE 101 98 - 107 mmol/L 03/03/2025 2:22 PM CDT [facility] CO2 23 22 - 29 mmol/L 03/03/2025 2:22 PM T [facility] CALCIUM 8.7(L) 8.8 - 10.2 mg/dL 03/03/2025 2:22 PM CDT [facility] BUN 47(H) 8 - 23 mg/dL 03/03/2025 2:22 PM T [facility] CREATININE 1.59(H) 0.51 - 0.95 mg/dL 03/03/2025 2:22 PM T [facility] Comment:The GFR result is no t clinically significant on patients <18 or >70 years of age. GLUCOSE 263(H) 74 - 99 mg/dL 03/03/2025 2:22 PM CDT [facility] TOTAL PROTEIN 5.8(L) 6.4 - 8.3 g/dL 03/03/2025 2:22 PM T [facility] ALBUMIN 2.4(L) 3.5 - 5.2 g/dL 03/03/2025 2:22 PM CDT [facility] BILIRUBIN TOTAL 0.4 0.0 - 1.0 mg/dL 03/03/2025 2:22 PM CDT [facility] ALKALINE PHOSPHATASE 226(H) 35 - 104 U/L 03/03/2025 2:22 PM CDT [facility] AST 204(H) 10 - 35 U/L 03/03/2025 2:22 PM CDT [facility] ALT 105(H) <=35 U/L 03/03/2025 2:22 PM CDT [facility] GFR 32 mL/min/1. 73 sq meter 03/03/2025 2:22 PM CDT [facility] Comment:eGFR calculated with 2020 CKD-EPI equation. Vegetarian diet, extremely high or low muscle mass, and may affect results. Cystatin C with Glomerular Filtration Rate is a suitable alternative for these patients. ANION GAP 10 9 - 20 mmol/L 03/03/2025 2:22 PM CDT [facility] Blood Venipuncture / Unknown 03/03/2025 1:31 PM CDT 03/03/2025 1:39 PM CDT Nayeli Chan MD CHEMISTRY ORDERABLES F inal Result [facility] # [id number] [address] [place] [id number] * (ABNORMAL) CBC WITH DIFFERENTIAL (03/03/2025 1:31 PM CDT) WBC 10.6 4.8 - 10.8 K/uL 03/03/2025 1:54 PM CDT [facility] RBC 2.49(L) 4.20 - 5.40 M/uL 03/03/2025 1:54 PM CDT [facility] HEMOGLOBIN 7.0(L) 12.0 - 16.0 g/dL 03/03/2025 1:54 PM [facility] HEMATOCRIT 22.4(L) 36.0 - 46.0 % 03/03/2025 1:54 PM [facility] MCV 90.0 84.0 - 103.0 fL 03/03/2025 1:54 PM [facility] MCH 28.1 27.0 - 34.0 pg 03/03/2025 1:54 PM [facility] MCHC 31.3 30.0 - 35.0 g/dL 03/03/2025 1:54 PM [facility] PLATELETS 192 140 - 440 K/uL 03/03/2025 1:54 PM [facility] MPV 11.4 8.9 - 12.8 fL 03/03/2025 1:54 PM [facility] RDW 15.0(H) 11.0 - 14.5 % 03/03/2025 1:54 PM [facility] RDW-STDEV 49.7 37.0 - 54.0 fL 03/03/2025 1:54 PM [facility] NEUTROPHILS 84(H) 42 - 75 % 03/03/2025 1:54 PM [facility] LYMPHOCYTES 8(L) 24 - 44 % 03/03/2025 1:54 PM [facility] MONOCYTES 7 2 - 10 % 03/03/2025 1:54 PM [facility] EOSINOPHILS 0 0 - 7 % 03/03/2025 1:54 PM [facility] BASOPHILS 0 0 - 1 % 03/03/2025 1:54 PM [facility] IMMATURE GRANULOCYTES 1 0 - 2 % 03/03/2025 1:54 PM [facility] NEUTROPHIL ABSOLUTE 8.83(H) 2.00 - 8.00 K/uL 03/03/2025 1:54 PM [facility] LYMPHOCYTE ABSOLUTE 0.87(L) 1.20 - 4.00 K/uL 03/03/2025 1:54 PM [facility] MONOCYTE ABSOLUTE 0.77(H) 0.10 - 0.60 K/uL 03/03/2025 1:54 PM CDT [facility] EOSINOPHIL ABSOLUTE 0.01 0.00 - 0.70 K/uL 03/03/2025 1:54 PM CDT [facility] BASOPHILS ABSOLUTE 0.01 0.00 - 0.20 K/uL 03/03/2025 1:54 PM CDT [facility] IMMATURE GRANULOCYTES ABSOLUTE 0.06 0.00 - 0.10 K/uL 03/03/2025 1:54 PM CDT [facility] SMEAR REVIEWED: NN - No Action Needed 03/03/2025 1:54 PM CDT [facility] Blood Venipuncture / Unknown 03/03/2025 1:31 PM CDT 03/03/2025 1:39 PM CDT [facility] - 03/03/2025 1:54 PM CDT Verified by redraw. Nayeli Chan MD HEMATOLOGY ORDERABLES Final Result [facility] CLIA # [id number] [address] [place] [address] * UNFRACTIONATED HEPARIN MONITORING (03/03/2025 1:31 PM CDT) ANTI-XA UNFRAC HEP <0.10 See Interpretation IU/mL 03/03/2025 3:02 PM CDT [facility] Blood Venipuncture / Unknown 03/03/2025 1:31 PM CDT 03/03/2025 1:39 PM CDT [facility] - 03/03/2025 3:02 PM CDT Therapeutic Range: PT/DVT Heparin Protocol 0.3 - 0.7 IU/ml Cardiac Heparin Protocol 0.3 - 0.6 IU/ml The reference range for this test is specific to the anticoagulant and is not appropriate for monitoring patients on a DOAC protocol. Nayeli Chan MD HEMATOLOGY ORDERABLES Final Result Performing Organization Address [facility] Co de Phone Number [facility] DescribeMe [facility] CLIA # [id number] [address] [place] [address] * (ABNORMAL) POC GLUCOSE (03/03/2025 12:09 PM CDT) [facility] GLUCOSE POC 242(H) 74 - 99 mg/dL 03/03/2025 12:09 PM CDT [facility] SPECIMEN SOURCE, GLUCOSE POC Capillary 03/03/2025 12:09 PM CDT [facility] Blood, whole 03/03/2025 12:0 9 PM CDT 03/03/2025 12:18 PM CDT Nayeli Chan MD POINT OF CARE TESTING Final Result Performing Organization Address [facility] Co de Phone Number [facility] DescribeMe [facility] CLIA # [id number] [address] [facility] [place] [address] * EXTRA TUBE (GREEN) (03/03/2025 10:34 AM CDT) Blood Venipuncture / Unknown 03/03/2025 10:34 AM CDT 03/03/2025 11:29 AM CDT External Provider [facility] CHEMISTRY ORDERABLES Final Result Performing Organization Address [facility] Co de Phone Number [facility] CLIA # [id number] [address] [place] [address] * NM HEPATOBILIARY SCAN (03/03/2025 10:19 AM CDT) Anatomical Region Laterality Modality Abdomen Nuclear Medicine 03/03/2025 10:1 9 AM CDT Impressions 03/03/2025 10:23 AM CDT IMPRESSION: Findings consistent with cystic duct obstruction and acute cholecystitis. Narrative 03/03/2025 10:23 AM CDT NM HEPATOBILIARY SCAN HISTORY: Cholecystitis COMPARISON: March 01, 2025 PROCEDURE: Following the intravenous administration of 4.6 mCi of technetium 99m Choletec, planar images of the abdomen were obtained in anterior projection for 60 minutes. 1 mg Dilaudid FINDINGS: The liver parenchyma shows normal concentration of tracer. Common bile duct is seen at 15 minutes. Small bowel is seen at 45 minutes. Gallbladder is not visualized at 60 minutes. Procedure Note Tre Boone MD - 03/03/2025 NM HEPATOBILIARY SCAN HISTORY: Cholecystitis COMPARISON: March 01, 2025 PROCEDURE: Following the intravenous administration of 4.6 mCi of technetium 99m Choletec, planar images of the abdomen were obtained in anterior projection for 60 minutes. 1 mg Dilaudid FINDINGS: The liver parenchyma shows normal concentration of tracer. Common bile duct is seen at 15 minutes. Small bowel is seen at 45 minutes. Gallbladder is not visualized at 60 minutes. IMPRESSION: Findings consistent with cystic duct obstruction and acute cholecystitis. Nayeli Chan MD NM ORDERABLES Final Result * (ABNORMAL) POC GLUCOSE (03/03/2025 7:48 AM CDT) GLUCOSE POC 247(H) 74 - 99 mg/dL 03/03/2025 7:48 AM CDT [facility] SPECIMEN SOURCE, GLUCOSE POC Capillary 03/03/2025 7:48 AM CDT [facility] Blood, whole 03/03/2025 7:48 AM CDT 03/03/2025 8:15 AM CDT Nayeli Chan MD POINT OF CARE TESTING Final Result [facility] CLIA # [id number] [address] [place] [address] * UNFRACTIONATED HEPARIN MONITORING (03/02/2025 11:41 PM CDT) [facility] ANTI-XA UNFRAC HEP 0.76 See Interpretation IU/mL 03/03/2025 12:05 AM CDT [facility] Blood Venipuncture / Unknown 03/02/2025 11:41 PM CDT 03/02/2025 11:44 PM CDT Narrative [facility] - 03/03/2025 12:05 AM CDT Therapeutic Range: PT/DVT Heparin Protocol 0.3 - 0.7 IU/ml Cardiac Heparin Protocol 0.3 - 0.6 IU/ml The reference range for this test is specific to the anticoagulant and is not appropriate for monitoring patients on a DOAC protocol. us Nayeli Chan MD HEMATOLOGY ORDERABLES Final Result Performing Organization Address City/[facility]/ZIP Co de Phone Number [facility] CLIA # [id number] [address] [address] * (ABNORMAL) POC GLUCOSE (03/02/2025 8:23 PM CDT) [facility] GLUCOSE POC 296(H) 74 - 99 mg/dL 03/02/2025 8:23 PM CDT [facility] SPECIMEN SOURCE, GLUCOSE POC Capillary 03/02/2025 8:23 PM CDT [facility] Blood, whole 03/02/2025 8:23 PM CDT 03/02/2025 8:58 PM CDT us Nayeli Chan MD POINT OF CARE TESTING Final Result [facility] CLIA # [id number] [address] [address] * (ABNORMAL) POC GLUCOSE (03/02/2025 5:45 PM CDT) [facility] GLUCOSE POC 336(H) 74 - 99 mg/dL 03/02/2025 5:45 PM CDT [facility] SPECIMEN SOURCE, GLUCOSE POC Capillary 03/02/2025 5:45 PM CDT [facility] Blood, whole 03/02/2025 5:45 PM CDT 03/02/2025 5:57 PM CDT us Nayeli Chan MD POINT OF CARE TESTING Final Result Performing Organization Address [facility]/ZIP Co de Phone Number [facility] CLIA # [id number] [facility] [address] * FLETCHER AURIS SURVEILLANCE SCREEN (03/02/2025 5:43 PM CDT) [facility] Fletcher auris by PCR Not Detected Not Detected 03/03/2025 10:33 AM CDT [facility] Surveillance (Axilla/Groin) Collection / Unknown 03/02/2025 5:43 PM CDT 03/02/2025 5:57 PM CDT us Nayeli Chan MD MICROBIOLOGY - GENERAL ORDERABLES Final Result Performing Organization Address City/[facility]/ZIP Co de Phone Number [facility] CLIA # [id number] [address] [address] * UNFRACTIONATED HEPARIN MONITORING (03/02/2025 4:10 PM CDT) [facility] ANTI-XA UNFRAC HEP 0.72 See Interpretation IU/mL 03/02/2025 4:46 PM CDT [facility] Blood Venipuncture / Unknown 03/02/2025 4:10 PM CDT 03/02/2025 4:25 PM CDT Narrative [facility] - 03/02/2025 4:46 PM CDT Therapeutic Range: PT/DVT Heparin Protocol 0.3 - 0.7 IU/ml Cardiac Heparin Protocol 0.3 - 0.6 IU/ml The reference range for this test is specific to the anticoagulant and is not appropriate for monitoring patients on a DOAC protocol. us Nayeli Chan MD HEMATOLOGY ORDERABLES Final Result Performing Organization Address [facility] Co de Phone Number [facility] CLIA # [id number] [address] [address] * (ABNORMAL) POC GLUCOSE (03/02/2025 12:08 PM CDT) [facility] GLUCOSE POC 390(H) 74 - 99 mg/dL 03/02/2025 12:08 PM CDT [facility] SPECIMEN SOURCE, GLUCOSE POC Capillary 03/02/2025 12:08 PM CDT [facility] Blood, whole 03/02/2025 12:0 8 PM CDT 03/02/2025 12:31 PM CDT us Nayeli Chan MD POINT OF CARE TESTING Final Result Performing Organization Address [facility] Phone Number [facility] CLIA # [id number] [address] [address] * US VENOUS DOPPLER LEG BILATERAL (03/02/2025 10:09 AM CDT) Anatomical Region Laterality Modality Lower Extremity Ultrasound 03/02/2025 8:56 AM CDT Narrative 03/02/2025 4:[address] [facility] Laboratory [address] [place] [address] Noninvasive Vascular Lab Venous Exam Complete Lower Extremity Duplex Patient: Helen Farrell Study ID: US VENOUS DOPPLE Gender: F : 1940 Age: 84 Room: 3106 Height: Weight: BSA: Pt status: Inpatient Study Date: 03/02/2025 Study Time: 08:56:55 AM BSA: Ordering: Sebas Feliz Interpreting:Prince Jose Commissary Representative: JUAN C Indications: DVT. Summary Impression: 1. Study demonstrates acute deep vein thrombosis involving the the right femoral vein (mid-distal) and the right popliteal vein. 2. Study demonstrates acute deep vein thrombosis involving one of the left peroneal veins and left soleal vein. Study data: Complete lower extremity venous duplex evaluation. Doppler flow study including spectral analysis, color and lee scale imaging. Location: Bedside. Patient status: Inpatient. Study status: Routine. Procedure: A vascular evaluation was performed. Image quality was fair. The study was technically limited due to calcification, edema, and acoustic shadowing. Venous flow and imaging: - Right common femoral Patent; Normal phasicity; spontaneous; compressible; normal augmentation - Right profunda femoral Patent; Normal phasicity; spontaneous; compressible; normal augmentation - Right femoral Partially thrombosed; Partially compressible - Right popliteal Partially thrombosed; Partially compressible - Right small saphenous Patent; Normal phasicity; spontaneous; compressible; normal augmentation - Right posterior tibial Difficult study; Compressible; normal augmentation - Right peroneal Difficult study; Compressible; normal augmentation - Right great saphenous Patent; Normal phasicity; spontaneous; compressible; normal augmentation - Left common femoral Patent; Normal phasicity; spontaneous; compressible; normal augmentation - Left profunda femoral Patent; Normal phasicity; spontaneous; compressible; normal augmentation - Left femoral Patent; Normal phasicity; spontaneous; compressible; normal augmentation - Left popliteal Patent; Normal phasicity; spontaneous; compressible; normal augmentation - Left small saphenous Patent; Normal phasicity; spontaneous; compressible; normal augmentation - Left posterior tibial Difficult study; Compressible; normal augmentation - Left peroneal Totally thrombosed; Noncompressible - Left great saphenous Patent; Normal phasicity; spontaneous; compressible; normal augmentation - Left soleal Totally thrombosed; Noncompressible CRITICAL FINDINGS - Reported to: Reggie PARNELL - Read back and verified. - 03/02/2025899 - +DVT [facility] Lab is accredited with the Intersocietal Commission for the Accreditation of Vascular Laboratories (ICAVL) Prepared and Electronically Authenticated Prince Jose Confirmed 03/02/2025 16:32 Procedure Note Prince Garcia MD - 03/02/[address] [facility] [address] [place] [address] Noninvasive Vascular Lab Venous Exam Complete Lower Extremity Duplex Patient: Helen Farrell Study ID: US VENOUS DOPPLE Gender: F : 1940 Age: 84 Room: 3106 Height: Weight: BSA: Pt status: Inpatient Study Date: 03/02/2025 Study Time: 08:56:55 AM BSA: Ordering: Sebas Feliz Interpreting:Prince Jose Commissary Representative: JUAN C Indications: DVT. Summary Impression: 1. Study demonstrates acute deep vein thrombosis involving the the right femoral vein (mid-distal) and the right popliteal vein. 2. Study demonstrates acute deep vein thrombosis involving one of theleft peroneal veins and left soleal vein. Study data: Complete lower extremity venous duplex evaluation.Doppler flow study including spectral analysis, color and lee scale imaging. Location: Bedside. Patient status: Inpatient. Study status:Routine. Procedure: A vascular evaluation was performed. Image quality was fair.The study was technically limited due to calcification, edema, and acoustic shadowing. Venous flow and imaging: - Right common femoral Patent; Normal phasicity; spontaneous;compressible; normal augmentation - Right profunda femoral Patent; Normal phasicity; spontaneous;compressible; normal augmentation - Right femoral Partially thrombosed; Partially compressible - Right popliteal Partially thrombosed; Partially compressible - Right small saphenous Patent; Normal phasicity; spontaneous;compressible; normal augmentation - Right posterior tibial Difficult study; Compressible; normalaugmentation - Right peroneal Difficult study; Compressible; normal augmentation - Right great saphenous Patent; Normal phasicity; spontaneous;compressible; normal augmentation - Left common femoral Patent; Normal phasicity; spontaneous;compressible; normal augmentation - Left profunda femoral Patent; Normal phasicity; spontaneous;compressible; normal augmentation - Left femoral Patent; Normal phasicity; spontaneous; compressible;normal augmentation - Left popliteal Patent; Normal phasicity; spontaneous; compressible;normal augmentation - Left small saphenous Patent; Normal phasicity; spontaneous;compressible; normal augmentation - Left posterior tibial Difficult study; Compressible; normalaugmentation - Left peroneal Totally thrombosed; Noncompressible - Left great saphenous Patent; Normal phasicity; spontaneous;compressible; normal augmentation - Left soleal Totally thrombosed; Noncompressible CRITICAL FINDINGS - Reported to: Reggie PARNELL - Read back and verified. - 03/02/2025 - 0900 - +DVT [facility] Lab is accredited with theIntersocietal Commission for the Accreditation of Vascular Laboratories (ICAVL) Prepared and Electronically Authenticated Prince Jose Confirmed 03/02/2025 16:32 Sbeas Feliz MD ORDERABLES Final R esult * BLOOD CULTURE (03/02/2025 8:35 AM CDT) BLOOD CULTURE No growth 03/07/2025 10:20 AM CDT [facility] Blood (Peripheral) Venipuncture / Unknown 03/02/2025 8:35 AM CDT 03/02/2025 8:39 AM CDT Sebas Feliz MD MICROBIOLOGY - GENERAL ORDERABLES Final Result [facility] CLIA # [id number] [address] [address] [place] [address] * (ABNORMAL) UNFRACTIONATED HEPARIN MONITORING (03/02/2025 8:35 AM CDT) [facility] ANTI-XA UNFRAC HEP 1.08(HH) See Interpretation IU/mL 03/02/2025 9:10 AM CDT [facility] Blood Venipuncture / Unknown 03/02/2025 8:35 AM CDT 03/02/2025 8:40 AM CDT Narrative [facility] - 03/02/2025 9:10 AM CDT Therapeutic Range: PT/DVT Heparin Protocol 0.3 - 0.7 IU/ml Cardiac Heparin Protocol 0.3 - 0.6 IU/ml The reference range for this test is specific to the anticoagulant and is not appropriate for monitoring patients on a DOAC protocol. Sebas Feliz MD HEMATOLOGY ORDERABLES F inal Result Performing Organization Address City/[facility]/ZIP Co de Phone Number [facility] CLIA # [id number] [address] [address] * BLOOD CULTURE (03/02/2025 8:30 AM CDT) [facility] BLOOD CULTURE No growth 03/07/2025 10:20 AM CDT [facility] Blood (Peripheral) Venipuncture / Unknown 03/02/2025 8:30 AM CDT 03/02/2025 8:39 AM CDT Sebas Feliz MD MICROBIOLOGY - GENERAL ORDERABLES Final Result Performing Organization Address City/[facility]/ZIP Co de Phone Number [facility] CLIA # [id number] [address] [facility] [place] [address] * (ABNORMAL) POC GLUCOSE (03/02/2025 7:51 AM CDT) [facility] GLUCOSE POC 289(H) 74 - 99 mg/dL 03/02/2025 7:51 AM CDT [facility] SPECIMEN SOURCE, GLUCOSE POC Capillary 03/02/2025 7:51 AM CDT [facility] Blood, whole 03/02/2025 7:51 AM CDT 03/02/2025 9:50 AM CDT Nayeli Chan MD POINT OF CARE TESTING Final Result Performing Organization Address [facility] Co de Phone Number [facility] CLIA # [id number] [address] [address] [place] [address] * (ABNORMAL) UNFRACTIONATED HEPARIN MONITORING (03/02/2025 12:46 AM CDT) [facility] ANTI-XA UNFRAC HEP 1.26(HH) See Interpretation IU/mL 03/02/2025 1:53 AM CDT [facility] Comment:Sample manually dilu kathryn. Initial results outside instrument range Blood Venipuncture / Unknown 03/02/2025 12:46 AM CDT 03/02/2025 1:03 AM CDT Narrative [facility] - 03/02/2025 1:53 AM CDT Therapeutic Range: PT/DVT Heparin Protocol 0.3 - 0.7 IU/ml Cardiac Heparin Protocol 0.3 - 0.6 IU/ml The reference range for this test is specific to the anticoagulant and is not appropriate for monitoring patients on a DOAC protocol. Sebas Feliz MD HEMATOLOGY ORDERABLES F inal Result Performing Organization Address City/[facility]/ZIP Co de Phone Number [facility] CLIA # [id number] [address] [address] [place] [address] * (ABNORMAL) BASIC METABOLIC PANEL (03/02/2025 12:46 AM CDT) SODIUM 135(L) 136 - 145 mmol/L 03/02/2025 1:41 AM CDT [facility] POTASSIUM 4.3 3.5 - 5.1 mmol/L 03/02/2025 1:41 AM T [facility] CHLORIDE 101 98 - 107 mmol/L 03/02/2025 1:41 AM CDT [facility] CO2 23 22 - 29 mmol/L 03/02/2025 1:41 AM CDT [facility] CALCIUM 8.8 8.8 - 10.2 mg/dL 03/02/2025 1:41 AM CDT [facility] BUN 22 8 - 23 mg/dL 03/02/2025 1:41 AM T [facility] CREATININE 0.81 0.51 - 0.95 mg/dL 03/02/2025 1:41 AM T [facility] Comment:The GFR result is no t clinically significant on patients <18 or >70 years of age. GLUCOSE 315(H) 74 - 99 mg/dL 03/02/2025 1:41 AM T [facility] GFR >60 mL/min/1.7 3 sq meter 03/02/2025 1:41 AM T [facility] Comment:eGFR calculated with 2020 CKD-EPI equation. Vegetarian diet, extremely high or low muscle mass, and may affect results. Cystatin C with Glomerular Filtration Rate is a suitable alternative for these patients. ANION GAP 11 9 - 20 mmol/L 03/02/2025 1:41 AM T [facility] Blood Venipuncture / Unknown 03/02/2025 12:46 AM CDT 03/02/2025 1:02 AM CDT Sebas Feliz MD CHEMISTRY ORDERABLES Fi nal Result [facility] CLIA # [id number] [address] [address] [place] [address] * (ABNORMAL) CBC WITH DIFFERENTIAL (03/02/2025 12:46 AM CDT) [facility] WBC 11.7(H) 4.8 - 10.8 K/uL 03/02/2025 1:12 AM CDT [facility] RBC 3.50(L) 4.20 - 5.40 M/uL 03/02/2025 1:12 AM CDT [facility] HEMOGLOBIN 9.9(L) 12.0 - 16.0 g/dL 03/02/2025 1:12 AM T [facility] HEMATOCRIT 30.9(L) 36.0 - 46.0 % 03/02/2025 1:12 AM [facility] MCV 88.3 84.0 - 103.0 fL 03/02/2025 1:12 AM [facility] MCH 28.3 27.0 - 34.0 pg 03/02/2025 1:12 AM [facility] DescribeMe [facility] MCHC 32.0 30.0 - 35.0 g/dL 03/02/2025 1:12 AM T [facility] PLATELETS 181 140 - 440 K/uL 03/02/2025 1:12 AM [facility] MPV 11.5 8.9 - 12.8 fL 03/02/2025 1:12 AM [facility] RDW 15.0(H) 11.0 - 14.5 % 03/02/2025 1:12 AM [facility] RDW-STDEV 48.9 37.0 - 54.0 fL 03/02/2025 1:12 AM T [facility] NEUTROPHILS 88(H) 42 - 75 % 03/02/2025 1:12 AM CDT [facility] LYMPHOCYTES 5(L) 24 - 44 % 03/02/2025 1:12 AM CDT [facility] DescribeMe [facility] MONOCYTES 6 2 - 10 % 03/02/2025 1:12 AM CDT [facility] DescribeMe [facility] EOSINOPHILS 0 0 - 7 % 03/02/2025 1:12 AM CDT [facility] BASOPHILS 0 0 - 1 % 03/02/2025 1:12 AM CDT [facility] IMMATURE GRANULOCYTES 1 0 - 2 % 03/02/2025 1:12 AM CDT [facility] NEUTROPHIL ABSOLUTE 10.25(H) 2.00 - 8.00 K/uL 03/02/2025 1:12 AM CDT [facility] LYMPHOCYTE ABSOLUTE 0.59(L) 1.20 - 4.00 K/uL 03/02/2025 1:12 AM CDT [facility] MONOCYTE ABSOLUTE 0.74(H) 0.10 - 0.60 K/uL 03/02/2025 1:12 AM CDT [facility] EOSINOPHIL ABSOLUTE 0.00 0.00 - 0.70 K/uL 03/02/2025 1:12 AM CDT [facility] BASOPHILS ABSOLUTE 0.01 0.00 - 0.20 K/uL 03/02/2025 1:12 AM CDT [facility] IMMATURE GRANULOCYTES ABSOLUTE 0.07 0.00 - 0.10 K/uL 03/02/2025 1:12 AM T [facility] SMEAR REVIEWED: NN - No Action Needed 03/02/2025 1:12 AM [facility] Blood Venipuncture / Unknown 03/02/2025 12:46 AM CDT 03/02/2025 1:03 AM CDT Sebas Feliz MD HEMATOLOGY ORDERABLES F inal Result [facility] # [id number] [address] [place] [address] [place] [address] * (ABNORMAL) POC GLUCOSE (03/01/2025 9:11 PM CDT) GLUCOSE POC 293(H) 74 - 99 mg/dL 03/01/2025 9:11 PM CDT [facility] SPECIMEN SOURCE, GLUCOSE POC Capillary 03/01/2025 9:11 PM CDT [facility] Blood, whole 03/01/2025 9:11 PM CDT 03/02/2025 9:50 AM CDT Nayeli Chan MD POINT OF CARE TESTING Final Result [facility] CLIA # [id number] [address] [address] [place] [address] * US GALLBLADDER (03/01/2025 4:45 PM CDT) Anatomical Region Laterality Modality Abdomen Ultrasound 03/01/2025 4:45 PM CDT Impressions 03/01/2025 5:17 PM CDT IMPRESSION: 1. Cholelithiasis. 2. Prominently thickened gallbladder wall consistent with cholecystitis. 3. No biliary ductal dilatation. Narrative 03/01/2025 5:17 PM CDT Exam: US GALLBLADDER Date/Time of Exam: 03/01/2025 4:45 PM Reason For Exam: Abdominal Pain RUQ Diagnosis: Complicated urinary tract infection; Generalized weakness; Stage I pressure ulcer of right heel; Anemia, unspecified type; History of dementia; Calculus of gallbladder with acute cholecystitis without obstruction; Other acute pulmonary embolism without acute cor pulmonale An ultrasound study was performed on the right upper quadrant. The liver shows normal, homogeneous echogenicity. No focal hepatic lesions are seen. A 2.3 cm stone is present in the neck of the gallbladder. The gallbladder wall is prominently thickened measuring 8 mm. No abnormal pericholecystic fluid is seen. The common bile duct is of normal caliber measuring 5 mm. The visualized portions of the head and body of the pancreas show normal echogenicity with no focal lesions. The tail of the pancreas is obscured by overlying bowel gas. No abnormal fluid collections are seen in the upper abdomen. The right kidney is unremarkable in appearance. Procedure Note Arnold Carter MD - 03/01/2025 Exam: US GALLBLADDER Date/Time of Exam: 03/01/2025 4:45 PM Reason For Exam: Abdominal Pain RUQ Diagnosis: Complicated urinary tract infection; Generalized weakness; Stage I pressure ulcer of right heel; Anemia, unspecified type; History of dementia; Calculus of gallbladder with acute cholecystitis without obstruction; Other acute pulmonary embolism without acute cor pulmonale An ultrasound study was performed on the right upper quadrant. The liver shows normal, homogeneous echogenicity. No focal hepatic lesions are seen. A 2.3 cm stone is present in the neck of the gallbladder. The gallbladder wall is prominently thickened measuring 8 mm. No abnormal pericholecystic fluid is seen. The common bile duct is of normal caliber measuring 5 mm. The visualized portions of the head and body of the pancreas show normal echogenicity with no focal lesions. The tail of the pancreas is obscured by overlying bowel gas. No abnormal fluid collections are seen in the upper abdomen. The right kidney is unremarkable in appearance. IMPRESSION: 1. Cholelithiasis. 2. Prominently thickened gallbladder wall consistent with cholecystitis. 3. No biliary ductal dilatation. us Babak Larkin DO US ORDERABLES Final Resul t * (ABNORMAL) CBC WITHOUT DIFFERENTIAL (03/01/2025 4:13 PM CDT) WBC 12.9(H) 4.8 - 10.8 K/uL 03/01/2025 4:31 PM CDT [facility] RBC 3.91(L) 4.20 - 5.40 M/uL 03/01/2025 4:31 PM CDT [facility] HEMOGLOBIN 11.1(L) 12.0 - 16.0 g/dL 03/01/2025 4:31 PM CDT [facility] HEMATOCRIT 35.5(L) 36.0 - 46.0 % 03/01/2025 4:31 PM CDT [facility] MCV 90.8 84.0 - 103.0 fL 03/01/2025 4:31 PM CDT [facility] MCH 28.4 27.0 - 34.0 pg 03/01/2025 4:31 PM CDT [facility] MCHC 31.3 30.0 - 35.0 g/dL 03/01/2025 4:31 PM CDT [facility] PLATELETS 196 140 - 440 K/uL 03/01/2025 4:31 PM CDT [facility] MPV 10.5 8.9 - 12.8 fL 03/01/2025 4:31 PM CDT [facility] RDW 15.2(H) 11.0 - 14.5 % 03/01/2025 4:31 PM CDT [facility] RDW-STDEV 50.2 37.0 - 54.0 fL 03/01/2025 4:31 PM CDT [facility] Blood Venipuncture / Unknown 03/01/2025 4:13 PM CDT 03/01/2025 4:23 PM CDT us Babak Larkin DO HEMATOLOGY ORDERABLES Final Result Performing Organization Address [facility]/ZIP Co de Phone Number [facility] CLIA # [id number] [address] [facility] [place] [address] * UNFRACTIONATED HEPARIN MONITORING (03/01/2025 4:13 PM CDT) ANTI-XA UNFRAC HEP <0.10 See Interpretation IU/mL 03/01/2025 4:57 PM CDT [facility] Blood Venipuncture / Unknown 03/01/2025 4:13 PM CDT 03/01/2025 4:23 PM CDT Narrative [facility] - 03/01/2025 4:57 PM CDT Therapeutic Range: PT/DVT Heparin Protocol 0.3 - 0.7 IU/ml Cardiac Heparin Protocol 0.3 - 0.6 IU/ml The reference range for this test is specific to the anticoagulant and is not appropriate for monitoring patients on a DOAC protocol. Babak Larkin DO HEMATOLOGY ORDERABLES Final Result [facility] CLIA # [id number] [address] [facility] [place] [address] * PTT (03/01/2025 4:13 PM CDT) PTT 25.1 24.8 - 37.2 seconds 03/01/2025 4:50 PM CDT [facility] Blood Venipuncture / Unknown 03/01/2025 4:13 PM CDT 03/01/2025 4:23 PM CDT Narrative [facility] DescribeMe [facility] - 03/01/2025 4:50 PM CDT Therapeutic Range: Hi-level PE/DVT heparin protocol 80.1 - 95.0 sec Lo-level PE/DVT heparin protocol 70.1 - 85.0 sec Cardiac Heparin Protocol 70.1 - 100.0 sec us Babak Larkin DO HEMATOLOGY ORDERABLES Final Result [facility] CLIA # [id number] [address] [address] * CT ABDOMEN PELVIS W CONTRAST (03/01/2025 2:30 PM CDT) Anatomical Region Laterality Modality Abdomen Computed Tomogra phy 03/01/2025 2:31 PM CDT Impressions 03/01/2025 3:22 PM CDT IMPRESSION: 1. Cholelithiasis. 2. Inflammatory changes are present in the gallbladder consistent with cholecystitis. 3. Diverticulosis without evidence of diverticulitis. 4. Very small right pulmonary embolism is incidentally noted. The findings and/or imaging diagnoses in the above impression have been deemed a critical result by the interpreting radiologist and immediately reported as such to the ordering physician or appropriate licensed caregiver in accordance with current radiology department policy. Narrative 03/01/2025 3:22 PM CDT Exam: CT ABDOMEN PELVIS W CONTRAST Date/Time of Exam: 03/01/2025 2:30 PM Reason For Exam: RLQ abdominal pain. Contiguous axial images were obtained through the abdomen and pelvis. Sagittal and coronal reformatted images are included. 100 mL of Isovue-300 was given intravenously. A 2.5 cm stone is present in the neck. Gallbladder. There is prominent wall thickening of the gallbladder which measures 7 mm thick. Strandy density and induration is present in the fat surrounding the gallbladder consistent with inflammatory changes. There is no evidence of any abdominal aortic aneurysm or dissection. The appendix is not directly visualized however there is no evidence of any inflammatory change in the fat surrounding the cecum. A small amount of free fluid is present low in the pelvis. Numerous diverticula are present in the sigmoid colon. There is no evidence of any ureteral stones or any dilatation of the ureters or collecting systems. The liver, spleen, pancreas, kidneys and adrenals are unremarkable. There is no evidence of abnormal soft tissue masses, or adenopathy in the abdomen or pelvis. Bowel loops are nondilated. There is no evidence of any free intraperitoneal air. Incidentally noted is a very small intraluminal filling defect within a subsegmental pulmonary arterial branch in the right lower lung consistent with a very small pulmonary embolism. Procedure Note Arnold Carter MD - 03/01/2025 Exam: CT ABDOMEN PELVIS W CONTRAST Date/Time of Exam: 03/01/2025 2:30 PM Reason For Exam: RLQ abdominal pain. Contiguous axial images were obtained through the abdomen and pelvis. Sagittal and coronal reformatted images are included. 100 mL of Isovue-300 was given intravenously. A 2.5 cm stone is present in the neck. Gallbladder. There is prominent wall thickening of the gallbladder which measures 7 mm thick. Strandy density and induration is present in the fat surrounding the gallbladder consistent with inflammatory changes. There is no evidence of any abdominal aortic aneurysm or dissection. The appendix is not directly visualized however there is no evidence of any inflammatory change in the fat surrounding the cecum. A small amount of free fluid is present low in the pelvis. Numerous diverticula are present in the sigmoid colon. There is no evidence of any ureteral stones or any dilatation of the ureters or collecting systems. The liver, spleen, pancreas, kidneys and adrenals are unremarkable. There is no evidence of abnormal soft tissue masses, or adenopathy in the abdomen or pelvis. Bowel loops are nondilated. There is no evidence of any free intraperitoneal air. Incidentally noted is a very small intraluminal filling defect within a subsegmental pulmonary arterial branch in the right lower lung consistent with a very small pulmonary embolism. IMPRESSION: 1. Cholelithiasis. 2. Inflammatory changes are present in the gallbladder consistent with cholecystitis. 3. Diverticulosis without evidence of diverticulitis. 4. Very small right pulmonary embolism is incidentally noted. The findings and/or imaging diagnoses in the above impression have been deemed a critical result by the interpreting radiologist and immediately reported as such to the ordering physician or appropriate licensed caregiver in accordance with current radiology department policy. us Babak Larkin DO CT ORDERABLES Final Resul t * (ABNORMAL) URINE CULTURE (03/01/2025 1:02 PM CDT) [facility] CULTURE ESCHERICHIA COLI(A) PEDRO PABLO MCG/ML 03/04/2025 7:08 AM CDT [facility] CULTURE ENTEROCOCCUS FAECALIS(A) PEDRO PABLO MCG/ML 03/04/2025 7:08 AM CDT [facility] Urine (Urine, indwelling (Herrera) catheter) Collection / Unknown 03/01/2025 1:02 PM CDT 03/01/2025 1:57 PM CDT Narrative Organism Antibiotic Method Susceptibility Escherichia coli CEFAZOLIN PEDRO PABLO MCG/ML <=4 mcg/mL: Susceptible Comment:Cefazolin felton sceptible interpretation applies to uncomplicated urinary tract infections (UTI) only. If patient has a complicated UTI consider either using a 3rd generation cephalosporin (ie- ceftriaxone). If cefazolin susceptibility testing is necessary for treatment of this patient, contact Microbiology for additional testing. Escherichia coli CEFTRIAXONE PEDRO PABLO MCG/ML <=1 mcg/mL: Susceptible Escherichia coli GENTAMICIN PEDRO PABLO MCG/ML <=1 mcg/mL: Susceptible Escherichia coli TOBRAMYCIN PEDRO PABLO MCG/ML <=1 mcg/mL: Susceptible Escherichia coli CIPROFLOXACIN PEDRO PABLO MCG/ML <=0.25 mcg/mL: Susceptible Escherichia coli LEVOFLOXACIN PEDRO PABLO MCG/ML <=0.12 mcg/mL: Susceptible Escherichia coli TRIMETHOPRIM/ SULFAMETHOXAZOLE PEDRO PABLO MCG/ML <=20 mcg/mL: Susceptible Escherichia coli NITROFURANTOIN PEDRO PABLO MCG/ML <=16 mcg/mL: Susceptible Escherichia coli AMPICILLIN PEDRO PABLO MCG/ML <=2 mcg/mL: Susceptible Escherichia coli AMPICILLIN/ SULBACTAM PEDRO PABLO MCG/ML <=2 mcg/mL: Susceptible Escherichia coli PIPERACILLIN/ TAZOBACTAM PEDRO PABLO MCG/ML <=4 mcg/mL: Susceptible Comment:Aminoglycosides shou ld not be used as monotherapy for infections outside the urinary tract. Consultation with an infectious diseases specialist is recommended. Enterococcus faecalis AMPICILLIN PEDRO PABLO MCG/ML <=2 mcg/mL: Susceptible Enterococcus faecalis VANCOMYCIN PEDRO PABLO MCG/ML 1 mcg/mL: Susceptible Enterococcus faecalis CIPROFLOXACIN PEDRO PABLO MCG/ML >=8 mcg/mL: Resistant Enterococcus faecalis LEVOFLOXACIN PEDRO PABLO MCG/ML >=8 mcg/mL: Resistant Enterococcus faecalis NITROFURANTOIN PEDRO PABLO MCG/ML <=16 mcg/mL: Susceptible us Babak Larkin DO MICROBIOLOGY - GENERAL ORDE RABLES Final Result Performing Organization Address [facility]/ZIP Co de Phone Number [facility] CLIA # [id number] [id number] [place] [address] * EXTRA TUBE (URINE LEE) (03/01/2025 12:04 PM CDT) Urine URINE SPECIMEN OBTAINED BY CLEAN CATCH PROCEDURE / Unknown Collection / Unknown 03/01/2025 12:04 PM CDT 03/01/2025 12:08 PM CDT Babak Larkin DO URINE ORDERABLES Final Resu lt Performing Organization Address [facility] Co de Phone Number [facility] CLIA # [id number] [address] [place] [address] * (ABNORMAL) URINALYSIS WITH REFLEX MICROSCOPIC (03/01/2025 12:04 PM CDT) COLOR UA Yellow Pale to Dark Yellow 03/01/2025 12:22 PM CDT [facility] CLARITY UA Turbid(A) Clear 03/01/2025 12:22 PM CDT [facility] SPECIFIC GRAVITY UA 1.026 1.003 - 1.035 03/01/2025 12:22 PM CDT [facility] Describe[facility] PH UA 6.5 5.0 - 8.0 03/01/2025 12:22 PM CDT [facility] LEUKOCYTE ESTERASE UA 3+(A) Negative 03/01/2025 12:22 PM CDT [facility] NITRITE UA Negative Negative 03/01/2025 12:22 PM T [facility] PROTEIN UA 2+(A) Negative 03/01/2025 12:22 PM T [facility] GLUCOSE UA Negative Negative 03/01/2025 12:22 PM CDT [facility] KETONES UA Negative Negative 03/01/2025 12:22 PM T [facility] UROBILINOGEN UA <2.0 <2.0 mg/dL 12:22 PM T [facility] BILIRUBIN UA Negative Negative 03/01/2025 12:22 PM T [facility] BLOOD UA 1+(A) Negative 03/01/2025 12:22 PM T [facility] WBC UA >100(A) 0 - 2 /hpf 03/01/2025 12:22 PM T [facility] RBC UA 26-50(A) 0 - 2 /hpf 03/01/2025 12:22 PM T [facility] BACTERIA UA 3+(A) Negative /hpf 03/01/2025 12:22 PM [facility] EPITHELIAL CELLS, URINE 0-5 0 - 5 /hpf 03/01/2025 12:22 PM T [facility] WBC CLUMPS Present(A) Absent 03/01/2025 12:22 PM T [facility] Urine URINE SPECIMEN OBTAINED BY CLEAN CATCH PROCEDURE / Unknown Collection / Unknown 03/01/2025 12:04 PM CDT 03/01/2025 12:08 PM CDT us Babak Larkin DO URINE ORDERABLES Final Resu lt [facility] CLIA # [id number] [address] [place] [address] * TSH REFLEXIVE (03/01/2025 11:00 AM CDT) [facility] TSH 1.99 0.27 - 4.20 uIU/mL 03/01/2025 11:46 AM CDT [facility] Blood Venipuncture / Unknown 03/01/2025 11:00 AM CDT 03/01/2025 11:04 AM CDT us Babak Larkin DO CHEMISTRY ORDERABLES Final Result [facility] CLIA # [id number] [address] [place] [address] * (ABNORMAL) COMPREHENSIVE METABOLIC PANEL (03/01/2025 11:00 AM CDT) [facility] SODIUM 137 136 - 145 mmol/L 03/01/2025 11:39 AM T [facility] POTASSIUM 3.8 3.5 - 5.1 mmol/L 03/01/2025 11:39 AM T [facility] CHLORIDE 104 98 - 107 mmol/L 03/01/2025 11:39 AM T [facility] CO2 24 22 - 29 mmol/L 03/01/2025 11:39 AM T [facility] CALCIUM 8.8 8.8 - 10.2 mg/dL 03/01/2025 11:39 AM T [facility] BUN 24(H) 8 - 23 mg/dL 03/01/2025 11:39 AM T [facility] CREATININE 0.91 0.51 - 0.95 mg/dL 03/01/2025 11:39 AM T [facility] Comment:The GFR result is no t clinically significant on patients <18 or >70 years of age. GLUCOSE 189(H) 74 - 99 mg/dL 03/01/2025 11:39 AM T [facility] TOTAL PROTEIN 5.7(L) 6.4 - 8.3 g/dL 03/01/2025 11:39 AM [facility] ALBUMIN 2.7(L) 3.5 - 5.2 g/dL 03/01/2025 11:39 AM [facility] BILIRUBIN TOTAL 0.6 0.0 - 1.0 mg/dL 03/01/2025 11:39 AM [facility] ALKALINE PHOSPHATASE 101 35 - 104 U/L 03/01/2025 11:39 AM [facility] AST 16 10 - 35 U/L 03/01/2025 11:39 AM [facility] ALT 14 <=35 U/L 03/01/2025 11:39 AM [facility] GFR >60 mL/min/1.7 3 sq meter 03/01/2025 11:39 AM [facility] Comment:eGFR calculated with 2020 CKD-EPI equation. Vegetarian diet, extremely high or low muscle mass, and may affect results. Cystatin C with Glomerular Filtration Rate is a suitable alternative for these patients. ANION GAP 9 9 - 20 mmol/L 03/01/2025 11:39 AM [facility] Blood Venipuncture / Unknown 03/01/2025 11:00 AM CDT 03/01/2025 11:06 AM CDT us Babak Larkin DO CHEMISTRY ORDERABLES Final Result [facility] CLIA # [id number] [address] [place] [address] [place] [address] * PTT (03/01/2025 11:00 AM CDT) PTT 31.5 24.8 - 37.2 seconds 03/01/2025 11:29 AM T [facility] Blood Venipuncture / Unknown 03/01/2025 11:00 AM CDT 03/01/2025 11:05 AM CDT [facility] DescribeMe [facility] - 03/01/2025 11:29 AM CDT Therapeutic Range: Hi-level PE/DVT heparin protocol 80.1 - 95.0 sec Lo-level PE/DVT heparin protocol 70.1 - 85.0 sec Cardiac Heparin Protocol 70.1 - 100.0 sec Babak Larkin DO HEMATOLOGY ORDERABLES Final Result Performing Organization Address [facility] de Phone Number [facility] DescribeMe [facility] CLIA # [id number] [address] [address] * (ABNORMAL) PROTIME-INR (03/01/2025 11:00 AM CDT) PROTIME 16.7(H) 12.7 - 14.9 Seconds 03/01/2025 11:29 AM CDT [facility] INR 1.3(H) 0.8 - 1.2 03/01/2025 11:29 AM CDT [facility] Blood Venipuncture / Unknown 03/01/2025 11:00 AM CDT 03/01/2025 11:05 AM CDT [facility] Describe[facility] - 03/01/2025 11:29 AM CDT Expected Values for INR: DVT/PE Goal INR 2.5; range 2.0 - 3.0 Valve Replacement Tissue Goal INR 2.5; range 2.0 - 3.0 Valve Replacement Mechanical Goal INR 3.0; range 2.5 - 3.5 POST-PR Goal INR 2.5; range 2.0 - 3.0 or Goal INR 3.0; range 2.5 - 3.5 Atrial Fibrillation Goal INR 2.5; range 2.0 - 3.0 Ischemic Stroke Goal INR 2.5; range 2.0 - 3.0 Babak Larkin DO HEMATOLOGY ORDERABLES Final Result Performing Organization Address [facility]/ZIP Co de Phone Number [facility] CLIA # [id number] [facility] [address] [place] [address] * (ABNORMAL) CBC WITH DIFFERENTIAL (03/01/2025 11:00 AM CDT) [facility] WBC 10.2 4.8 - 10.8 K/uL 03/01/2025 11:11 AM T [facility] RBC 3.40(L) 4.20 - 5.40 M/uL 03/01/2025 11:11 AM T [facility] HEMOGLOBIN 9.6(L) 12.0 - 16.0 g/dL 03/01/2025 11:11 AM CDT [facility] HEMATOCRIT 30.8(L) 36.0 - 46.0 % 03/01/2025 11:11 AM [facility] MCV 90.6 84.0 - 103.0 fL 03/01/2025 11:11 AM [facility] MCH 28.2 27.0 - 34.0 pg 03/01/2025 11:11 AM [facility] MCHC 31.2 30.0 - 35.0 g/dL 03/01/2025 11:11 AM [facility] PLATELETS 168 140 - 440 K/uL 03/01/2025 11:11 AM [facility] MPV 11.0 8.9 - 12.8 fL 03/01/2025 11:11 AM [facility] RDW 15.3(H) 11.0 - 14.5 % 03/01/2025 11:11 AM [facility] RDW-STDEV 50.5 37.0 - 54.0 fL 03/01/2025 11:11 AM [facility] NEUTROPHILS 78(H) 42 - 75 % 03/01/2025 11:11 AM [facility] LYMPHOCYTES 13(L) 24 - 44 % 03/01/2025 11:11 AM T [facility] MONOCYTES 8 2 - 10 % 03/01/2025 11:11 AM CDT [facility] EOSINOPHILS 0 0 - 7 % 03/01/2025 11:11 AM CDT [facility] BASOPHILS 0 0 - 1 % 03/01/2025 11:11 AM CDT [facility] IMMATURE GRANULOCYTES 0 0 - 2 % 03/01/2025 11:11 AM CDT [facility] NEUTROPHIL ABSOLUTE 8.01(H) 2.00 - 8.00 K/uL 03/01/2025 11:11 AM CDT [facility] LYMPHOCYTE ABSOLUTE 1.30 1.20 - 4.00 K/uL 03/01/2025 11:11 AM CDT [facility] MONOCYTE ABSOLUTE 0.84(H) 0.10 - 0.60 K/uL 03/01/2025 11:11 AM CDT [facility] EOSINOPHIL ABSOLUTE 0.03 0.00 - 0.70 K/uL 03/01/2025 11:11 AM CDT [facility] BASOPHILS ABSOLUTE 0.01 0.00 - 0.20 K/uL 03/01/2025 11:11 AM CDT [facility] IMMATURE GRANULOCYTES ABSOLUTE 0.03 0.00 - 0.10 K/uL 03/01/2025 11:11 AM CDT [facility] SMEAR REVIEWED: NA - Not Applicable 03/01/2025 11:11 AM CDT [facility] Blood Venipuncture / Unknown 03/01/2025 11:00 AM CDT 03/01/2025 11:06 AM CDT us Babak Larkin DO HEMATOLOGY ORDERABLES Final Result [facility] CLIA # [id number] [facility] [address] [address] [place] [address] * EKG 12-LEAD (03/01/2025 10:53 AM CDT) 03/01/2025 10:5 3 AM CDT Narrative INTERFACE SYSTEM - 03/01/2025 4:45 PM CDT [address] [address] Test Date: 2025-03-01 Pat Name: HELEN FARRELL Department: 11 Room: 09 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 : 1940 Requested By: Order Number: [id number] Reading MD: Desiree Burgos Measurements Intervals Rosenberg Rate: 79 P: 51 NE: 126 QRS: 24 QRSD: 90 T: 81 QT: 354 QTc: 405 Interpretive Statements Normal sinus rhythm Possible Anterior infarct, age undetermined Abnormal ECG Electronically Signed On 03-01-2025 16:45:37 CDT by Desiree Burgos Procedure Note Desiree Burgos MD - 03/01/[address] [address] Test Date: 2025-03-01 Pat Name: HELEN FARRELL Department: 11 Room: 01 25 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: [id number] : 1940 Requested By: Order Number: [id number] Reading MD: Desiree Burgos Measurements Intervals Rosenberg Rate: 79 P: 51 NE: 126 QRS: 24 QRSD: 90 T: 81 QT: 354 QTc: 405 Interpretive Statements Normal sinus rhythm Possible Anterior infarct, age undetermined Abnormal ECG Electronically Signed On 03-01-2025 16:45:37 CDT by Desiree Burgos us Babak Larkin DO ECG ORDERABLES Final Resul t INTERFACE SYSTEM Refer to clinic/hospital department * CT HEAD WO CONTRAST (03/01/2025 10:48 AM CDT) Anatomical Region Laterality Modality Head Computed Tomogra phy 03/01/2025 10:4 9 AM CDT Impressions 03/01/2025 11:02 AM CDT IMPRESSION: Please see below. Exam: CT HEAD WO CONTRAST Date/Time of Exam: 03/01/2025 10:48 AM Reason For Exam: Neuro deficit, acute, stroke suspected, left sx. Diagnosis: See Reason for Exam. Technique: CT of the head was performed without the administration of intravenous contrast. Comparison: CTA head and neck 11/21/2013. Findings: Interval development of moderate diffuse atrophy and worsening low attenuating chronic small vessel ischemic changes throughout the cerebral white matter. The brainstem and cerebellum are unremarkable. No abnormal extra-axial fluid. Intact calvarium. No fluid in the middle ear cavities or mastoid air cells. Lens replacement postoperative changes. IMPRESSION: 1. Atrophy and chronic small vessel ischemic changes. Narrative Procedure Note Dixon Venegas MD - 03/01/2025 IMPRESSION: Please see below. Exam: CT HEAD WO CONTRAST Date/Time of Exam: 03/01/2025 10:48 AM Reason For Exam: Neuro deficit, acute, stroke suspected, left sx. Diagnosis: See Reason for Exam. Technique: CT of the head was performed without the administration of intravenous contrast. Comparison: CTA head and neck 11/21/2013. Findings: Interval development of moderate diffuse atrophy and worsening low attenuating chronic small vessel ischemic changes throughout the cerebral white matter. The brainstem and cerebellum are unremarkable. No abnormal extra-axial fluid. Intact calvarium. No fluid in the middle ear cavities or mastoid air cells. Lens replacement postoperative changes. IMPRESSION: 1. Atrophy and chronic small vessel ischemic changes. Babak Larkin DO CT ORDERABLES Final Resul t documented in this encounter Visit Diagnoses Diagnosis Acute metabolic encephalopathy- Primary Complicated urinary tract infection Urinary tract infection, site not specified Generalized weakness Other malaise and fatigue Stage I pressure ulcer of right heel Pressure ulcer, heel Anemia, unspecified type History of dementia Calculus of gallbladder with acute cholecystitis without obstruction Calculus of gallbladder with acute cholecystitis, without mention of obstruction Other acute pulmonary embolism without acute cor pulmonale Acute cholecystitis Dyslipidemia Other and unspecified hyperlipidemia Essential hypertension Unspecified essential hypertension History of TIA (transient ischemic attack) - 2009 Hypothyroidism Unspecified hypothyroidism Anxiety and depression Dysthymic disorder UTI (urinary tract infection) Urinary tract infection, site not specified Anemia Anemia, unspecified Acute cholecystitis Calculus of gallbladder with acute cholecystitis without obstruction Calculus of gallbladder with acute cholecystitis, without mention of obstruction Pulmonary embolus (CMS/HCC) Other pulmonary embolism and infarction History of dementia Generalized weakness Other malaise and fatigue Stage I pressure ulcer of right heel Pressure ulcer, heel Complicated urinary tract infection Urinary tract infection, site not specified Anticoagulated Encounter for long-term (current) use of anticoagulants Protein-calorie malnutrition, moderate Malnutrition of moderate degree documented in this encounter Administered Medications Inactive Administered Medications - up to 3 most recent administrations Medication Order MAR Action Action Date Dose Rate Site acetaminophen (TYLENOL) tablet 650 mg 650 mg, Oral, EVERY 6 HOURS PRN, Starting on Fri03/01/25 at 1536, Until Fri03/07/25 at 1451, Other (See Comment), See admin instructions, Routine Given 03/04/2025 5:17 PM CDT 650 mg amLODIPine (NORVASC) tablet 5 mg 5 mg, Oral, DAILY, First dose on Fri03/02/25 at 0900, Until Discontinued, Routine, Previous Med: amLODIPine (NORVASC) 5 mg tablet - Orig Sig - Take 5 mg by mouth daily. Given 03/07/2025 10:17 AM CDT 5 mg Given 03/06/2025 8:29 AM CDT 5 mg Given 03/05/2025 8:05 AM CDT 5 mg amoxicillin-clavulanate (AUGMENTIN) 875-125 mg per tablet 1 Tablet 1 Tablet, Oral, EVERY 12 HOURS (BlD), First dose on Fri03/06/25 at 1630, Until Discontinued, Routine, Antibiotic Indication: Intra-abdominal infection / Fecal Contamination Given 03/07/2025 10:17 AM CDT 1 Tablet Given 03/06/2025 9:36 PM CDT 1 Tablet ampicillin (OMNIPEN) 2,000 mg in sodium chloride 0.9% 100 mL IVPB (MBP) 2,000 mg, IV, EVERY 6 HOURS, First dose (after last modification) on Fri03/04/25 at 1400, Until Discontinued, Routine, Antibiotic Indication: Urinary Tract Infection(UTI) / Infection New Bag 03/06/2025 2:25 PM CDT 2,000 mg 230 mL/hr New Bag 03/06/2025 8:21 AM CDT 2,000 mg 230 mL/hr New Bag 03/06/2025 2:18 AM CDT 2,000 mg 230 mL/hr ampicillin TEST DOSE- 100 mg in sodium chloride 0.9 % 50 mL IVPB 100 mg, IV, ONE TIME ONLY, 1 dose, On Fri03/04/25 at 1100, Administer ampicillin 100 mg over 30minutes. RN to observe patient closely for SOB and/or wheezing. Stop infusion immediately if occurs, and notifiy physician. PRN benadryl on profile if needed for any reaction. If NO reaction 30 minutes after the end of the infusion, can start full dose 30 min later, If this IVPB contains ONE medication additive and ONE base fluid, click additive ingredient in verification to edit it and check the Main Ingredient checkbox. Example: calcium in NS. If TWO OR MORE med additives, do NOT harrison any as Main Ingredient. Example: calcium and magnesium in NS., Antibiotic Indication: Urinary Tract Infection(UTI) / Infection New Bag 03/04/2025 12:06 PM CDT 100 mg New Bag 03/04/2025 12:03 PM CDT 100 mg aspirin (ECOTRIN EC) tablet 81 mg 81 mg, Oral, DAILY, First dose on Fri03/02/25 at 0900, Until Discontinued, Routine, Previous Med: aspirin 81 mg Capsule - Orig Sig - Take 1 Capsule by mouth daily. Given 03/07/2025 10:17 AM CDT 81 mg Given 03/06/2025 8:19 AM CDT 81 mg Given 03/05/2025 8:05 AM CDT 81 mg calcium as CARBONATE (TUMS) 500 mg (200 mg elemental) chewable tablet 400 mg 400 mg, Oral, EVERY 6 HOURS PRN, 2 doses, Starting on Fri03/01/25 at 1536, Until Fri03/07/25 at 1451, Dyspepsia, Routine cefTRIAXone (ROCEPHIN) 1,000 mg in sodium chloride 0.9% 50 mL IVPB (MBP) 1,000 mg, IV, ONE TIME ONLY, 1 dose, On Fri03/01/25 at 1230, Routine, Antibiotic Indication: Urinary Tract Infection(UTI) / Infection New Bag 03/01/2025 1:06 PM CDT 1,000 mg 118 mL/hr cefTRIAXone (ROCEPHIN) 2,000 mg in sodium chloride 0.9% 50 mL IVPB (MBP) 2,000 mg, IV, EVERY 24 HOURS (DAILY), First dose on Fri03/02/25 at 0900, Until Discontinued, Routine, Antibiotic Indication: Urinary Tract Infection(UTI) / Infection New Bag 03/06/2025 8:56 AM CDT 2,000 mg 1 18 mL/hr New Bag 03/05/2025 9:50 AM CDT 2,000 mg 118 mL/hr New Bag 03/04/2025 10:03 AM CDT 2,000 mg 118 mL/hr citalopram (CeleXA) tablet 20 mg 20 mg, Oral, DAILY, First dose on Fri03/02/25 at 0900, Until Discontinued, Routine, Previous Med: citalopram (CeleXA) 20 mg tablet - Orig Sig - Take 20 mg by mouth daily. Given 03/07/2025 10:17 AM CDT 20 mg Given 03/06/2025 8:19 AM CDT 20 mg Given 03/05/2025 9:56 AM CDT 20 mg dextrose 5 % - sodium chloride 0.9 % infusion IV, at 40 mL/hr, SEE ADMIN INSTRUCTIONS, Starting on Fri03/01/25 at 1535, Until Fri03/07/25 at 1451, Routine dextrose 5 % - sodium chloride 0.9 % infusion IV, at 40 mL/hr, SEE ADMIN INSTRUCTIONS, Starting on [place] 03/03/25 at 1436, Until Fri03/07/25 at 1451, Routine dextrose 5 % in water 250 mL flush bag 25 mL 25 mL, IV, SEE ADMIN INSTRUCTIONS, Starting on Fri03/01/25 at 1536, Until 03/07/25 at 1451, Routine dextrose 5% - sodium chloride 0.45% infusion IV, at 100 mL/hr, ONE TIME ONLY, 1 dose, On Fri03/03/25 at 1400, Routine, IntraProcedure (IR) New Bag 03/03/2025 2:29 PM CDT 10 0 mL/hr dextrose 50% (D50) syringe 12.5 Gram 12.5 Gram, IV, SEE ADMIN INSTRUCTIONS, Starting on Fri03/01/25 at 1535, Until Fri03/07/25 at 1451, Routine dextrose 50% (D50) syringe 12.5 Gram 12.5 Gram, IV, SEE ADMIN INSTRUCTIONS, Starting on [place] 03/03/25 at 1436, Until Fri03/07/25 at 1451, Routine dextrose 50% (D50) syringe 25 Gram 25 Gram, IV, SEE ADMIN INSTRUCTIONS, Starting on Fri03/01/25 at 1535, Until Fri03/07/25 at 1451, Routine dextrose 50% (D50) syringe 25 Gram 25 Gram, IV, SEE ADMIN INSTRUCTIONS, Starting on Fri03/03/25 at 1436, Until Fri03/07/25 at 1451, Routine EPINEPHrine 1 mg/mL (1 mL) injection 0.3 mg 0.3 mg, IM, ONE TIME PRN, 1 dose, Starting on Fri03/04/25 at 0901, Until Fri03/07/25 at 1451, Other (See Comment), for respiratory distress with laryngeal spasm, Routine fentaNYL (PF) (SUBLIMAZE) 50 mcg/mL injection 50 mcg 50 mcg, IV, ONE TIME ONLY, 1 dose, On Fri03/01/25 at 1530, Routine Given 03/01/2025 3:38 PM CDT 50 mcg galantamine (RAZADYNE) tablet 4 mg 4 mg, Oral, TWO TIMES DAILY, First dose on Fri03/01/25 at 2100, Until Discontinued, Routine, Previous Med: galantamine (RAZADYNE) 4 mg tablet - Orig Sig - Take 4 mg by mouth 2 times daily. Given 03/07/2025 10:18 AM CDT 4 mg Given 03/06/2025 9:36 PM CDT 4 mg Given 03/06/2025 8:19 AM CDT 4 mg glucagon HCL 1 mg/mL injection 1 mg 1 mg, IM, SEE ADMIN INSTRUCTIONS, Starting on Fri03/01/25 at 1535, Until Fri03/07/25 at 1451, Routine glucagon HCL 1 mg/mL injection 1 mg 1 mg, IM, SEE ADMIN INSTRUCTIONS, Starting on Fri03/03/25 at 1436, Until Fri03/07/25 at 1451, Routine heparin in 0.45% NaCl 25,000 unit/250 mL infusion 18 Units/kg/hr 91.5 kg (16.47 mL/hr, rounded to 16.5 mL/hr), IV, TITRATE, Starting on Fri03/01/25 at 1600, Until Fri03/02/25 at 0152, Indication: Acute or Chronic VTE/PE/DVT, Dosing by: PER PROTOCOL: Delegate to facility protocol per indication, Re-bolus within Protocol? No, titrate infusion ONLY New Bag 03/01/2025 4:43 PM CDT 18 Units/kg/hr 16.5 mL/hr heparin in 0.45% NaCl 25,000 unit/250 mL infusion 12 Units/kg/hr 91.5 kg (10.98 mL/hr, rounded to 11 mL/hr), IV, TITRATE, Starting on Fri03/02/25 at 0215, Until Fri03/07/25 at 1451, Indication: Acute or Chronic VTE/PE/DVT, Dosing by: PER PROTOCOL: Delegate to facility protocol per indication, Re-bolus within Protocol? No, titrate infusion ONLY, On hold since Fri03/03/2025 at 1427 until manually unheld New Bag 03/03/2025 10:40 AM CDT 12 Units/kg/hr 11 mL/hr Rate Change 03/03/2025 2:00 AM CDT 11 Units/kg/hr 10.1 mL/ hr Rate Change 03/02/2025 5:46 PM CDT 12 Units/kg/hr 11 mL/hr heparin injection 7,300 Units 7,300 Units (rounded from 7,320 Units = 80 Units/kg 91.5 kg), IV, ONE TIME ONLY, 1 dose, On Fri03/01/25 at 1600, RoutineIndications:Acute or chronic VTE/PE/DVT Given 03/01/2025 4:39 PM CDT 7,300 Units HYDROmorphone (PF) (DILAUDID) injection 1 mg 1 mg, IV, EVERY 8 HOURS PRN, Starting on Fri03/03/25 at 0806, Until Fri03/07/25 at 1451, Pain (See admin instructions), Routine Given 03/03/2025 8:29 AM CDT 1 mg insulin lispro (HumaLOG,ADMELOG) injection 0-3 Units 0-3 Units, subCUT, DAILY AT BEDTIME, First dose on Fri03/03/25 at 2100, Until Discontinued, Routine Given 03/06/2025 9:37 PM CDT 1 Units Abdomen, Left Lower Quadrant Given 03/05/2025 8:47 PM CDT 1 Units Ab domen, Left Lower Quadrant Given 03/04/2025 9:03 PM CDT 2 Units Ar m, Left insulin lispro (HumaLOG,ADMELOG) injection 0-6 Units 0-6 Units, subCUT, THREE TIMES DAILY WITH MEALS, First dose on Fri03/01/25 at 1700, Until Discontinued, Routine Given 03/03/2025 12:18 PM CDT 2 Units Arm, Left Upper Given 03/03/2025 8:00 AM CDT 2 Units Ar m, Left Upper Given 03/02/2025 6:07 PM CDT 4 Units Ar m, Left Upper insulin lispro (HumaLOG,ADMELOG) injection 0-6 Units 0-6 Units, subCUT, THREE TIMES DAILY WITH MEALS, First dose on Fri03/03/25 at 1700, Until Discontinued, Routine Given 03/07/2025 11:42 AM CDT 3 Units Arm, Right Upper Given 03/07/2025 7:09 AM CDT 3 Units Ar m, Right Upper Given 03/06/2025 5:41 PM CDT 4 Units Ar m, Left Upper iopamidoL (ISOVUE-300) 61% injection (drawn from multi-use bulk pack) 100 mL 100 mL, IV, INTRA-PROCEDURE ONCE, 1 dose, Starting on Fri03/01/25 at 1430, Until Fri03/01/25 at 1431, Routine Contrast Given 03/01/2025 2:31 PM CDT 100 mL iopamidoL (ISOVUE-300) 61% injection (single-use vial) 30 mL 30 mL, IV, INTRA-PROCEDURE ONCE, 1 dose, Starting on Fri03/03/25 at 1404, Until Fri03/03/25 at 1445, Routine Contrast Given 03/03/2025 2:45 PM CDT 10 mL levothyroxine (SYNTHROID) tablet 100 mcg 100 mcg, Oral, DAILY EARLY, First dose on Fri03/02/25 at 0600, Until Discontinued, Routine, Previous Med: levothyroxine 100 mcg tablet - Orig Sig - TAKE 1 TABLET BY MOUTH ONCE DAILY. Patient must be seen for any additional refills Given 03/07/2025 10:17 AM CDT 100 mcg Given 03/06/2025 5:25 AM CDT 100 mcg Given 03/05/2025 5:24 AM CDT 100 mcg lidocaine PF 1% (XYLOCAINE MPF) injection 30 mL 30 mL (300 mg), Infiltration, ONE TIME ONLY, 1 dose, On Fri03/03/25 at 1400, Routine, IntraProcedure (IR) Admin by Another Clinician (Issa) 03/03/2025 2:41 PM CDT 30 mL Right Upper Outer Quadrant losartan (COZAAR) tablet 25 mg 25 mg, Oral, TWO TIMES DAILY, First dose on Fri03/01/25 at 2100, Until Discontinued, Routine, Previous Med: losartan (COZAAR) 25 mg tablet - Orig Sig - Take 1 tablet by mouth twice daily Given 03/07/2025 10:21 AM CDT 25 mg Given 03/06/2025 9:36 PM CDT 25 mg Given 03/06/2025 8:18 AM CDT 25 mg metroNIDAZOLE (FLAGYL) IVPB 500 mg 500 mg, IV, EVERY 8 HOURS, First dose on Fri03/02/25 at 0815, Until Discontinued, Routine, Antibiotic Indication: Intra-abdominal infection / Fecal Contamination New Bag 03/05/2025 5:27 AM CDT 500 mg 100 mL/hr New Bag 03/04/2025 9:05 PM CDT 500 mg 100 mL/hr New Bag 03/04/2025 1:20 PM CDT 500 mg 100 mL/hr midazolam (VERSED) injection 1 mg 1 mg, IV, ONE TIME ONLY, 1 dose, On [place] 03/03/25 at 1500, Routine, IntraProcedure (IR) Given 03/03/2025 2:45 PM CDT 1 mg naloxone (NARCAN) 0.4 mg/mL injection 0.1-0.4 mg 0.1-0.4 mg, IV, SEE ADMIN INSTRUCTIONS, Starting on Fri03/01/25 at 1536, Until Fri03/07/25 at 1451, Routine ondansetron (ZOFRAN) 4 mg/2 mL injection 4 mg 4 mg, IV, EVERY 6 HOURS PRN, Starting on Fri03/01/25 at 1536, Until Fri03/07/25 at 1451, Nausea/Emesis, Routine pantoprazole (PROTONIX) tablet 40 mg 40 mg, Oral, DAILY, First dose on Fri03/02/25 at 0900, Until Discontinued, Routine, Previous Med: pantoprazole (PROTONIX) 40 mg Tablet, Delayed Release (E.C.) - Orig Sig - Take 40 mg by mouth daily. , Indication: Gastroesophageal reflux disease (GERD) Given 03/07/2025 10:17 AM CDT 40 mg Given 03/06/2025 8:19 AM CDT 40 mg Given 03/05/2025 8:06 AM CDT 40 mg perflutren lipid microspheres (DEFINITY) 1.3 mL in sodium chloride 0.9% 10 mL injection 0-10 mL, IV, INTRA-PROCEDURE ONCE, 1 dose, Starting on Fri03/04/25 at 1351, Until Fri03/04/25 at 1320, Routine Contrast Given 03/04/2025 1:20 PM CDT 0.52 mL silver (SILVASORB) gel Topical, TWO TIMES DAILY, First dose on Fri03/02/25 at 1400, Until Discontinued, Routine Given 03/07/2025 10:12 AM CDT Foot, Right Given 03/06/2025 9:37 PM CDT Fo ot, Right Given 03/06/2025 8:23 AM CDT Fo ot, Right sodium chloride 0.9 % flush bag 25 mL 25 mL, IV, SEE ADMIN INSTRUCTIONS, Starting on Fri03/01/25 at 1536, Until Fri03/07/25 at 1451, Routine sodium chloride 0.9 % infusion IV, at 75 mL/hr, CONTINUOUS, Starting on [place] 03/03/25 at 1430, Until Fri03/04/25 at 1429, Routine New Bag 03/03/2025 4:07 PM CDT 75 mL /hr sodium chloride flush injection 10 mL 10 mL, IV, EVERY 5 MINUTES PRN, 1 dose, Starting on Fri03/01/25 at 1419, Until Fri03/01/25 at 1431, saline flush for imaging scan q 5 min prn, Routine Given 03/01/2025 2:31 PM CDT 10 mL sodium chloride flush injection 10 mL 10 mL, IV, EVERY 12 HOURS (BlD), First dose on Fri03/01/25 at 2100, Until Discontinued, Routine Given 03/06/2025 9:00 AM CDT 10 mL Given 03/05/2025 8:49 PM CDT 10 mL Given 03/05/2025 9:00 AM CDT 10 mL sodium chloride flush injection 10 mL 10 mL, IV, SEE ADMIN INSTRUCTIONS, Starting on Fri03/01/25 at 1536, Until Fri03/07/25 at 1451, Routine documented in this encounter Active and Recently Administered Medications Times are shown in CDT. Scheduled Medication Order 03/05/2025 03/06/2025 03/07/2025 amLODIPine (NORVASC) tablet 5 mg 5 mg, Oral, DAILY, First dose on Fri03/02/25 at 0900, Until Discontinued, Routine, Previous Med: amLODIPine (NORVASC) 5 mg tablet - Orig Sig - Take 5 mg by mouth daily. 0805 (Given - Provider: Taylor Michael RN) 0829 (Given - Provider: Taylor Michael RN) 1017 (Given - Provider: Aneta Velázquez, RN) amoxicillin-clavulanate (AUGMENTIN) 875-125 mg per tablet 1 Tablet 1 Tablet, Oral, EVERY 12 HOURS (BlD), First dose on Fri03/06/25 at 1630, Until Discontinued, Routine, Antibiotic Indication: Intra-abdominal infection / Fecal Contamination 6 (Given - Provider: Mayi Hawley LPN) 1017 (Given - Provider: Aneta Velázquez, SOHEILA) ampicillin (OMNIPEN) 2,000 mg in sodium chloride 0.9% 100 mL IVPB (MBP) (CANCELED) 2,000 mg, IV, EVERY 6 HOURS, First dose (after last modification) on Fri03/04/25 at 1400, Until Discontinued, Routine, Antibiotic Indication: Urinary Tract Infection(UTI) / Infection 0133 (New Bag - Provider: Meliton Harmon RN)0203 (Stopped - Provider: Meliton Harmon RN)0808 (New Bag - Provider: Taylor Michael RN)0838 (Stopped - Provider: Taylor Michael RN)1521 (New Bag - Provider: Taylor Michael RN)1551 (Stopped - Provider: Taylor Michael, RN)2055 (New Bag - Provider: Mayi Hawley LPN)2125 (Stopped - Provider: Mayi Hawley LPN) 0218 (New Bag - Provider: Mayi Hawley LPN)0248 (Stopped - Provider: Mayi Hawley LPN)0821 (New Bag - Provider: Taylor Michael RN)0851 (Stopped - Provider: Talyor Michael RN)1425 (New Bag - Provider: Taylor Michael, SOHEILA)1455 (Stopped - Provider: Eri Wild RN) aspirin (ECOTRIN EC) tablet 81 mg 81 mg, Oral, DAILY, First dose on Fri03/02/25 at 0900, Until Discontinued, Routine, Previous Med: aspirin 81 mg Capsule - Orig Sig - Take 1 Capsule by mouth daily. 0805 (Given - Provider: Taylor Michael RN) 0819 (Given - Provider: Taylor Michael RN) 1017 (Given - Provider: Aneta Velázquez, RN) cefTRIAXone (ROCEPHIN) 2,000 mg in sodium chloride 0.9% 50 mL IVPB (MBP) (CANCELED) 2,000 mg, IV, EVERY 24 HOURS (DAILY), First dose on Fri03/02/25 at 0900, Until Discontinued, Routine, Antibiotic Indication: Urinary Tract Infection(UTI) / Infection 0950 (New Bag - Provider: Taylor Michael, RN)1020 (Stopped - Provider: Taylor Michael, SOHEILA) 0856 (New Bag - Provider: Taylor Michael, SOHEILA)0926 (Stopped - Provider: Taylor Michael, RN) citalopram (CeleXA) tablet 20 mg 20 mg, Oral, DAILY, First dose on Fri03/02/25 at 0900, Until Discontinued, Routine, Previous Med: citalopram (CeleXA) 20 mg tablet - Orig Sig - Take 20 mg by mouth daily. 0956 (Given - Provider: Taylor Michael RN) 0819 (Given - Provider: Taylor Michael, SOHEILA) 1017 (Given - Provider: Aneta Velázquez, SOHEILA) dextrose 5 % - sodium chloride 0.9 % infusion IV, at 40 mL/hr, SEE ADMIN INSTRUCTIONS, Starting on Fri03/01/25 at 1535, Until Fri03/07/25 at 1451, Routine dextrose 5 % - sodium chloride 0.9 % infusion IV, at 40 mL/hr, SEE ADMIN INSTRUCTIONS, Starting on Fri03/03/25 at 1436, Until Fri03/07/25 at 1451, Routine dextrose 5 % in water 250 mL flush bag 25 mL 25 mL, IV, SEE ADMIN INSTRUCTIONS, Starting on Fri03/01/25 at 1536, Until Fri03/07/25 at 1451, Routine dextrose 50% (D50) syringe 12.5 Gram 12.5 Gram, IV, SEE ADMIN INSTRUCTIONS, Starting on Fri03/01/25 at 1535, Until Fri03/07/25 at 1451, Routine dextrose 50% (D50) syringe 12.5 Gram 12.5 Gram, IV, SEE ADMIN INSTRUCTIONS, Starting on Fri03/03/25 at 1436, Until Fri03/07/25 at 1451, Routine dextrose 50% (D50) syringe 25 Gram 25 Gram, IV, SEE ADMIN INSTRUCTIONS, Starting on Fri03/01/25 at 1535, Until Fri03/07/25 at 1451, Routine dextrose 50% (D50) syringe 25 Gram 25 Gram, IV, SEE ADMIN INSTRUCTIONS, Starting on Fri03/03/25 at 1436, Until Fri03/07/25 at 1451, Routine galantamine (RAZADYNE) tablet 4 mg 4 mg, Oral, TWO TIMES DAILY, First dose on Fri03/01/25 at 2100, Until Discontinued, Routine, Previous Med: galantamine (RAZADYNE) 4 mg tablet - Orig Sig - Take 4 mg by mouth 2 times daily. 08 (Given - Provider: Taylor Michael RN)2047 (Given - Provider: Mayi Hawley LPN) 08 (Given - Provider: Taylor Michael RN)2135 (Given - Provider: Mayi Hawley LPN) 1018 (Given - Provider: Aneta Velázquez RN) glucagon HCL 1 mg/mL injection 1 mg 1 mg, IM, SEE ADMIN INSTRUCTIONS, Starting on Fri03/01/25 at 1535, Until Fri03/07/25 at 1451, Routine glucagon HCL 1 mg/mL injection 1 mg 1 mg, IM, SEE ADMIN INSTRUCTIONS, Starting on Fri03/03/25 at 1436, Until Fri03/07/25 at 1451, Routine insulin lispro (HumaLOG,ADMELOG) injection 0-3 Units 0-3 Units, subCUT, DAILY AT BEDTIME, First dose on Fri03/03/25 at 2100, Until Discontinued, Routine 2046 (Given - Provider: Mayi Hawley LPN - Comment: bg 260) 2136 (Given - Provider: Mayi Hawley LPN - Comment: BG 280) insulin lispro (HumaLOG,ADMELOG) injection 0-6 Units 0-6 Units, subCUT, THREE TIMES DAILY WITH MEALS, First dose on Fri03/03/25 at 1700, Until Discontinued, Routine 0804 (Given - Provider: Taylor Michael RN)1245 (Given - Provider: Taylor Michael, RN)1820 (Given - Provider: Taylor Michael, RN) 0821 (Given - Provider: Taylor Michael, RN)1238 (Given - Provider: Taylor Michael RN)1741 (Given - Provider: Eri Wild RN) 0709 (Given - Provider: Aneta Velázquez RN - Comment: POC glucose = 258)1142 (Given - Provider: Aneta Velázquez RN - Comment: POC glucose = 291) levothyroxine (SYNTHROID) tablet 100 mcg 100 mcg, Oral, DAILY EARLY, First dose on Fri03/02/25 at 0600, Until Discontinued, Routine, Previous Med: levothyroxine 100 mcg tablet - Orig Sig - TAKE 1 TABLET BY MOUTH ONCE DAILY. Patient must be seen for any additional refills 0524 (Given - Provider: Meliton Harmon RN) 0525 (Given - Provider: Mayi Hawley LPN) 1017 (Given - Provider: Aneta Velázquez, SOHEILA) losartan (COZAAR) tablet 25 mg 25 mg, Oral, TWO TIMES DAILY, First dose on Fri03/01/25 at 2100, Until Discontinued, Routine, Previous Med: losartan (COZAAR) 25 mg tablet - Orig Sig - Take 1 tablet by mouth twice daily 08 (Given - Provider: Taylor Michael RN)2047 (Given - Provider: Mayi Hawley LPN) 0818 (Given - Provider: Taylor Michael RN)2136 (Given - Provider: Mayi Hawley LPN) 1021 (Given - Provider: Aneta Velázquez, SOHEILA) metroNIDAZOLE (FLAGYL) IVPB 500 mg (CANCELED) 500 mg, IV, EVERY 8 HOURS, First dose on Fri03/02/25 at 0815, Until Discontinued, Routine, Antibiotic Indication: Intra-abdominal infection / Fecal Contamination 0527 (New Bag - Provider: Meliton Harmon RN)0627 (Stopped - Provider: Meliton Harmon RN) naloxone (NARCAN) 0.4 mg/mL injection 0.1-0.4 mg 0.1-0.4 mg, IV, SEE ADMIN INSTRUCTIONS, Starting on Fri03/01/25 at 1536, Until Fri03/07/25 at 1451, Routine pantoprazole (PROTONIX) tablet 40 mg 40 mg, Oral, DAILY, First dose on Fri03/02/25 at 0900, Until Discontinued, Routine, Previous Med: pantoprazole (PROTONIX) 40 mg Tablet, Delayed Release (E.C.) - Orig Sig - Take 40 mg by mouth daily. , Indication: Gastroesophageal reflux disease (GERD) 0806 (Given - Provider: Taylor Michael RN) 0819 (Given - Provider: Taylor Michael RN) 1017 (Given - Provider: Aneta Velázquez RN) silver (SILVASORB) gel Topical, TWO TIMES DAILY, First dose on Fri03/02/25 at 1400, Until Discontinued, Routine 0953 (Given - Provider: Taylor Michael RN)2049 (Given - Provider: Mayi Hawley LPN) 08 (Given - Provider: Taylor Michael RN)2136 (Given - Provider: Mayi Hawley LPN) 0900 (Not Given - Provider: Aneta Velázquez RN - Reason: Clarify-Frequency - Comment: conflicting orders (BID verses every 3 days). Dose held at this time. Medication given last night.)1012 (Given - Provider: Aneta Velázquez RN - Comment: applied to right heel. After checking the orders again, it looks like we are applying this gel BID but changing the Mepilex every 3 days or PRN.) sodium chloride 0.9 % flush bag 25 mL 25 mL, IV, SEE ADMIN INSTRUCTIONS, Starting on Fri03/01/25 at 1536, Until Fri03/07/25 at 1451, Routine sodium chloride flush injection 10 mL 10 mL, IV, EVERY 12 HOURS (BlD), First dose on Fri03/01/25 at 2100, Until Discontinued, Routine 0900 (Given - Provider: Taylor Michael RN)2048 (Given - Provider: Mayi G Hawley, DRAFTER APPRENTICE) 0900 (Given - Provider: Taylor Michael, SOHEILA)2100 (Not Given - Provider: Mayi Hawley LPN - Reason: Route not available - Comment: no iv access provider aware) 1019 (Not Given - Provider: Aneta Velázquez, SOHEILA - Reason: Route not available) sodium chloride flush injection 10 mL 10 mL, IV, SEE ADMIN INSTRUCTIONS, Starting on Fri03/01/25 at 1536, Until Fri03/07/25 at 1451, Routine Continuous Medication Order 03/05/2025 03/06/2025 03/07/2025 heparin in 0.45% NaCl 25,000 unit/250 mL infusion 12 Units/kg/hr 91.5 kg (10.98 mL/hr, rounded to 11 mL/hr), IV, TITRATE, Starting on Fri03/02/25 at 0215, Until Fri03/07/25 at 1451, Indication: Acute or Chronic VTE/PE/DVT, Dosing by: PER PROTOCOL: Delegate to facility protocol per indication, Re-bolus within Protocol? No, titrate infusion ONLY, On hold since [place] 03/03/2025 at 1427 until manually unheld 1451 (Order Unhold - Provider: PROVIDER, DISCHARGE PATIENT) PRN Medication Order 03/05/2025 03/06/2025 03/07/2025 acetaminophen (TYLENOL) tablet 650 mg 650 mg, Oral, EVERY 6 HOURS PRN, Starting on Fri03/01/25 at 1536, Until Fri03/07/25 at 1451, Other (See Comment), See admin instructions, Routine calcium as CARBONATE (TUMS) 500 mg (200 mg elemental) chewable tablet 400 mg 400 mg, Oral, EVERY 6 HOURS PRN, 2 doses, Starting on Fri03/01/25 at 1536, Until Fri03/07/25 at 1451, Dyspepsia, Routine EPINEPHrine 1 mg/mL (1 mL) injection 0.3 mg 0.3 mg, IM, ONE TIME PRN, 1 dose, Starting on Fri03/04/25 at 0901, Until Fri03/07/25 at 1451, Other (See Comment), for respiratory distress with laryngeal spasm, Routine HYDROcodone-acetaminophen (NORCO) 5-325 mg per tablet 1 Tablet 1 Tablet, Oral, EVERY 8 HOURS PRN, Starting on Fri03/01/25 at 2018, Until Fri03/07/25 at 1451, Pain, Routine, Previous Med: HYDROcodone-acetaminophen (NORCO) 5-325 mg tablet - Orig Sig - Take 1 Tablet by mouth every 8 hours as needed for Pain. HYDROmorphone (PF) (DILAUDID) injection 1 mg 1 mg, IV, EVERY 8 HOURS PRN, Starting on [place] 03/03/25 at 0806, Until Fri03/07/25 at 1451, Pain (See admin instructions), Routine ondansetron (ZOFRAN) 4 mg/2 mL injection 4 mg 4 mg, IV, EVERY 6 HOURS PRN, Starting on Fri03/01/25 at 1536, Until Fri03/07/25 at 1451, Nausea/Emesis, Routine documented in this encounter Care Teams Jet Wiper Relationship Specialty Start Date End Date Brayan Fournier MD [address] [place] [phone] PCP - General Family Practice 06/29/18 documented as of this encounter
--- OUTSIDE RECORDS SUMMARY | 2025-03-07 00:20 | XMS_ITS | Encounter Summary ---
[facility] Organization [facility] Address [address] [place] [address] Care Team Providers Care Climatologist Name Role Phone Brayan Fournier MD Primary Care Provider [phone] Encounter Details Date Type Department Care Team (Late st Contact Info) Description 03/07/2025 12:20 AM CDT - 03/07/2025 11:59 PM CDT Hospital Encounter [facility] Emergency Medical Services [address] [phone] Nayeli Chan MD [address] [place] [phone] Ambulance, [address] [id number] Discharge Disposition: Intermediate Care Facility Social History Tobacco Use Types Packs/Day Years [...] worry about transportation for future doctor visits, machine operator picker medication, etc.? 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 Gender Identity Not on file Sexual Orientation Not on file documented as of this encounter Medications at Time of Discharge [...] 2 03/03/2018 documented as of this encounter Plan of Treatment Upcoming Encounters Date Type Department Care Team (Late st Contact Info) Description 03/17/2025 2:00 PM CDT Office Visit [facility] General and Trauma Surgery-[address] [place] [address] Laisha Castro NP [address] [facility] [address] [place] [address] documented as of this encounter Visit Diagnoses Not on filedocumented in this encounter Care Teams Climatologist Relationship Specialty Start Date End Date Brayan Fournier MD [address], [place] [phone] PCP - General Family Practice 06/29/18 documented as of this encounter
[2025-03-12] VITALS (18 sets, daily range): BP systolic 126–163; BP diastolic 59–76; PULSE 67–86; RESP 12–20; O2SAT 98–99; BMI 27.4
--- NOTE | 2025-03-12 06:36 | XRR_ITS ---
PROCEDURE INFORMATION: Exam: XR Chest Exam date and time: 03/12/2025 6:41 AM Age: 84 years old Clinical indication: Shortness of breath and other: General weakness; SOB with general weakness; Additional info: Dyspnea/cough TECHNIQUE: Imaging protocol: Radiologic exam of the chest. Views: 1 view. COMPARISON: CR (CHEST, ) 01/16/2025 12:52 PM FINDINGS: Lungs: Mild atelectasis/scarring in the left lung base. No consolidation. Pleural spaces: Unremarkable. No pleural effusion. No pneumothorax. Heart/Mediastinum: Stable cardiomediastinal silhouette. Bones/joints: Unremarkable. XR/XR chest 1V portable [id number] IMPRESSION: No acute findings.
--- OUTSIDE RECORDS SUMMARY | 2025-03-12 06:39 | XMS_ITS | Encounter Summary ---
Author Organization [facility] Address [address] [place] [address] Care Team Providers Care Newborn Photographer Name Role Phone Brayan Fournier MD Primary Care Provider [phone] Encounter Details Date Type Department Care Team (Late st Contact Info) Description 06/04/2007 Outpatient Historical [facility] [address] [place] [address] [phone] Ruddy Davis MD [address] [place] [address] Social History Tobacco Use Types Packs/Day Years Used Date Smoking Tobacco: Never Assessed Comments Unknown Sex and Gender Information Value Date Recorded Sex Assigned at Not on file 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
--- OUTSIDE RECORDS SUMMARY | 2025-03-12 06:39 | XMS_ITS | Encounter Summary ---
Author Organization [facility] Address [address] [place] [address] Care Team Providers Care Rolling Machine Operator Automatic Name Role Phone Brayan Fournier MD Primary Care Provider [phone] Encounter Details Date Type Department Care Team (Latest Contact Info) Description 03/14/2004 Outpatient Historical [facility] [address], [place] [phone] Ruddy Davis MD [address] [place] [address] Vaccine for influenza (Primary Dx) Social History Tobacco Use Types Packs/Day Years Used Date Smoking Tobacco: Never Assessed Comments Unknown Sex and Gender Information Value Date Recorded Sex Assigned at Not on file 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
--- OUTSIDE RECORDS SUMMARY | 2025-03-12 06:39 | XMS_ITS | Encounter Summary ---
Author Organization [facility] Address [address] [place] [address] Care Team Providers Care Sales Service Coordinator Name Role Phone Brayan Fournier MD Primary Care Provider [phone] Encounter Details Date Type Department Care Team (Latest Contact Info) Description 10/11/2003 Outpatient [facility] [address] [place] [phone] Emery Middleton MD [address] [facility] [address] [place] [address] Routine medical exam (Primary Dx); Gynecologic examination Social History Tobacco Use Types Packs/Day Years Used Date Smoking Tobacco: Never Assessed Comments Unknown Sex and Gender Information Value Date Recorded Sex Assigned at Not on file 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
--- OUTSIDE RECORDS SUMMARY | 2025-03-12 06:39 | XMS_ITS | Encounter Summary ---
Author Organization [facility] Address [address] [place] [address] Care Team Providers Care Scientific Programmer Name Role Phone Brayan Fournier MD Primary Care Provider [phone] Reason for Referral * Outpatient Services (Routine) - Closed Specialty Diagnoses / Procedures Referred By Contac t Referred To Contact Diagnoses Other screening mammogram Procedures MAMMO DIGITAL SCREEN BILAT Ruddy Davis MD [address] [place] [phone] Phone: tel: fax: [facility] Pre-Registration [place] CALL TO MAKE APPOINTMENT ONLY [address] [place] [address] Phone: tel: fax: Referral ID Status Reason Start Date Expiration Date Visits Re quested Visits Authorized [id number] Closed 08/22/2011 08/21/2012 1 1 Encounter Details Date Type Department Care Team (Latest Contact Info) Description 08/22/2011 Ancillary Orders [facility] Pre-Registration [place] CALL TO MAKE APPOINTMENT ONLY [address] [place] [address] Ruddy Davis MD [address] [place] [phone] Other screening mammogram Social History Tobacco Use Types Packs/Day Years Used Date Smoking Tobacco: Never Alcohol Use Standard Drinks/Week Comments No 0 (1 standard drink = 0.6 oz pur e alcohol) Comments No Sex and Gender Information Value Date Recorded Sex Assigned at Not on file Legal Sex Female 5:03 AM FRONT DESK PERSON Gender Identity Not on file Sexual Orientation [...] mammogram documented in this encounter Care Teams Scientific Programmer Relationship Specialty Start Date End Date Brayan Fournier MD [address] [address] PCP - General Family Practice 06/29/18 documented as of this encounter
--- OUTSIDE RECORDS SUMMARY | 2025-03-12 06:39 | XMS_ITS | Encounter Summary ---
Author Organization [facility] Address [address] [place] [address] Care Team Providers Care Player Development Manager Name Role Phone Brayan Fournier MD Primary Care Provider [phone] Encounter Details Date Type Department Care Team (Latest Contact Info) Description 10/11/2003 Outpatient [facility] [address] [place] [address] Ruddy Davis MD [address] [place] [phone] SCREENING MAMM-MAILG NEOPL-OTHER (Primary Dx) Social History Tobacco Use Types Packs/Day Years Used Date Smoking Tobacco: Never Assessed Comments Unknown Sex and Gender Information Value Date Recorded Sex Assigned at Not on file Legal Sex Female 5:03 AM SPOON MAKER Gender Identity Not on file Sexual Orientation Not on file documented as of this encounter Plan of Treatment Not on file documented as of this encounter Visit Diagnoses Diagnosis Other screening mammogram- Primary documented in this encounter Care Teams Player Development Manager Relationship Specialty Start Date End Date Brayan Fournier MD [address] [place] [phone] PCP - General Family Practice 06/29/18 documented as of this encounter
--- OUTSIDE RECORDS SUMMARY | 2025-03-12 06:39 | XMS_ITS | Encounter Summary ---
Author Organization [facility] Address [address] [place] [address] Care Team Providers Care Hospice Aide Name Role Phone Brayan Fournier MD Primary Care Provider [phone] Encounter Details Date Type Department Care Team (Latest Contact Info) Description 2004 Outpatient [facility] [address] [place] [phone] Emery Middleton MD [address] [facility] [address] [place] [address] UTERVAGINAL PROLAPSE NOS (Primary Dx); FEMALE STRESS INCONTINENCE Social History Tobacco Use Types Packs/Day Years Used Date Smoking Tobacco: Never Assessed Comments Unknown Sex and Gender Information Value Date Recorded Sex Assigned at Not on file Legal Sex Female 5:03 AM DANCE HISTORIAN Gender Identity Not on file Sexual Orientation Not on file documented as of this encounter Plan of Treatment Not on file documented as of this encounter Visit Diagnoses Diagnosis Uterovaginal prolapse, unspecified- Primary Female stress incontinence documented in this encounter Care Teams Hospice Aide Relationship Specialty Start Date End Date Brayan Fournier MD [address] [place] [phone] PCP - General Family Practice 06/29/18 documented as of this encounter
--- OUTSIDE RECORDS SUMMARY | 2025-03-12 06:39 | XMS_ITS | Encounter Summary ---
Author Organization [facility] Address [address] [place] [address] Care Team Providers Care Flow Nurse Name Role Phone Brayan Fournier MD Primary Care Provider [phone] Encounter Details Date Type Department Care Team (Latest Contact Info) Description 08/13/2004 Outpatient [facility] [address] [place] [address] Emery Middleton MD [address] [facility] [address] [place] [address] SURGERY FOLLOWUP, UNSPEC (Primary Dx) Social History Tobacco Use Types Packs/Day Years Used Date Smoking Tobacco: Never Assessed Comments Unknown Sex and Gender Information Value Date Recorded Sex Assigned at Not on file 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
--- OUTSIDE RECORDS SUMMARY | 2025-03-12 06:39 | XMS_ITS | Encounter Summary ---
Author Organization [employer] [facility] Address [address] [place] [address] Care Team Providers Care Tree Doctor Name Role Phone Brayan Fournier MD Primary Care Provider [phone] Encounter Details Date Type Department Care Team (Latest Contact Info) Description 06/08/2018 Ancillary Orders [facility] [address] [phone] Izabella Smith, BILLING MACHINE OPERATOR [address] [place] [phone] Visit for screening mammogram Social History Tobacco Use Types Packs/Day Years Used Date Smoking Tobacco: Never Smokeless Tobacco: Never Alcohol Use Standard Drinks/Week Comments No 0 (1 standard drink = 0.6 oz pur e alcohol) Comments No Sex and Gender Information Value Date Recorded Sex Assigned at Not on file Legal Sex Female 5:03 AM CD TECHNICIAN Gender Identity Not on file Sexual [...] documented as of this encounter Care Teams Tree Doctor Relationship Specialty Start Date End Date Brayan Fournier MD [address] [place] [phone] PCP - General Family Practice 06/29/18 documented as of this encounter
--- OUTSIDE RECORDS SUMMARY | 2025-03-12 06:39 | XMS_ITS | Encounter Summary ---
Author Organization [facility] Address [address] [place] [address] Care Team Providers Care Society Reporter Name Role Phone Brayan Fournier MD Primary Care Provider [phone] Encounter Details Date Type Department Care Team (Latest Contact Info) Description 06/18/2004 Outpatient [facility] [address] [place] [phone] Emery Middleton MD [address] [facility] [address] [place] [address] RECTOCELE (Primary Dx) Social History Tobacco Use Types Packs/Day Years Used Date Smoking Tobacco: Never Assessed Comments Unknown Sex and Gender Information Value Date Recorded Sex Assigned at Not on file Legal Sex Female 5:03 AM BELLPERSON Gender Identity Not on file Sexual Orientation Not on file documented as of this encounter Plan of Treatment Not on file documented as of this encounter Visit Diagnoses Diagnosis Rectocele- Primary documented in this encounter Care Teams Society Reporter Relationship Specialty Start Date End Date Brayan Fournier MD [address] [place] [address] PCP - General Family Practice 06/29/18 documented as of this encounter
--- OUTSIDE RECORDS SUMMARY | 2025-03-12 06:39 | XMS_ITS | Encounter Summary ---
Author Organization [facility] Address [address] [place] [address] Care Team Providers Care Field Marketing Lead Name Role Phone Brayan Fournier MD Primary Care Provider [phone] Encounter Details Date Type Department Care Team (Late st Contact Info) Description 2004 Inpatient Historical [facility] Emery Middleton MD [address] [facility] [address] [place] [id number] POSTOP VAGINAL PROLAPSE (Primary Dx) Social History Tobacco Use Types Packs/Day Years Used Date Smoking Tobacco: Never Assessed Comments Unknown Sex and Gender Information Value Date Recorded Sex Assigned at Not on file Legal Sex Female 5:03 AM LINE THERAPIST Gender Identity Not on file Sexual Orientation Not on file documented as of this encounter Plan of Treatment Not on file documented as of this encounter Procedures Procedure Name Priority Date/Time Associated Diagnosis Comments CBC WITHOUT DIFFERENTIAL Routine 07/11/2004 4:47 AM LINE THERAPIST POC GLUCOSE Routine 07/11/2004 3:15 AM LINE THERAPIST POC GLUCOSE Routine 2004 10:16 PM LINE THERAPIST POC GLUCOSE Routine 2004 10:34 AM LINE THERAPIST documented in this encounter Results * (ABNORMAL) CBC WITHOUT DIFFERENTIAL (07/11/2004 4:47 AM LINE THERAPIST) WBC 7.3 4.8 - 10.8 K/ul INTERFACE [...] 0.2 K/ul INTERFACE SYSTEM 07/11/2004 4:47 AM LINE THERAPIST Emery Middleton MD HEMATOLOGY ORDERABLES Final Resu lt INTERFACE SYSTEM Refer to clinic/hospital department * (ABNORMAL) POC GLUCOSE (07/11/2004 3:15 AM LINE THERAPIST) GLUCOSE POC 197(H) 60 - 100 mg/dL INTERFACE SYSTEM 07/11/2004 3:15 AM LINE THERAPIST Emery Middleton MD POINT OF CARE TESTING Final Resu lt INTERFACE SYSTEM Refer to clinic/hospital department * (ABNORMAL) POC GLUCOSE (2004 10:16 PM LINE THERAPIST) GLUCOSE POC 346(H) 60 - 100 mg/dL INTERFACE SYSTEM 2004 10:1 6 PM LINE THERAPIST us Emery Middleton MD POINT OF CARE TESTING Final Resu lt Performing Organization Address City/[facility]/ZIP Co de Phone Number INTERFACE SYSTEM Refer to clinic/hospital department * (ABNORMAL) POC GLUCOSE (2004 10:34 AM LINE THERAPIST) GLUCOSE POC 111(H) 60 - 100 mg/dL INTERFACE SYSTEM COMMENT POC Fasting INTERFAC E SYSTEM 2004 10:3 4 AM LINE THERAPIST Emery Middleton MD POINT OF CARE TESTING Final Resu lt Performing Organization Address City/[facility] de Phone Number INTERFACE SYSTEM Refer to clinic/hospital department documented in this encounter Visit Diagnoses Diagnosis 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
--- OUTSIDE RECORDS SUMMARY | 2025-03-12 06:39 | XMS_ITS | Encounter Summary ---
Author Organization [facility] Address [address] [place] [address] Care Team Providers Care Medical Policy Specialist Name Role Phone Brayan Fournier MD Primary Care Provider [phone] Encounter Details Date Type Department Care Team (Latest Contact Info) Description 06/30/2018 Ancillary Orders [facility] [address] [phone] Izabella Smith, LAUNDRY TECH [address] [place] [phone] Visit for screening mammogram Social History Tobacco Use Types Packs/Day Years Used Date Smoking Tobacco: Never Smokeless Tobacco: Never Alcohol Use Standard Drinks/Week Comments No 0 (1 standard drink = 0.6 oz pur e alcohol) Comments No Sex and Gender Information Value Date Recorded Sex Assigned at Not on file Legal Sex Female 5:03 AM LETTERSET PRESS SET UP OPERATOR Gender Identity Not on file Sexual [...] documented as of this encounter Care Teams Medical Policy Specialist Relationship Specialty Start Date End Date Brayan Fournier MD [address] [place] [phone] PCP - General Family Practice 06/29/18 documented as of this encounter
--- OUTSIDE RECORDS SUMMARY | 2025-03-12 06:39 | XMS_ITS | Encounter Summary ---
Author Organization [facility] Address [address] [place] [address] Care Team Providers Care Sharepoint Manager Name Role Phone Brayan Fournier MD Primary Care Provider [phone] Encounter Details Date Type Department Care Team (Late st Contact Info) Description 10/11/2003 Outpatient Historical [facility] [place] [address] [place] [address] Emery Middleton MD [address]01 [facility] [address] [place] [address] Social History Tobacco Use Types Packs/Day Years Used Date Smoking Tobacco: Never Assessed Comments Unknown Sex and Gender Information Value Date Recorded Sex Assigned at Not on file Legal Sex Female 5:03 AM 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
--- OUTSIDE RECORDS SUMMARY | 2025-03-12 06:39 | XMS_ITS | Encounter Summary ---
Author Organization [facility] Address [address] [place] [address] Care Team Providers Care Supervisor Frame Sample And Pattern Name Role Phone Brayan Fournier MD Primary Care Provider [phone] Encounter Details Date Type Department Care Team [...] on file Legal Sex Female 5:03 AM SANITARY AIDE Gender Identity Not on file Sexual [...] MD HEMATOLOGY ORDERABLES Edited Performing Organization Address [facility] Phone Number INTERFACE SYSTEM Refer to clinic/hospital department * (ABNORMAL) POC GLUCOSE (10/19/2006 9:39 PM CDT) GLUCOSE POC 177(H) 60 - 100 mg/dL INTERFACE SYSTEM 10/19/2006 9:39 PM CDT Cristopher Pacheco MD POINT OF CARE TESTING Edited Performing Organization Address [facility]/ZIP Co de Phone Number INTERFACE SYSTEM Refer to clinic/hospital department * (ABNORMAL) POC GLUCOSE (10/19/2006 5:58 PM CDT) GLUCOSE POC 224(H) 60 - 100 mg/dL INTERFACE SYSTEM 10/19/2006 5:58 PM CDT Cristopher Pacheco MD POINT OF CARE TESTING Edited Performing Organization Address [facility] Phone Number INTERFACE SYSTEM Refer to clinic/hospital department * (ABNORMAL) POC GLUCOSE (10/19/2006 11:53 AM CDT) GLUCOSE POC 245(H) 60 - 100 mg/dL INTERFACE SYSTEM 10/19/2006 11:5 3 AM CDT us Cristopher Pacheco MD POINT OF CARE TESTING Edited Performing Organization Address [facility] Phone Number INTERFACE SYSTEM Refer to clinic/hospital department * (ABNORMAL) POC GLUCOSE (10/19/2006 5:49 AM CDT) GLUCOSE POC 214(H) 60 - 100 mg/dL INTERFACE SYSTEM 10/19/2006 5:49 AM CDT us Cristopher Pacheco MD POINT OF CARE TESTING Edited Performing Organization Address [facility] Phone Number INTERFACE SYSTEM Refer [...] MD CHEMISTRY ORDERABLES Edited Performing Organization Address City/[facility] Co de Phone Number INTERFACE SYSTEM [...] MD HEMATOLOGY ORDERABLES Edited Performing Organization Address [facility] Co de Phone Number INTERFACE SYSTEM Refer to clinic/hospital department * (ABNORMAL) POC GLUCOSE (10/18/2006 8:49 PM CDT) GLUCOSE POC 214(H) 60 - 100 mg/dL INTERFACE SYSTEM 10/18/2006 8:49 PM CDT Cristopher Pacheco MD POINT OF CARE TESTING Edited Performing Organization Address City/[facility] Co de Phone Number INTERFACE SYSTEM Refer to clinic/hospital department * (ABNORMAL) POC GLUCOSE (10/18/2006 5:44 PM CDT) GLUCOSE POC 226(H) 60 - 100 mg/dL INTERFACE SYSTEM 10/18/2006 5:44 PM CDT Cristopher Pacheco MD POINT OF CARE TESTING Edited Performing Organization Address [facility] de Phone Number INTERFACE SYSTEM Refer [...] K/ul INTERFACE SYSTEM 10/18/2006 2:50 PM CDT Cristopher Pacheco MD HEMATOLOGY ORDERABLES Edited Performing Organization Address [facility] de Phone Number INTERFACE SYSTEM Refer to clinic/hospital department * (ABNORMAL) POC GLUCOSE (10/18/2006 11:37 AM CDT) GLUCOSE POC 234(H) 60 - 100 mg/dL INTERFACE SYSTEM 10/18/2006 11:3 7 AM CDT Cristopher Pacheco MD POINT OF CARE TESTING Edited Performing Organization Address [facility] Phone Number INTERFACE SYSTEM Refer to [...] Goal INR 3.0; range 2.5 - 3.5 POST-NE Goal INR 2.5; range 2.0 - 3.0 [...] APTT Normal Range. 10/18/2006 6:13 AM CDT us Silverio Araujo Jr., DO HEMATOLOGY ORDERABLES Raul kathryn Performing Organization Address [facility] Phone Number INTERFACE SYSTEM Refer to clinic/hospital department * LIPASE (10/18/2006 6:13 AM CDT) LIPASE 47 6 - 51 U/L INTERFACE SYSTEM Comment: As of 05 the [facility] has changed testing methods. The new reference range is 6-51 The old referance range was 23-300 10/18/2006 6:13 AM CDT Silverio Araujo Jr., DO CHEMISTRY ORDERABLES Edit ed Performing Organization Address [facility] Phone Number INTERFACE SYSTEM Refer to clinic/hospital department * AMYLASE (10/18/2006 6:13 AM CDT) AMYLASE 46 20 - 104 U/L INTERFACE SYSTEM Comment: As of 05 the [facility] has changed testing methods. The new reference range is 20-104 The old referance range was 30-120 10/18/2006 6:13 AM CDT Silverio Araujo Jr., DO CHEMISTRY ORDERABLES Edit ed Performing Organization Address [facility] Phone Number INTERFACE SYSTEM Refer [...] Primary documented in this encounter Care Teams Supervisor Frame Sample And Pattern Relationship Specialty Start Date End Date Brayan Fournier MD [address] [place] [address] PCP - General Family Practice 06/29/18 documented as of this encounter
--- OUTSIDE RECORDS SUMMARY | 2025-03-12 06:39 | XMS_ITS | Encounter Summary ---
Author Organization [facility] Address [address] [place] [address] Care Team Providers Care Senior Cisco Network Engineer Name Role Phone Brayan Fournier MD Primary Care Provider [phone] Encounter Details Date Type Department Care Team (Latest Contact Info) Description 07/04/2004 Outpatient [facility] [place] [facility] [address] [place] [phone] Emery Middleton MD [address] [facility] [address] [place] [address] UTERVAGINAL PROLAPSE NOS (Primary Dx) Social History Tobacco Use Types Packs/Day Years Used Date Smoking Tobacco: Never Assessed Comments Unknown Sex and Gender Information Value Date Recorded Sex Assigned at Not on file Legal Sex Female 5:03 AM DEPUTY HEAD Gender Identity Not on file Sexual Orientation Not on file documented as of this encounter Plan of Treatment Not on file documented as of this encounter Visit Diagnoses Diagnosis Uterovaginal prolapse, unspecified- Primary documented in this encounter Care Teams Senior Cisco Network Engineer Relationship Specialty Start Date End Date Brayan Fournier MD [address] [place] [address] PCP - General Family Practice 06/29/18 documented as of this encounter
--- OUTSIDE RECORDS SUMMARY | 2025-03-12 06:39 | XMS_ITS | Encounter Summary ---
Author Organization [facility] Address [address] [place] [address] Care Team Providers Care Associate Professor Of Library Science Name Role Phone Brayan Fournier MD Primary Care Provider [phone] Encounter Details Date Type Department Care Team (Latest Contact Info) Description 11/30/2004 Outpatient Historical [facility] [place] [address] [place] [address] [phone] Ruddy Davis MD [address] [place] [phone] HYPOTHYROIDISM NOS (Primary Dx); DIABETES MELLITUS TYPE II-UNCOMPL (CMS/HCC) Social History Tobacco Use Types Packs/Day Years Used Date Smoking Tobacco: Never Assessed Comments Unknown Sex and Gender Information Value Date Recorded Sex Assigned at Not on file Legal Sex Female 5:03 AM TECHNICAL 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
--- OUTSIDE RECORDS SUMMARY | 2025-03-12 06:39 | XMS_ITS | Encounter Summary ---
Author Organization [facility] Address [address] [place] [address] Care Team Providers Care Implementation Director Name Role Phone Brayan Fournier MD Primary Care Provider [phone] Encounter Details Date Type Department Care Team (Late st Contact Info) Description 06/19/2007 Outpatient Historical [facility] [place] [address] [place] [phone] Izabella Smith, [facility] [address] [place] [phone] Social History Tobacco Use Types Packs/Day Years Used Date Smoking Tobacco: Never Assessed Comments Unknown Sex and Gender Information Value Date Recorded Sex Assigned at Not on file Legal Sex Female 5:03 AM COUNSELING SPECIALIST Gender Identity Not on file Sexual Orientation Not on file documented as of this encounter Plan of Treatment Not on file documented as of this encounter Visit Diagnoses Not on filedocumented in this encounter Care Teams Implementation Director Relationship Specialty Start Date End Date Brayan Fournier MD [address] [place] [address] [phone] PCP - General Family Practice 06/29/18 documented as of this encounter
--- OUTSIDE RECORDS SUMMARY | 2025-03-12 06:39 | XMS_ITS | Encounter Summary ---
Author Organization [facility] Address [address] [place] [address] Care Team Providers Care Well Service Floorperson Name Role Phone Brayan Fournier MD Primary Care Provider [phone] Encounter Details Date Type Department Care Team (Latest Contact Info) Description 07/04/2004 Outpatient Historical [facility] [place] [address] [place] [address] Emery Middleton MD [address] [facility] [address] [place] [address] PREOP CARDIOVASC EXAM (Primary Dx) Social History Tobacco Use Types Packs/Day Years Used Date Smoking Tobacco: Never Assessed Comments Unknown Sex and Gender Information Value Date Recorded Sex Assigned at Not on file Legal Sex Female 5:03 AM ICU NURSE Gender Identity Not on file Sexual Orientation Not on file documented as of this encounter Plan of Treatment Not on file documented as of this encounter Procedures Procedure Name Priority Date/Time Associated Diagnosis Comments CBC WITH DIFFERENTIAL Routine 07/04/2004 4:23 PM ICU NURSE COMPREHENSIVE METABOLIC PANEL Routine 07/04/2004 4:23 PM ICU NURSE documented in this encounter Results * (ABNORMAL) COMPREHENSIVE METABOLIC PANEL (07/04/2004 4:23 PM ICU NURSE) GLUCOSE 116(H) 70 - 110 mg/dL INTERFACE [...] 295 mOsm/Kg INTERFACE SYSTEM 07/04/2004 4:23 PM ICU NURSE us Emery Middleton MD CHEMISTRY ORDERABLES Final Resul t INTERFACE SYSTEM Refer to clinic/hospital department * (ABNORMAL) CBC WITH DIFFERENTIAL (07/04/2004 4:23 PM ICU NURSE) WBC 4.6(L) 4.8 - 10.8 K/ul INTERFACE [...] 0.2 K/ul INTERFACE SYSTEM 07/04/2004 4:23 PM ICU NURSE us Emery Middleton MD HEMATOLOGY ORDERABLES Final Resu lt INTERFACE SYSTEM Refer to clinic/hospital department documented in this encounter Visit Diagnoses Diagnosis Pre-operative cardiovascular examination- Primary documented in this encounter Care Teams Well Service Floorperson Relationship Specialty Start Date End Date Brayan Fournier MD [address] [address] PCP - General Family Practice 06/29/18 documented as of this encounter
--- OUTSIDE RECORDS SUMMARY | 2025-03-12 06:39 | XMS_ITS | Encounter Summary ---
Author Organization [facility] Address [address] [place] [address] Care Team Providers Care Paper Bags Sewing Machine Operator Name Role Phone Brayan Fournier MD Primary Care Provider [phone] Encounter Details Date Type Department Care Team (Latest Contact Info) Description 06/04/2005 Outpatient Historical [facility] [address] [place] [address] [phone] Ruddy Davis MD [address] [place] [address] DIABETES MELLITUS TYPE II-UNCOMPL (CMS/HCC) (Primary Dx); HYPERTENSION NOS; HYPOTHYROIDISM NOS Social History Tobacco Use Types Packs/Day Years Used Date Smoking Tobacco: Never Assessed Comments Unknown Sex and Gender Information Value Date Recorded Sex Assigned at Not on file Legal Sex Female 5:03 AM HISTOPATHOLOGY TECHNICIAN Gender Identity Not on file Sexual Orientation Not on file documented as of this encounter Plan of Treatment Not on file documented as of this encounter Visit Diagnoses Diagnosis Type II or unspecified type diabetes mellitus without mention of complication, not stated as uncontrolled- Primary Unspecified essential hypertension Unspecified hypothyroidism documented in this encounter Care Teams Paper Bags Sewing Machine Operator Relationship Specialty Start Date End Date Brayan Fournier MD [address] [place] [phone] PCP - General Family Practice 06/29/18 documented as of this encounter
--- OUTSIDE RECORDS SUMMARY | 2025-03-12 06:39 | XMS_ITS | Encounter Summary ---
Author Organization [facility] Address [address] [place] [address] Care Team Providers Care Clothing Busheler Name Role Phone Brayan Fournier MD Primary Care Provider [phone] Encounter Details Date Type Department Care Team (Latest Contact Info) Description 06/13/2004 Outpatient Historical [facility] [address] [phone] Ruddy Davis MD [address] [place] [address] CYSTOCELE, MIDLINE (Primary Dx) Social History Tobacco Use Types Packs/Day Years Used Date Smoking Tobacco: Never Assessed Comments Unknown Sex and Gender Information Value Date Recorded Sex Assigned at Not on file Legal Sex Female 5:03 AM DECATIZER Gender Identity Not on file Sexual Orientation Not on file documented as of this encounter Plan of Treatment Not on file documented as of this encounter Visit Diagnoses Diagnosis Cystocele, midline- Primary documented in this encounter Care Teams Clothing Busheler Relationship Specialty Start Date End Date Brayan Fournier MD [address] [place] [address] [phone] PCP - General Family Practice 06/29/18 documented as of this encounter
--- OUTSIDE RECORDS SUMMARY | 2025-03-12 06:39 | XMS_ITS | Encounter Summary ---
Author Organization [facility] Address [address] [place] [address] Care Team Providers Care Scrap Crusher Name Role Phone Brayan Fournier MD Primary Care Provider [phone] Encounter Details Date Type Department Care Team (Latest Contact Info) Description 11/06/2005 Outpatient Historical [facility] [address] [place] [phone] Ruddy Davis MD [address] [place] [address] Pain in Limb (Primary Dx) Social History Tobacco Use Types Packs/Day Years Used Date Smoking Tobacco: Never Assessed Comments Unknown Sex and Gender Information Value Date Recorded Sex Assigned at Not on file Legal Sex Female 5:03 AM OXYHYDROGEN WELDER Gender Identity Not on file Sexual Orientation Not on file documented as of this encounter Plan of Treatment Not on file documented as of this encounter Visit Diagnoses Diagnosis Pain in limb- Primary Pain in soft tissues of limb documented in this encounter Care Teams Scrap Crusher Relationship Specialty Start Date End Date Brayan Fournier MD [address] [place] [phone] PCP - General Family Practice 06/29/18 documented as of this encounter
--- OUTSIDE RECORDS SUMMARY | 2025-03-12 06:39 | XMS_ITS | Encounter Summary ---
Author Organization [facility] Address [address] [place] [address] Care Team Providers Care Anthropology And Archeology Instructor Name Role Phone Brayan Fournier MD Primary Care Provider Reason for Referral * Outpatient Services (Routine) - Closed Specialty Diagnoses / Procedures Referred By Contac t Referred To Contact Diagnoses Visit for screening mammogram Procedures MAMMO SCRN BILAT MOBILE W OR WO CAD Ap Locke MD Phone: tel: fax: Referral ID Status Reason Start Date Expiration Date Visits Re quested Visits Authorized [id number] Closed 06/18/2017 07/19/2018 1 1 ENT FINANCIAL REP Encounter Details Date Type Department Care Team (Latest Contact Info) Description 06/18/2017 Ancillary Orders [facility]ority Mammography [place] [address] [facility] [address] [place] [address] Ap Locke MD [address] [facility] [address] [place] [phone] Visit for screening mammogram Social History Tobacco Use Types Packs/Day Years Used Date Smoking Tobacco: Never Smokeless Tobacco: Never Alcohol Use Standard Drinks/Week Comments No 0 (1 standard drink = 0.6 oz pur e alcohol) Comments No Sex and Gender Information Value Date Recorded Sex Assigned at Not on file Legal Sex Female 5:03 AM PATIENT FINANCIAL REP Gender Identity Not on file Sexual Orientation Not on file Occupation Industry Job Start Date Job End Date Not on file Not on file Not on file Not on file documented as of this encounter Plan of Treatment Not on file documented as of this encounter Results * MAMMO SCRN BILAT MOBILE W OR WO CAD (07/02/2017 1:58 PM PATIENT FINANCIAL REP) Anatomical Region Laterality Modality Breast Bilateral Mammography Narrative 07/03/2017 8:12 AM PATIENT FINANCIAL REP Bilateral Mammogram Reason for Exam: Screening Comparison: [...] mammogram documented in this encounter Care Teams Anthropology And Archeology Instructor Relationship Specialty Start Date End Date Brayan Fournier MD [address] [place] [phone] PCP - General Family Practice 06/29/18 documented as of this encounter
--- OUTSIDE RECORDS SUMMARY | 2025-03-12 06:39 | XMS_ITS | Encounter Summary ---
Author Organization [facility] Address [address] [place] [address] Care Team Providers Care Mortgage Loan Processing Clerk Name Role Phone Brayan Fournier MD Primary Care Provider [phone] Encounter Details Date Type Department Care Team (Latest Contact Info) Description 10/03/2003 Outpatient Historical [facility] [address] [place] [phone] Ruddy Davis MD [address] [place] [address] DIABETES UNCOMPL ADULT-TYPE II (CMS/HCC) (Primary Dx); ENDOCRINE DISORDER NOS Social History Tobacco Use Types Packs/Day Years Used Date Smoking Tobacco: Never Assessed Comments Unknown Sex and Gender Information Value Date Recorded Sex Assigned at Not on file Legal Sex Female 5:03 AM ELECTRONICS SPECIALIST Gender Identity Not on file Sexual Orientation Not on file documented as of this encounter Plan of Treatment Not on file documented as of this encounter Visit Diagnoses Diagnosis Type II or unspecified type diabetes mellitus without mention of complication, not stated as uncontrolled- Primary Unspecified endocrine disorder documented in this encounter Care Teams Mortgage Loan Processing Clerk Relationship Specialty Start Date End Date Brayan Fournier MD [address] [place] [address] [phone] PCP - General Family Practice 06/29/18 documented as of this encounter
--- OUTSIDE RECORDS SUMMARY | 2025-03-12 06:39 | XMS_ITS | Encounter Summary ---
Author Organization [facility] Address [address] [place] [address] Care Team Providers Care Office Support Clerk Name Role Phone Brayan Fournier MD Primary Care Provider [phone] Encounter Details Date Type Department Care Team (Latest Contact Info) Description 10/11/2003 Outpatient [facility] [address] [facility] [address] [place] [address] Liss Herrera MD NO ADDRESS ON FILE SCREENING MAMM-MAILG NEOPL-OTHER (Primary Dx) Social History Tobacco Use Types Packs/Day Years Used Date Smoking Tobacco: Never Assessed Comments Unknown Sex and Gender Information Value Date Recorded Sex Assigned at Not on file Legal Sex Female 5:03 AM ENGINE SERVICE REPAIRER Gender Identity Not on file Sexual Orientation Not on file documented as of this encounter Plan of Treatment Not on file documented as of this encounter Visit Diagnoses Diagnosis Other screening mammogram- Primary documented in this encounter Care Teams Office Support Clerk Relationship Specialty Start Date End Date Brayan Fournier MD [address] [place] [phone] PCP - General Family Practice 06/29/18 documented as of this encounter
--- OUTSIDE RECORDS SUMMARY | 2025-03-12 06:39 | XMS_ITS | Encounter Summary ---
Author Organization [facility] Address [address] [place] [address] Care Team Providers Care Spinning Lathe Operator Automatic Name Role Phone Brayan Fournier MD Primary Care Provider [phone] Encounter Details Date Type Department Care Team (Latest Contact Info) Description 10/27/2006 Outpatient Historical [facility] [address] [place] [phone] Ruddy Davis MD [address] [place] [phone] Unspecified, Hemorrhage of Gastrointestinal Tract (Primary Dx); Unspecified Essential Hypertension Social History Tobacco Use Types Packs/Day Years Used Date Smoking Tobacco: Never Assessed Comments Unknown Sex and Gender Information Value Date Recorded Sex Assigned at Not on file Legal Sex Female 5:03 AM LEASE OPERATOR Gender Identity Not on file Sexual Orientation Not on file documented as of this encounter Plan of Treatment Not on file documented as of this encounter Visit Diagnoses Diagnosis Hemorrhage of gastrointestinal tract, unspecified- Primary Unspecified essential hypertension documented in this encounter Care Teams Spinning Lathe Operator Automatic Relationship Specialty Start Date End Date Brayan Fournier MD [address] [place] [phone] PCP - General Family Practice 06/29/18 documented as of this encounter
--- OUTSIDE RECORDS SUMMARY | 2025-03-12 06:39 | XMS_ITS | Encounter Summary ---
Author Organization [facility] Address [address] [place] [address] Care Team Providers Care Copy Center Operator Name Role Phone Brayan Founrier MD Primary Care Provider [phone] Encounter Details Date Type Department Care Team (Latest Contact Info) Description 10/18/2006 Outpatient Historical [facility] [address] [place] [address] AMBULANCE, [facility] Vomiting Alone (Primary Dx) Social History Tobacco Use Types Packs/Day Years Used Date Smoking Tobacco: Never Assessed Comments Unknown Sex and Gender Information Value Date Recorded Sex Assigned at Not on file Legal Sex Female 5:03 AM JAVA TECH LEAD Gender Identity Not on file Sexual Orientation Not on file documented as of this encounter Plan of Treatment Not on file documented as of this encounter Visit Diagnoses Diagnosis Vomiting alone- Primary documented in this encounter Care Teams Copy Center Operator Relationship Specialty Start Date End Date Brayan Fournier MD [address] [place] [address] PCP - General Family Practice 06/29/18 documented as of this encounter
--- OUTSIDE RECORDS SUMMARY | 2025-03-12 06:40 | XMS_ITS | Encounter Summary ---
Author Organization [facility] Address [address] [place] [address] Care Team Providers Care Manufacturing Assembler Name Role Phone Brayan Fournier MD Primary Care Provider [phone] Reason for Referral * Outpatient Services (Routine) - Closed Specialty Diagnoses / Procedures Referred By Contac t Referred To Contact Diagnoses Other screening mammogram Procedures MAMMO DIGITAL SCREEN BILAT Ruddy Davis MD [address] [place] [phone] Phone: tel: fax: [facility] [place] [address] [place] [phone] Phone: tel: Referral ID Status Reason Start Date Expiration Date Visits Re quested Visits Authorized [id number] Closed 08/13/2010 02/09/2011 1 1 Encounter Details Date Type Department Care Team (Late st Contact Info) Description 08/13/2010 Ancillary Orders [facility] Breast [place] [address] [address] Ruddy Davis MD [address] [place] [phone] Other screening mammogram Social History Tobacco Use Types Packs/Day Years Used Date Smoking Tobacco: Never Alcohol Use Standard Drinks/Week Comments No 0 (1 standard drink = 0.6 oz pur e alcohol) Comments No Sex and Gender Information Value Date Recorded Sex Assigned at Not on file 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
--- OUTSIDE RECORDS SUMMARY | 2025-03-12 06:40 | XMS_ITS | Encounter Summary ---
Author Organization [facility] Address [address] [place] [address] Care Team Providers Care Wood Calker Name Role Phone Brayan Fournier MD Primary Care Provider [phone] Encounter Details Date Type Department Care Team (Latest Contact Info) Description 01/27/2019 Ancillary Orders [facility] Orthopedics - Orthopedic [facility] [address] [place] [address] Manjit Trejo MD [address] [place] [phone] Chronic pain of both knees Social History Tobacco Use Types Packs/Day Years Used Date Smoking Tobacco: Never Smokeless Tobacco: Never Alcohol Use Standard Drinks/Week Comments No 0 (1 standard drink = 0.6 oz pur e alcohol) Comments No Sex and Gender Information Value Date Recorded Sex Assigned at Not on file Legal Sex Female 5:03 AM SUPERVISOR BOTTLE HOUSE CLEANERS Gender Identity Not on file Sexual Orientation [...] knee 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 There [...] documented as of this encounter Care Teams Wood Calker Relationship Specialty Start Date End Date Brayan Fournier MD [address] [place] [phone] PCP - General Family Practice 06/29/18 documented as of this encounter
--- OUTSIDE RECORDS SUMMARY | 2025-03-12 06:40 | XMS_ITS | Encounter Summary ---
Author Organization [facility] Address [address] [place] [address] Care Team Providers Care Port Purser Name Role Phone Brayan Fournier MD Primary Care Provider [phone] Encounter Details Date Type Department Care Team (Late st Contact Info) Description 03/09/2025 External Device Data [facility] ABSTRACTION Provider, Abstract NO ADDRESS ON FILE Social History Tobacco [...] worry about transportation for future doctor visits, sampler pickup medication, etc.? 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 Gender Identity Not on file Sexual Orientation Not on file documented as of this encounter Plan of Treatment Upcoming Encounters Date Type Department Care Team (Late st Contact Info) Description 03/17/2025 2:00 PM CDT Office Visit [facility] General and Trauma Surgery[address] [place] [address] Laisha Castro NP [address] [place] [address] [address] [place] [address] documented as of this encounter Visit Diagnoses Not on filedocumented in this encounter Care Teams Port Purser Relationship Specialty Start Date End Date Brayan Fournier MD [address], [place] [address] PCP - General Family Practice 06/29/18 documented as of this encounter
--- OUTSIDE RECORDS SUMMARY | 2025-03-12 06:40 | XMS_ITS | Clinical Summary ---
Author Organization [facility] Address [address] [place] [address] Phone Care Team Providers Care Clinical Assoc Name Role Phone Brayan Fournier MD Primary Care Provider [phone] Allergies Active Allergy Reactions Criticality Noted Date Comments Niacin Rash Low 03/01/2025 Penicillins Swelling Low 08/14/2007 Sulfa (Sulfonamide Antibiotics) Other (See Comments) 08/14/2007 Yeast infection Medications Insulin Syringe-Needle U-100 0.5 mL 30 gauge x 10/01 Syringe Use with insulin BID. 100 Each 2 07/16/19 20 Active lancets 30 gauge Use to check glucose TID. 100 Each 2 03/03/20 18 Active losartan (COZAAR) 25 mg tablet Take 1 tablet by mouth twice daily 180 Tablet 0 10/19/19 20 Active levothyroxine 100 mcg tabletIndicatio ns:Hypothyroidi sm, unspecified type TAKE 1 TABLET BY MOUTH ONCE DAILY. Patient must be seen for any additional refills 90 Tablet 0 07/28/19 21 Active potassium CHLORIDE (KLOR-CON M10) 10 mEq Extended Release tablet Take 10 mEq by mouth daily. 02/12/20 25 Active pantoprazole (PROTONIX) 40 mg Tablet, Delayed Release (E.C.) Take 40 mg by mouth daily. 02/11/20 25 Active mirtazapine (REMERON) 7.5 mg tablet Take 7.5 mg by mouth daily at bedtime. 02/09/20 25 Active HYDROcodone-virginia taminophen (NORCO) 5-325 mg tablet Take 1 Tablet by mouth every 8 hours as needed for Pain. 02/29/20 25 Active galantamine (RAZADYNE) 4 mg tablet Take 4 mg by mouth 2 times daily. 02/09/20 Active clopidogreL (PLAVIX) 75 mg Tablet Take 75 mg by mouth daily. 02/12/20 Active citalopram (CeleXA) 20 mg tablet Take 20 mg by mouth daily. 02/12/20 Active amLODIPine (NORVASC) 5 mg tablet Take 5 mg by mouth daily. 02/12/20 Active ascorbic acid, vitamin C, (VITAMIN C) 1,000 mg Tablet Take 1,000 mg by mouth daily. Active acetaminophen (TYLENOL) 325 mg tablet Take 650 mg by mouth 3 times daily. Active cholecalciferol , Vitamin D3, (VITAMIN D3) 25 mcg (1,000 unit) Capsule Take 1 Capsule by mouth daily. Active cyanocobalamin 1,000 mcg Tablet Take 1,000 mcg by mouth daily. Active aspirin 81 mg Capsule Take 1 Capsule by mouth daily. Active insulin lispro (HumaLOG,ADMELO G) 100 unit/mL pen syringe Inject 2-10 Units by subcutaneous injection 4 times daily with meals and at bedtime. 70-149=0 units 150-199=2 units 200-249=4 units 250-299=6 units 300-349=8 units 350+ =10 units and call MD Active insulin glargine (LANTUS) 100 unit/mL pen syringe Inject 25 Units by subcutaneous injection daily at bedtime. Active meclizine (ANTIVERT) 25 mg tablet Take 25 mg by mouth 1 time daily as needed for Dizziness. Active bisacodyL (DULCOLAX) 10 mg Suppository Insert 10 mg by rectum 1 time daily as needed for Constipation. Active magnesium HYDROXIDE (MILK OF MAGNESIA) 400 mg/5 mL suspension Take 30 mL by mouth 1 time daily as needed for Constipation. Active polyethylene glycol 3350 (MIRALAX) 17 gram/dose Powder Take 17 Grams by mouth 1 time daily as needed for Constipation. Dissolve in 8 ounces of fluid and drink entire liquid Active amoxicillin-cla vulanate (AUGMENTIN) 875-125 mg tablet Take 1 Tablet by mouth every 12 hours for 7 days. 03/07/20 25 025 Active silver (SILVASORB) Gel, Sustained Release Apply to affected area 2 times daily. 03/07/20 Active apixaban (ELIQUIS) 5 mg tablet Take 2 Tablets (10 mg) by mouth 2 times daily for 7 days, THEN 1 Tablet (5 mg) 2 times daily for 23 days. 03/07/20 Active ferrous sulfate 325 mg (65 mg iron) tablet Take 1 Tablet (325 mg) by mouth daily. 03/07/20 Active dimenhyDRINATE (DRAMAMINE) 50 mg Tablet Take 50 mg by mouth every 4 hours as needed for Dizziness. 03/29/20 Discontinu ed(Alterna te therapy prescribed ) mv-mn/C/glutami n/lysin/atgs903 (AIRBORNE, ASCORBATE SODIUM, ORAL) Take 1 Tablet by mouth 1 time daily as needed. 03/29/20 Discontinu ed(Alterna te therapy prescribed ) blood sugar diagnostic StripIndication s:Uncontrolled type 2 diabetes mellitus with hyperglycemia, with long-term current use of insulin Use to test blood glucose three times daily. E11.65 Insulin dependent. 100 Strip 9 07/16/19 Discontinu ed(Alterna te therapy prescribed ) simvastatin (ZOCOR) 40 mg tablet TAKE 1 TABLET BY MOUTH LATE IN THE DAY 90 Tablet 3 07/16/19 Discontinu ed(Alterna te therapy prescribed ) Blood-Glucose Meter Use to check glucose TID. 1 Each 1 03/03/20 18 Discontinu ed(Alterna te therapy prescribed ) metFORMIN (GLUCOPHAGE) 1,000 mg tablet TAKE 1 TABLET BY MOUTH TWICE DAILY WITH MEALS 180 Tablet 0 01/25/20 Discontinu ed(Alterna te therapy prescribed ) insulin aspart protamine-aspar (NovoLOG Mix 70-30 U-100 Insuln) 100 unit/mL (70-30) vialIndications :Uncontrolled type 2 diabetes mellitus with hyperglycemia, with long-term current use of insulin Inject 25 units subq twice daily with meals. Patient must be seen for any additional refills 20 mL 0 07/28/19 21 Discontinu ed(Alterna te therapy prescribed ) Active Problems Problem Noted Date Diagnosed Date Protein-calorie malnutrition, moderate Anticoagulated 03/03/2025 Acute cholecystitis 03/02/2025 Calculus of gallbladder with acute cholecystitis without obstruction 03/02/2025 Pulmonary embolus 03/02/2025 History of dementia 03/02/2025 Generalized weakness 03/02/2025 Stage I pressure ulcer of right heel 03/02/2025 Complicated urinary tract infection 03/02/2025 Acute metabolic encephalopathy 03/01/2025 Anxiety and depression 03/01/2025 UTI (urinary tract infection) 03/01/2025 Anemia 03/01/2025 History of TIA (transient ischemic attack) - [...] Encounters Date Type Department Care Team Description 03/09/2025 External Device Data [facility] ABSTRACTION Provider, Abstract 03/09/2025 External Device Data [facility] ABSTRACTION Provider, Abstract 03/08/2025 External Device Data [facility]STRACTION Provider, Abstract 03/07/2025 12:20 AM CDT - 03/07/2025 11:59 PM CDT Hospital Encounter [facility] Emergency [facility] Services [facility] [address] [place] [phone] Nyaeli Chan MD Ambulance, [facility] Discharge Disposition: Intermediate Care Facility 03/01/2025 10:35 AM CDT - 03/07/2025 12:51 PM CDT Hospital Encounter [facility] [address] [place] [address] Babak Larkin DO Abbas, MD Rocio Bass Elizabeth Anne, MD Acute metabolic encephalopathy Discharge Disposition: Custodial Fac(SNF) with Medicare Certification in Anticipation of Skilled Care 03/01/2025 1:05 AM CDT - 03/01/2025 11:59 PM CDT Hospital Encounter [facility] [address] [place] [id number] Ambulance, two [facility] Discharge Disposition: [facility] 03/01/2025 12:20 AM CDT - 03/01/2025 11:59 PM CDT Hospital Encounter [facility] [address] [place] [address] Ambulance, [facility] Discharge Disposition: [facility] 03/01/2025 Travel 02/01/2025 External Device Data [facility] ABSTRACTION Provider, Abstract 01/19/2025 Abstract [facility] Urology [address] [place] [address] Provider, Abstract 12/22/2024 External Device Data [facility] ABSTRACTION Provider, Abstract from Last 3 Months Immunizations Immunization Administration Dates Next Due (ADACEL/BOOSTRIX)(10 YR UP) TDAP VACCINE, 0.5ML, IM 12/21/2013 (PREVNAR 13)(6 WKS UP) PNEUM OCOCCAL CONJUGATE (PCV13) 0.5 ML, IM 05/15/2017,03/15/2015 (PREVNAR 20)(6 WKS UP) PNEUM OCOCCAL CONJUGATE VACCINE 20-VALENT (PCV20), POLYSACCHARIDE ACQ093 CONJUGATE, ADJUVANT 0.5 ML (PF) IM 04/06/2022 (SHINGRIX)(50 YRS UP) ZOSTER VACCINE RECOMBINANT, 0.5 ML, IM 10/03/2022,07/04/2021 (TDVAX)(7 YRS UP) TETANUS AN D DIPHTHERIA TOXOIDS, ADSORBED (2 LF OF TETANUS TOXOID AND 2 LF OF DIPHTHERIA TOXOID), 0.5ML (PF), IM 03/05/2000 INFLUENZA VACCINE HIGH DOSE QUADRIVALENT 65 YR UP PF IM 02/28/2024,05/15/2023,02/16/2021,02/04,03/11/2017 Influenza A (H1N1) Vaccine IM 05/10/2009 Influenza Seasonal Unspecifi ed Formulation IM 03/29/2022,03/11/2017,02/16/2013,03/17,02/16/2010,02/16/2009,03/14/2004 ,02/27/2001,04/29/2000 Influenza Vaccine High Dose 65+ Yrs IM [...] worry about transportation for future doctor visits, merchandise pickup/receiving associate medication, etc.? 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 Gender Identity Not on file Sexual [...] Mass Index 26.05 03/01/2025 4:54 PM CDT Plan of Treatment Upcoming Encounters Date Type Department Care Team (Late st Contact Info) Description 03/17/2025 2:00 PM CDT Office Visit [facility] General and Trauma Surgery[address] [place] [address] Laisha Castro NP [address] [place] [address] [address] [place] [phone] Health Maintenance Due Date Last Done Comments Traditional Medicare (ACO) A nnual Wellness Visit 1959 OSTEOPOROSIS SCREENING 09/08/2015 09/07/2010, 2010 RSV VACCINE [...] 07/16/2020 0, 02/12/2018, 07/02/2016, Additional history exists DTAP/TDAP/TD VACCINES (2 - T d or Tdap) 12/22/2023 12/21/2013, 03/05/2000 INFLUENZA VACCINE (#1) 2024 , 05/15/2023, 03/29/2022, Additional history exists COVID-19 Vaccine (2024-2 6 season) 2025 10/30/2021, 03/14/2021, 07/26/2020, Additional history exists PNEUMOCOCCAL VACCINE 50+ YEARS Completed 1 06/06/2021, 06/18/2018, 05/15/2017, Additional history exists ZOSTER VACCINE Completed 10/03/2022, 07/04/2021 Medical Devices Implanted Type Area Public Relations Senior Associate Device Identifier Shelf Expiration Date Model / Serial / Lot 8.5f Resolve Locking Drainage Catheter-02/16 Implanted:Qty : 1 on 03/03/2025 by Joni Perry MD Catheter Right: Abdomen 08/10/2027 [facility]-8-038MB / / [id number] Description:GB Drain Cement Simplex Hvisc 6194-1-010 - [id number] Implanted:Qty : 1 on 02/13/2017 by Arnold Garcia MD Cement Left: Knee JAYDA- [employer] 07/16/2018 6194-1-010 / / [id number] Cement Simplex Hvisc 6194-1-010 - [id number] Implanted:Qty : 1 on 02/13/2017 by Arnold Garcia MD Cement Left: Knee JAYDA- [employer] 07/16/2018 6194-1-010 / / [id number] Cement Simplex Hvisc 6194-1-010 - [id number] Implanted: by Manjit Trejo MD (Quantity not on file) Cement Right: Knee [employer]AYDA- [employer] 10/16/2020 6194-- / / [id number] Cement Simplex Hvisc 6194-- - [id number] Implanted: by Manjit Trejo MD (Quantity not on file) Cement Right: Knee [employer]AYDA- [employer] 10/16/2020 6194-- / / [id number] Comp Fem Sigma Cr Acid Dipper Sz5 96-0005 - [id number] Implanted:Qty : 1 on 02/13/2017 by Arnold Garcia MD Knee Left: Knee J[employer] 12/16/2021 96-0005 / / [id number] Comp Tib Sigma Cocr Sz4 158-40-000 - [id number] Implanted:Qty : 1 on 02/13/2017 by Arnold Garcia MD Knee Left: Knee [employer] 11/15/2026 1581-40-000 / / [id number] Ins Tib Sigma Crv Xlk Sz4 158--108 - [id number] Implanted:Qty : 1 on 02/13/2017 by Arnold Garcia MD Knee Left: Knee [employer] 11/15/2021 158-14-108 / / [id number] Patella Dome 3peg 32mm 96-0100 - [id number] Implanted:Qty : 1 on 02/13/2017 by Arnold Garcia MD Knee Left: Knee [employer] 12/16/2021 [id number] / / [id number] Comp Fem Attn Ps Cmnt Sz6 1504-10-226 - [id number] Implanted:Qty : 1 on 04/13/2019 by Manjit Trejo MD Knee Right: Knee [employer] 11/15/2028 [id number] / / [id number] Comp Tib Attn Fb Cmnt Sz5 1506-70-005 - [id number] Implanted:Qty : 1 on 04/13/2019 by Manjit Trejo MD Knee Right: Knee [employer] 03/18/2029 [id number] / / [id number] Insert Attune Fb Ps Sz6 8mm 1516-40-608 - [id number] Implanted:Qty : 1 on 04/13/2019 by Manjit Trejo MD Knee Right: Knee [employer] 12/17/2023 [id number] / / [id number] Procedures Procedure Name Priority Date/Time Associated Diagnosis [...] POC GLUCOSE Routine 03/05/2025 7:54 AM CDT COMPREHENSIVE METABOLIC PANEL Routine 03/05/2025 4:51 AM CDT CBC WITH DIFFERENTIAL Routine 03/05/2025 4:51 AM CDT IRON, TIBC, AND PERCENT SATURATION Routine 03/05/2025 4:51 AM CDT POC GLUCOSE Routine 03/04/2025 8:41 PM CDT POC GLUCOSE Routine 03/04/2025 5:08 PM CDT ECHOCARDIOGRAM W/ CONTRAST AGENT Routine 03/04/2025 1:40 PM CDT POC GLUCOSE Routine 03/04/2025 12:00 PM CDT POC GLUCOSE Routine 03/04/2025 7:58 AM CDT COMPREHENSIVE METABOLIC PANEL Routine 03/04/2025 5:47 AM CDT CBC WITH DIFFERENTIAL Routine 03/04/2025 5:47 AM CDT POC GLUCOSE [...] BLOOD CELLS Routine 03/03/2025 2:26 PM CDT COMPREHENSIVE METABOLIC PANEL Routine 03/03/2025 1:31 PM CDT CBC WITH DIFFERENTIAL Routine 03/03/2025 1:31 PM CDT UNFRACTIONATED HEPARIN ACTIVITY Timed Study 03/03/2025 1:31 PM CDT POC GLUCOSE Routine [...] POC GLUCOSE Routine 03/02/2025 5:45 PM CDT SHAYNA AURIS SURVEILLANCE SCREEN Routine 03/02/2025 5:43 PM CDT UNFRACTIONATED HEPARIN ACTIVITY Timed Study 03/02/2025 4:10 PM CDT POC GLUCOSE Routine 03/02/2025 12:08 PM CDT US VENOUS DOPPLER LEG BILATERAL Routine 03/02/2025 10:09 AM CDT UNFRACTIONATED HEPARIN ACTIVITY Timed Study 03/02/2025 8:35 AM CDT BLOOD CULTURE Routine 03/02/2025 8:35 AM CDT BLOOD CULTURE Routine 03/02/2025 8:35 AM CDT BLOOD CULTURE Routine 03/02/2025 8:30 AM CDT BLOOD CULTURE Routine 03/02/2025 8:30 AM CDT POC GLUCOSE Routine 03/02/2025 7:51 AM CDT BASIC METABOLIC PANEL Routine 03/02/2025 12:46 AM CDT CBC WITH DIFFERENTIAL Routine 03/02/2025 12:46 AM CDT UNFRACTIONATED HEPARIN ACTIVITY Timed Study 03/02/2025 12:46 AM CDT POC GLUCOSE Routine [...] TSH REFLEXIVE Stat 03/01/2025 11:00 AM CDT COMPREHENSIVE METABOLIC PANEL Stat 03/01/2025 11:00 AM CDT PTT Stat 03/01/2025 11:00 AM CDT PROTIME-INR Stat 03/01/2025 11:00 AM CDT CBC WITH DIFFERENTIAL Stat 03/01/2025 11:00 AM CDT EKG 12-LEAD Stat 03/01/2025 10:[address] HEAD WO CONTRAST Stat 03/01/2025 1 0:48 AM CDT LIPID PANEL Routine 07/16/2019 10:07 AM CLASS C DRIVER HEMOGLOBIN A1C Routine 07/16/2019 10:07 AM CLASS C DRIVER MICROALBUMIN/CREATININ E RATIO, RANDOM UR Routine 09/22/2018 10:24 AM CDT HM DIABETES EYE EXAM 08/06/2018 12:00 AM CDT XR DEXA BONE DENSITY AXIAL 1 OR MORE SITES Routine 09/07/2010 2:58 PM CDT Postmenopausal Other specified condition influencing health from Last 3 Months or Most Recently Relevant to Health Maintenance Results * TELEMETRY REPORT (03/09/2025 3:53 PM CDT) Only the most recent of2 resultswithin the time period is included. us Provider Scanning ECG ORDERABLES Final Result * (ABNORMAL) POC GLUCOSE (03/07/2025 11:41 AM CDT) Only the most recent of23 resultswithin the time period is included. GLUCOSE POC 291(H) 74 - 99 mg/dL 03/07/2025 11:41 AM CDT [facility] SPECIMEN SOURCE, GLUCOSE POC Capillary 03/07/2025 11:[address] [facility] Blood, whole 03/07/2025 11:4 1 AM CDT 03/07/2025 12:42 PM CDT Nayeli Chan MD POINT OF CARE TESTING Final Result [facility] CLIA # [id number] [address] [address] [place] [address] * (ABNORMAL) CBC WITH DIFFERENTIAL (03/07/2025 4:56 AM CDT) Only the most recent of7 resultswithin the time period is included. Pathologist [facility] WBC 6.7 4.8 - 10.8 K/uL 03/07/2025 5:[address] [facility] RBC 2.56(L) 4.20 - 5.40 M/uL 03/07/2025 5:[address] [facility] HEMOGLOBIN 7.3(L) 12.0 - 16.0 g/dL 03/07/2025 5:[address] [facility] HEMATOCRIT 23.9(L) 36.0 - 46.0 % 03/07/2025 5:[address] [facility] MCV 93.4 84.0 - 103.0 fL 03/07/2025 5:[address] [facility] MCH 28.5 27.0 - 34.0 pg 03/07/2025 5:[address] [facility] MCHC 30.5 30.0 - 35.0 g/dL 03/07/2025 5:[address] [facility] PLATELETS 307 140 - 440 K/uL 03/07/2025 5:[address] [facility] MPV 10.1 8.9 - 12.8 fL 03/07/2025 5:[address] [facility] RDW 15.3(H) 11.0 - 14.5 % 03/07/2025 5:[address] [facility] RDW-STDEV 52.4 37.0 - 54.0 fL 03/07/2025 5:[address] [facility] NEUTROPHILS 70 42 - 75 % 03/07/2025 5:[address] [facility] LYMPHOCYTES 15(L) 24 - 44 % 03/07/2025 5:[address] [facility] MONOCYTES 9 2 - 10 % 03/07/2025 5:[address] [facility] EOSINOPHILS 2 0 - 7 % 03/07/2025 5:[address] [facility] BASOPHILS 0 0 - 1 % 03/07/2025 5:[address] [facility] IMMATURE GRANULOCYTES 4(H) 0 - 2 % 03/07/2025 5:[address] [facility] NEUTROPHIL ABSOLUTE 4.69 2.00 - 8.00 K/uL 03/07/2025 5:[address] [facility] LYMPHOCYTE ABSOLUTE 1.02(L) 1.20 - 4.00 K/uL 03/07/2025 5:[address] [facility] MONOCYTE ABSOLUTE 0.61(H) 0.10 - 0.60 K/uL 03/07/2025 5:[address] [facility] EOSINOPHIL ABSOLUTE 0.15 0.00 - 0.70 K/uL 03/07/2025 5:[address] [facility] BASOPHILS ABSOLUTE 0.02 0.00 - 0.20 K/uL 03/07/2025 5:[address] [facility] IMMATURE GRANULOCYTES ABSOLUTE 0.24(H) 0.00 - 0.10 K/uL 03/07/2025 5:[address] [facility] SMEAR REVIEWED: NA - Not Applicable 03/07/2025 5:[address] [facility] Blood Venipuncture / Unknown 03/07/2025 4:56 AM CDT 03/07/2025 5:21 AM CDT Nayeli Chan MD HEMATOLOGY ORDERABLES Final Result [facility] CLIA # [id number] [address] [place] [address] [place] [address] * (ABNORMAL) COMPREHENSIVE METABOLIC PANEL (03/07/2025 4:56 AM CDT) Only the most recent of6 resultswithin the time period is included. [facility] Signature SODIUM 144 136 - 145 mmol/L 03/07/2025 5:44 AM [facility] POTASSIUM 4.0 3.5 - 5.1 mmol/L 03/07/2025 5:44 AM [facility] CHLORIDE 110(H) 98 - 107 mmol/L 03/07/2025 5:44 AM [facility] CO2 26 22 - 29 mmol/L 03/07/2025 5:44 AM [facility] CALCIUM 8.6(L) 8.8 - 10.2 mg/dL 03/07/2025 5:44 AM [facility] BUN 30(H) 8 - 23 mg/dL 03/07/2025 5:44 AM [facility] CREATININE 0.89 0.51 - 0.95 mg/dL 03/07/2025 5:44 AM [facility] Comment:The GFR result is no t clinically significant on patients <18 or >70 years of age. GLUCOSE 298(H) 74 - 99 mg/dL 03/07/2025 5:44 AM [facility] TOTAL PROTEIN 5.1(L) 6.4 - 8.3 g/dL 03/07/2025 5:44 AM [facility] ALBUMIN 2.5(L) 3.5 - 5.2 g/dL 03/07/2025 5:44 AM [facility] BILIRUBIN TOTAL 0.4 0.0 - 1.0 mg/dL 03/07/2025 5:44 AM [facility] ALKALINE PHOSPHATASE 138(H) 35 - 104 U/L 03/07/2025 5:44 AM [facility] AST 22 10 - 35 U/L 03/07/2025 5:44 AM [facility] ALT 30 <=35 U/L 03/07/2025 5:[address] [facility] GFR >60 mL/min/1.7 3 sq meter 03/07/2025 5:[address] [facility] Comment:eGFR calculated with 2020 CKD-EPI equation. Vegetarian diet, extremely high or low muscle mass, and may affect results. Cystatin C with Glomerular Filtration Rate is a suitable alternative for these patients. ANION GAP 8(L) 9 - 20 mmol/L 03/07/2025 5:[address] [facility] Blood Venipuncture / Unknown 03/07/2025 4:56 AM CDT 03/07/2025 5:26 AM CDT Nayeli Chan MD CHEMISTRY ORDERABLES F inal Result Performing Organization Address [facility] Co de Phone Number [facility] CLIA # [id number] [facility] [address] * (ABNORMAL) IRON, TIBC, AND PERCENT SATURATION (03/05/2025 4:51 AM CDT) IRON 35(L) 37 - 145 ug/dL 03/05/2025 6:[address] [facility] TIBC 187(L) 250 - 450 ug/dL 03/05/2025 6:[address] [facility] IRON % SATURATION 19 15 - 60 % 03/05/2025 6:[address] [facility] Blood Venipuncture / Unknown 03/05/2025 4:51 AM CDT 03/05/2025 5:45 AM CDT Nayeli Chan MD CHEMISTRY ORDERABLES F inal Result Performing Organization Address [facility] Co de Phone Number [facility] CLIA # [id number] [address] [address] * ECHOCARDIOGRAM W/ CONTRAST AGENT (03/04/2025 1:40 PM CDT) EJECTION FRACTION 65 INTERFACE SYSTEM 03/04/2025 1:07 PM CDT Narrative INTERFACE SYSTEM - 03/04/2025 2:42 PM CDT [facility] Echocardiography Laboratory [address] [place] [id number] Transthoracic Echocardiography Patient: Helen Farrell Study ID: ECHOCARDIOGRAM W Gender: F : 1940 Age: 84 Room: [facility] Study Date: 03/04/2025 Pt Status: Inpatient Study Time: 01:07:58 PM CSN #: [id number] Ordering:Sebas Feliz Sports [facility] [place]: LVO Indications and History: See Comments. Summary [...] PHT 1.06 cm^2/m^2 EDV/bsa, 2-p 25 ml/m^2 Elizabeth VTI 47.5 cm ESV/bsa, 2-p 8 ml/m^2 Vena contracta width 3.2 cm SV/bsa, 2-p 17.8 ml/m^2 EDV, MM Teich. 86 ml Tricuspid valve Value EF, MM Teich. 67 % TR vena contracta width 2.1 cm EDV/bsa, MM Teich. 41 ml/m^2 Peak RV-RA grad, S 37 mm Hg EF, MM on 2D Teich. 67 % E', lat elizabeth, TDI 8.4 cm/sec Aortic root Value E/e', lat elizabeth, TDI 16 S-T junct diam, ED 2.2 cm E', med elizabeth, TDI 7.0 cm/sec S-T junct diam/bsa, ED 1.0 cm/m^2 E/e', med elizabeth, TDI 19 E', avg, TDI 7.7 cm/sec Ascending aorta Value E/e', avg, TDI 17 AAo AP diam, S 3.1 cm AAo AP diam/bsa, S 1.5 cm/m^2 LVOT Value Diam, S 2.1 cm Area 3.5 cm^2 Peak keven, S 119 cm/sec Peak grad, S 6 mm Hg Legend: (L) and (H) harrison values outside specified reference range. [facility] are accredited with the [facility] - Echocardiography. Prepared and Electronically Authenticated Khanh Castellano Confirmed 03/04/2025 14:42 Procedure Note Khanh Castellano MD - 03/04/2025 [facility] Echocardiography Laboratory [address] [place] [id number] Transthoracic Echocardiography Patient: Helen Farrell Study ID:ECHOCARDIOGRAM W Gender: Marti : 1940 Age: 84 Room: [facility] Study Date: 03/04/2025 Pt Status: Inpatient Study Time: 01:07:58 PM CSN #: [id number] Ordering:Sebas Feliz Sports [facility] [place]: LVO Indications and History: See Comments. Summary [...] 54 % SI dim, A2C 5.2 cm ETSHER major ax, A2C 6.2 cm Vol, ES, [...] MVA/bsa, PHT 1.06cm^2/m^2 EDV/bsa, 2-p 25 ml/m^2 Elizabeth VTI 47.5 cm ESV/bsa, 2-p 8 ml/m^2 Vena contracta width 3.2 cm SV/bsa, 2-p 17.8 ml/m^2 EDV, MM Teich. 86 ml Tricuspid valve Value EF, MM Teich. 67 % TR vena contracta width 2.1 cm EDV/bsa, MM Teich. 41 ml/m^2 Peak RV-RA grad, S 37 mmHg EF, MM on 2D Teich. 67 % E', lat elizabeth, TDI 8.4 cm/sec Aortic root Value E/e', lat elizabeth, TDI 16 S-T junct diam, ED 2.2 cm E', med elizabeth, TDI 7.0 cm/sec S-T junct diam/bsa, ED 1.0cm/m^2 E/e', med elizabeth, TDI 19 E', avg, TDI 7.7 cm/sec Ascending aorta Value E/e', avg, TDI 17 AAo AP diam, S 3.1 cm AAo AP diam/bsa, S 1.5cm/m^2 LVOT Value Diam, S 2.1 cm Area 3.5 cm^2 Peak keven, S 119 cm/sec Peak grad, S 6 mm Hg Legend: (L) and (H) harrison values outside specified reference range. [facility] are accredited with the[facility] Accreditation Commission - Echocardiography. Prepared and Electronically Authenticated Khanh Castellano Confirmed 03/04/2025 14:42 Sebas Feliz MD US ORDERABLES Final R esult Performing Organization Address City/[facility]/ZIP Co de Phone Number INTERFACE SYSTEM Refer to clinic/hospital department * TYPE AND SCREEN (03/03/2025 3:44 PM CDT) ABO GROUP O 03/03/2025 5:19 PM CDT [facility] [place] RH (D) TYPE Positive 03/03/2025 5:19 PM CDT [facility] [place] ANTIBODY SCREEN Negative 03/03/2025 5:19 PM CDT [facility] Blood Venipuncture / Unknown 03/03/2025 3:44 PM CDT 03/03/2025 3:56 PM CDT Nayeli Chan MD BLOOD BANK ORDERABLES Edited Result - Final Performing Organization Address [facility]/ZIP Co de Phone Number [facility] [place] CLIA#[id number] [address] [place] [id number], [place] [phone] * US GUIDE NEEDLE PLACEMENT (03/03/2025 2:54 [...] acute pulmonary embolism without acute cor pulmonale. Metrology Specialist: Dr. Perry Moderate (conscious) sedation for this procedure was performed with continuous physician supervision. Medical history, physical exam, drug dosages, routes of drug administration, monitoring data, and precise times of service are documented in the medical record on the [facility]-approved form, 'Sedative/Analgesic Administration for Diagnostic and Therapeutic [...] acute pulmonary embolism without acute cor pulmonale. Metrology Specialist: Dr. Perry Moderate (conscious) sedation for this procedure was performed with continuous physician supervision. Medical history, physical exam, drug dosages, routes of drug administration, monitoring data, and precise times of service are documented in the medical record on the [facility]-approved form, 'Sedative/Analgesic Administration for Diagnostic and Therapeutic [...] lumen of the gallbladder. Nayeli Chan MD ORDERABLES Final Result * (ABNORMAL) ANAEROBIC/AEROBIC CULTURE W GRAM STAIN (03/03/2025 2:54 PM CDT) CULTURE ENTEROCOCCUS FAECALIS(A) PEDRO PABLO MCG/ML 03/06/2025 8:[address] [facility] GRAM STAIN 4+ (Heavy) Gram positive cocci 03/06/2025 8:[address] [facility] GRAM STAIN 1+ (Rare or Occasional) Polymorphonuclear WBC 03/06/2025 8:[address] [facility] Lesion/Drainage Fluid ENTIRE GALLBLADDER / Unknown Collection / Unknown 03/03/2025 2:54 PM CDT 03/03/2025 3:08 PM CDT Narrative Organism Antibiotic Method Susceptibility Enterococcus faecalis AMPICILLIN PEDRO PABLO MCG/ML <=2 mcg/mL: Susceptible Enterococcus faecalis VANCOMYCIN PEDRO PABLO MCG/ML 1 mcg/mL: Susceptible us Joni Perry MD MICROBIOLOGY - GENERAL ORDERABL ES Final Result Performing Organization Address City/State/[facility] Co de Phone Number [facility] # [id number] [address] [place] [address] [place] [address] * IR TUBE PLACEMENT (03/03/2025 2:51 PM [...] acute pulmonary embolism without acute cor pulmonale. Metrology Specialist: Dr. Perry Moderate (conscious) sedation for this procedure was performed with continuous physician supervision. Medical history, physical exam, drug dosages, routes of drug administration, monitoring data, and precise times of service are documented in the medical record on the [facility]-approved form, 'Sedative/Analgesic Administration for Diagnostic and Therapeutic [...] acute pulmonary embolism without acute cor pulmonale. Metrology Specialist: Dr. Perry Moderate (conscious) sedation for this procedure was performed with continuous physician supervision. Medical history, physical exam, drug dosages, routes of drug administration, monitoring data, and precise times of service are documented in the medical record on the [facility]-approved form, 'Sedative/Analgesic Administration for Diagnostic and Therapeutic [...] RED BLOOD CELLS (03/03/2025 2:26 PM CDT) Pathologist [facility] COMPONENT TYPE [id number] [facility] [place] COMPONENT IDENTIFICATION [id number] [facility] [place] UNIT ABO O [facility] [place] UNIT RH POS [facility] [place] CROSSMATCH Compatible [facility] [place] COMPONENT STATUS Returned [facility] LAB[facility]ORY SERVICES -- [place] COMPONENT EXPIRATION DATE/TIME [id number] [facility] [place] COMPONENT CODING SYSTEM 5100 [facility] [place] VOLUME, BLOOD PRODUCT 350 [facility] [place] Other, specify 03/03/2025 2: 26 PM CDT us Nayeli Chan MD LAB TRANSFUSION ORDERA BLES Edited Result - Final [facility] [place] CLIA#[id number] [address] [place] [address], * UNFRACTIONATED HEPARIN MONITORING (03/03/2025 1:31 PM CDT) Only the most recent of6 resultswithin the time period is included. [facility] ANTI-XA UNFRAC HEP <0.10 See Interpretation IU/mL 03/03/2025 3:[address] [facility] Blood Venipuncture / Unknown 03/03/2025 1:31 PM CDT 03/03/2025 1:39 PM CDT Narrative [facility] LABOR[facility] - 03/03/2025 3:02 PM CDT Therapeutic Range: PT/DVT Heparin Protocol 0.3 - 0.7 IU/ml Cardiac Heparin Protocol 0.3 - 0.6 IU/ml The reference range for this test is specific to the anticoagulant and is not appropriate for monitoring patients on a DOAC protocol. us Nayeli Chan MD HEMATOLOGY ORDERABLES Final Result [facility] CLIA # [id number] [address] [place] [address] * EXTRA TUBE (GREEN) (03/03/2025 10:34 AM CDT) Blood Venipuncture / Unknown 03/03/2025 10:34 AM CDT 03/03/2025 11:29 AM CDT External Provider [facility] CHEMISTRY ORDERABLES Final Result [facility] CLIA # [id number] [address] [place] [address] * NM HEPATOBILIARY SCAN (03/03/2025 10:19 AM [...] with cystic duct obstruction and acute cholecystitis. us Nayeli Chan MD NM ORDERABLES Final Result * SHAYNA AURIS SURVEILLANCE SCREEN (03/02/2025 5:43 PM CDT) Shayna auris by PCR Not Detected Not Detected 03/03/2025 10:[address] [facility] Surveillance (Axilla/Groin) Collection / Unknown 03/02/2025 5:43 PM CDT 03/02/2025 5:57 PM CDT Nayeli Chan MD MICROBIOLOGY - GENERAL ORDERABLES Final Result Performing Organization Address City/State/[facility] Co de Phone Number [facility] CLIA # [id number] [address] [phone] * US VENOUS DOPPLER LEG BILATERAL (03/02/2025 10:09 AM CDT) Anatomical Region Laterality Modality Lower Extremity Ultrasound 03/02/2025 8:56 AM CDT Narrative 03/02/2025 4:32 PM CDT [facility] Services Noninvasive Vascular Laboratory [address] [place] [address] Noninvasive Vascular Lab Venous Exam Complete Lower Extremity Duplex Patient: Helen Farrell Study ID: US VENOUS DOPPLE Gender: F : 1940 Age: 84 Room: [facility] Height: Weight: BSA: Pt status: Inpatient Study Date: 03/02/2025 Study Time: 08:56:55 AM BSA: Ordering: Sebas Feliz Interpreting:Prince Jose [facility] Masseur: JUAN C Indications: DVT. Summary Impression: 1. [...] Read back and verified. - 03/02/2025 - 899 - +DVT [facility] Vascular Lab is accredited with the Intersocietal Commission for the Accreditation of Vascular Laboratories (ICAVL) Prepared and Electronically Authenticated Prince Jose Confirmed 03/02/2025 16:32 Procedure Note Prince Garcia MD - 03/02/2025 [facility] Noninvasive Vascular Laboratory [address] [place] [address] Noninvasive Vascular Lab Venous Exam Complete Lower Extremity Duplex Patient: Helen Farrell Study ID: US VENOUS DOPPLE Gender: F : 1940 Age: 84 Room: 3106 Height: Weight: BSA: Pt status: Inpatient Study Date: 03/02/2025 Study Time: 08:56:55 AM BSA: Ordering: Sebas Feliz Interpreting:Prince Jose Sports [facility] Masseur: JUAN C Indications: DVT. Summary Impression: 1. [...] back and verified. - 03/02/2025899 - +DVT [facility] Vascular Lab is accredited with theIntersocietal Commission for the Accreditation of Vascular Laboratories (ICAVL) Prepared and Electronically Authenticated Prince Jose Confirmed 03/02/2025 16:32 Sebas Feliz MD US ORDERABLES Final R esult * BLOOD CULTURE (03/02/2025 8:35 AM CDT) Only the most recent of2 resultswithin the time period is included. BLOOD CULTURE No growth 03/07/2025 10:[address] [facility] Blood (Peripheral) Venipuncture / Unknown 03/02/2025 8:35 AM CDT 03/02/2025 8:39 AM CDT Sebas Feliz MD MICROBIOLOGY - GENERAL ORDERABLES Final Result [facility] CLIA # [id number] [address] [place] [address] [id number] * (ABNORMAL) BASIC METABOLIC PANEL (03/02/2025 12:46 AM CDT) SODIUM 135(L) 136 - 145 mmol/L 03/02/2025 1:[address] [facility] POTASSIUM 4.3 3.5 - 5.1 mmol/L 03/02/2025 1:[address] [facility] CHLORIDE 101 98 - 107 mmol/L 03/02/2025 1:[address] [facility] CO2 23 22 - 29 mmol/L 03/02/2025 1:[address] [facility] CALCIUM 8.8 8.8 - 10.2 mg/dL 03/02/2025 1:[address] [facility] BUN 22 8 - 23 mg/dL 03/02/2025 1:[address] [facility] CREATININE 0.81 0.51 - 0.95 mg/dL 03/02/2025 1:[address] [facility] Comment:The GFR result is no t clinically significant on patients <18 or >70 years of age. GLUCOSE 315(H) 74 - 99 mg/dL 03/02/2025 1:[address] [facility] GFR >60 mL/min/1.7 3 sq meter 03/02/2025 1:[address] [facility] Comment:eGFR calculated with 2020 CKD-EPI equation. Vegetarian diet, extremely high or low muscle mass, and may affect results. Cystatin C with Glomerular Filtration Rate is a suitable alternative for these patients. ANION GAP 11 9 - 20 mmol/L 03/02/2025 1:[address] [facility] Blood Venipuncture / Unknown 03/02/2025 12:46 AM CDT 03/02/2025 1:02 AM CDT Sebas Feliz MD CHEMISTRY ORDERABLES Fi nal Result [facility] CLIA # [id number] [address] [place] [address] * US GALLBLADDER (03/01/2025 4:45 PM CDT) [...] DO US ORDERABLES Final Resul t * PTT (03/01/2025 4:13 PM CDT) Only the most recent of2 resultswithin the time period is included. Pathologist [facility] PTT 25.1 24.8 - 37.2 seconds 03/01/2025 4:[address] [facility] Blood Venipuncture / Unknown 03/01/2025 4:13 PM CDT 03/01/2025 4:[address] [facility] - 03/01/2025 4:50 PM CDT Therapeutic Range: Hi-level PE/DVT heparin protocol 80.1 - 95.0 sec Lo-level PE/DVT heparin protocol 70.1 - 85.0 sec Cardiac Heparin Protocol 70.1 - 100.0 sec Babak Larkin DO HEMATOLOGY ORDERABLES Final Result [facility] CLIA # [id number] [address] [place] [address] * (ABNORMAL) CBC WITHOUT DIFFERENTIAL (03/01/2025 4:13 PM CDT) [facility] WBC 12.9(H) 4.8 - 10.8 K/uL 03/01/2025 4:[address] [facility] RBC 3.91(L) 4.20 - 5.40 M/uL 03/01/2025 4:[address] [facility] HEMOGLOBIN 11.1(L) 12.0 - 16.0 g/dL 03/01/2025 4:[address] [facility] HEMATOCRIT 35.5(L) 36.0 - 46.0 % 03/01/2025 4:[address] [facility] MCV 90.8 84.0 - 103.0 fL 03/01/2025 4:[address] [facility] MCH 28.4 27.0 - 34.0 pg 03/01/2025 4:[address] [facility] MCHC 31.3 30.0 - 35.0 g/dL 03/01/2025 4:[address] [facility] PLATELETS 196 140 - 440 K/uL 03/01/2025 4:[address] [facility] MPV 10.5 8.9 - 12.8 fL 03/01/2025 4:[address] [facility] RDW 15.2(H) 11.0 - 14.5 % 03/01/2025 4:[address] [facility] RDW-STDEV 50.2 37.0 - 54.0 fL 03/01/2025 4:[address] [facility] Blood Venipuncture / Unknown 03/01/2025 4:13 PM CDT 03/01/2025 4:23 PM CDT us Babak Larkin DO HEMATOLOGY ORDERABLES Final Result Performing Organization Address City/State/[facility] Co de Phone Number [facility] CLIA # [id number] [address] [address] [place] [address] * CT ABDOMEN PELVIS W CONTRAST (03/01/2025 [...] (ABNORMAL) URINE CULTURE (03/01/2025 1:02 PM CDT) [facility] CULTURE ESCHERICHIA COLI(A) PEDRO PABLO MCG/ML 03/04/2025 7:08 AM CDT [facility] CULTURE ENTEROCOCCUS FAECALIS(A) PEDRO PABLO MCG/ML 03/04/2025 7:[address] [facility] Urine (Urine, indwelling (Lange) catheter) Collection / Unknown 03/01/2025 1:02 PM [...] NITROFURANTOIN PEDRO PABLO MCG/ML <=16 mcg/mL: Susceptible Babak Larkin DO MICROBIOLOGY - GENERAL ORDE RABLES Final Result Performing Organization Address [facility]/ZIP Co de Phone Number [facility] [employer] [facility] CLIA # [id number] [address] [address] * EXTRA TUBE (URINE LEE) (03/01/2025 12:04 PM CDT) Urine URINE SPECIMEN OBTAINED BY CLEAN CATCH PROCEDURE / Unknown Collection / Unknown 03/01/2025 12:04 PM CDT 03/01/2025 12:08 PM CDT Babak Larkin DO URINE ORDERABLES Final Resu lt Performing Organization Address [facility] Co de Phone Number [facility] CLIA # [id number] [phone] [place] [address] * (ABNORMAL) URINALYSIS WITH REFLEX MICROSCOPIC (03/01/2025 12:04 PM CDT) COLOR UA Yellow Pale to Dark Yellow 03/01/2025 12:22 PM CDT [facility] [employer] [facility] CLARITY UA Turbid(A) Clear 03/01/2025 12:22 PM CDT [facility] [employer] [facility] SPECIFIC GRAVITY UA 1.026 1.003 - 1.035 03/01/2025 12:22 PM CDT [facility] [employer] [facility] PH UA 6.5 5.0 - 8.0 03/01/2025 12:[address] [facility] LEUKOCYTE ESTERASE UA 3+(A) Negative 03/01/2025 12:[address] [facility] NITRITE UA Negative Negative 03/01/2025 12:[address] [facility] PROTEIN UA 2+(A) Negative 03/01/2025 12:[address] [facility] GLUCOSE UA Negative Negative 03/01/2025 12:[address] [facility] KETONES UA Negative Negative 03/01/2025 12:[address] [facility] UROBILINOGEN UA <2.0 <2.0 mg/dL 12:[address] [facility] BILIRUBIN UA Negative Negative 03/01/2025 12:[address] [facility] BLOOD UA 1+(A) Negative 03/01/2025 12:[address] [facility] WBC UA >100(A) 0 - 2 /hpf 03/01/2025 12:[address] [facility] RBC UA 26-50(A) 0 - 2 /hpf 03/01/2025 12:[address] [facility] BACTERIA UA 3+(A) Negative /hpf 03/01/2025 12:22 PM [facility] EPITHELIAL CELLS, URINE 0-5 0 - 5 /hpf 03/01/2025 12:[address] [facility] WBC CLUMPS Present(A) Absent 03/01/2025 12:[address] [facility] Urine URINE SPECIMEN OBTAINED BY CLEAN CATCH PROCEDURE / Unknown Collection / Unknown 03/01/2025 12:04 PM CDT 03/01/2025 12:08 PM CDT us Babak Larkin DO URINE ORDERABLES Final Resu lt [facility] CLIA # [id number] [address] [facility] [place] [address] * TSH REFLEXIVE (03/01/2025 11:00 AM CDT) TSH 1.99 0.27 - 4.20 uIU/mL 03/01/2025 11:[address] [facility] Blood Venipuncture / Unknown 03/01/2025 11:00 AM CDT 03/01/2025 11:04 AM CDT us Babak Larkin DO CHEMISTRY ORDERABLES Final Result [facility] CLIA # [id number] [address] [facility] [place] [address] * (ABNORMAL) PROTIME-INR (03/01/2025 11:00 AM CDT) Pathologist [facility] PROTIME 16.7(H) 12.7 - 14.9 Seconds 03/01/2025 11:[address] [facility] INR 1.3(H) 0.8 - 1.2 03/01/2025 11:[address] [facility] Blood Venipuncture / Unknown 03/01/2025 11:00 AM CDT 03/01/2025 11:[address] [facility] - 03/01/2025 11:29 AM CDT Expected Values for INR: DVT/PE Goal INR 2.5; range 2.0 - 3.0 Valve Replacement Tissue Goal INR 2.5; range 2.0 - 3.0 Valve Replacement Mechanical Goal INR 3.0; range 2.5 - 3.5 POST-ME Goal INR 2.5; range 2.0 - 3.0 or Goal INR 3.0; range 2.5 - 3.5 Atrial Fibrillation Goal INR 2.5; range 2.0 - 3.0 Ischemic Stroke Goal INR 2.5; range 2.0 - 3.0 us Babak Larkin DO HEMATOLOGY ORDERABLES Final Result [facility] # [id number] [address] [address] * EKG 12-LEAD (03/01/2025 10:53 AM CDT) 03/01/2025 10:5 3 AM CDT Narrative INTERFACE SYSTEM - 03/01/2025 4:45 PM CDT [id number] [place] [address] Test Date: 2025-03-01 Pat Name: HELEN FARRELL Department: 11 Room: 01 25 Gender: Female Shale Processing Technician: [id number] : 1940 Requested By: Order Number: [id number] Reading MD: Desiree Burgos Measurements Intervals Hunters Rate: 79 P: 51 RI: 126 QRS: 24 QRSD: 90 T: 81 QT: 354 QTc: 405 Interpretive Statements Normal sinus rhythm Possible Anterior infarct, age undetermined Abnormal ECG Electronically Signed On 03-01-2025 16:45:37 CDT by Desiree Burgos Procedure Note Desiree Burgos MD - 03/01/2025 [facility] [address] [place] [address] Test Date: 2025-03-01 Pat Name: HELEN FARRELL Department: 11 Room: 01 25 Gender: Female Shale Processing Technician: [id number] : 1940 Requested By: Order Number: [id number] Reading MD: Desiree Burgos Measurements Intervals Hunters Rate: 79 P: 51 RI: 126 QRS: 24 QRSD: 90 T: 81 QT: 354 QTc: 405 Interpretive Statements Normal sinus rhythm Possible Anterior infarct, age undetermined Abnormal ECG Electronically Signed On 03-01-2025 16:45:37 CDT by Amzhang Burgos us Babak Larkin DO ECG ORDERABLES [...] CT ORDERABLES Final Resul t * (ABNORMAL) HEMOGLOBIN A1C (07/16/2019 10:07 AM CLASS C DRIVER) HEMOGLOBIN A1C 8.2(H) See Comment % 07/16/2019 10:41 AM [facility] [place] EST. AVG GLUCOSE, A1C 189 mg/dL 07/16/2019 10:41 AM [facility] Blood Venipuncture / Unknown 07/16/2019 10:07 AM CLASS C DRIVER 07/16/2019 10:14 AM [facility] Narrative [facility] - 07/16/2019 10:41 AM CLASS C DRIVER HGB A1C INTERPRETATION NORMAL: <5.7% PRE-DIABETES: 5.7 - 6.4% DIABETES: 6.5% OR GREATER Falsely low A1C measurements can occur when: 1. Anemia and/or hemolytic anemia is present. 2. Hemoglobin variants present. 3. Renal failure. 4. Transfusion of blood product in the last 120 days. We recommend ordering a fructosamine test([id number]) to more accurately assess glycemic status if any of the above conditions are present. Peter Otto MD CHEMISTRY ORDERABLES Final Res ult [facility] [place] CLIA# [id number] [address] [place] [address] * (ABNORMAL) LIPID PANEL (07/16/2019 10:07 AM CLASS C DRIVER) CHOLESTEROL 127 <200 mg/dL 07/16/2019 11:04 AM [facility] [place] TRIGLYCERIDE 162(H) <150 mg/dL 07/16/2019 11:04 AM [facility] HDL 54 40 - 59 mg/dL 07/16/2019 11:04 AM [facility] LDL CALCULATED 41 <100 mg/dL 07/16/2019 11:04 AM [facility] [place] NON-HDL CHOLESTEROL 73 <130 mg/dL 07/16/2019 11:04 AM [facility] Blood Venipuncture / Unknown 07/16/2019 10:07 AM CLASS C DRIVER 07/16/2019 10:15 AM [facility] Narrative [facility] - 07/16/2019 11:04 AM CLASS C DRIVER TOTAL CHOLESTEROL mg/dL Desirable <200 Borderline high [...] Otto MD CHEMISTRY ORDERABLES Final Res ult [facility] SERVICES[facility]ACY [facility] CLIA# [id number] [address] [place] [address] * MICROALBUMIN/CREATININE RATIO, RANDOM UR (09/22/2018 10:24 AM CDT) MICROALBUMIN, URINE 4.3 No Reference Range mg/dL 09/22/2018 9:16 PM T [facility] CREATININE, URINE 187.4 29.0 - 226.0 mg/dL 09/22/2018 9:16 PM T [facility] Comment: Reference Range varies with fluid intake and diet. MICROALBUMIN/C REAT RATIO, UR 22.9 <25.0 mg/g 09/22/2018 9:16 PM T [facility] Urine URINE SPECIMEN OBTAINED BY CLEAN CATCH PROCEDURE / Unknown Collection / Unknown 09/22/2018 10:24 AM CDT 09/22/2018 8:05 PM CDT Kareen [facility] - 09/22/2018 9:16 PM CDT Condition Microalbumin/Creat ratio Normal Males <17 Normal Females <25 Microalbuminuria Males 17-299 Microalbuminuria Females 25-299 Overt proteinuria >=300 Izabella Smith ORDERING BOX OPERATOR URINE ORDERABLES Final Result [facility] BLANC# [id number] [address] [place] [address] * DIABETES EYE EXAM (08/06/2018 12:00 AM CDT) [...] Most Recently Relevant to Health Maintenance Insurance [id number] [id number] [place] [address] MEDICARE PART A AND B * Guarantor: HELEN FARRELL Account Type Relation to Patient Date of Phone Billing Address Personal/Family [id number] [id number] [employer] [place] [employer] (INTERNAL) [facility] Medicare Part D Advance Directives For more information, please contact: [phone] * NO CPR (In Event of Cardiopulmonary Arrest) (Latest Code Status on File) Date Activated Date Inactivated Comments 03/01/2025 9:36 PM 03/07/2025 2:56 PM Question Answer Comments Mechanical Ventilation (for respiratory distress) - Invasive (i.e. intubation): No Mechanical Ventilation (for respiratory distress) - Non-Invasive (i.e. BiPAP, CPAP): Yes * Full Code Date Activated Date Inactivated Comments 03/01/2025 3:36 PM 03/01/2025 9:36 PM Care Teams Clinical Assoc Relationship Specialty Start Date End Date Brayan Fournier MD [address] [place] [address] PCP - General Family Practice 06/29/18
--- OUTSIDE RECORDS SUMMARY | 2025-03-12 06:40 | XMS_ITS | Clinical Summary ---
Author Organization [facility] Address [address] [place] [address] Care Team Providers Care Switchboard Wirer Name Role Phone Brayan Fournier MD Primary Care Provider [phone] Allergies Active Allergy Reactions Criticality Noted Date [...] hours as needed for Dizziness. Active mv-mn/C/glutamin /lysin/nmvk938 (AIR[place]ORNE, ASCORBATE SODIUM, ORAL) Take 1 Tablet by mouth 1 time daily as needed. Active traMADol (ULTRAM) 50 mg tabletIndication s:Status post total right knee replacement Take 1 tablet by mouth every 6 hours as needed for pain. Maximum of 4 per day. 60 Tablet 04/14/2019 4:25 PM CARTON COUNTER FEEDER 9 Active famotidine (PEPCID) 20 mg tablet Take 1 Tablet (20 mg) by mouth 2 times daily. 80 Tablet 04/14/2019 4:25 PM CARTON COUNTER FEEDER 9 Active docusate sodium (COLACE) 100 mg capsule Take 1 Capsule (100 mg) by mouth 2 times daily. 60 Capsule 04/14/2019 4:25 PM CARTON COUNTER FEEDER 9 Active blood sugar diagnostic (OneTouch Ultra [...] on file Legal Sex Female 5:03 AM CARTON COUNTER FEEDER Gender Identity Not on file Sexual Orientation Not on file Occupation Industry Job Start Date Job End Date Not on file Not on file Not on file Not on file Last Filed Vital Signs Vital Sign Reading Time Taken Comments Blood Pressure 132/84 07/16/2019 9:04 AM CARTON COUNTER FEEDER Pulse 64 07/16/2019 9:04 AM CARTON COUNTER FEEDER Temperature 36.9 C (98.5 F) 04/15/2019 9:00 AM CARTON COUNTER FEEDER Respiratory Rate 16 04/15/2019 9:00 AM CARTON COUNTER FEEDER Oxygen Saturation 95% 04/15/2019 9:00 AM CARTON COUNTER FEEDER Inhaled Oxygen Concentration - - Weight 88 kg (194 lb) 07/16/2019 9:04 AM CARTON COUNTER FEEDER Height 167.6 cm (5' 6 ) 07/16/2019 9:04 AM CARTON COUNTER FEEDER Body Mass Index 31.31 07/16/2019 9:04 AM CARTON COUNTER FEEDER Plan of Treatment Health Maintenance Due Date [...] history exists Medical Devices Implanted Type Area Consumer Relations Complaint Clerk Device Identifier Shelf Expiration Date Model / Serial / Lot Cement Simplex Hvisc 6194-1-010 - [id number] Implanted:Qty: 1 on 02/13/2017 by Arnold Garcia MD at [facility] Cement Left: Knee JAYDA- [employer] 07/16/2018 6194-1-010 / / [id number] Cement Simplex Hvisc 6194-1-010 - [id number] Implanted:Qty: 1 on 02/13/2017 by Arnold Garcia MD at [facility] Cement Left: Knee JAYDA- [employer] 07/16/2018 6194-1-010 / / [id number] Cement Simplex Hvisc 6194-1-010 - [id number] Implanted:04/13 by Manjit Trejo MD at [facility] (Quantity not on file) Cement Right: Knee JAYDA- [employer] 10/16/2020 6194-1-010 / / [id number] Cement Simplex Hvisc 6194-1-010 - [id number] Implanted:04/13 by Manjit Trejo MD at [facility] (Quantity not on file) Cement Right: Knee JAYDA- [employer] 10/16/2020 6194-1- / / [id number] Patella Dome 3peg 32mm 96-0 - [id number] Implanted:Qty: 1 on 02/13/2017 by Arnold Garcia MD at [facility] Knee Left: Knee [employer]J- [employer] 12/16/2021 [id number] / / [id number] Comp Fem Sigma Cr Hotel Attendant Sz5 96-0005 - [id number] Implanted:Qty: 1 on 02/13/2017 by Arnold Garcia MD at [facility] Knee Left: Knee [employer]- [employer] 12/16/2021 96-0005 / / [id number] Comp Tib Sigma Cocr Sz4 158-40-000 - [id number] Implanted:Qty: 1 on 02/13/2017 by Arnold Garcia MD at [facility] Knee Left: Knee [employer] 11/15/2026 1581-40-000 / / [id number] Tib Sigma Crv Xlk Sz4 1581-14-108 - [id number] Implanted:Qty: 1 on 02/13/2017 by Arnold Garcia MD at [facility] Knee Left: Knee [employer] 11/15/2021 1581-14-108 / / [id number] Insert Attune Fb Ps Sz6 8mm 1516-40-608 - [id number] Implanted:Qty: 1 on 04/13/2019 by Manjit Trejo MD at [facility] Knee Right: Knee [employer] 12/17/2023 [id number] / / [id number] Comp Tib Attn Fb Cmnt Sz5 1506-70-005 - [id number] Implanted:Qty: 1 on 04/13/2019 by Manjit Trejo MD at [facility] Knee Right: Knee [employer] 03/18/2029 [id number] / / [id number] Comp Fem Attn Ps Cmnt Sz6 1504-10-226 - [id number] Implanted:Qty: 1 on 04/13/2019 by Manjit Trejo MD at [facility] Knee Right: Knee [employer] 11/15/2028 [id number] / / [id number] Procedures Procedure Name Priority Date/Time Associated Diagnosis Comments LIPID PANEL Routine 07/16/2019 10:07 AM CARTON COUNTER FEEDER Dyslipidemia HEMOGLOBIN A1C Routine 07/16/2019 10:07 AM CARTON COUNTER FEEDER Uncontrolled type 2 diabetes mellitus with hyperglycemia, with long-term current use of insulin ([facility]) MICROALBUMIN/CREATIN INE RATIO, RANDOM UR Routine 09/22/2018 10:24 AM CDT Uncontrolled type 2 diabetes mellitus with hyperglycemia, with long-term current use of insulin ([facility]) DIABETES EYE EXAM Routine 08/06/2018 XR DEXA BONE DENSITY AXIAL 1 OR MORE SITES Routine 09/07/2010 2:58 PM CDT POSTMENOPAUSAL At risk for decreased bone density from Last 3 Months or Most Recently Relevant to Health Maintenance Results * (ABNORMAL) HEMOGLOBIN A1C (07/16/2019 10:07 AM CARTON COUNTER FEEDER) HEMOGLOBIN A1C 8.2(H) See Comment % 07/16/2019 10:41 AM [facility] EST. AVG GLUCOSE, A1C 189 mg/dL 07/16/2019 10:41 AM [facility] Blood Venipuncture / Unknown 07/16/2019 10:07 AM CARTON COUNTER FEEDER 07/16/2019 10:14 AM CARTON COUNTER FEEDER Narrative [facility] - 07/16/2019 10:41 AM CARTON COUNTER FEEDER HGB A1C INTERPRETATION NORMAL: <5.7% PRE-DIABETES: 5.7 - 6.4% DIABETES: 6.5% OR GREATER Falsely low A1C measurements can occur when: 1. Anemia and/or hemolytic anemia is present. 2. Hemoglobin variants present. 3. Renal failure. 4. Transfusion of blood product in the last 120 days. We recommend ordering a fructosamine test([id number]) to more accurately assess glycemic status if any of the above conditions are present. Peter Otto MD CHEMISTRY ORDERABLES Final Res ult [facility] CLIA# [id number] [facility] [place] [address] * (ABNORMAL) LIPID PANEL (07/16/2019 10:07 AM CARTON COUNTER FEEDER) CHOLESTEROL 127 <200 mg/dL 07/16/2019 11:04 AM [facility] TRIGLYCERIDE 162(H) <150 mg/dL 07/16/2019 11:04 AM [facility] HDL 54 40 - 59 mg/dL 07/16/2019 11:04 AM [facility] LDL CALCULATED 41 <100 mg/dL 07/16/2019 11:04 AM [facility] NON-HDL CHOLESTEROL 73 <130 mg/dL 07/16/2019 11:04 AM [facility] Blood Venipuncture / Unknown 07/16/2019 10:07 AM CARTON COUNTER FEEDER 07/16/2019 10:15 AM [facility] Narrative [facility] - 07/16/2019 11:04 AM CARTON COUNTER FEEDER TOTAL CHOLESTEROL mg/dL Desirable <200 Borderline high [...] Otto MD CHEMISTRY ORDERABLES Final Res ult [facility] IA# [id number] [address] [place] [address] * MICROALBUMIN/CREATININE RATIO, RANDOM UR (09/22/2018 10:24 AM CDT) MICROALBUMIN, URINE 4.3 No Reference Range mg/dL 09/22/2018 9:16 PM T [facility] CREATININE, URINE 187.4 29.0 - 226.0 mg/dL 09/22/2018 9:16 PM T [facility] Comment: Reference Range varies with fluid intake and diet. MICROALBUMIN/C REAT RATIO, UR 22.9 <25.0 mg/g 09/22/2018 9:16 PM T [facility] Urine URINE SPECIMEN OBTAINED BY CLEAN CATCH PROCEDURE / Unknown Collection / Unknown 09/22/2018 10:24 AM CDT 09/22/2018 8:05 PM CDT [facility]3] [facility]ORATORY [facility]Y [facility] - 09/22/2018 9:16 PM CDT Condition Microalbumin/Creat ratio Normal Males <17 Normal Females <25 Microalbuminuria Males 17-299 Microalbuminuria Females 25-299 Overt proteinuria >=300 Izabella Freitas Sarah CHEMIST STEROIDS URINE ORDERABLES Final Result [facility]# [id number] [address] [place] [address] * DIABETES EYE EXAM (08/06/2018) us Abstract [...] Maintenance Insurance MEDICARE PART A AND B [facility] [place] [id number] RX [facility] Medicare Part D RX [facility] [place] [employer] (INTERNAL) [facility] Internal Plans Advance Directives For more information, please contact: [phone] * Full Code (Latest Code Status on [...] 7:30 AM 02/13/2017 10:45 AM Care Teams Switchboard Wirer Relationship Specialty Start Date End Date Brayan Fournier MD [address] [place] [address] PCP - General Family Practice 06/29/18
--- OUTSIDE RECORDS SUMMARY | 2025-03-12 06:40 | XMS_ITS | Encounter Summary ---
Author Organization [employer] Address [address] [place] [address] Care Team Providers Care Injection Moulding Machine Operator Name Role Phone Brayan Fournier MD Primary Care Provider [phone] Encounter Details Date Type Department Care Team [...] worry about transportation for future doctor visits, picking crew supervisor medication, etc.? No 2024 Housing Stability [...] on file Legal Sex Female 1:50 PM INFORMATICS NURSE SPECIALIST Gender Identity Not on file Sexual Orientation Not on file documented as of this encounter Plan of Treatment Upcoming Encounters Date Type Department Care Team (Late st Contact Info) Description 03/17/2025 2:00 PM CDT Office Visit [facility] General and Trauma Surgery[address] [place] [address] Laisha Castro NP [address] [place] [address] [address] [place] [address] documented as of this encounter Visit Diagnoses Not on filedocumented in this encounter Care Teams Injection Moulding Machine Operator Relationship Specialty Start Date End Date Brayan Fournier MD [address], [place] [address] PCP - General Family Practice 06/29/18 documented as of this encounter
--- OUTSIDE RECORDS SUMMARY | 2025-03-12 06:40 | XMS_ITS | Encounter Summary ---
Author Organization [employer] Address [address] [place] [address] Care Team Providers Care Hotel Assistant General Manager Name Role Phone Brayan Fournier MD Primary Care Provider [phone] Encounter Details Date Type Department Care Team (Late st Contact Info) Description 03/08/2025 External Device Data STL ABSTRACTION Provider, [...] worry about transportation for future doctor visits, orange picking supervisor medication, etc.? No 2024 Housing [...] on file Legal Sex Female 1:50 PM WET ROASTER Gender Identity Not on file Sexual Orientation Not on file documented as of this encounter Plan of Treatment Upcoming Encounters Date Type Department Care Team (Late st Contact Info) Description 03/17/2025 2:00 PM CDT Office Visit [facility] General and Trauma Surgery[address] [place] [address] Laisha Castro NP [address] [place] [address] [address] [place] [address] documented as of this encounter Visit Diagnoses Not on filedocumented in this encounter Care Teams Hotel Assistant General Manager Relationship Specialty Start Date End Date Brayan Fournier MD [address], [place] [address] PCP - General Family Practice 06/29/18 documented as of this encounter
--- OUTSIDE RECORDS SUMMARY | 2025-03-12 06:41 | XMS_ITS | Encounter Summary ---
Author Organization [facility] Address [address] [place] [address] Care Team Providers Care Equipment Sterilizer Name Role Phone Brayan Fournier MD Primary Care Provider [phone] Encounter Details Date Type Department Care Team (Latest Contact Info) Description 08/12/2001 Outpatient Historical [facility] [address] [phone] Eleni Talaamntes MD [address], [address] ACUTE FRONTAL SINUSITIS (Primary Dx); COUGH; PNEUMONIA, ORGANISM NOS Social History Tobacco Use Types Packs/Day Years Used Date Smoking Tobacco: Never Assessed Comments Unknown Sex and Gender Information Value Date Recorded Sex Assigned at Not on file Legal Sex Female 5:03 AM SUPERVISOR WET ROOM Gender Identity Not on file Sexual Orientation Not on file documented as of this encounter Plan of Treatment Not on file documented as of this encounter Visit Diagnoses Diagnosis Acute frontal sinusitis- Primary Cough Pneumonia, organism unspecified(486) Pneumonia, organism unspecified documented in this encounter Care Teams Equipment Sterilizer Relationship Specialty Start Date End Date Brayan Fournier MD [address] [place] [phone] PCP - General Family Practice 06/29/18 documented as of this encounter
--- OUTSIDE RECORDS SUMMARY | 2025-03-12 06:41 | XMS_ITS | Encounter Summary ---
Author Organization [facility] Address [address] [place] [address] Care Team Providers Care Curb Setter Helper Name Role Phone Brayan Fournier MD Primary Care Provider [phone] Encounter Details Date Type Department Care Team (Latest Contact Info) Description 09/18/2001 Outpatient Historical [facility] [address] [phone] Eleni Talamantes MD [address], [address] DIABETES UNCOMPL ADULT-TYPE II (CMS/HCC) (Primary Dx) Social History Tobacco Use Types Packs/Day Years Used Date Smoking Tobacco: Never Assessed Comments Unknown Sex and Gender Information Value Date Recorded Sex Assigned at Not on file Legal Sex Female 5:03 AM DROP WIRE HANGER Gender Identity Not on file Sexual Orientation Not on file documented as of this encounter Plan of Treatment Not on file documented as of this encounter Visit Diagnoses Diagnosis Type II or unspecified type diabetes mellitus without mention of complication, not stated as uncontrolled- Primary documented in this encounter Care Teams Curb Setter Helper Relationship Specialty Start Date End Date Brayan Fournier MD [address] [place] [phone] PCP - General Family Practice 06/29/18 documented as of this encounter
--- OUTSIDE RECORDS SUMMARY | 2025-03-12 06:41 | XMS_ITS | Encounter Summary ---
Author Organization [facility] Address [address] [place] [address] Care Team Providers Care Delivery Truck Driver Name Role Phone Brayan Fournier MD Primary Care Provider [phone] Encounter Details Date Type Department Care Team (Latest Contact Info) Description 01/29/2001 Outpatient Historical [facility] [address] [place] [phone] Courtney Crenshaw MD [address] [place] [address] Unspecified hypothyroidism (Primary Dx); Type II or unspecified type diabetes mellitus without mention of complication, not stated as uncontrolled Social History Tobacco Use Types Packs/Day Years Used Date Smoking Tobacco: Never Assessed Comments Unknown Sex and Gender Information Value Date Recorded Sex Assigned at Not on file Legal Sex Female 5:03 AM RESIDENTIAL YOUTH COUNSELOR Gender Identity Not on file Sexual Orientation Not on file documented as of this encounter Plan of Treatment Not on file documented as of this encounter Visit Diagnoses Diagnosis Unspecified hypothyroidism- Primary Type II or unspecified type diabetes mellitus without mention of complication, not stated as uncontrolled documented in this encounter Care Teams Delivery Truck Driver Relationship Specialty Start Date End Date Brayan Fournier MD [address] [place] [phone] PCP - General Family Practice 06/29/18 documented as of this encounter
--- OUTSIDE RECORDS SUMMARY | 2025-03-12 06:41 | XMS_ITS | Encounter Summary ---
Author Organization [facility] Address [address] [place] [address] Care Team Providers Care Ground Products Director Name Role Phone Brayan Fournier MD Primary Care Provider [phone] Encounter Details Date Type Department Care Team (Latest Contact Info) Description 08/07/[address] [facility] [address] [place] [phone] Ruddy Davis MD [address] [place] [phone] ACUTE URI NOS (Primary Dx) Social History Tobacco Use Types Packs/Day Years Used Date Smoking Tobacco: Never Assessed Comments Unknown Sex and Gender Information Value Date Recorded Sex Assigned at Not on file Legal Sex Female 5:03 AM BACKSIDE GRINDER Gender Identity Not on file Sexual Orientation Not on file documented as of this encounter Plan of Treatment Not on file documented as of this encounter Visit Diagnoses Diagnosis Acute upper respiratory infections of unspecified site- Primary documented in this encounter Care Teams Ground Products Director Relationship Specialty Start Date End Date Brayan Fournier MD [address] [place] [phone] PCP - General Family Practice 06/29/18 documented as of this encounter
--- OUTSIDE RECORDS SUMMARY | 2025-03-12 06:41 | XMS_ITS | Encounter Summary ---
Author Organization [facility] Address [address] [place] [address] Care Team Providers Care Electrician Substation Supervisor Name Role Phone Brayan Fournier MD Primary Care Provider [phone] Encounter Details Date Type Department Care Team (Latest Contact Info) Description 08/29/2003 Outpatient Historical [facility] [address] [phone] Eleni Talamantes MD [address], [address] DIABETES UNCOMPL ADULT-TYPE II (CMS/HCC) (Primary Dx) Social History Tobacco Use Types Packs/Day Years Used Date Smoking Tobacco: Never Assessed Comments Unknown Sex and Gender Information Value Date Recorded Sex Assigned at Not on file 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
--- OUTSIDE RECORDS SUMMARY | 2025-03-12 06:41 | XMS_ITS | Encounter Summary ---
Author Organization [facility] Address [address] [place] [address] Care Team Providers Care Hair Cutter Name Role Phone Brayan Fournier MD Primary Care Provider [phone] Encounter Details Date Type Department Care Team (Latest Contact Info) Description 04/29/2000 Outpatient Historical [facility] [address], [place] [phone] Ruddy Davis MD [address] [place] [phone] Need vaccination-viral disease (Primary Dx) Social History Tobacco Use Types Packs/Day Years Used Date Smoking Tobacco: Never Assessed Comments Unknown Sex and Gender Information Value Date Recorded Sex Assigned at Not on file Legal Sex Female 5:03 AM CHILDCARE DIRECTOR Gender Identity Not on file Sexual Orientation Not on file documented as of this encounter Plan of Treatment Not on file documented as of this encounter Visit Diagnoses Diagnosis Need vaccination-viral disease- Primary Need for prophylactic vaccination and inoculation against other viral diseases documented in this encounter Care Teams Hair Cutter Relationship Specialty Start Date End Date Brayan Fournier MD [address] [place] [phone] PCP - General Family Practice 06/29/18 documented as of this encounter
--- OUTSIDE RECORDS SUMMARY | 2025-03-12 06:41 | XMS_ITS | Encounter Summary ---
Author Organization [facility] Address [address] [place] [address] Care Team Providers Care Lpn Instructor Name Role Phone Brayan Fournier MD Primary Care Provider [phone] Encounter Details Date Type Department Care Team (Latest Contact Info) Description 09/08/2001 Outpatient Historical [facility] [address] [place] [phone] Ruddy Davis MD [address] [place] [phone] BRONCOPNEUMONIA ORG NOS (Primary Dx); HYPOTHYROIDISM NOS; DIABETES UNCOMPL ADULT-TYPE II ([facility]) Social History Tobacco Use Types Packs/Day Years Used Date Smoking Tobacco: Never Assessed Comments Unknown Sex and Gender Information Value Date Recorded Sex Assigned at Not on file Legal Sex Female 5:03 AM COP BREAKER Gender Identity Not on file Sexual Orientation Not on file documented as of this encounter Plan of Treatment Not on file documented as of this encounter Visit Diagnoses Diagnosis Bronchopneumonia, organism unspecified- Primary Unspecified hypothyroidism Type II or unspecified type diabetes mellitus without mention of complication, not stated as uncontrolled documented in this encounter Care Teams Lpn Instructor Relationship Specialty Start Date End Date Brayan Fournier MD [address] [place] [phone] PCP - General Family Practice 06/29/18 documented as of this encounter
--- OUTSIDE RECORDS SUMMARY | 2025-03-12 06:41 | XMS_ITS | Encounter Summary ---
Author Organization [facility] Address [address] [place] [address] Care Team Providers Care Scraper Burrer Name Role Phone Brayan Fournier MD Primary Care Provider [phone] Encounter Details Date Type Department Care Team (Latest Contact Info) Description 10/12/1999 Outpatient Historical [address] [phone] Eleni Talamantes MD [address], [address] Plantar fibromatosis (Primary Dx); Exostosis of unspecified site; Unspecified hypothyroidism Social History Tobacco Use Types Packs/Day Years Used Date Smoking Tobacco: Never Assessed Comments Unknown Sex and Gender Information Value Date Recorded Sex Assigned at Not on file Legal Sex Female 5:03 AM PELT SHEARER Gender Identity Not on file Sexual Orientation Not on file documented as of this encounter Plan of Treatment Not on file documented as of this encounter Visit Diagnoses Diagnosis Plantar fibromatosis- Primary Plantar fascial fibromatosis Exostosis of unspecified site Unspecified hypothyroidism documented in this encounter Care Teams Scraper Burrer Relationship Specialty Start Date End Date Brayan Fournier MD [address] [place] [phone] PCP - General Family Practice 06/29/18 documented as of this encounter
--- OUTSIDE RECORDS SUMMARY | 2025-03-12 06:41 | XMS_ITS | Encounter Summary ---
Author Organization [facility] Address [address] Simsn: [place] [address] Care Team Providers Care Ventilated Rib Fitter Name Role Phone Brayan Fournier MD Primary Care Provider [phone] Encounter Details Date Type Department Care Team (Late st Contact Info) Description 09/21/2001 Outpatient Historical Eleni Talamantes MD [address] [place] [address] Social History Tobacco Use Types Packs/Day Years Used Date Smoking Tobacco: Never Assessed Comments Unknown Sex and Gender Information Value Date Recorded Sex Assigned at Not on file Legal Sex Female 5:03 AM COUPON AND BOND COLLECTION CLERK Gender Identity Not on file Sexual Orientation Not on file documented as of this encounter Plan of Treatment Not on file documented as of this encounter Visit Diagnoses Not on filedocumented in this encounter Care Teams Ventilated Rib Fitter Relationship Specialty Start Date End Date Brayan Fournier MD [address], [place] [address] PCP - General Family Practice 06/29/18 documented as of this encounter
--- OUTSIDE RECORDS SUMMARY | 2025-03-12 06:41 | XMS_ITS | Encounter Summary ---
Author Organization [facility] Address [address] [place] [address] Care Team Providers Care Healthcare Educator Name Role Phone Brayan Fournier MD Primary Care Provider [phone] Encounter Details Date Type Department Care Team (Latest Contact Info) Description 03/15/2002 [facility] [address] [phone] Eleni Talamantes MD [address], [address] DIABETES UNCOMPL ADULT-TYPE II (CMS/HCC) (Primary Dx); HYPOTHYROIDISM NOS Social History Tobacco Use Types Packs/Day Years Used Date Smoking Tobacco: Never Assessed Comments Unknown Sex and Gender Information Value Date Recorded Sex Assigned at Not on file Legal Sex Female 5:03 AM RETAIL BEAUTY SPECIALIST Gender Identity Not on file Sexual Orientation Not on file documented as of this encounter Plan of Treatment Not on file documented as of this encounter Visit Diagnoses Diagnosis Type II or unspecified type diabetes mellitus without mention of complication, not stated as uncontrolled- Primary Unspecified hypothyroidism documented in this encounter Care Teams Healthcare Educator Relationship Specialty Start Date End Date Brayan Fournier MD [address] [place] [address] [phone] PCP - General Family Practice 06/29/18 documented as of this encounter
--- OUTSIDE RECORDS SUMMARY | 2025-03-12 06:41 | XMS_ITS | Encounter Summary ---
Author Organization [facility] Address [address] [place] [address] Care Team Providers Care Quarry Manager Name Role Phone Brayan Fournier MD Primary Care Provider [phone] Encounter Details Date Type Department Care Team (Late st Contact Info) Description 05/17/2003 Outpatient Historical [facility] [address] [place] [phone] Ruddy Davis MD [address] [place] [address] Social History Tobacco Use Types Packs/Day Years Used Date Smoking Tobacco: Never Assessed Comments Unknown Sex and Gender Information Value Date Recorded Sex Assigned at Not on file Legal Sex Female 5:03 AM SALT MINER Gender Identity Not on file Sexual Orientation Not on file documented as of this encounter Plan of Treatment Not on file documented as of this encounter Visit Diagnoses Not on filedocumented in this encounter Care Teams Quarry Manager Relationship Specialty Start Date End Date Brayan Fournier MD [address] [place] [phone] PCP - General Family Practice 06/29/18 documented as of this encounter
--- OUTSIDE RECORDS SUMMARY | 2025-03-12 06:41 | XMS_ITS | Encounter Summary ---
Author Organization [facility] Address [address] [place] [address] Care Team Providers Care Coal Hauler Operator Name Role Phone Brayan Fournier MD Primary Care Provider [phone] Encounter Details Date Type Department Care Team (Latest Contact Info) Description 02/10/2003 Outpatient Historical [facility] [address] [place] [address] [phone] Ruddy Davis MD [address] [place] [phone] DIABETES UNCOMPL ADULT-TYPE II (CMS/HCC) (Primary Dx); HYPOTHYROIDISM NOS Social History Tobacco Use Types Packs/Day Years Used Date Smoking Tobacco: Never Assessed Comments Unknown Sex and Gender Information Value Date Recorded Sex Assigned at Not on file Legal Sex Female 5:03 AM PERSONNEL TRAINING OFFICER Gender Identity Not on file Sexual Orientation Not on file documented as of this encounter Plan of Treatment Not on file documented as of this encounter Visit Diagnoses Diagnosis Type II or unspecified type diabetes mellitus without mention of complication, not stated as uncontrolled- Primary Unspecified hypothyroidism documented in this encounter Care Teams Coal Hauler Operator Relationship Specialty Start Date End Date Brayan Fournier MD [address] [place] [address] [phone] PCP - General Family Practice 06/29/18 documented as of this encounter
--- OUTSIDE RECORDS SUMMARY | 2025-03-12 06:41 | XMS_ITS | Encounter Summary ---
Author Organization [facility] Address [address] [place] [address] Care Team Providers Care Clinical Trials Specialist Name Role Phone Brayan Fournier MD Primary Care Provider [phone] Encounter Details Date Type Department Care Team (Latest Contact Info) Description 04/16/2001 Outpatient Historical [facility] Arnold Garcia MD NO ADDRESS ON FILE TEAR MED MENISC KNEE-CURRENT (Primary Dx) Social History Tobacco Use Types Packs/Day Years Used Date Smoking Tobacco: Never Assessed Comments Unknown Sex and Gender Information Value Date Recorded Sex Assigned at Not on file Legal Sex Female 5:03 AM SANDBLASTER STONE Gender Identity Not on file Sexual Orientation Not on file documented as of this encounter Plan of Treatment Not on file documented as of this encounter Visit Diagnoses Diagnosis Tear of medial cartilage or meniscus of knee, current- Primary documented in this encounter Care Teams Clinical Trials Specialist Relationship Specialty Start Date End Date Brayan Fournier MD [address] [place] [phone] PCP - General Family Practice 06/29/18 documented as of this encounter
--- OUTSIDE RECORDS SUMMARY | 2025-03-12 06:41 | XMS_ITS | Encounter Summary ---
Author Organization [facility] Address [address] [place] [address] Care Team Providers Care Smooth Plater Name Role Phone Brayan Fournier MD Primary Care Provider [phone] Encounter Details Date Type Department Care Team (Latest Contact Info) Description 09/21/[address] [place] [address] Javier Goldstein MD [address] [place] [address] [address] [place] [address] Gynecologic examination (Primary Dx); PROLAPSE OF VAGINAL WALL; FEMALE STRESS INCONTINENCE Social History Tobacco Use Types Packs/Day Years Used Date Smoking Tobacco: Never Assessed Comments Unknown Sex and Gender Information Value Date Recorded Sex Assigned at Not on file Legal Sex Female 5:03 AM PRIVACY SPECIALIST Gender Identity Not on file Sexual Orientation Not on file documented as of this encounter Plan of Treatment Not on file documented as of this encounter Visit Diagnoses Diagnosis Gynecologic examination- Primary Gynecological examination Prolapse of vaginal mcfadden without mention of uterine prolapse Female stress incontinence documented in this encounter Care Teams Smooth Plater Relationship Specialty Start Date End Date Brayan Fournier MD [address] [place] [phone] PCP - General Family Practice 06/29/18 documented as of this encounter
--- OUTSIDE RECORDS SUMMARY | 2025-03-12 06:41 | XMS_ITS | Encounter Summary ---
Author Organization [facility] Address [address] [place] [address] Care Team Providers Care Research Professional Name Role Phone Brayan Fournier MD Primary Care Provider [phone] Encounter Details Date Type Department Care Team (Latest Contact Info) Description 02/27/2001 Outpatient Historical [address] [phone] Eleni Talamantes MD [address], [address] Tear of lateral cartilage or meniscus of knee, current (Primary Dx); Type II or unspecified type diabetes mellitus without mention of complication, not stated as uncontrolled; Need vaccination-viral disease Social History Tobacco Use Types Packs/Day Years Used Date Smoking Tobacco: Never Assessed Comments Unknown Sex and Gender Information Value Date Recorded Sex Assigned at Not on file Legal Sex Female 5:03 AM SERVICE LOSS CONTROL CONSULTANT Gender Identity Not on file Sexual [...] diseases documented in this encounter Care Teams Research Professional Relationship Specialty Start Date End Date Brayan Fournier MD [address] [place] [phone] PCP - General Family Practice 06/29/18 documented as of this encounter
--- OUTSIDE RECORDS SUMMARY | 2025-03-12 06:41 | XMS_ITS | Encounter Summary ---
Author Organization [facility] Address [address] [facility] Attn: [place] [address] Care Team Providers Care It Systems Analyst Consultant Name Role Phone Brayan Fournier MD [...] on file Legal Sex Female 5:03 AM PAN SHAKER Gender Identity Not on file Sexual Orientation Not on file documented as of this encounter Plan of Treatment Not on file documented as of this encounter Visit Diagnoses Not on filedocumented in this encounter Care Teams It Systems Analyst Consultant Relationship Specialty Start Date End Date Brayan Fournier MD [address] [place] [phone] PCP - General Family Practice 06/29/18 documented as of this encounter
--- OUTSIDE RECORDS SUMMARY | 2025-03-12 06:41 | XMS_ITS | Encounter Summary ---
Author Organization [facility] Address [address] [place] [address] Care Team Providers Care Well Logging Captain Name Role Phone Brayan Fournier MD Primary Care Provider [phone] Encounter Details Date Type Department Care Team (Latest Contact Info) Description 07/15/2001 Outpatient Historical [facility] [address] [phone] Eleni Talamantes MD [address], [phone] TRACHEA/BRONCHUS DIS NEC (Primary Dx); ACUTE FRONTAL SINUSITIS; PNEUMONIA, ORGANISM NOS Social History Tobacco Use Types Packs/Day Years Used Date Smoking Tobacco: Never Assessed Comments Unknown Sex and Gender Information Value Date Recorded Sex Assigned at Not on file Legal Sex Female 5:03 AM WEARING APPAREL ASSEMBLER Gender Identity Not on file Sexual Orientation Not on file documented as of this encounter Plan of Treatment Not on file documented as of this encounter Visit Diagnoses Diagnosis Other diseases of trachea and bronchus, not elsewhere classified- Primary Acute frontal sinusitis Pneumonia, organism unspecified(486) Pneumonia, organism unspecified documented in this encounter Care Teams Well Logging Captain Relationship Specialty Start Date End Date Brayan Fournier MD [address] [place] [phone] PCP - General Family Practice 06/29/18 documented as of this encounter
--- OUTSIDE RECORDS SUMMARY | 2025-03-12 06:41 | XMS_ITS | Encounter Summary ---
Author Organization [facility] Address [address] [facility] [address] 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
--- OUTSIDE RECORDS SUMMARY | 2025-03-12 06:41 | XMS_ITS | Encounter Summary ---
Author Organization [facility] Address [address] [place] [address] Care Team Providers Care Mental Health Program Manager Name Role Phone Brayan Fournier MD Primary Care Provider [phone] Encounter Details Date Type Department Care Team (Latest Contact Info) Description 02/19/2001 Outpatient Historical [facility] Arnold Garcia MD NO ADDRESS ON FILE Tear of medial cartilage or meniscus of knee, current (Primary Dx); Pain in joint, lower leg Social History Tobacco Use Types Packs/Day Years Used Date Smoking Tobacco: Never Assessed Comments Unknown Sex and Gender Information Value Date Recorded Sex Assigned at Not on file 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
--- OUTSIDE RECORDS SUMMARY | 2025-03-12 06:41 | XMS_ITS | Encounter Summary ---
Author Organization [facility] Address [address] [place] [address] Care Team Providers Care Central Control Room Operator Name Role Phone Brayan Fournier MD Primary Care Provider [phone] Encounter Details Date Type Department Care Team (Latest Contact Info) Description 09/24/1999 Outpatient Historical 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
--- OUTSIDE RECORDS SUMMARY | 2025-03-12 06:41 | XMS_ITS | Encounter Summary ---
Author Organization [facility] Address [address] [place] [address] Care Team Providers Care Powder Compounder Name Role Phone Brayan Fournier MD Primary Care Provider [phone] Encounter Details Date Type Department Care Team (Latest Contact Info) Description 04/01/2001 Outpatient Historical [facility] [address] [phone] Eleni Talamantes MD [address], [address] ABNORM ELECTROCARDIOGRAM (Primary Dx) Social History Tobacco Use Types Packs/Day Years Used Date Smoking Tobacco: Never Assessed Comments Unknown Sex and Gender Information Value Date Recorded Sex Assigned at Not on file 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
--- OUTSIDE RECORDS SUMMARY | 2025-03-12 06:41 | XMS_ITS | Encounter Summary ---
Author Organization [facility] Address [address] [place] [address] Care Team Providers Care Inspector Bicycle Name Role Phone Brayan Fournier MD Primary Care Provider [phone] Encounter Details Date Type Department Care Team (Latest Contact Info) Description 08/24/2002 Outpatient Historical [facility] [address], [place] [phone] Ruddy Davis MD [address] [place] [address] ENLARGEMENT LYMPH NODES (Primary Dx) Social History Tobacco Use Types Packs/Day Years Used Date Smoking Tobacco: Never Assessed Comments Unknown Sex and Gender Information Value Date Recorded Sex Assigned at Not on file 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
--- OUTSIDE RECORDS SUMMARY | 2025-03-12 06:41 | XMS_ITS | Encounter Summary ---
Author Organization [facility] Address [address] 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
--- OUTSIDE RECORDS SUMMARY | 2025-03-12 06:41 | XMS_ITS | Encounter Summary ---
Author Organization [facility] Address [address] [place] [address] Care Team Providers Care Lime Kiln And Recausticizing Operator Name Role Phone Brayan Fournier MD Primary Care Provider [phone] Encounter Details Date Type Department Care Team (Latest Contact Info) Description 01/28/2001 Outpatient Historical [facility] [address] [phone] Eleni Talamantes MD [address], [phone] Pain in joint, lower leg (Primary Dx); Unspecified hypothyroidism; Type II or unspecified type diabetes mellitus without mention of complication, not stated as uncontrolled Social History Tobacco Use Types Packs/Day Years Used Date Smoking Tobacco: Never Assessed Comments Unknown Sex and Gender Information Value Date Recorded Sex Assigned at Not on file 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 Gender Identity Not on file Sexual Orientation Not on file documented as of this encounter Plan of Treatment Not on file documented as of this encounter Visit Diagnoses Diagnosis Pain in joint, lower leg- Primary Unspecified hypothyroidism Type II or unspecified type diabetes mellitus without mention of complication, not stated as uncontrolled documented in this encounter Care Teams Lime Kiln And Recausticizing Operator Relationship Specialty Start Date End Date Brayan Fournier MD [address] [place] [phone] PCP - General Family Practice 06/29/18 documented as of this encounter
--- OUTSIDE RECORDS SUMMARY | 2025-03-12 06:41 | XMS_ITS | Encounter Summary ---
Author Organization [facility] Address [address] [place] [address] Care Team Providers Care Supervisor Elementary Education Name Role Phone Brayan Fournier MD Primary Care Provider [phone] Encounter Details Date Type Department Care Team (Late st Contact Info) Description 02/10/2003 Outpatient Historical [facility] [address] [place] [phone] Ruddy Davis MD [address] [place] [address] Social History Tobacco Use Types Packs/Day Years Used Date Smoking Tobacco: Never Assessed Comments Unknown Sex and Gender Information Value Date Recorded Sex Assigned at Not on file 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
--- OUTSIDE RECORDS SUMMARY | 2025-03-12 06:41 | XMS_ITS | Encounter Summary ---
Author Organization [facility] Address [address] [place] [address] Care Team Providers Care Outpatient Services Director Name Role Phone Brayan Fournier MD Primary Care Provider [phone] Encounter Details Date Type Department Care Team (Latest Contact Info) Description 05/18/[address] 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
--- OUTSIDE RECORDS SUMMARY | 2025-03-12 06:41 | XMS_ITS | Encounter Summary ---
Author Organization [facility] Address [address] [place] [address] Care Team Providers Care Hoe Runner Name Role Phone Brayan Fournier MD Primary Care Provider [phone] Encounter Details Date Type Department Care Team (Latest Contact Info) Description 05/17/2003 Outpatient Historical [facility] [address], [place] [phone] Ruddy Davis MD [address] [place] [address] DIABETES UNCOMPL ADULT-TYPE II (CMS/HCC) (Primary Dx); ENDOCRINE DISORDER NOS; PALPITATIONS Social History Tobacco Use Types Packs/Day Years Used Date Smoking Tobacco: Never Assessed Comments Unknown Sex and Gender Information Value Date Recorded Sex Assigned at Not on file 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
--- OUTSIDE RECORDS SUMMARY | 2025-03-12 06:41 | XMS_ITS | Encounter Summary ---
Author Organization [facility] Address [address] [place] [address] Care Team Providers Care Director Of Dance Name Role Phone Brayan Fournier MD Primary Care Provider [phone] Encounter Details Date Type Department Care Team (Latest Contact Info) Description 03/09/2003 Outpatient Historical [facility] [address] [place] [address] [phone] Ruddy Davis MD [address] [place] [phone] DIABETES UNCOMPL ADULT-TYPE II (CMS/HCC) (Primary Dx); Dietary surveil/intake counselor Social History Tobacco Use Types Packs/Day Years Used Date Smoking Tobacco: Never Assessed Comments Unknown Sex and Gender Information Value Date Recorded Sex Assigned at Not on file Legal Sex Female 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 Gender Identity Not on file Sexual Orientation Not on file documented as of this encounter Plan of Treatment Not on file documented as of this encounter Visit Diagnoses Diagnosis Type II or unspecified type diabetes mellitus without mention of complication, not stated as uncontrolled- Primary Dietary surveil/intake counselor Dietary surveillance and counseling documented in this encounter Care Teams Director Of Dance Relationship Specialty Start Date End Date Brayan Fournier MD [address] [place] [address] [phone] PCP - General Family Practice 06/29/18 documented as of this encounter
--- OUTSIDE RECORDS SUMMARY | 2025-03-12 06:41 | XMS_ITS | Encounter Summary ---
Author Organization [facility] Address [address] [place] [address] Care Team Providers Care Formation Fracturing Operator Name Role Phone Brayan Fournier MD Primary Care Provider [phone] Encounter Details Date Type Department Care Team (Latest Contact Info) Description 09/21/2001 Outpatient [facility] [address] [facility] [address] [place] [address] Boo Jimenez MD NO ADDRESS ON FILE SCREENING MAMM-MAILG NEOPL-OTHER (Primary Dx) Social History Tobacco Use Types Packs/Day Years Used Date Smoking Tobacco: Never Assessed Comments Unknown Sex and Gender Information Value Date Recorded Sex Assigned at Not on file 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
--- OUTSIDE RECORDS SUMMARY | 2025-03-12 06:41 | XMS_ITS | Encounter Summary ---
Author Organization [facility] Address [address] [place] [address] Care Team Providers Care Joint Special Operations Name Role Phone Brayan Fournier MD Primary Care Provider [phone] Encounter Details Date Type Department Care Team (Latest Contact Info) Description 03/05/2000 Outpatient Historical [address] [phone] Eleni Talamantes MD [address], [address] Pain in limb (Primary Dx); Unspecified hypothyroidism; Type II or unspecified type diabetes mellitus without mention of complication, not stated as uncontrolled; Need for prophylactic vaccination with tetanus toxoid alone Social History Tobacco Use Types Packs/Day Years Used Date Smoking Tobacco: Never Assessed Comments Unknown Sex and Gender Information Value Date Recorded Sex Assigned at Not on file 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
--- OUTSIDE RECORDS SUMMARY | 2025-03-12 06:41 | XMS_ITS | Encounter Summary ---
Author Organization [facility] Address [address] [place] [address] Care Team Providers Care Sailboat Captain Name Role Phone Brayan Fournier MD Primary Care Provider [phone] Encounter Details Date Type Department Care Team (Latest Contact Info) Description 08/08/1999 Outpatient Historical [facility] [address] [place] [phone] Ruddy Davis MD [address] [place] [phone] Unspecified viral infection, in conditions classified elsewhere and of unspecified site (Primary Dx) Social History Tobacco Use Types Packs/Day Years Used Date Smoking Tobacco: Never Assessed Comments Unknown Sex and Gender Information Value Date Recorded Sex Assigned at Not on file 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
--- NOTE | 2025-03-12 06:51 | ED_ITS ---
HPI - Neuro Symptoms/Deficit 2 General: Chief Complaint: Neuro Symptoms/Deficit Stated Complaint: WEAKNESS Time Seen by Provider: 03/12/25 06:35 History of Present Illness: 84-year-old female presents emergency ro om via ambulance from local intermediate. senior care had patient sent to the ER for evaluation because a states she was not responding. On arrival here. She is awake responds at her baseline. She is verbal. Patient has significant hearing loss. Per the intermediate she was at her normal baseline when she went to bed last night they noticed the changes when they woke her this morning. On arrival here patient responds to verbal stimuli. She is not much help for history and does not comply or assist with evaluation. Very difficult to assess NIH. On her initial NIH score is 6. Her last known well would be 7 PM last evening. Her NIH score however is largely contributed to by her failure to comply with requests which seems to be more related to her dementia than an actual stroke. Associated symptoms: Deny chest pain Related Data Home Medications ?Medication ?Instructions ?Recorded ?Confirmed mecobalamin (vitamin B12) 1,000 1,000 mcg PO DAILY 02/24/25 mcg chewable tablet aspirin 81 mg tablet,delayed 81 mg PO DAILY 06/18/24 1 release (Adult Aspirin Regimen) ascorbic acid (vitamin C) 1,000 mg 1,000 mg PO DAILY 0 01/15/25 02/24/25 tablet (Vitamin C) cholecalciferol (vitamin D3) 25 25 mcg PO DAILY 02/24/25 mcg (1,000 unit) capsule (Vitamin D3) potassium chloride 10 mEq 10 meq PO DAILY 01/15/2502/10 capsule,extended release vitamin E 670 mg (1,000 unit) 670 mg PO DAILY 01/15/25 02/24/25 capsule Previous Rx's ?Medication ?Instructions ?Recorded flash glucose scanning reader #1 ea 11/15/22 (FreeStyle Ghada 2 [place]) flash glucose sensor (FreeStyle #6 ea 11/15/22 Ghada 2 Sensor kit) citalopram 20 mg tablet 20 mg PO DAILY #90 tabs 06/20 12/10 galantamine 4 mg tablet 4 mg PO BID 90 days #180 tab s 07/15/24 meclizine 25 mg tablet 25 mg PO DAILY PRN vertigo # 30 tabs 07/26/24 clopidogrel 75 mg tablet See Rx Instructions .Route 0 09/27/24 .COMPLEX #90 tabs amlodipine 5 mg tablet 5 mg PO DAILY #90 tabs 11/18 losartan 25 mg tablet 25 mg PO BID #90 tabs insulin glargine 100 unit/mL (3 10 unit (0.1 mL) SUBCU T DAILY 30 01/17/25 mL) subcutaneous pen (Basaglar days #15 mL KwikPen U-100 Insulin) insulin lispro 100 unit/mL See Rx Instructions .Route 01/17/25 subcutaneous solution (Humalog .COMPLEX #10 mL U-100 Insulin) levothyroxine 100 mcg tablet See Rx Instructions .Rout e 01/20/25 .COMPLEX #90 tabs Allergies Allergy/AdvReac Type Severity Reaction Status Date / Time Penicillins Allergy Intermediate swelling Verified 02/24/25 10:55 left arm Sulfa (Sulfonamide Allergy Mild yeast Verified 02/24/25 10:55 Antibiotics) infection Review of Systems 2 Const: Denies: fever(s) or chills Card: Denies: chest pain Resp: Denies: dyspnea GI: Denies: abdominal pain : Denies: dysuria, urinary frequency or urinary urgency Musc: Denies: neck pain or back pain Skin/Breast: Denies: rash PFSH ED 2 PFSH: Medical History Hypertension Hypercholesterolemia Type 2 diabetes mellitus History of TIA (transient ischemic attack) Hypothyroidism Bleeding internal hemorrhoids Surgical History S/P colonoscopy Family History Mother Cancer Other Diabetes Social History Smoking and tobacco/nicotine status: never used tobacco/nicotine Alcohol intake: never NIH stroke score 2 NIHSS: Level Of Consciousness - 1a: 2 Level Of Consciousness Questions - 1b: Neither Correct Level Of Consciousness Commands - 1c: One Correct Best Gaze - 2: Normal Visual Hackett - 3: No Visual Loss Facial Palsy - 4: N ormal Motor Arm Right - 5: No Drift Motor Arm Left - 5: No Drift Motor Leg Right - 6: No Drift Motor Leg Left - 6: No Drift Limb Ataxia - 7: A bsent Sensory - 8: Normal Best Language - 9: No Aphasia Dysarthia - 10: Mild/Moderate Dysarthia Extinction And Inattention - 11: 0 Score: Total Score: 6 Physical Exam 2 Const: COMMON NORMALS: no acute distress GENERAL APPEARANCE: cooperative and comfortable ORIENTATION/CONSCIOUSNESS: Yes awake HENMT: COMMON NORMALS: normocephalic, atraumatic and hearing grossly normal bilaterally HEAD & SCALP: normocephalic and atraumatic Resp: COMMON NORMALS: normal respiratory effort, No retractions, No use of accessory muscles and clear to auscultation bilaterally AUSCULTATION: clear to auscultation bilaterally Cardio: COMMON NORMALS: regular rate, regular rhythm and No murmurs present (Cardio) RATE: regular rate RHYTHM: regular rhythm GI: COMMON NORMALS: Soft to palpation and No hepatosplenomegaly present A USCULTATION: Yes normoactive bowel sounds PALPATION: Yes Soft to palpation, No Tenderness to palpation present (GI), No Guarding due to palpation present (GI) and Yes No hepatosplenomegaly present OTHER: Indwelling Lange. Cholecystectomy tube with bilious appearing drainage. No signs of erythema at the entrance site of the cholecystectomy tube. Extremity: COMMON NORMALS: normal to inspection, capillary refill normal, no clubbing, cyanosis or edema, no calf tenderness and no pedal edema Skin: COMMON NORMALS: no rashes or lesions noted GENERAL SKIN EXAM: no rashes or lesions noted Course 2 Vital Signs: Vital signs: Vital Signs Pulse Rate 82 03/12/25 07:47 Respiratory Rate 14 03/12/25 07:47 Blood Pressure 157/64 03/12/25 07:47 Pulse Oximetry 98 03/12/25 07:47 Oxygen Delivery Me thod Room Air 03/12/25 06:45 MDM - Neuro Symptoms/Deficit Medical Decision Making Patient seen on initial arrival. Stroke score is 6. She has dementia. The majority of her NIH points are due to her dementia. Will evaluate as per stroke protocol. However her last known well is 11-1/2 hours ago. Other possible causes of reported altered mental status include worsening of her dementia or infection. Discussed Dr. Fuchs is on-call for stroke alert and both agree not to proceed with an MRI. Patient is 13 hours out. To the extent she does have a positive NIH score the majority of it is due to her dementia. She has known previous ischemic disease. Suspect coursing on the CT is old. In the event it is new she has no significant deficits. Because of her dementia she cannot meaningfully participate in rehab. There would be no other intervention. If there is further concern the MRI could be done at a later date. Discussed Dr. Fuchs she is in agreement. Patient does have cholecystectomy tube and indwelling Lange. She has signs of cystitis on her urine however we checked at the intermediate she has recently been started on amoxicillin for this and is being followed by primary care doctor no adjustments were made to the regimen. Lab Data 03/12/25 07:03 03/12/25 07:03 Radiology Impressions Chest X-Ray 03/12/25 06:36 IMPRESSION: No acute findings. Head CT 03/12/25 06:54 IMPRESSION: Somewhat focal hypodensity high in the left frontal lobe may be related to adjacent white matter disease from chronic small vessel ischemic changes. However, a focal area of acute ischemia is not entirely excluded. This could be further assessed with MRI brain without contrast if warranted. ASSESSMENT: ASPECTS ([place] Stroke Program Early CT Score) is 10. ADDENDUM: 03/12/25 07 THIS REPORT CONTAINS FINDINGS THAT MAY BE CRITICAL TO PATIENT CARE. The findings were verbally communicated via telephone conference with HAN SANCHEZ at 7:25 AM CDT on 03/12/2025. The findings were acknowledged and understood. Laboratory Results WBC 8.53 10^3/uL (3.29-11.43) 03/12/25 07:03 RBC 3.44 10^6/uL (3.85-5.65) L 03/12/25 07:03 Hgb 9.80 g/dL (11.27-16.99) L 03/12/25 07:03 Hct 32.3 % (36-47) L 03/12/25 07:03 MCV 93.9 fl (85-98) 03/12/25 07:03 MCH 28.5 pg (27-33) 03/12/25 07:03 MCHC 30.3 g/dL (30-55) 03/12/25 07:03 RDW 17.7 % (12.1-15.1) H 03/12/25 07:03 Plt Count 412 10^3/cmm (157-399) H 03/12/25 07:03 MPV 9.8 fL (7.4-10.4) 03/12/25 07:03 Neut % (Auto) 68.4 % 03/12/25 07:03 Lymph % (Auto) 18.6 % 03/12/25 07:03 Tift % (Auto) 8.4 % 03/12/25 07:03 Eos % (Auto) 2.0 % 03/12/25 07:03 Baso % (Auto) 0.1 % 03/12/25 07:03 Neut # (Auto) 5.83 10^3/uL (1.8-7.7) 03/12/25 07:03 Lymph # (Auto) 1.6 10^3/uL (0.8-4.8) 03/12/25 07:03 Tift # (Auto) 0.7 10^3/uL (0.2-0.9) 03/12/25 07:03 Eos # (Auto) 0.2 10^3/uL (0.0-0.8) 03/12/25 07:03 Baso # (Auto) 0.0 10^3/uL (0.0-0.1) 03/12/25 07:03 Nucleated RBC % (auto) 0 % 03/12/25 07:03 Nucleated RBCs # 0.0 /100WBC 03/12/25 07:03 PT 16.60 SECONDS (12.1-14.9) H 03/12/25 07:03 INR 1.25 (0.8-1.2) H 03/12/25 07:03 APTT 31.0 SECONDS (23.9-36.7) 03/12/25 07:03 Sodium 136 mmol/L (136-145) 03/12/25 07:03 Potassium 4.4 mmol/L (3.5-5.1) 03/12/25 07:03 Chloride 100 mmol/L (98-107) 03/12/25 07:03 Carbon Dioxide 24 mmol/L (22-29) 03/12/25 07:03 Anion Gap 16.4 (5-19) 03/12/25 07:03 BUN 17 mg/dL (8-23) 03/12/25 07:03 Creatinine 0.8 mg/dL (0.5-0.9) 03/12/25 07:03 GFR Calculation Not Reportable 03/12/25 07:03 Glucose 175 mg/dL (65-115) H 03/12/25 07:03 POC Glucose 166 mg/dL (70-110) H 03/12/25 07:25 Calculated Osmolality 288 mOsm/kg (285-295) 03/12/25 07:03 Calcium 8.9 mg/dL (8.5-10.5) 03/12/25 07:03 Total Bilirubin 0.8 mg/dL (0.15-1.2) 03/12/25 07:03 AST 21 U/L (0-32) 03/12/25 07:03 ALT 22 U/L (0-33) 03/12/25 07:03 Alkaline Phosphatase 132 U/L (35-105) H 03/12/25 07:03 Total Protein 6.2 g/dL (6.6-8.7) L 03/12/25 07:03 Albumin 3.1 g/dL (3.5-5.2) L 03/12/25 07:03 Globulin 3.1 g/dL (1.3-4.6) 03/12/25 07:03 Urine Color Dark yellow (Yellow) A 03/12/25: Urine Appearance Cloudy (CLEAR) A 03/12/25: Urine pH 5.0 (5-7) 03/12/25: Ur Specific [place] 1.031 (1.005-1.030) H 03/12/25: Urine Protein 1+ (Negative) A 03/12/25: Urine Glucose (UA) Trace (Normal) H 03/12/25: Urine Ketones Negative (Negative) 03/12/25: Urine Blood 2+ (Negative) A 03/12/25 Urine Nitrate Negative (Negative) 03/12/25: Urine Bilirubin Negative (Negative) 03/12/25: Urine Urobilinogen 1.0 mg/dL (Negative) 03/12/25: Ur Leukocyte Esterase 1+ (Negative) A 03/12/25: Urine RBC >100 /hpf (0-2) H 03/12/25 07:27 Urine WBC >100 /hpf (0-5) H 03/12/25 07:27 Ur Squamous Epith Cells 0-5 /hpf (0-5) 03/12/25 07:27 Amorphous Sediment Not Reportable 03/12/25 07:27 Urine Bacteria None seen /hpf (NONE) 03/12/25 07:27 Hyaline Casts 16.12 /lpf 03/12/25 07:27 Urine Yeast 2+ /hpf H 03/12/25 07:27 Urine Opiates Screen Negative ng/mL (Negative) 03/12/25 07:27 Ur Barbiturates Screen Negative ng/mL (Negative) 03/12/25 07:27 Ur Phencyclidine Scrn Negative ng/mL (Negative) 03/12/25 07:27 Ur Amphetamines Screen Negative ng/mL (Negative) 03/12/25 07:27 U Benzodiazepines Scrn Negative ng/mL (Negative) 03/12/25 07:27 Urine Cocaine Screen Negative ng/mL (Negative) 03/12/25 07:27 U Marijuana (THC) Screen Negative ng/mL (Negative) 03/12/25 07:27 All radiology interpretation(s) finalized by discharge EKG Data EKG 1: I personally reviewed and interpreted this EKG as follows: EKG interpretation date: 03/12/25 Prior EKG tracings: available for review Interpretation: EKG 03/12/2025 7:22 AM sinus rhythm no acute ST changes rate of 73. [place] [address] changes no significant change from EKG done 01/15/2025 Discharge Plan Discharge Patient Disposition: Home Clinical Impression: History of CVA (cerebrovascular accident), Cystitis, Anemia Multi-infarct dementia Qualifiers: Dementia severity: severe Dementia behavioral or psychological symptom: with mood disturbance Qualified Code(s): F01.C3 - Vascular dementia, severe, with mood disturbance Condition: Stable Prescriptions: No Action galantamine 4 mg tablet 4 mg PO BID 90 Days Qty: 180 3RF Rx Instructions: administer with AM and PM meals. 340B citalopram 20 mg tablet 20 mg PO DAILY Qty: 90 3RF mecobalamin (vitamin B12) 1,000 mcg tablet,chewable 1,000 mcg PO DAILY (DME) FreeStyle Ghada 2 Sensor Kit See Rx Instructions .Route Qty: 6 1RF Rx Instructions: As directed (DME) FreeStyle Ghada 2 [place] [facility] [place] See Rx Instructions .Route Qty: 1 0RF Rx Instructions: As directed aspirin [Adult Aspirin Regimen] 81 mg tablet,delayed release (DR/EC) 81 mg PO DAILY meclizine 25 mg tablet 25 mg PO DAILY PRN (Reason: vertigo) Qty: 30 0RF amlodipine 5 mg tablet 5 mg PO DAILY Qty: 90 3RF clopidogrel 75 mg tablet See Rx Instructions .ROUTE .COMPLEX Qty: 90 1RF Dose Instruction: TAKE 1 TABLET BY MOUTH ONCE DAILY Rx Instructions: TAKE 1 TABLET BY MOUTH ONCE DAILY losartan 25 mg tablet 25 mg PO BID Qty: 90 3RF levothyroxine 100 mcg tablet See Rx Instructions .ROUTE .COMPLEX Qty: 90 0RF Dose Instruction: TAKE 1 TABLET BY MOUTH ONCE DAILY Rx Instructions: TAKE 1 TABLET BY MOUTH ONCE DAILY vitamin E 670 mg (1,000 unit) Capsule 670 mg PO DAILY ascorbic acid (vitamin C) [Vitamin C] 1,000 mg Tablet 1,000 mg PO DAILY potassium chloride 10 mEq Capsule, Extended Release 10 meq PO DAILY cholecalciferol (vitamin D3) [Vitamin D3] 25 mcg (1,000 unit) Capsule 25 mcg PO DAILY insulin lispro [Humalog U-100 Insulin] 100 unit/mL Solution See Rx Instructions .ROUTE .COMPLEX Qty: 10 0RF Rx Instructions: Inject, subcut, three times daily after meals, based on low dose insulin sliding scale insulin glargine [Basaglar KwikPen U-100 Insulin] 100 unit/mL (3 mL) insulin pen 10 unit SUBCUT DAILY 30 Days Qty: 15 5RF Discharge Orders: Discharge ED (Routine); Ordered 03/12/25 Ordered By: Han Sanchez Referrals: Vanesa Quinn FNP [Primary Care Provider, Nurse Practitioner] Patient Instructions: Opioid Safety, Pain Management, Patient Portal & [place]ro Instructions Activity Restrictions/Additional Instructions: Thank you for choosing [facility] for your healthcare needs today. It is very important that you follow up as instructed or that you return to the Emergency Department should you have concerns or if your condition changes or worsens in any way. Emergency department visits are focused on emergent conditions, in some cases you may require further evaluation on an outpatient basis. You were seen in the emergency room with reports of altered mental status. Evaluation there are no definitive signs of a new stroke at this time. There was signs of a cystitis which we had checked with the intermediate you are currently on antibiotics for this. CT shows areas of old stroke. We reviewed with the on-call neurologist they do not recommend any further imaging continue current medications. (Please note that included in your discharge packet is information concerning opioid safety and pain management. This information is given to all patients were discharged from the ER regardless of their discharge diagnosis or the medicines they usually take or are prescribed.) Print Language: [place]i Coding Level of Care Code ED Bounty Trapper for Corina Huynh
--- NOTE | 2025-03-12 06:54 | CTR_ITS ---
PROCEDURE INFORMATION: Exam: CT Head Without Contrast Exam date and time: 03/12/2025 7:06 AM Age: 84 years old Clinical indication: Stroke-like symptoms; Altered mental status/memory loss; Additional info: Symptoms of acute stroke TECHNIQUE: Imaging protocol: Computed tomography of the head without contrast. Radiation optimization: All CT scans at this facility use at least one of these dose optimization techniques: automated exposure control; mA and/or kV adjustment per patient size (includes targeted exams where dose is matched to clinical indication); or iterative reconstruction. Other technique: STROKE PROTOCOL was implemented. COMPARISON: MR head wo/w con [id number] 08/30/2022 1:20 PM RADIATION DOSE METRICS: Total DLP (mGy-cm): 1064.98 FINDINGS: Brain: Moderate generalized cortical volume loss. No hemorrhage. Periventricular and subcortical white matter hypodensities likely represent chronic small vessel ischemic changes. An additional somewhat focal area of hypodensity is seen high in the left frontal lobe. No mass effect. Cerebral ventricles: Prominent ventricles related to volume loss. Paranasal sinuses: Visualized sinuses are unremarkable. No fluid levels. Mastoid air cells: Visualized mastoid air cells are well aerated. Orbital cavities: Bilateral lens replacements. Bones: Unremarkable. No acute fracture. Soft tissues: Unremarkable. CT/CT head thrombolytic [id number] IMPRESSION: Somewhat focal hypodensity high in the left frontal lobe may be related to adjacent white matter disease from chronic small vessel ischemic changes. However, a focal area of acute ischemia is not entirely excluded. This could be further assessed with MRI brain without contrast if warranted. ASSESSMENT: ASPECTS ([place] Stroke Program Early CT Score) is 10.
[2025-03-12 07:10] LABS: Hematocrit 32.3 % (36-47); Hemoglobin 9.80 g/dL (11.27-16.99); Mean Corpuscular HGB Conc 30.3 g/dL (30-55); Mean Corpuscular Hemoglobin 28.5 pg (27-33); Mean Corpuscular Volume 93.9 fl (85-98); Nucleated Red Blood Cells % 0 %; Platelet Count 412 10^3/cmm (157-399); Red Blood Count 3.44 10^6/uL (3.85-5.65); White Blood Count 8.53 10^3/uL (3.29-11.43)
--- NOTE | 2025-03-12 07:22 | ECG_ITS ---
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
[2025-03-12 07:32] LABS: Alanine Aminotransferase 22 U/L (0-33); Albumin Level 3.1 g/dL (3.5-5.2); Alkaline Phosphatase 132 U/L (35-105); Anion Gap 16.4 (5-19); Aspartate Amino Transferase 21 U/L (0-32); Blood Urea Nitrogen 17 mg/dL (8-23); Calcium 8.9 mg/dL (8.5-10.5); Carbon Dioxide 24 mmol/L (22-29); Chloride 100 mmol/L (98-107); Creatinine Clr Calc Pharmacy 56.8528; Globulin 3.1 g/dL (1.3-4.6); Glucose 175 mg/dL (65-115); Osmolality Calculated 288 mOsm/kg (285-295); Potassium 4.4 mmol/L (3.5-5.1); Sodium 136 mmol/L (136-145); Total Protein 6.2 g/dL (6.6-8.7)
[2025-03-12 07:35] LABS: Glucose Urine UA Trace (Normal); Nitrate Urine Negative (Negative)
[2025-03-12 07:39] LABS: Add Urine Microscopic? YES
[2025-03-12 07:45] LABS: PCP Screen Urine Negative (Negative)
[2025-03-12 07:45] LABS: INR 1.25 (0.8-1.2); Prothrombin Time 16.60 SECONDS (12.1-14.9)
[2025-03-12 07:46] LABS: Partial Thromboplastin Time 31.0 SECONDS (23.9-36.7)
[2025-03-12 07:48] LABS: Specific Gravity, Urine 1.031 (1.005-1.030); UA Slide Review UA Slide Review Perf
--- NOTE | 2025-03-12 07:51 | PC.NURSE ---
pt has hx of stroke, unknown if baseline deficits.
--- NOTE | 2025-03-12 08:53 | PC.NURSE ---
This nurse gave report back to Alie at [facility] @ [phone]
== END 2025-03-12 10:49 | disposition home or self-care (01) ==
PROVIDERS: Emergency Provider Family Medicine; PCP Nurse Practitioner
DX: N30.90 Cystitis, unspecified without hematuria (principal); D64.9 Anemia, unspecified; F01.C3 Vascular dementia, severe, with mood disturbance; Z86.73 Personal history of transient ischemic attack (TIA), and cerebral infarction without residual deficits; Z79.82 Long term (current) use of aspirin; Z79.02 Long term (current) use of antithrombotics/antiplatelets; Z79.4 Long term (current) use of insulin; E11.9 Type 2 diabetes mellitus without complications; I10 Essential (primary) hypertension
CPT/HCPCS: 36416; 70450; 71045; 80053; 80306; 81001; 82962; 85025; 85610; 85730; 87086; 93005; 99285